=== PATIENT | male | born 1945 | race Caucasian/White ===

== ENCOUNTER 2017-04-22 16:29 | Inpatient (IN) | payer MEDICARE, OTHER, SELFPAY ==
[2017-04-22] VITALS (13 sets, daily range): BP systolic 86–130; BP diastolic 51–95; PULSE 79–168; RESP 14–30; TEMP 36.6–37.8; O2SAT 87–100; BMI 29.0; BMI 26.2
--- NOTE | 2017-04-22 17:01 | RAD_ITS ---
STUDY: X-RAY CHEST REASON FOR EXAM: Male, 71 years old. Cough, illness. TECHNIQUE: AP and lateral views of the chest. COMPARISON: Portable AP erect chest x-ray December 12, 2012. FINDINGS: The lungs are incompletely expanded. Patchy densities consistent with inflammation/infection noted in the left perihilar region and left base on the frontal view, likely in the left upper lobe and lingula. There is no demonstrated pleural abnormality. Normal size heart. Normal mediastinum and karthik. Normal visualized pulmonary arteries. There is stable mild atherosclerotic calcification of the aortic arch. There are stable mild degenerative changes of the visualized thoracic spine. There is a stable 10 degree dextroscoliosis centered at T7. Normal visualized ribs, clavicles, and shoulders. There is no demonstrated abnormality of the visualized soft tissue structures of the upper abdomen. RAD/Chest PA and Lateral IMPRESSION: Patchy left perihilar and left base infiltrates. Electronically Signed: Ezio Vinson MD at 18:36 EST , Service support ,
[2017-04-22] MEDS: Ipratropium/Albuterol Sulfate 3 ML AMPUL.NEB INHALATION ×2 (17:28→23:35)
[2017-04-22 17:47] LABS: Absolute Lymphocyte Count 0.38 X10^3/ul (0.83-4.51); Absolute Neutrophil Count 4.5 X10^3/uL (2.0-7.7); Basophil# 0.02 X10^3/uL; Basophil% 0.3 % (0-1); Hematocrit 39.7 % (40-54); Hemoglobin 13.5 g/dl (13.0-16.5); Lymphocyte # 0.38 X10^3/ul (4.0); Lymphocyte % 6.3 % (19-41); Mean Corpuscular Hgb 27.4 pg (27.0-32.0); Mean Corpuscular Volume 80.7 fL (80-94); Mean Platelet Vol. 11.1 fl (6.2-12.0); Monocyte# 1.09 X10^3/uL; Neutrophil % 74.6 % (47-70); Platelet Count 88 K/mm3 (150-450); RBC Distribution Width CV 14.9 % (11.6-14.6); Red Blood Count 4.92 M/mm3 (4.6-6.2)
[2017-04-22 17:48] LABS: Anion Gap 8 (5-15); BUN 46 mg/dL (7-18); BUN/Creat Ratio 26.4 RATIO (10-20); Calcium,Total 8.1 mg/dL (8.5-10.1); Chloride 99 mmol/L (98-107); Creatinine, Serum 1.74 mg/dL (0.70-1.30); EST Glomerular Filtration Rate 41 mL/min (>60); Est Glom Filt Rate - Afr Amer 50 mL/min (>60); Glucose 112 mg/dL (70-110); Potassium 3.5 mmol/L (3.5-5.1); Sodium Level 135 mmol/L (136-145)
[2017-04-22 17:51] LABS: POSITIVE COUNT NO; POSITIVE DIFFERENTIAL YES; POSITIVE MORPHOLOGY YES
[2017-04-22 17:52] LABS: Differential Indicated SCAN CRITERIA MET
[2017-04-22 17:53] LABS: Lactic Acid 1.7 mmol/L (0.4-2.0)
[2017-04-22 18:11] LABS: Differential Comment SCANNED
[2017-04-22] MEDS: Acetaminophen 500 MG Tablet 1000 MG PO (18:12)
[2017-04-22] MEDS: 0.9% Normal Saline 1,000 ML 999 ML IV ×2 (18:13→18:29)
--- NOTE | 2017-04-22 18:15 | ED.RN ---
HR UP TO 170-200. DR. TANG AWARE. CALLED FOR EKG. PT DENIES CHEST PAIN BUT FEELS LIGHTHEADED.
--- NOTE | 2017-04-22 18:18 | EKG12_ITS ---
Test Reason : CP Blood Pressure : / mmHG Vent. Rate : 173 BPM Atrial Rate : 197 BPM P-R Int : 000 ms QRS Dur : 088 ms QT Int : 250 ms P-R-T Axes : 000 022 046 degrees QTc Int : 424 ms Atrial fibrillation Nonspecific ST abnormality Abnormal ECG Confirmed by EDMUNDO BLAKE, FREDDIE ([id number]), photo editor SREE FLEMING ([id number] on 04/26/2017 3:13:51 PM Referred By: TONIA Confirmed By:FREDDIE WYATT MD
[2017-04-22] MEDS: dilTIAZem 25 MG/5 ML Vial 20 MG IV BOLUS (18:22)
--- NOTE | 2017-04-22 18:45 | ED.RN ---
CALLED [facility], THEY SAID THEY WILL CALL BACK.
[2017-04-22] MEDS: Ceftriaxone 1 GM/50 ML BAG IV (18:50)
[2017-04-22] MEDS: Oseltamivir Phosphate 75 MG Capsule PO (18:51)
--- NOTE | 2017-04-22 19:10 | ED.RN ---
[facility] CALLED BACK TO STAY PT IS OKAY TO STAY HERE UNDER HIS MEDICARE.
[2017-04-22] MEDS: APIXABAN 5 MG TABLET PO (19:15)
[2017-04-22] MEDS: Metoprolol Tartrate 50 MG Tablet PO (19:16)
[2017-04-22] MEDS: MethylPREDNISolone 125 MG/2 ML Vial IV (19:36)
[2017-04-22] MEDS: Albuterol 2.5 MG/3 ML VIAL.NEB. INHALATION (19:36)
--- NOTE | 2017-04-22 20:49 | ED.VISSUMM ---
- ER Visit Summary Date of Service: 04/22/17 Chief Complaint: Cough History of Present Illness: The patient is a 71 M who goes to the [facility]. He reports he has a cough that began 5 days ago. He has had a fever to 103?. He is also complaining of chills and cold sweats. States his cough is productive of cream-colored sputum without blood. He has moderate shortness of breath at rest and severe when he is walking around or coughing. He has been wheezing. States that he has not needed an inhaler for approximately 3 years. He does not smoke. Patient points of diffuse myalgias and generalized weakness. He has a headache that is bothersome. He did not get a flu shot this year. Physical Examination: Vitals: Stable. Afebrile. General: Well-nourished and well-developed. Head: Normocephalic atraumatic. Neck: Supple, no lymphadenopathy. No JVD. Nontender. Cardiovascular: Tachycardic regular rhythm. No murmurs. Respiratory: No respiratory distress. Mild wheezing bilaterally with good air movement. Abdominal: Soft, nontender, nondistended, normal bowel sounds. No guarding, rebound, or peritoneal signs. Back: Nontender. Extremities: Nontender, no edema. Skin: Normal color, no rash. Neurologic: Alert and oriented ?3. Cranial nerves II through XII are intact. Normal strength and sensation. Psych: Normal affect. Test Results: EKG is A. fib at 173. No ischemic changes. Chest x-ray shows patchy left perihilar and left basilar infiltrates. CBC is marked for hematocrit of 39.7, platelets of 88, segment neutrophils 75, lymphocytes of 6, monocytes of 18. Chem-7 is marked for sodium 135, calcium 8.1, glucose 112, BUN of 46, creatinine 1.74. Lactic acid is 1.7. He is positive for influenza B. Emergency Department Course and Treatment: Patient was in sinus rhythm in a rate in the 1 teens upon arrival. He went into atrial fibrillation with RVR here. His rate was between 170 and 200. He had not taken his evening dose of Lopressor and he was given 50 mg p.o. He was given 10 mg of Cardizem IV. He received 2 L of normal saline. He was also given his evening dose of Eliquis p.o. His shortness of breath became much more severe during this and I discussed him the possibility of cardioversion. He refused this. The patient was placed on BiPAP and given another albuterol aerosol. He was given a dose of amiodarone IV. Is given Rocephin and Zithromax IV. He was given Tamiflu p.o. His heart rate gradually decreased down into the 1 teens and he has now converted back to sinus rhythm. His breathing is much improved and he is resting comfortably. Treatment Plan: The patient was discussed with the [facility] and they do not have beds. He was then discussed with Dr. Hill and will be admitted to the hospital for further evaluation and treatment. Disposition: Admitted in serious condition. Impression: 1. Pneumonia, community-acquired. 2. Influenza B. 3. Immunosuppression from Enbrel. 4. Atrial fibrillation with RVR. 5. Coagulopathy due to Eliquis. 6. Acute kidney injury. 7. Respiratory failure on BiPAP. 8. Critical care time 45 minutes. This note was generated with [employer] dictation software. It may contain incorrect words, spelling, and punctuation that were not noted in review of the chart prior to signing ED Disposition - Plan for ED Patient: Chief Complaint: General Illness Referrals: [facility] [Primary Care Provider] -
--- NOTE | 2017-04-22 21:57 | PCM.HP.STD ---
Problem List (1) Rheumatoid arthritis Status: Chronic Qualifiers: Rheumatoid arthritis location: unspecified site Rheumatoid factor presence: unspecified presence Qualified Code(s): M06.9 - Rheumatoid arthritis, unspecified (2) GERD (gastroesophageal reflux disease) Status: Chronic Qualifiers: Esophagitis presence: esophagitis presence not specified Qualified Code(s): K21.9 - Gastro-esophageal reflux disease without esophagitis (3) PAF (paroxysmal atrial fibrillation) Status: Chronic (4) HTN (hypertension) Status: Chronic Qualifiers: Hypertension type: essential hypertension Qualified Code(s): I10 - Essential (primary) hypertension (5) Former tobacco use Status: Chronic (6) Suspected chronic obstructive pulmonary disease based on initial evaluation Status: Chronic (7) Influenza B Status: Acute (8) Pneumonia Status: Acute Qualifiers: Pneumonia type: due to unspecified organism Laterality: left Lung location: unspecified part of lung Qualified Code(s): J18.9 - Pneumonia, unspecified organism (9) COPD exacerbation Status: Acute (10) Acute respiratory failure with hypoxia Status: Acute (11) Atrial fibrillation with RVR Status: Acute (12) Acute kidney injury Status: Acute History of Present Illness Date of Admission: 04/22/17 Chief Complaint: Dyspnea, cough, congestion, rhinorrhea, diarrhea. The patient is a 71 y/o M w/ PMHx: PAF s/p cardiac ablation several years prior, HTN, Former Heavy Tobacco use, Suspected Chronic COPD, GERD, Rheumatoid Arthritis who presents to the [facility] ED on 04/22/17 w/ history of onset cough, congestion, rhinorrhea, dyspnea worsened w/ exertion, arthralgia, myalgia in addition to diarrhea and poor oral intake starting ~ 5 days prior, not improving with worsened dyspnea complaint and onset wheezing prompting ED presentation. He notes not having the influenza vaccination this year. In the ED work-up included, T 99, HR initially tachycardic 110-120s sinus rhythm; however, HR increased 170-200 with EKG repeat atrial fibrillation with RVR, following administration BB, Cardizem IV bolus and eventual Amiodarone bolus converted to SR with rate 80s, RR 30s initially-->20 with BIPAP, 87% on RA-->98% on BIPAP, CBC w/ WBC 6, Hgb 13.5, Plts 88 without marked L shift, BMP w/ Na 135, BUN/Cr 46/1.74, glucose 112, LA 1.7, CXR w/ patch L perihilar and left base infiltrates, influenza panel + B, pending Bld Cx x 2. In the ED patient administered NS 2L, Tamiflu 75 mg, lopressor 50 mg po x 1 (home dose), solumedrol 125 mg IV, cardizem 20 mg IV bolus, rocephin, azithromycin, amiodarone 150 mg bolus x 1, duoneb, albuterol, tylenol. Past Medical History Past Medical History (Chronic Problems): Chronic Problems History of atrial fibrillation (Chronic) History of gastroesophageal reflux (GERD) (Chronic) History of rheumatoid arthritis (Chronic) Rheumatoid arthritis (Chronic) GERD (gastroesophageal reflux disease) (Chronic) PAF (paroxysmal atrial fibrillation) (Chronic) HTN (hypertension) (Chronic) Former tobacco use (Chronic) Suspected chronic obstructive pulmonary disease based on initial evaluation (Chronic) Allergies methotrexate Allergy (Verified 04/22/17 16:33) Other doxycycline Adverse Reaction (Verified 04/22/17 16:33) Nausea/Vom/Diarrhea Home Medications: Ambulatory Orders Medication Instructions Recorded Ca/D3/Mag Ox/Zinc/Portfolio Manager/Vin/Bor 1 each PO DAILY 11/27/15 [Calcium +D & Minerals Chew Tab] Etanercept [Enbrel] 50 mg SQ Q7D 11/27/15 Leflunomide [Arava] 20 mg PO DAILY 11/27/15 Omeprazole [Prilosec] 20 mg PO DAILY 11/27/15 Apixaban [Eliquis] 5 mg PO BID 04/22/17 Hydrochlorothiazide [Hctz] 25 mg PO DAILY 04/22/17 Losartan Potassium [Cozaar] 50 mg PO DAILY 04/22/17 Metoprolol Tartrate [Lopressor 50 mg PO BID 04/22/17 (Beta Suzanne)] Ruxolitinib Phosphate [Jakafi] 20 mg PO BID 04/22/17 Surgical History: cholecystectomy, - - Back surgery, cardiac ablation. Psychiatric History: No pertinent psych hx Lives: Spouse/ Significant Other, With Family Smoking Status: Former smoker - Quit 2009, prior 1-2 ppd mcc. Tobacco Use: Non-smoker Alcohol: None Drugs: None - *Family History Paternal History Items: Heart Disease Maternal History Items: - - Mother young, unclear etiology. Review of Systems Constitutional: Reports: Anorexia, Chills, Fever, Malaise, Weakness, Fatigue. Denies: Weight Change HEENT: Denies: Head Aches, Sinus Congestion, Sinus Drainage Cardiovascular: Denies: Chest Pain, Palpitations Respiratory: Reports: Cough, Shortness of Breath, Shortness of breath at rest, Shortness of breath upon exertion, Sputum production, Wheezing Gastrointestinal: Reports: Diarrhea, Nausea. Denies: Abdominal Pain, Vomiting Genitourinary: Denies: Dysuria Musculoskeletal: Denies: Joint Pain, Joint Tenderness Skin: Denies: Rash, Wounds Neurological: Denies: Numbness, Tingling, Focal weakness Psychiatric: Denies: Anxiety, Depression, Homicidal Ideations, Suicidal Ideations Hematologic/ Lymphatic: Denies: Easy Bruising, Easy Bleeding VTE Information - Inpt Only VTE Present on Admission: No VTE Mechan Device Prophylaxis: SCD's VTE Pharm Prophylaxis ordered?: No Patient Problems: Active and Suspected Problems Influenza B (Acute) Pneumonia (Acute) COPD exacerbation (Acute) Acute respiratory failure with hypoxia (Acute) Atrial fibrillation with RVR (Acute) Acute kidney injury (Acute) Subjective: Seated upright in the ED bed, BIPAP in place, improved from initial presentation, still increased RR, some accessory muscle usage. Objective: Physical Examination: General: awake, alert, oriented x 3 and cooperative, seated upright in the ED bed, fatigued, ill appearing, BIPAP in place, still some accessory muscle usage, increased RR. Skin: Flushed color, turgor, no icterus, cyanosis. HEENT: AT/NC, EOMI, PERRLA, dry MM, no carotid bruits or JVD noted, BIPAP in place. Lungs: Severely diminished BL bases, coarse BS L mid to base, end expiratory wheezing, increased RR, accessory muscle usage, BIPAP in place. Heart: Currently improved, now converted, regular rate and rhythm; no gallop, rub audible. Abdomen: soft, overweight, NTTP, ND, normal BS, no HSM. Extremities: no cyanosis, clubbing, or edema. Neurological: patient awake, alert, oriented x 3; cognitive function intact; pupils equally reactive to light and accomodation; cranial nerves II-XII grossly normal, moving all 4 extremities, no focal deficits, strength severely globally decreased secondary to acute presentation. Psychiatric: affect appears flat, fatigued, no acute evidence of depressive or anxiety feelings. - Physical Exam Vital Signs Temp Pulse Resp BP Pulse Ox 99 F 86 23 H 102/66 97 04/22/17 21:29 04/22/17 21:35 04/22/17 21:35 04/22/17 21:35 04/22/17 21:35 Oxygen Flow Rate 2 Oxygen Delivery Method Bi-pap Weight: 197 lb Body Mass Index (BMI) 29.0 Microbiology Past 72 Hours 04/22/17 17:30 Influenza Types A,B Direct FA (SASCHA) - Final Mucosa - Nose Influenzae B Laboratory Tests Past 24 Hrs 04/22/17 04/22/17 04/22/17 17:15 17:17 17:17 WBC 6.0 RBC 4.92 Hgb 13.5 Hct 39.7 L MCV 80.7 MCH 27.4 MCHC 34.0 RDW 14.9 H RDW Differential 43.0 Plt Count 88 L MPV 11.1 Immature Gran % (Auto) 0.800 Neut % (Auto) 74.6 H Lymph % (Auto) 6.3 L Spencer % (Auto) 18.0 H Eos % (Auto) 0.0 Baso % (Auto) 0.3 Absolute Neuts (auto) 4.5 Absolute Lymphs (auto) 0.38 L Total Counted Not Reportable Differential Comment SCANNED Sodium 135 L Potassium 3.5 Chloride 99 Carbon Dioxide 28.0 Anion Gap 8 BUN 46 H Creatinine 1.74 H Estim Creat Clear Calc 39.50 Est GFR (MDRD) Af Amer 50 L Est GFR (MDRD) Non-Af 41 L BUN/Creatinine Ratio 26.4 H Glucose 112 H Lactic Acid 1.7 Calcium 8.1 L Assessment/Plan Active and Suspected Problems Influenza B (Acute) Pneumonia (Acute) COPD exacerbation (Acute) Acute respiratory failure with hypoxia (Acute) Atrial fibrillation with RVR (Acute) Acute kidney injury (Acute) The patient is a 71 y/o M w/ PMHx: PAF s/p cardiac ablation several years prior, HTN, Former Heavy Tobacco use, Suspected Chronic COPD, GERD, Rheumatoid Arthritis who presents to the [facility] ED on 04/22/17 w/ history of onset cough, congestion, rhinorrhea, dyspnea worsened w/ exertion, arthralgia, myalgia in addition to diarrhea and poor oral intake starting ~ 5 days prior, not improving with worsened dyspnea complaint and onset wheezing prompting ED presentation. (1) Acute Hypoxic Respiratory Failure secondary to Acute Influenza B Viral Syndrome and post-viral Syndrome CAP and Acute on Suspected Chronic COPD Exacerbation: Will admit to the ICU, maintain on BIPAP w/ transition to oxygen with wean as tolerated to room air, continue ATC duonebs, PRN albuterol, maintain on IV solumedrol, maintain on IV Zosyn and Vancomycin given severity of appearance w/ ICU admission and underlying history of RA on immunosuppressive therapy pending ICU physician evaluation and possible de-escalation at that time, obtain MRSA screen, HOB, IS parameters w/ pending sputum cultures and urine antigens. Bld cx x 2 obtained in the ED. Given severity of appearing, will maintain on tamiflu regimen. (2) Paroxsymal atrial fibrillation w/ RVR: Will maintain on telemetry, obtain cardiac enzyme serial set, obtain magnesium level, obtain ECHO, obtain TSH level, continue amiodarone given current presentation likelihood elevated for return to PAF w/ RVR, maintain on home oral anticoagulation, consultation with Cardiology. (3) Acute kidney injury: Secondary to #1, GI losses w/ influenza B. Admission BUN/Cr 46/1.74, prior baseline creatinine noted to be 1.2-1.3. Will hydrate, hold nephrotoxic medications and repeat chemistry in AM. If no improvement would plan FeNa and renal US assessment. (4) Former Heavy Tobacco Abuse: Encouraged continued cessation. (5) Hypertension: Hold regimen given presentation, PRN hydralazine. (6) Rheumatoid Arthritis: Will hold regimen given current presentation, restart once clinically improving. (7) GERD: Famotidine. (8) DVT Prophylaxis: SCDs, eliquis. (9) CODE status: Discussed CODE status at length including difference between FULL code, DNR-CCA and DNR-CC status given acute presentation and BIPAP needs currently. Patient did clinically improve, but was potential need for intubation initially. He and his spouse confirm FULL CODE status following these discussions. Advanced Care Planning Face to Face Time: 16 minutes. Code Visit Inpatient E&M: 31727 Init Hosp L3 Procedures: 77066 Advncd Care Plan 30 Min
--- NOTE | 2017-04-22 22:07 | HP.PCM_ITS ---
Problem List (1) Rheumatoid arthritis Status: Chronic Qualifiers: Rheumatoid arthritis location: unspecified site Rheumatoid factor presence : unspecified presence Qualified Code(s): M06.9 - Rheumatoid arthritis, unspecified (2) GERD (gastroesophageal reflux disease) Status: Chronic Qualifiers: Esophagitis presence: esophagitis presence not specified Qualified Code(s) : K21.9 - Gastro-esophageal reflux disease without esophagitis (3) PAF (paroxysmal atrial fibrillation) Status: Chronic (4) HTN (hypertension) Status: Chronic Qualifiers: Hypertension type: essential hypertension Qualified Code(s): I10 - Essential (primary) hypertension (5) Former tobacco use Status: Chronic (6) Suspected chronic obstructive pulmonary disease based on initial evaluation Status: Chronic (7) Influenza B Status: Acute (8) Pneumonia Status: Acute Qualifiers: Pneumonia type: due to unspecified organism Laterality: left Lung location: unspecified part of lung Qualified Code(s): J18.9 - Pneumonia, unspecified organism (9) COPD exacerbation Status: Acute (10) Acute respiratory failure with hypoxia Status: Acute (11) Atrial fibrillation with RVR Status: Acute (12) Acute kidney injury Status: Acute History of Present Illness Date of Admission: 04/22/17 Chief Complaint: Dyspnea, cough, congestion, rhinorrhea, diarrhea. The patient is a 71 y/o M w/ PMHx: PAF s/p cardiac ablation several years prior , HTN, Former Heavy Tobacco use, Suspected Chronic COPD, GERD, Rheumatoid Arthritis who presents to the [facility] ED on 04/22/17 w/ history of onset cough, congestion, rhinorrhea, dyspnea worsened w/ exertion, arthralgia, myalgia in addition to diarrhea and poor oral intake starting ~ 5 days prior, not improving with worsened dyspnea complaint and onset wheezing prompting ED presentation. He notes not having the influenza vaccination this year. In the ED work-up included, T 99, HR initially tachycardic 110-120s sinus rhythm; however, HR increased 170-200 with EKG repeat atrial fibrillation with RVR, following administration BB, Cardizem IV bolus and eventual Amiodarone bolus converted to SR with rate 80s, RR 30s initially-->20 with BIPAP, 87% on RA-->98 % on BIPAP, CBC w/ WBC 6, Hgb 13.5, Plts 88 without marked L shift, BMP w/ Na 135, BUN/Cr 46/1.74, glucose 112, LA 1.7, CXR w/ patch L perihilar and left base infiltrates, influenza panel + B, pending Bld Cx x 2. In the ED patient administered NS 2L, Tamiflu 75 mg, lopressor 50 mg po x 1 (home dose), solumedrol 125 mg IV, cardizem 20 mg IV bolus, rocephin, azithromycin, amiodarone 150 mg bolus x 1, duoneb, albuterol, tylenol. Past Medical History Past Medical History (Chronic Problems): Chronic Problems History of atrial fibrillation (Chronic) History of gastroesophageal reflux (GERD) (Chronic) History of rheumatoid arthritis (Chronic) Rheumatoid arthritis (Chronic) GERD (gastroesophageal reflux disease) (Chronic) PAF (paroxysmal atrial fibrillation) (Chronic) HTN (hypertension) (Chronic) Former tobacco use (Chronic) Suspected chronic obstructive pulmonary disease based on initial evaluation ( Chronic) Allergies methotrexate Allergy (Verified 04/22/17 16:33) Other doxycycline Adverse Reaction (Verified 04/22/17 16:33) Nausea/Vom/Diarrhea Home Medications: Ambulatory Orders Medication Instructions Recorded Ca/D3/Mag Ox/Zinc/Environmental Services Specialist/Vin/Bor 1 each PO DAILY 11/27/15 [Calcium +D & Minerals Chew Tab] Etanercept [Enbrel] 50 mg SQ Q7D 11/27/15 Leflunomide [Arava] 20 mg PO DAILY 11/27/15 Omeprazole [Prilosec] 20 mg PO DAILY 11/27/15 Apixaban [Eliquis] 5 mg PO BID 04/22/17 Hydrochlorothiazide [Hctz] 25 mg PO DAILY 04/22/17 Losartan Potassium [Cozaar] 50 mg PO DAILY 04/22/17 Metoprolol Tartrate [Lopressor 50 mg PO BID 04/22/17 (Beta Suzanne)] Ruxolitinib Phosphate [Jakafi] 20 mg PO BID 04/22/17 Surgical History: cholecystectomy, - - Back surgery, cardiac ablation. Psychiatric History: No pertinent psych hx Lives: Spouse/ Significant Other, With Family Smoking Status: Former smoker - Quit 2009, prior 1-2 ppd mcfp. Tobacco Use: Non-smoker Alcohol: None Drugs: None - *Family History Paternal History Items: Heart Disease Maternal History Items: - - Mother young, unclear etiology. Review of Systems Constitutional: Reports: Anorexia, Chills, Fever, Malaise, Weakness, Fatigue. Denies: Weight Change HEENT: Denies: Head Aches, Sinus Congestion, Sinus Drainage Cardiovascular: Denies: Chest Pain, Palpitations Respiratory: Reports: Cough, Shortness of Breath, Shortness of breath at rest, Shortness of breath upon exertion, Sputum production, Wheezing Gastrointestinal: Reports: Diarrhea, Nausea. Denies: Abdominal Pain, Vomiting Genitourinary: Denies: Dysuria Musculoskeletal: Denies: Joint Pain, Joint Tenderness Skin: Denies: Rash, Wounds Neurological: Denies: Numbness, Tingling, Focal weakness Psychiatric: Denies: Anxiety, Depression, Homicidal Ideations, Suicidal Ideations Hematologic/ Lymphatic: Denies: Easy Bruising, Easy Bleeding VTE Information - Inpt Only VTE Present on Admission: No VTE Mechan Device Prophylaxis: SCD's VTE Pharm Prophylaxis ordered?: No Patient Problems: Active and Suspected Problems Influenza B (Acute) Pneumonia (Acute) COPD exacerbation (Acute) Acute respiratory failure with hypoxia (Acute) Atrial fibrillation with RVR (Acute) Acute kidney injury (Acute) Subjective: Seated upright in the ED bed, BIPAP in place, improved from initial presentation , still increased RR, some accessory muscle usage. Objective: Physical Examination: General: awake, alert, oriented x 3 and cooperative, seated upright in the ED bed, fatigued, ill appearing, BIPAP in place, still some accessory muscle usage , increased RR. Skin: Flushed color, turgor, no icterus, cyanosis. HEENT: AT/NC, EOMI, PERRLA, dry MM, no carotid bruits or JVD noted, BIPAP in place. Lungs: Severely diminished BL bases, coarse BS L mid to base, end expiratory wheezing, increased RR, accessory muscle usage, BIPAP in place. Heart: Currently improved, now converted, regular rate and rhythm; no gallop, rub audible. Abdomen: soft, overweight, NTTP, ND, normal BS, no HSM. Extremities: no cyanosis, clubbing, or edema. Neurological: patient awake, alert, oriented x 3; cognitive function intact; pupils equally reactive to light and accomodation; cranial nerves II-XII grossly normal, moving all 4 extremities, no focal deficits, strength severely globally decreased secondary to acute presentation. Psychiatric: affect appears flat, fatigued, no acute evidence of depressive or anxiety feelings. - Physical Exam Vital Signs Temp Pulse Resp BP Pulse Ox 99 F 86 23 H 102/66 97 04/22/17 21:29 04/22/17 21:35 04/22/17 21:35 04/22/17 21:35 04/22/17 21:35 Oxygen Flow Rate 2 Oxygen Delivery Method Bi-pap Weight: 197 lb Body Mass Index (BMI) 29.0 Microbiology Past 72 Hours 04/22/17 17:30 Influenza Types A,B Direct FA (SASCHA) - Final Mucosa - Nose Influenzae B Laboratory Tests Past 24 Hrs 04/22/17 04/22/17 04/22/17 17:15 17:17 17:17 WBC 6.0 RBC 4.92 Hgb 13.5 Hct 39.7 L MCV 80.7 MCH 27.4 MCHC 34.0 RDW 14.9 H RDW Differential 43.0 Plt Count 88 L MPV 11.1 Immature Gran % (Auto) 0.800 Neut % (Auto) 74.6 H Lymph % (Auto) 6.3 L [place] % (Auto) 18.0 H Eos % (Auto) 0.0 Baso % (Auto) 0.3 Absolute Neuts (auto) 4.5 Absolute Lymphs (auto) 0.38 L Total Counted Not Reportable Differential Comment SCANNED Sodium 135 L Potassium 3.5 Chloride 99 Carbon Dioxide 28.0 Anion Gap 8 BUN 46 H Creatinine 1.74 H Estim Creat Clear Calc 39.50 Est GFR (MDRD) Af Amer 50 L Est GFR (MDRD) Non-Af 41 L BUN/Creatinine Ratio 26.4 H Glucose 112 H Lactic Acid 1.7 Calcium 8.1 L Assessment/Plan Active and Suspected Problems Influenza B (Acute) Pneumonia (Acute) COPD exacerbation (Acute) Acute respiratory failure with hypoxia (Acute) Atrial fibrillation with RVR (Acute) Acute kidney injury (Acute) The patient is a 71 y/o M w/ PMHx: PAF s/p cardiac ablation several years prior , HTN, Former Heavy Tobacco use, Suspected Chronic COPD, GERD, Rheumatoid Arthritis who presents to the [facility] ED on 04/22/17 w/ history of onset cough, congestion, rhinorrhea, dyspnea worsened w/ exertion, arthralgia, myalgia in addition to diarrhea and poor oral intake starting ~ 5 days prior, not improving with worsened dyspnea complaint and onset wheezing prompting ED presentation. (1) Acute Hypoxic Respiratory Failure secondary to Acute Influenza B Viral Syndrome and post-viral Syndrome CAP and Acute on Suspected Chronic COPD Exacerbation: Will admit to the ICU, maintain on BIPAP w/ transition to oxygen with wean as tolerated to room air, continue ATC duonebs, PRN albuterol, maintain on IV solumedrol, maintain on IV Zosyn and Vancomycin given severity of appearance w/ ICU admission and underlying history of RA on immunosuppressive therapy pending ICU physician evaluation and possible de- escalation at that time, obtain MRSA screen, HOB, IS parameters w/ pending sputum cultures and urine antigens. Bld cx x 2 obtained in the ED. Given severity of appearing, will maintain on tamiflu regimen. (2) Paroxsymal atrial fibrillation w/ RVR: Will maintain on telemetry, obtain cardiac enzyme serial set, obtain magnesium level, obtain ECHO, obtain TSH level , continue amiodarone given current presentation likelihood elevated for return to PAF w/ RVR, maintain on home oral anticoagulation, consultation with Cardiology. (3) Acute kidney injury: Secondary to #1, GI losses w/ influenza B. Admission BUN/Cr 46/1.74, prior baseline creatinine noted to be 1.2-1.3. Will hydrate, hold nephrotoxic medications and repeat chemistry in AM. If no improvement would plan FeNa and renal US assessment. (4) Former Heavy Tobacco Abuse: Encouraged continued cessation. (5) Hypertension: Hold regimen given presentation, PRN hydralazine. (6) Rheumatoid Arthritis: Will hold regimen given current presentation, restart once clinically improving. (7) GERD: Famotidine. (8) DVT Prophylaxis: SCDs, eliquis. (9) CODE status: Discussed CODE status at length including difference between FULL code, DNR-CCA and DNR-CC status given acute presentation and BIPAP needs currently. Patient did clinically improve, but was potential need for intubation initially. He and his spouse confirm FULL CODE status following these discussions. Advanced Care Planning Face to Face Time: 16 minutes. Code Visit Inpatient E&M: 79096 Init Hosp L3 Procedures: 33455 Advncd Care Plan 30 Min
--- NOTE | 2017-04-22 23:00 | ECHOD_ITS ---
Reason For Study: Afib, Aflutter Procedure This was a 2D Doppler, Color Flow transthoracic echocardiogram. The exam was of fair technical quality due to diminished acoustic windows. The study was technically difficult. Exam performed portable in ICU/CCU. Left Ventricle Normal LV size. Left ventricular systolic function is normal. The estimated ejection fraction is 60 %. No regional wall motion abnormalities noted. Right Ventricle Normal RV size. Normal systolic function. Atria The left atrium is mildly enlarged. Normal right atrium. No doppler evidence for ASD. Mitral Valve There is mild mitral annular calcification. Mild diffuse mitral valve thickening. Trivial mitral valve insufficiency. Tricuspid Valve Normal tricuspid valve. Trivial tricuspid valve insufficiency. Right ventricular systolic pressure estimated to be 16 mmHg. Aortic Valve Trisinus/trileaflet aortic valve. Mild diffuse aortic valve calcification. Mild aortic stenosis. Mild (1+) aortic valve insufficiency. Pulmonic Valve The pulmonic valve is not well visualized. Trivial pulmonic valve insufficiency. Great Vessels Normal sized aortic root. Pericardium/Pleural No pericardial effusion. MMode/2D Measurements & Calculations LVIDd: 4.5 cm IVSd: 1.2 cm LVOT diam: 2.1 cm LVIDs: 2.9 cm LVPWd: 1.1 cm LVOT area: 3.4 cm2 RVDd: 3.7 cm FS: 35.1 % Ao root diam: 3.0 cm LAV(MOD-bp): 39.1 ml LA A4 area: 15.6 cm2 LA dimension: 3.9 cm LAV(MOD-bp) Indexed: 19.4 ml/m2 LAV(MOD-sp2): 37.7 ml LAV(MOD-sp4): 38.1 ml RA A4 area: 10.4 cm2 Doppler Measurements & Calculations MV E max pedro: 115.9 cm/sec Lat Peak E' Pedro: 11.9 cm/sec Med Peak E' Pedro: 7.5 cm/sec MV A max pedro: 94.4 cm/sec E/E' lat: 9.7 E/E' med: 15.5 MV E/A: 1.2 Ao V2 max: 218.7 cm/sec LV V1 max: 115.5 cm/sec SV(LVOT): 79.3 ml Ao max P.1 mmHg LV V1 max P.3 mmHg Ao V2 mean: 150.6 cm/sec LV V1 mean P.0 mmHg Ao mean P.0 mmHg LV V1 mean: 82.2 cm/sec Ao V2 VTI: 44.0 cm LV V1 VTI: 23.1 cm JOHN(I,D): 1.8 cm2 JOHN(V,D): 1.8 cm2 PA V2 max: 103.0 cm/sec TR max pedro: 179.6 cm/sec TR max P.0 mmHg Interpretation Summary The study was technically difficult. Left ventricular systolic function is normal. The estimated ejection fraction is 60 %. The left atrium is mildly enlarged. There is mild mitral annular calcification. Mild diffuse mitral valve thickening. Trivial mitral valve insufficiency. Trivial tricuspid valve insufficiency. Mild diffuse aortic valve calcification. Mild (1+) aortic valve insufficiency. Trivial pulmonic valve insufficiency. Right ventricular systolic pressure estimated to be 16 mmHg. Transmitral diastolic flow velocities suggest diastolic dysfunction (pseudonormal pattern). Ordering Physician: Myra Hill Referring Physician: [facility] Performed By: Monique Mendoza, RON, RVT
[2017-04-22 23:35] LABS: Magnesium 2.1 mg/dL (1.6-2.6); Thyroid Stim Hormone (TSH) 0.31 uIU/mL (0.358-3.74)
--- NOTE | 2017-04-22 23:42 | CPS ---
decreased IPAP for pt comfort
[2017-04-22] MEDS: 0.9% Normal Saline 1,000 ML 125 ML IV (23:53)
[2017-04-23] VITALS (38 sets, daily range): BP systolic 100–163; BP diastolic 50–87; PULSE 67–95; RESP 14–32; TEMP 36.2–36.7; O2SAT 94–100
[2017-04-23 01:17] LABS: T4 Free Direct 1.18 ng/dL (0.76-1.46)
[2017-04-23 02:02] LABS: M R Staph aureus DNA By PCR Negative (Negative); Probe Check PASS; Specimen Processing Control PASS
[2017-04-23] MEDS: Ipratropium/Albuterol Sulfate 3 ML AMPUL.NEB INHALATION ×5 (03:45→23:10)
[2017-04-23] MEDS: 0.9% NaCl IVPB Med Flush (250 mL) 15 ML IV ×2 (04:50→04:52)
--- NOTE | 2017-04-23 04:57 | CON.PCM_ITS ---
Reason for Consult Date of Consultation: 04/23/17 Reason for Consultation: Respiratory failure History of Present Illness: The patient is a 71-year-old male, with a history as outlined below, who presented to the emergency department on April 22 with generalized malaise, fever, myalgias, productive cough and progressive dyspnea. The patient does have an extensive smoking history of upwards of 2 packs per day, having quit completely approximately 8 years ago. He has suspected COPD, although there are no PFTs to refute or confirm this assertion. Patient does report that he follows with [place] [facility] [place]. He does not reportedly utilize any inhalers in his home environment, nor is he oxygen dependent at his baseline. The patient does have a confirmed history of lower extremity DVT, noted on Doppler studies from November 2015. Surface echocardiogram last completed in December 2012 revealed evidence of moderate concentric LVH with an ejection fraction of 60%. Right ventricular systolic pressure was estimated to be 24 mmHg. The patient did report the presence of diarrhea prior to his presentation to the hospital. He is now been without diarrheal complaints ?2 days. On presentation to the emergency department, the patient was noted to be febrile with a temperature of 100.1 degrees Fahrenheit. He was tachycardic, but remained hemodynamically stable. The patient was documented to initially be saturating 87% on room air. Initial laboratory evaluation revealed a normal white blood cell count. Chemistry profile was notable for an elevated creatinine 1.74. TSH was low at 0.31 with a normal free T4 level noted. There was a mild troponin elevation which peaked at 0.11. MRSA screen was negative. Plain film chest x-ray revealed evidence of a left basilar infiltrate. While in the emergency department, the patient was noted to be in atrial fibrillation with a rapid ventricular rate. The patient was given IV Cardizem along with 2 L of normal saline. Although his rates climbed as high as the 170s/180s, and discussion was had regarding cardioversion, the patient refused to proceed. The patient was subsequently started on amiodarone and broad-spectrum antibiotics. Given the tenuous nature of his respiratory status, BiPAP was initiated. The patient was then transferred to the medical intensive care unit for ongoing management. Of note, the patient's respiratory viral panel was positive for influenza B. No significant overnight issues were identified by the nursing staff. The patient has been maintained on BiPAP 14/8 cm of water with an FiO2 of 35%. Strep and urine Legionella antigens were found to both be negative. Past Medical History Past Medical History (Chronic Problems): Chronic Problems History of atrial fibrillation (Chronic) History of gastroesophageal reflux (GERD) (Chronic) History of rheumatoid arthritis (Chronic) Rheumatoid arthritis (Chronic) GERD (gastroesophageal reflux disease) (Chronic) PAF (paroxysmal atrial fibrillation) (Chronic) HTN (hypertension) (Chronic) Former tobacco use (Chronic) Suspected chronic obstructive pulmonary disease based on initial evaluation ( Chronic) Allergies methotrexate Allergy (Verified 04/22/17 16:33) Other doxycycline Adverse Reaction (Verified 04/22/17 16:33) Nausea/Vom/Diarrhea Home Medications: Ambulatory Orders Medication Instructions Recorded Ca/D3/Mag Ox/Zinc/Retail Product Advisor/Vin/Bor 1 each PO DAILY 11/27/15 [Calcium +D & Minerals Chew Tab] Etanercept [Enbrel] 50 mg SQ Q7D 11/27/15 Leflunomide [Arava] 20 mg PO DAILY 11/27/15 Omeprazole [Prilosec] 20 mg PO DAILY 11/27/15 Apixaban [Eliquis] 5 mg PO BID 04/22/17 Hydrochlorothiazide [Hctz] 25 mg PO DAILY 04/22/17 Losartan Potassium [Cozaar] 50 mg PO DAILY 04/22/17 Metoprolol Tartrate [Lopressor 50 mg PO BID 04/22/17 (Beta Suzanne)] Ruxolitinib Phosphate [Jakafi] 20 mg PO BID 04/22/17 Surgical History: cholecystectomy, - - Back surgery, cardiac ablation. Psychiatric History: No pertinent psych hx Lives: Spouse/ Significant Other, With Family Smoking Status: Former smoker Tobacco Use: Non-smoker Alcohol: None Drugs: None - *Family History Paternal History Items: Heart Disease Maternal History Items: - - Mother young, unclear etiology. Review of Systems Constitutional: Reports: Malaise, Fatigue Eyes: Denies: Blurred vision, Double vision HEENT: Denies: Head Aches, Sinus Congestion, Sinus Drainage Cardiovascular: Reports: Chest Tightness Respiratory: Reports: Cough, Shortness of Breath, Sputum production, Wheezing Gastrointestinal: Reports: Diarrhea. Denies: Abdominal Pain, Vomiting Genitourinary: Denies: Dysuria Musculoskeletal: Denies: Joint Pain, Joint Tenderness Skin: Denies: Rash, Wounds Neurological: Denies: Numbness, Tingling, Focal weakness Psychiatric: Denies: Anxiety, Depression, Homicidal Ideations, Suicidal Ideations Hematologic/ Lymphatic: Reports: Hx of blood clot Patient Problems: Active and Suspected Problems Influenza B (Acute) Pneumonia (Acute) COPD exacerbation (Acute) Acute respiratory failure with hypoxia (Acute) Atrial fibrillation with RVR (Acute) Acute kidney injury (Acute) Objective: The patient's most recent lab work, culture data and imaging studies have all been personally reviewed. Strep and urine Legionella antigens were both negative. Rapid influenza screen was positive for influenza B. Blood and sputum cultures are pending. The patient does have a confirmed history of lower extremity DVT, noted on Doppler studies from November 2015. Surface echocardiogram last completed in December 2012 revealed evidence of moderate concentric LVH with an ejection fraction of 60%. Right ventricular systolic pressure was estimated to be 24 mmHg. Plain film chest x-ray on admission revealed evidence of a left basilar infiltrate. - Physical Exam General: Alert, Cooperative, No apparent distress, - - Currently tolerating BiPAP. No significant air leak noted. HEENT: Atraumatic, PERRLA, Normocephalic Oral: No Gingival or Mucosal Lesions/ Ulcerations, Dry Mucosa Neck: Supple, No Nodes, Trachea Midline Lungs: No rhonchi, No wheeze, No rales, Diminished, - - No conversational dyspnea or accessory muscle use. Cardiovascular: Regular rate, Regular Rhythm, Normal S1, Normal S2, No murmurs, - - The patient is currently in normal sinus rhythm on telemetry. Abdomen: Bowel Sounds Present, Soft, Non Tender Extremities: No clubbing, No cyanosis, No edema, Cool Skin: No rashes, No breakdown Musculoskeletal: No Tenderness to Palpation of Joints or Extremities, No Muscle Wasting Lymphatic: No Cervical, Supraclavicular, or Inguinal Adenopathy Neurological: Neuro grossly intact Psych/Mental Status: Normal Affect, Appropriate Vital Signs Temp Pulse Resp BP Pulse Ox 97.9 F 75 18 100/61 100 04/23/17 00:00 04/23/17 04:00 04/23/17 04:00 04/23/17 03:00 04/23/17 04:00 Oxygen Delivery Method Bi-pap Weight: 187 lb 13.341 oz Body Mass Index (BMI) 26.2 Intake and Output for Last 24 Hours 04/21/17 04/22/17 04/23/17 23:59 23:59 23:59 Intake Total 0 / 0 Balance 0 / 0 Laboratory Tests Past 24 Hrs 04/22/17 04/23/17 04/23/17 22:50 00:00 00:00 Troponin I 0.11 H Free T4 1.18 MRSA (PCR) Negative 04/23/17 04:15 Troponin I Pending Free T4 MRSA (PCR) Labs (Last 48 Hours) 04/22/17 04/22/17 04/22/17 17:15 17:17 17:17 WBC 6.0 RBC 4.92 Hgb 13.5 Hct 39.7 L MCV 80.7 MCH 27.4 MCHC 34.0 RDW 14.9 H RDW Differential 43.0 Plt Count 88 L MPV 11.1 Immature Gran % (Auto) 0.800 Neut % (Auto) 74.6 H Lymph % (Auto) 6.3 L [place] % (Auto) 18.0 H Eos % (Auto) 0.0 Baso % (Auto) 0.3 Absolute Neuts (auto) 4.5 Absolute Lymphs (auto) 0.38 L Total Counted Not Reportable Differential Comment SCANNED Sodium 135 L Potassium 3.5 Chloride 99 Carbon Dioxide 28.0 Anion Gap 8 BUN 46 H Creatinine 1.74 H Estim Creat Clear Calc 39.50 Est GFR (MDRD) Af Amer 50 L Est GFR (MDRD) Non-Af 41 L BUN/Creatinine Ratio 26.4 H Glucose 112 H Lactic Acid 1.7 Calcium 8.1 L Magnesium Troponin I TSH Free T4 MRSA (PCR) 04/22/17 04/22/17 04/23/17 17:17 22:50 00:00 WBC RBC Hgb Hct MCV MCH MCHC RDW RDW Differential Plt Count MPV Immature Gran % (Auto) Neut % (Auto) Lymph % (Auto) [place] % (Auto) Eos % (Auto) Baso % (Auto) Absolute Neuts (auto) Absolute Lymphs (auto) Total Counted Differential Comment Sodium Potassium Chloride Carbon Dioxide Anion Gap BUN Creatinine Estim Creat Clear Calc Est GFR (MDRD) Af Amer Est GFR (MDRD) Non-Af BUN/Creatinine Ratio Glucose Lactic Acid Calcium Magnesium 2.1 Troponin I 0.11 H TSH 0.31 L Free T4 MRSA (PCR) Negative 04/23/17 04/23/17 00:00 04:15 WBC RBC Hgb Hct MCV MCH MCHC RDW RDW Differential Plt Count MPV Immature Gran % (Auto) Neut % (Auto) Lymph % (Auto) [place] % (Auto) Eos % (Auto) Baso % (Auto) Absolute Neuts (auto) Absolute Lymphs (auto) Total Counted Differential Comment Sodium Potassium Chloride Carbon Dioxide Anion Gap BUN Creatinine Estim Creat Clear Calc Est GFR (MDRD) Af Amer Est GFR (MDRD) Non-Af BUN/Creatinine Ratio Glucose Lactic Acid Calcium Magnesium Troponin I 0.08 H TSH Free T4 1.18 MRSA (PCR) Microbiology 04/23/17 03:45 Urine, Clean Catch Streptococcus pneumoniae Antigen (M - Final 04/23/17 03:45 Urine, Clean Catch Legionella Antigen - Final 04/22/17 17:30 Mucosa - Nose Influenza Types A,B Direct FA (SASCHA) - Final Influenzae B Clinical Impression(s) from Imaging Studies Chest X-Ray 04/22/17 17:01 IMPRESSION: Patchy left perihilar and left base infiltrates. Electronically Signed: Ezio Vinson MD at 18:36 EST , Service support , Assessment/Plan Active and Suspected Problems Influenza B (Acute) Pneumonia (Acute) COPD exacerbation (Acute) Acute respiratory failure with hypoxia (Acute) Atrial fibrillation with RVR (Acute) Acute kidney injury (Acute) RECOMMENDATIONS: 1. Wean from BiPAP therapy as tolerated. Goal to maintain oxygen saturations at or above 90%. 2. Obtain and send sputum for culture. 3. Discontinue vancomycin and Zosyn. De-escalate to ceftriaxone. Continue Tamiflu as ordered. 4. Discontinue continuous supplemental IV fluids. 5. Discontinue morphine, given underlying renal function. 6. Echocardiogram is pending. Cardiology was consulted, given the patient's paroxysmal atrial fibrillation and prior ablation history. 7. Okay to discontinue C. difficile orders, as the patient is no longer having any diarrhea. 8. Repeat CBC and CMP. 9. Continue appropriate ICU prophylaxis: Pepcid and Eliquis IMPRESSIONS: 1. Acute hypoxemic respiratory failure secondary to influenza B Continue current supportive measures with the use of noninvasive positive pressure ventilation, Tamiflu and antimicrobials, pending infectious workup. Wean from BiPAP as tolerated. Goal to maintain oxygen saturations at or above 90%. Obtain and send sputum for culture. Continue scheduled aerosol regimen along with steroids for now. 2. Suspected COPD of unknown severity/history of tobacco abuse, in remission Patient is currently being treated presumptively for a COPD exacerbation. He will be continued on scheduled aerosol treatments and IV steroids. Once he has been weaned from continuous BiPAP therapy, he can be transitioned over to prednisone by mouth. He reportedly follows with a speed reading teacher through the [facility] system in [place]. However, he does not recall the provider's name. 3. History of lower extremity DVT Continue Eliquis per outpatient regimen. 4. Paroxysmal atrial fibrillation Continue amiodarone. Cardiology consultation is pending. Echocardiogram is pending. 5. Acute kidney injury Likely prerenal in etiology. Repeat comprehensive metabolic panel this morning. Monitor urine output. No indication for renal replacement therapy at this time. Hold outpatient losartan and hydrochlorothiazide. 6. Hypokalemia Electrolyte repletion as indicated. Recheck levels in the morning. 7. Personal history of rheumatoid arthritis/GERD/hypertension Complicates care, management, recovery and prognosis. Hold outpatient DMARD's for now. Holding ARB and diuretic, given renal insufficiency. Okay to continue beta-suzanne from my perspective. TIME: 45 minutes of critical care time, independent of procedures, was spent addressing the patient's acute hypoxic respiratory failure, influenza B infection, suspected COPD with exacerbation, history of DVT, paroxysmal atrial fibrillation, acute kidney injury, review of all data and collaboration with the care team. ([id number]) Code Visit 9xxxx: [id number] Critical care first hour
[2017-04-23 07:35] LABS: Absolute Lymphocyte Count 0.24 X10^3/ul (0.83-4.51); Basophil# 0.02 X10^3/uL; Basophil% 0.4 % (0-1); Differential Indicated SCAN CRITERIA MET; Hematocrit 32.3 % (40-54); Lymphocyte # 0.24 X10^3/ul (4.0); Lymphocyte % 5.2 % (19-41); Mean Corp Hgb Conc 34.1 g/gl (32-36); Mean Corpuscular Hgb 28.1 pg (27.0-32.0); Mean Corpuscular Volume 82.6 fL (80-94); Mean Platelet Vol. 11.7 fl (6.2-12.0); Monocyte# 0.32 X10^3/uL; Monocyte% 6.9 % (0-10); Neutrophil % 86.4 % (47-70); POSITIVE COUNT NO; POSITIVE DIFFERENTIAL YES; POSITIVE MORPHOLOGY YES; Platelet Count 73 K/mm3 (150-450); RBC Distribution Width CV 14.9 % (11.6-14.6); RBC Distribution Width SD 43.1 fl (35.1-43.9); Red Blood Count 3.91 M/mm3 (4.6-6.2); White Blood Count 4.6 K/mm3 (4.4-11.0)
[2017-04-23 07:52] LABS: ALB/GLOB Ratio 0.7 RATIO (0.9-2.4); AST(SGOT) 80 U/L (15-37); Alanine Aminotransfer ALT/SGPT 36 U/L (12-78); Albumin, Serum 2.5 g/dL (3.4-5.0); Alkaline Phosphatase 31 U/L (45-117); Anion Gap 10 (5-15); BUN 44 mg/dL (7-18); BUN/Creat Ratio 25.7 RATIO (10-20); Calcium,Total 7.1 mg/dL (8.5-10.1); Chloride 108 mmol/L (98-107); Creatinine, Serum 1.71 mg/dL (0.70-1.30); EST Glomerular Filtration Rate 42 mL/min (>60); Est Glom Filt Rate - Afr Amer 51 mL/min (>60); Estimated Creatinine Clearance 42.81 ml/min; Globulin 3.6 g/dL (2.2-4.2); Glucose 185 mg/dL (70-110); Potassium 3.1 mmol/L (3.5-5.1); Protein, Total 6.1 g/dL (6.4-8.2); Sodium Level 140 mmol/L (136-145)
[2017-04-23 08:06] LABS: Ovalocyte 1+
--- NOTE | 2017-04-23 08:13 | CPS ---
patient weaned to 3 lpm to allow patient to order food.
--- NOTE | 2017-04-23 08:34 | PCM.PN.HOSP ---
Patient Problems: Active and Suspected Problems Influenza B (Acute) Pneumonia (Acute) COPD exacerbation (Acute) Acute respiratory failure with hypoxia (Acute) Atrial fibrillation with RVR (Acute) Acute kidney injury (Acute) Subjective: Patient was admitted last night in ICU with progressive worsening dyspnea with acute hypoxic respiratory failure secondary to influenza B and COPD exacerbation for about 1 week. Patient was started on BiPAP. Patient is still short of breath. Patient has smoking history of 2 packs per day. He states his also has mild cough and getting sick. Temperature 100.1?F in the ER. Was on BiPAP 40% FiO2. Patient was tachypneic respiratory rate 30/min in ER. Currently 20-21/min. On 3 L of oxygen now. Vitals/I&O's: Vital Signs Temp Pulse Resp BP Pulse Ox 97.4 F L 76 21 H 111/69 97 04/23/17 04:00 04/23/17 06:57 04/23/17 06:57 04/23/17 06:00 04/23/17 08:32 Oxygen Flow Rate 3 Oxygen Delivery Method Nasal Cannula Weight: 188 lb 7.924 oz Body Mass Index (BMI) 26.2 Intake and Output for Last 24 Hours 04/21/17 04/22/17 04/23/17 23:59 23:59 23:59 Intake Total 978.2 / 978.2 Output Total 300 / 300 Balance 678.2 / 678.2 General: Alert, Oriented x3, Cooperative HEENT: Atraumatic, PERRLA, EOMI, Normocephalic Neck: Supple, No JVD, Negative Carotid Bruits Lungs: Diminished, Rhonchi, Short of Breath, Tachypneic Cardiovascular: Regular rate, Regular Rhythm, Normal S1, Normal S2, No murmurs, - - Paroxysmal A. fib on amiodarone Abdomen: Bowel Sounds Present, Soft, Non Tender, Non-Distended Extremities: No edema, Capillary Refill Less than 3 Seconds Skin: No rashes, No breakdown Musculoskeletal: No Tenderness to Palpation of Joints or Extremities, Muscle Wasting Neurological: Cranial nerves II-XII grossly intact Psych/Mental Status: Normal Affect, Appropriate Microbiology Past 72 Hours 04/23/17 03:45 Urine, Clean Catch Streptococcus pneumoniae Antigen (M - Final 04/23/17 03:45 Urine, Clean Catch Legionella Antigen - Final Laboratory Results 04/22/17 22:50: MRSA (PCR) Negative 04/23/17 00:00: Troponin I 0.11 H 04/23/17 00:00: Free T4 1.18 04/23/17 04:15: Troponin I 0.08 H 04/23/17 07:20: Troponin I 0.06 04/23/17 07:20: WBC 4.6, RBC 3.91 L, Hgb 11.0 L, Hct 32.3 L, MCV 82.6, MCH 28.1, MCHC 34.1, RDW 14.9 H, RDW Differential 43.1, Plt Count 73 L, MPV 11.7, Immature Gran % (Auto) 1.100 H, Neut % (Auto) 86.4 H, Lymph % (Auto) 5.2 L, [place] % (Auto) 6.9, Eos % (Auto) 0.0, Baso % (Auto) 0.4, Absolute Neuts (auto) 4.0, Absolute Lymphs (auto) 0.24 L, Total Counted Not Reportable, Ovalocytes 1+ 04/23/17 07:20: Sodium 140, Potassium 3.1 L, Chloride 108 H, Carbon Dioxide 22.0, Anion Gap 10, BUN 44 H, Creatinine 1.71 H, Estim Creat Clear Calc 42.81, Est GFR (MDRD) Af Amer 51 L, Est GFR (MDRD) Non-Af 42 L, BUN/Creatinine Ratio 25.7 H, Glucose 185 H, Calcium 7.1 L, Total Bilirubin 0.70, AST 80 H, ALT 36, Alkaline Phosphatase 31 L, Total Protein 6.1 L, Albumin 2.5 L, Globulin 3.6, Albumin/Globulin Ratio 0.7 L Current Medications Acetaminophen (Tylenol) 650 mg PO Q4H PRN PRN PRN Reason: FEVER Acetaminophen (Tylenol) 650 mg PO Q6H PRN PRN PRN Reason: Mild Pain (scale 0-3)/T>100.7 Albuterol Sulfate (Ventolin Aerosols) 2.5 mg INHALATION Q2H PRN PRN PRN Reason: SHORTNESS OF BREATH Albuterol/Ipratropium (Duoneb) 3 ml INHALATION Q4H.RT OG Last Admin: 04/23/17 06:54 Dose: 3 ml Apixaban (Eliquis) 5 mg PO BID [facility] Famotidine (Pepcid) 20 mg PO BID [facility] Guaifenesin (Mucinex) 1,200 mg PO BID [facility] Piperacillin Sod/Tazobactam (Sod 3.375 gm/ Sodium Chloride) 66.875 mls @ 12.5 mls/hr IV Q8 [facility] Last Admin: 04/23/17 04:53 Dose: 12.5 mls/hr Amiodarone HCl 360 mg/ (Dextrose) 200 mls @ 16.66 mls/hr CONT INF .Q12H1M OG PRN Reason: 0.5 MG/MIN Stop: 04/23/17 23:50 Last Admin: 04/23/17 05:17 Dose: 16.66 mls/hr Sodium Chloride () 250 mls @ 15 mls/hr IV .[id number] PRN PRN Reason: SALINE FLUSH Last Admin: 04/23/17 04:52 Dose: 15 mls/hr Magnesium Hydroxide (Milk Of Magnesia) 30 ml PO DAILY PRN PRN PRN Reason: Constipation Methylprednisolone (Solu-Medrol) 40 mg IV Q8 [facility] Last Admin: 04/23/17 04:54 Dose: 40 mg Ondansetron HCl (Zofran) 4 mg IV Q8H PRN PRN PRN Reason: NAUSEA Oseltamivir Phosphate (Tamiflu) 30 mg PO BID [facility] Stop: 04/27/17 22:01 Sodium Chloride () 5 - 30 ml IV UD PRN PRN Reason: SALINE FLUSH Assessment/Plan Active and Suspected Problems Influenza B (Acute) Pneumonia (Acute) COPD exacerbation (Acute) Acute respiratory failure with hypoxia (Acute) Atrial fibrillation with RVR (Acute) Acute kidney injury (Acute) Patient is 71-year-old male with history of Ex smoker with history of smoking 2 packs per day, suspected clinical COPD, hypertension, paroxysmal A. fib status post cardiac ablation several years ago, currently on amiodarone was admitted about a week history of progressive dyspnea, cough, congestion, myalgia and arthralgia, diarrhea and anorexia suggestive of influenza. In ER, patient was very short of breath and put on BiPAP with potential of possible intubation. (1) Acute Hypoxic Respiratory Failure secondary to Acute Influenza B Viral Syndrome and post-viral Syndrome CAP and Acute on Suspected Chronic COPD Exacerbation: A, admitted in ICU, on intermittent BiPAP and oxygen through nasal cannula Acute influenza B viral syndrome and suspected community-acquired pneumonia, possible complication of influenza and COPD exacerbation: . On IV Solu-Medrol, chest physiotherapy, incentive spirometry, Tamiflu, broad-spectrum antibiotic and bronchodilator. Sputum culture, MRSA nasal screen, blood cultures ?2 obtained in the ER. Currently patient is on IV Zosyn and vancomycin. Patient has also history of immunosuppressive therapy because of rheumatoid arthritis. (3) Paroxsymal atrial fibrillation w/ RVR: On intensive cardiopulmonary monitoring in ICU. Patient was started on amiodarone drip and is still on it. Assistant Spa Manager consulted. On oral anticoagulant Eliquis. TSH low but free T4 normal. MRSA negative. First troponin was mildly elevated but slowly decreased to normal. 2D echo is pending. (3) Acute kidney injury: Secondary to #1, GI losses w/ influenza B. Admission BUN/Cr 46/1.74, prior baseline creatinine noted to be 1.2-1.3. Will hydrate, hold nephrotoxic medications and monitor electrolytes and kidney function. If no improvement would plan FeNa and renal US assessment. Mild hypokalemia: (4) Former Heavy Tobacco Abuse: Encouraged continued cessation. (5) Hypertension: Hold regimen given presentation, PRN hydralazine. (6) Rheumatoid Arthritis: Will hold regimen given current presentation, restart once clinically improving. (7) GERD: Famotidine. (8) DVT Prophylaxis: SCDs, eliquis. (9) CODE status: The CODE STATUS was discussed at the time of admission including difference between FULL code, DNR-CCA and DNR-CC status given acute presentation and BIPAP needs currently. Patient did clinically improve, but was potential need for intubation initially. He and his spouse confirm FULL CODE status following these discussions. Code Visit Inpatient E&M: 80157 [facility] L[facility]
--- NOTE | 2017-04-23 08:49 | PN_ITS ---
Patient Problems: Active and Suspected Problems Influenza B (Acute) Pneumonia (Acute) COPD exacerbation (Acute) Acute respiratory failure with hypoxia (Acute) Atrial fibrillation with RVR (Acute) Acute kidney injury (Acute) Subjective: Patient was admitted last night in ICU with progressive worsening dyspnea with acute hypoxic respiratory failure secondary to influenza B and COPD exacerbation for about 1 week. Patient was started on BiPAP. Patient is still short of breath. Patient has smoking history of 2 packs per day. He states his also has mild cough and getting sick. Temperature 100.1?F in the ER. Was on BiPAP 40% FiO2. Patient was tachypneic respiratory rate 30/min in ER. Currently 20-21/min. On 3 L of oxygen now. Vitals/I&O's: Vital Signs Temp Pulse Resp BP Pulse Ox 97.4 F L 76 21 H 111/69 97 04/23/17 04:00 04/23/17 06:57 04/23/17 06:57 04/23/17 06:00 04/23/17 08:32 Oxygen Flow Rate 3 Oxygen Delivery Method Nasal Cannula Weight: 188 lb 7.924 oz Body Mass Index (BMI) 26.2 Intake and Output for Last 24 Hours 04/21/17 04/22/17 04/23/17 23:59 23:59 23:59 Intake Total 978.2 / 978.2 Output Total 300 / 300 Balance 678.2 / 678.2 General: Alert, Oriented x3, Cooperative HEENT: Atraumatic, PERRLA, EOMI, Normocephalic Neck: Supple, No JVD, Negative Carotid Bruits Lungs: Diminished, Rhonchi, Short of Breath, Tachypneic Cardiovascular: Regular rate, Regular Rhythm, Normal S1, Normal S2, No murmurs, - - Paroxysmal A. fib on amiodarone Abdomen: Bowel Sounds Present, Soft, Non Tender, Non-Distended Extremities: No edema, Capillary Refill Less than 3 Seconds Skin: No rashes, No breakdown Musculoskeletal: No Tenderness to Palpation of Joints or Extremities, Muscle Wasting Neurological: Cranial nerves II-XII grossly intact Psych/Mental Status: Normal Affect, Appropriate Microbiology Past 72 Hours 04/23/17 03:45 Urine, Clean Catch Streptococcus pneumoniae Antigen (M - Final 04/23/17 03:45 Urine, Clean Catch Legionella Antigen - Final Laboratory Results 04/22/17 22:50: MRSA (PCR) Negative 04/23/17 00:00: Troponin I 0.11 H 04/23/17 00:00: Free T4 1.18 04/23/17 04:15: Troponin I 0.08 H 04/23/17 07:20: Troponin I 0.06 04/23/17 07:20: WBC 4.6, RBC 3.91 L, Hgb 11.0 L, Hct 32.3 L, MCV 82.6, MCH 28.1 , MCHC 34.1, RDW 14.9 H, RDW Differential 43.1, Plt Count 73 L, MPV 11.7, Immature Gran % (Auto) 1.100 H, Neut % (Auto) 86.4 H, Lymph % (Auto) 5.2 L, [place] % (Auto) 6.9, Eos % (Auto) 0.0, Baso % (Auto) 0.4, Absolute Neuts (auto) 4.0, Absolute Lymphs (auto) 0.24 L, Total Counted Not Reportable, Ovalocytes 1+ 04/23/17 07:20: Sodium 140, Potassium 3.1 L, Chloride 108 H, Carbon Dioxide 22.0 , Anion Gap 10, BUN 44 H, Creatinine 1.71 H, Estim Creat Clear Calc 42.81, Est GFR (MDRD) Af Amer 51 L, Est GFR (MDRD) Non-Af 42 L, BUN/Creatinine Ratio 25.7 H , Glucose 185 H, Calcium 7.1 L, Total Bilirubin 0.70, AST 80 H, ALT 36, Alkaline Phosphatase 31 L, Total Protein 6.1 L, Albumin 2.5 L, Globulin 3.6, Albumin/Globulin Ratio 0.7 L Current Medications Acetaminophen (Tylenol) 650 mg PO Q4H PRN PRN PRN Reason: FEVER Acetaminophen (Tylenol) 650 mg PO Q6H PRN PRN PRN Reason: Mild Pain (scale 0-3)/T>100.7 Albuterol Sulfate (Ventolin Aerosols) 2.5 mg INHALATION Q2H PRN PRN PRN Reason: SHORTNESS OF BREATH Albuterol/Ipratropium (Duoneb) 3 ml INHALATION Q4H.RT OG Last Admin: 04/23/17 06:54 Dose: 3 ml Apixaban (Eliquis) 5 mg PO BID [facility] Famotidine (Pepcid) 20 mg PO BID [facility] Guaifenesin (Mucinex) 1,200 mg PO BID [facility] Piperacillin Sod/Tazobactam (Sod 3.375 gm/ Sodium Chloride) 66.875 mls @ 12.5 mls/hr IV Q8 [facility] Last Admin: 04/23/17 04:53 Dose: 12.5 mls/hr Amiodarone HCl 360 mg/ (Dextrose) 200 mls @ 16.66 mls/hr CONT INF .Q12H1M OG PRN Reason: 0.5 MG/MIN Stop: 04/23/17 23:50 Last Admin: 04/23/17 05:17 Dose: 16.66 mls/hr Sodium Chloride () 250 mls @ 15 mls/hr IV .[id number] PRN PRN Reason: SALINE FLUSH Last Admin: 04/23/17 04:52 Dose: 15 mls/hr Magnesium Hydroxide (Milk Of Magnesia) 30 ml PO DAILY PRN PRN PRN Reason: Constipation Methylprednisolone (Solu-Medrol) 40 mg IV Q8 [facility] Last Admin: 04/23/17 04:54 Dose: 40 mg Ondansetron HCl (Zofran) 4 mg IV Q8H PRN PRN PRN Reason: NAUSEA Oseltamivir Phosphate (Tamiflu) 30 mg PO BID [facility] Stop: 04/27/17 22:01 Sodium Chloride () 5 - 30 ml IV UD PRN PRN Reason: SALINE FLUSH Assessment/Plan Active and Suspected Problems Influenza B (Acute) Pneumonia (Acute) COPD exacerbation (Acute) Acute respiratory failure with hypoxia (Acute) Atrial fibrillation with RVR (Acute) Acute kidney injury (Acute) Patient is 71-year-old male with history of Ex smoker with history of smoking 2 packs per day, suspected clinical COPD, hypertension, paroxysmal A. fib status post cardiac ablation several years ago, currently on amiodarone was admitted about a week history of progressive dyspnea, cough, congestion, myalgia and arthralgia, diarrhea and anorexia suggestive of influenza. In ER, patient was very short of breath and put on BiPAP with potential of possible intubation. (1) Acute Hypoxic Respiratory Failure secondary to Acute Influenza B Viral Syndrome and post-viral Syndrome CAP and Acute on Suspected Chronic COPD Exacerbation: A, admitted in ICU, on intermittent BiPAP and oxygen through nasal cannula Acute influenza B viral syndrome and suspected community-acquired pneumonia, possible complication of influenza and COPD exacerbation: . On IV Solu-Medrol, chest physiotherapy, incentive spirometry, Tamiflu, broad-spectrum antibiotic and bronchodilator. Sputum culture, MRSA nasal screen, blood cultures ?2 obtained in the ER. Currently patient is on IV Zosyn and vancomycin. Patient has also history of immunosuppressive therapy because of rheumatoid arthritis. (3) Paroxsymal atrial fibrillation w/ RVR: On intensive cardiopulmonary monitoring in ICU. Patient was started on amiodarone drip and is still on it. Airplane Patroller consulted. On oral anticoagulant Eliquis. TSH low but free T4 normal. MRSA negative. First troponin was mildly elevated but slowly decreased to normal. 2D echo is pending. (3) Acute kidney injury: Secondary to #1, GI losses w/ influenza B. Admission BUN/Cr 46/1.74, prior baseline creatinine noted to be 1.2-1.3. Will hydrate, hold nephrotoxic medications and monitor electrolytes and kidney function. If no improvement would plan FeNa and renal US assessment. Mild hypokalemia: (4) Former Heavy Tobacco Abuse: Encouraged continued cessation. (5) Hypertension: Hold regimen given presentation, PRN hydralazine. (6) Rheumatoid Arthritis: Will hold regimen given current presentation, restart once clinically improving. (7) GERD: Famotidine. (8) DVT Prophylaxis: SCDs, eliquis. (9) CODE status: The CODE STATUS was discussed at the time of admission including difference between FULL code, DNR-CCA and DNR-CC status given acute presentation and BIPAP needs currently. Patient did clinically improve, but was potential need for intubation initially. He and his spouse confirm FULL CODE status following these discussions. Code Visit Inpatient E&M: [id number] [facility] Hosp L3
[2017-04-23] MEDS: Famotidine 20 MG Tablet PO ×2 (09:57→21:28)
[2017-04-23] MEDS: Oseltamivir Phosphate 30 MG Capsule PO ×2 (09:57→21:28)
[2017-04-23] MEDS: APIXABAN 5 MG TABLET PO ×2 (09:57→21:28)
[2017-04-23] MEDS: Albuterol 2.5 MG/3 ML VIAL.NEB. INHALATION (13:36)
--- NOTE | 2017-04-23 13:39 | CPS ---
patient called out requesting aerosol treatment due to sob. patient recieved prn albuterol
--- NOTE | 2017-04-23 13:59 | CASEMGMT ---
JOSE BATES met with patient. JOSE BATES assessment complete. See attached link for full assessment. Disposition Plan: Home Transition Planning and Care Coordination Needs: Patient follows at the OR for PCP and meds. [facility] patient is responsible for first 30 days of any new medication and patient would like any new scripts faxed to [facility] in [place]. JOSE BATES will need to provide [facility] with H/P and D/C Summary at discharge. Patient denies any other home-going needs. Patient may need to follow-up with pulmonary and cardiology. Patient is not on home oxygen, currently requiring supplemental O2 at 3 LPM. JOSE BATES will need to follow for post-acute oxygen needs. If patient requests to use [facility] for [facility] oxygen this will need to be completed on 04/26/17. JOSE BATES handoff provided to Car Whelan RN CM MS2. Watson Kamara RN-BC, [facility]
--- NOTE | 2017-04-23 18:58 | PCM.CONS.C ---
Problem List (1) PAF (paroxysmal atrial fibrillation) Status: Chronic (2) Atrial flutter Status: Chronic (3) S/P ablation of atrial flutter Status: Chronic (4) HTN (hypertension) Status: Chronic Qualifiers: Hypertension type: essential hypertension Qualified Code(s): I10 - Essential (primary) hypertension (5) Influenza B Status: Acute (6) Pneumonia Status: Acute Qualifiers: Pneumonia type: due to unspecified organism Laterality: left Lung location: unspecified part of lung Qualified Code(s): J18.9 - Pneumonia, unspecified organism (7) Acute kidney injury Status: Acute Reason for Consult Date of Consultation: 04/23/17 History of Present Illness: The patient is a 71 year old male with a past medical history which has included paroxysmal atrial fibrillation, atrial flutter, status post recent atrial flutter ablation at the [facility] in [place], [place], hypertension, superimposed upon acute influenza B and community-acquired pneumonia who is referred for evaluation of atrial fibrillation with rapid ventricular response. According to the patient and [facility] records available for review, it appears in March 2017, he underwent atrial flutter ablation. His medications were adjusted. He was released home for continued outpatient follow-up. He has had progressive fevers, cough, sputum production, diarrhea/loose bowel movements, which precipitated his presentation to the emergency department. He was diagnosed with influenza B and a community-acquired pneumonia. During his evaluation he was noted to have episode of paroxysmal atrial fibrillation with rapid ventricular response. He was treated medically with beta-suzanne therapy and IV amiodarone therapy. He had subsequent spontaneous conversion to sinus rhythm. Denied any chest discomfort. He has not had acute orthopnea or PND. He states that he has not had peripheral edema and was on a diuretic. His diuretic regimen is on hold at the moment secondary to concerns of acute renal insufficiency potentially related to decreased oral intake. He has not had any near-syncope or syncope. He has had cardiac enzymes performed with an indeterminate troponin I level which subsequently decreased. He had a transthoracic echocardiogram performed. His left ventricle was thought to be normal with an LVEF of 60%. He had mild left atrial enlargement with mild mitral annular calcification and mild diffuse mitral valve thickening with trivial MR and trivial TR and mild diffuse aortic valve calcification with mild aortic valve insufficiency and trivial AR. His estimated RV systolic pressure was 60 mmHg. He had decreased diastolic compliance. It appears he had a transthoracic echocardiogram at the [facility] in August 2016. At that time his left ventricle was normal with an LVEF of 55-60%. He states he has undergone evaluation for the possibility of CAD in the past through the [facility] system. He was told that this was not an issue for him. He did not require any revascularization therapy. He has been treated medically for his underlying atrial dysrhythmias. He had been on not only beta-suzanne therapy but antiarrhythmic therapy with flecainide/Tambocor and anticoagulant therapy. He states following his ablation his antiarrhythmic therapy was discontinued. He noted while on antiarrhythmic therapy he tolerated it however he stated that he did have breakthrough atrial dysrhythmias. [] Past Medical History Allergies/Adverse Reactions: Allergies methotrexate Allergy (Verified 04/22/17 16:33) Other doxycycline Adverse Reaction (Verified 04/22/17 16:33) Nausea/Vom/Diarrhea Home Medications: Ambulatory Orders Medication Instructions Recorded Ca/D3/Mag Ox/Zinc/Record Center Coordinator/Vin/Bor 1 each PO DAILY 11/27/15 [Calcium +D & Minerals Chew Tab] Etanercept [Enbrel] 50 mg SQ Q7D 11/27/15 Leflunomide [Arava] 20 mg PO DAILY 11/27/15 Omeprazole [Prilosec] 20 mg PO DAILY 11/27/15 Apixaban [Eliquis] 5 mg PO BID 04/22/17 Hydrochlorothiazide [Hctz] 25 mg PO DAILY 04/22/17 Losartan Potassium [Cozaar] 50 mg PO DAILY 04/22/17 Metoprolol Tartrate [Lopressor 50 mg PO BID 04/22/17 (Beta Suzanne)] Ruxolitinib Phosphate [Jakafi] 20 mg PO BID 04/22/17 Past Medical History (Chronic Problems): Chronic Problems History of atrial fibrillation (Chronic) History of gastroesophageal reflux (GERD) (Chronic) History of rheumatoid arthritis (Chronic) Rheumatoid arthritis (Chronic) GERD (gastroesophageal reflux disease) (Chronic) PAF (paroxysmal atrial fibrillation) (Chronic) HTN (hypertension) (Chronic) Former tobacco use (Chronic) Suspected chronic obstructive pulmonary disease based on initial evaluation (Chronic) Atrial flutter (Chronic) S/P ablation of atrial flutter (Chronic) Surgical History: cholecystectomy, - - Back surgery, cardiac ablation. Psychiatric History: No pertinent psych hx - *Family History Paternal History Items: Heart Disease Maternal History Items: - - Mother young, unclear etiology. Lives: Spouse/ Significant Other, With Family Smoking Status: Former smoker Tobacco Use: Non-smoker Alcohol: None Drugs: None Review of Systems - Review of Systems General: Reports: Fever, Decreased Appetite. Denies: Fatigue, Night Sweats Cardiovascular: Reports: Shortness of Breath. Denies: Chest Discomfort, Orthopnea, PND, Peripheral Edema, Palpitations, Lightheadedness, Dizziness, Near Syncope, Syncope Respiratory: Reports: Cough, Sputum Production, Shortness of Breath, Wheezing. Denies: Hemoptysis Gastrointestinal: Denies: Hematemesis, Hematochezia, Melena Genitourinary: Reports: Dysuria Skin: Denies: Rash Subjectve: This is a 71-year-old white male appears to be resting comfortably at the moment in no acute distress. Objective: Vital Signs Temp Pulse Resp BP Pulse Ox 97.5 F L 85 24 H 163/75 H 97 04/23/17 16:00 04/23/17 18:00 04/23/17 18:00 04/23/17 18:00 04/23/17 18:00 Oxygen Flow Rate 3 Oxygen Delivery Method Nasal Cannula Weight: 188 lb 7.924 oz Body Mass Index (BMI) 26.2 Intake and Output for Last 24 Hours 04/21/17 04/22/17 04/23/17 23:59 23:59 23:59 Intake Total 2373.2 / 2373.2 Output Total 850 / 850 Balance 1523.2 / 1523.2 General: Awake, Alert, Oriented x 3, Cooperative, No Acute Distress Neck: No JVD Lungs: Rhonchi, Expiratory Wheezes-Kiran Cardiovascular: Regular Rhythm, Normal S1, Normal S2 Vascular: No Carotid Bruits Abdomen: Bowel Sounds Present, Soft, Non Tender Extremities: No edema 04/23/17 00:00: Troponin I 0.11 H 04/23/17 04:15: Troponin I 0.08 H 04/23/17 07:20: Troponin I 0.06 04/23/17 07:20: WBC 4.6, RBC 3.91 L, Hgb 11.0 L, Hct 32.3 L, MCV 82.6, MCH 28.1, MCHC 34.1, RDW 14.9 H, RDW Differential 43.1, Plt Count 73 L, MPV 11.7, Immature Gran % (Auto) 1.100 H, Neut % (Auto) 86.4 H, Lymph % (Auto) 5.2 L, [place] % (Auto) 6.9, Eos % (Auto) 0.0, Baso % (Auto) 0.4, Absolute Neuts (auto) 4.0, Total Counted Not Reportable 04/23/17 07:20: Sodium 140, Potassium 3.1 L, Chloride 108 H, Carbon Dioxide 22.0, Anion Gap 10, BUN 44 H, Creatinine 1.71 H, Est GFR (MDRD) Af Amer 51 L, Est GFR (MDRD) Non-Af 42 L, BUN/Creatinine Ratio 25.7 H, Glucose 185 H, Calcium 7.1 L, Total Bilirubin 0.70 04/23/17 13:35: Troponin I 0.06 Rhythm: Sinus rhythm EKG: Atrial fibrillation: Nonspecific ST segment abnormality ECHO: As noted above CXR: Please see official report Assessment/Plan 1. Paroxysmal atrial fibrillation with rapid ventricular response The patient has a history of paroxysmal atrial fibrillation. He was noted to have a recurrent event. This may be secondary to his previous cardiovascular history. It may be exacerbated by his underlying acute respiratory history. At the present time he appears to be back in sinus rhythm. He will continue to be monitored. He will continue medical therapy. This will include rate control therapy as tolerated. He has been treated temporarily with IV amiodarone. This will be placed on hold and his rhythm will be monitored. He will continue his anticoagulant therapy. During this time he was noted to have an indeterminate troponin I level. It is unclear as to the etiology as to whether or not this represents a true type I acute coronary syndrome event versus a type II supply demand mismatch event secondary to his underlying combined atrial fibrillation with rapid ventricular response and acute respiratory related issues. The patient states that he has been evaluated by [facility] in the past for the possibility of CAD and was told that this was not an issue for him. He has not required medical therapy or revascularization therapy for CAD in the past. It may not be unreasonable, as the patient's clinical course progresses and hopefully improves, that at some point in time he will be reassessed, based upon his enzyme change, for the possibility of underlying CAD. This may come in the form of noninvasive studies and/or invasive studies as deemed appropriate at the time. 2. Atrial flutter status post flutter ablation She will underwent atrial flutter ablation per the [facility]. He was asked to continue his rate control therapy and his anticoagulant therapy. He will continue to be monitored and continue his beta-suzanne therapy unless otherwise contraindicated and his anticoagulant therapy. 3. Hypertension The patient has a history of underlying hypertension. He will continue medical management. His medications may need to be adjusted to avoid interaction with his renal insufficiency. 4. Influenza B/community-acquired pneumonia The patient has been diagnosed with influenza B and community-acquired pneumonia. He will continue evaluation care per internal medicine and pulmonology. 5. Renal insufficiency The patient does appear to have an elevation of his creatinine level compared to before. This may be secondary to a combination of his decreased oral intake and his medical therapy with his previous diuretics, afterload reducing agents, etc. At the present time he is being monitored. He has diuretics and afterload reducing agents are on hold. His renal function is being followed. Comment: The above was discussed with the patient and his family members present. This note was generated with [employer] software. It may contain incorrect words, spelling, and punctuation that were not noted in checking the note before signing.
--- NOTE | 2017-04-23 19:10 | CON.PCM_ITS ---
Problem List (1) PAF (paroxysmal atrial fibrillation) Status: Chronic (2) Atrial flutter Status: Chronic (3) S/P ablation of atrial flutter Status: Chronic (4) HTN (hypertension) Status: Chronic Qualifiers: Hypertension type: essential hypertension Qualified Code(s): I10 - Essential (primary) hypertension (5) Influenza B Status: Acute (6) Pneumonia Status: Acute Qualifiers: Pneumonia type: due to unspecified organism Laterality: left Lung location: unspecified part of lung Qualified Code(s): J18.9 - Pneumonia, unspecified organism (7) Acute kidney injury Status: Acute Reason for Consult Date of Consultation: 04/23/17 History of Present Illness: The patient is a 71 year old male with a past medical history which has included paroxysmal atrial fibrillation, atrial flutter, status post recent atrial flutter ablation at the [facility] in [place], [place], hypertension, superimposed upon acute influenza B and community-acquired pneumonia who is referred for evaluation of atrial fibrillation with rapid ventricular response. According to the patient and [facility] records available for review, it appears in March 2017, he underwent atrial flutter ablation. His medications were adjusted. He was released home for continued outpatient follow-up. He has had progressive fevers, cough, sputum production, diarrhea/loose bowel movements, which precipitated his presentation to the emergency department. He was diagnosed with influenza B and a community-acquired pneumonia. During his evaluation he was noted to have episode of paroxysmal atrial fibrillation with rapid ventricular response. He was treated medically with beta-suzanne therapy and IV amiodarone therapy. He had subsequent spontaneous conversion to sinus rhythm. Denied any chest discomfort. He has not had acute orthopnea or PND. He states that he has not had peripheral edema and was on a diuretic. His diuretic regimen is on hold at the moment secondary to concerns of acute renal insufficiency potentially related to decreased oral intake. He has not had any near-syncope or syncope. He has had cardiac enzymes performed with an indeterminate troponin I level which subsequently decreased. He had a transthoracic echocardiogram performed. His left ventricle was thought to be normal with an LVEF of 60%. He had mild left atrial enlargement with mild mitral annular calcification and mild diffuse mitral valve thickening with trivial MR and trivial TR and mild diffuse aortic valve calcification with mild aortic valve insufficiency and trivial DE. His estimated RV systolic pressure was 60 mmHg. He had decreased diastolic compliance. It appears he had a transthoracic echocardiogram at the [facility] in August 2016. At that time his left ventricle was normal with an LVEF of 55-60%. He states he has undergone evaluation for the possibility of CAD in the past through the [facility] system. He was told that this was not an issue for him. He did not require any revascularization therapy. He has been treated medically for his underlying atrial dysrhythmias. He had been on not only beta-suzanne therapy but antiarrhythmic therapy with flecainide /Tambocor and anticoagulant therapy. He states following his ablation his antiarrhythmic therapy was discontinued. He noted while on antiarrhythmic therapy he tolerated it however he stated that he did have breakthrough atrial dysrhythmias. [] Past Medical History Allergies/Adverse Reactions: Allergies methotrexate Allergy (Verified 04/22/17 16:33) Other doxycycline Adverse Reaction (Verified 04/22/17 16:33) Nausea/Vom/Diarrhea Home Medications: Ambulatory Orders Medication Instructions Recorded Ca/D3/Mag Ox/Zinc/Consulting Property Manager/Vin/Bor 1 each PO DAILY 11/27/15 [Calcium +D & Minerals Chew Tab] Etanercept [Enbrel] 50 mg SQ Q7D 11/27/15 Leflunomide [Arava] 20 mg PO DAILY 11/27/15 Omeprazole [Prilosec] 20 mg PO DAILY 11/27/15 Apixaban [Eliquis] 5 mg PO BID 04/22/17 Hydrochlorothiazide [Hctz] 25 mg PO DAILY 04/22/17 Losartan Potassium [Cozaar] 50 mg PO DAILY 04/22/17 Metoprolol Tartrate [Lopressor 50 mg PO BID 04/22/17 (Beta Suzanne)] Ruxolitinib Phosphate [Jakafi] 20 mg PO BID 04/22/17 Past Medical History (Chronic Problems): Chronic Problems History of atrial fibrillation (Chronic) History of gastroesophageal reflux (GERD) (Chronic) History of rheumatoid arthritis (Chronic) Rheumatoid arthritis (Chronic) GERD (gastroesophageal reflux disease) (Chronic) PAF (paroxysmal atrial fibrillation) (Chronic) HTN (hypertension) (Chronic) Former tobacco use (Chronic) Suspected chronic obstructive pulmonary disease based on initial evaluation ( Chronic) Atrial flutter (Chronic) S/P ablation of atrial flutter (Chronic) Surgical History: cholecystectomy, - - Back surgery, cardiac ablation. Psychiatric History: No pertinent psych hx - *Family History Paternal History Items: Heart Disease Maternal History Items: - - Mother young, unclear etiology. Lives: Spouse/ Significant Other, With Family Smoking Status: Former smoker Tobacco Use: Non-smoker Alcohol: None Drugs: None Review of Systems - Review of Systems General: Reports: Fever, Decreased Appetite. Denies: Fatigue, Night Sweats Cardiovascular: Reports: Shortness of Breath. Denies: Chest Discomfort, Orthopnea, PND, Peripheral Edema, Palpitations, Lightheadedness, Dizziness, Near Syncope, Syncope Respiratory: Reports: Cough, Sputum Production, Shortness of Breath, Wheezing. Denies: Hemoptysis Gastrointestinal: Denies: Hematemesis, Hematochezia, Melena Genitourinary: Reports: Dysuria Skin: Denies: Rash Subjectve: This is a 71-year-old white male appears to be resting comfortably at the moment in no acute distress. Objective: Vital Signs Temp Pulse Resp BP Pulse Ox 97.5 F L 85 24 H 163/75 H 97 04/23/17 16:00 04/23/17 18:00 04/23/17 18:00 04/23/17 18:00 04/23/17 18:00 Oxygen Flow Rate 3 Oxygen Delivery Method Nasal Cannula Weight: 188 lb 7.924 oz Body Mass Index (BMI) 26.2 Intake and Output for Last 24 Hours 04/21/17 04/22/17 04/23/17 23:59 23:59 23:59 Intake Total 2373.2 / 2373.2 Output Total 850 / 850 Balance 1523.2 / 1523.2 General: Awake, Alert, Oriented x 3, Cooperative, No Acute Distress Neck: No JVD Lungs: Rhonchi, Expiratory Wheezes-Kiran Cardiovascular: Regular Rhythm, Normal S1, Normal S2 Vascular: No Carotid Bruits Abdomen: Bowel Sounds Present, Soft, Non Tender Extremities: No edema 04/23/17 00:00: Troponin I 0.11 H 04/23/17 04:15: Troponin I 0.08 H 04/23/17 07:20: Troponin I 0.06 04/23/17 07:20: WBC 4.6, RBC 3.91 L, Hgb 11.0 L, Hct 32.3 L, MCV 82.6, MCH 28.1 , MCHC 34.1, RDW 14.9 H, RDW Differential 43.1, Plt Count 73 L, MPV 11.7, Immature Gran % (Auto) 1.100 H, Neut % (Auto) 86.4 H, Lymph % (Auto) 5.2 L, [place] % (Auto) 6.9, Eos % (Auto) 0.0, Baso % (Auto) 0.4, Absolute Neuts (auto) 4.0, Total Counted Not Reportable 04/23/17 07:20: Sodium 140, Potassium 3.1 L, Chloride 108 H, Carbon Dioxide 22.0 , Anion Gap 10, BUN 44 H, Creatinine 1.71 H, Est GFR (MDRD) Af Amer 51 L, Est GFR (MDRD) Non-Af 42 L, BUN/Creatinine Ratio 25.7 H, Glucose 185 H, Calcium 7.1 L, Total Bilirubin 0.70 04/23/17 13:35: Troponin I 0.06 Rhythm: Sinus rhythm EKG: Atrial fibrillation: Nonspecific ST segment abnormality ECHO: As noted above CXR: Please see official report Assessment/Plan 1. Paroxysmal atrial fibrillation with rapid ventricular response The patient has a history of paroxysmal atrial fibrillation. He was noted to have a recurrent event. This may be secondary to his previous cardiovascular history. It may be exacerbated by his underlying acute respiratory history. At the present time he appears to be back in sinus rhythm. He will continue to be monitored. He will continue medical therapy. This will include rate control therapy as tolerated. He has been treated temporarily with IV amiodarone. This will be placed on hold and his rhythm will be monitored. He will continue his anticoagulant therapy. During this time he was noted to have an indeterminate troponin I level. It is unclear as to the etiology as to whether or not this represents a true type I acute coronary syndrome event versus a type II supply demand mismatch event secondary to his underlying combined atrial fibrillation with rapid ventricular response and acute respiratory related issues. The patient states that he has been evaluated by [facility] in the past for the possibility of CAD and was told that this was not an issue for him. He has not required medical therapy or revascularization therapy for CAD in the past. It may not be unreasonable, as the patient's clinical course progresses and hopefully improves, that at some point in time he will be reassessed, based upon his enzyme change, for the possibility of underlying CAD. This may come in the form of noninvasive studies and/or invasive studies as deemed appropriate at the time. 2. Atrial flutter status post flutter ablation She will underwent atrial flutter ablation per the [facility]. He was asked to continue his rate control therapy and his anticoagulant therapy. He will continue to be monitored and continue his beta-suzanne therapy unless otherwise contraindicated and his anticoagulant therapy. 3. Hypertension The patient has a history of underlying hypertension. He will continue medical management. His medications may need to be adjusted to avoid interaction with his renal insufficiency. 4. Influenza B/community-acquired pneumonia The patient has been diagnosed with influenza B and community-acquired pneumonia. He will continue evaluation care per internal medicine and pulmonology. 5. Renal insufficiency The patient does appear to have an elevation of his creatinine level compared to before. This may be secondary to a combination of his decreased oral intake and his medical therapy with his previous diuretics, afterload reducing agents, etc. At the present time he is being monitored. He has diuretics and afterload reducing agents are on hold. His renal function is being followed. Comment: The above was discussed with the patient and his family members present. This note was generated with Experentiation software. It may contain incorrect words, spelling, and punctuation that were not noted in checking the note before signing.
[2017-04-23] MEDS: amLODIPine 5 MG Tablet PO (21:28)
[2017-04-23] MEDS: Metoprolol Tartrate 50 MG Tablet PO (21:28)
[2017-04-24] VITALS (40 sets, daily range): BP systolic 113–164; BP diastolic 60–98; PULSE 77–172; RESP 18–44; TEMP 36.1–36.8; O2SAT 88–98
[2017-04-24] MEDS: Albuterol 2.5 MG/3 ML VIAL.NEB. INHALATION (00:49)
[2017-04-24] MEDS: Ipratropium/Albuterol Sulfate 3 ML AMPUL.NEB INHALATION ×5 (03:14→19:15)
--- NOTE | 2017-04-24 03:33 | EKG12_ITS ---
Test Reason : AM EKG Blood Pressure : / mmHG Vent. Rate : 157 BPM Atrial Rate : 150 BPM P-R Int : 000 ms QRS Dur : 096 ms QT Int : 284 ms P-R-T Axes : 000 012 019 degrees QTc Int : 459 ms Atrial fibrillation Nonspecific ST abnormality Abnormal ECG When compared with ECG of 24-APR-2017 03:27, MANUAL COMPARISON REQUIRED, DATA IS UNCONFIRMED Confirmed by BRANDON KARIMI ([id number]), film editor supervisor SREE FLEMING ([id number] on 04/29/2017 2:07:38 PM Referred By: RAFAEL Confirmed By:BRANDON KARIMI
[2017-04-24] MEDS: Digoxin 250 MCG/ML Ampul 500 MCG IV (03:56)
[2017-04-24] MEDS: 0.9% NaCl Peripheral Flush Adult/Peds IV ×4 (03:58→21:49)
--- NOTE | 2017-04-24 05:04 | PCM.PN.INT ---
Subjective: The patient was seen and examined at the bedside this morning. Events from the last 24 hours have been reviewed. The patient is currently afebrile, hemodynamically stable and maintaining appropriate oxygen saturations on 2 L/min via nasal cannula. Overnight, the patient went back into atrial fibrillation with a rapid ventricular rate. The patient's heart rates were significantly elevated, reaching the 170s. Cardiology was contacted and digoxin administered. The patient's heart rates remain elevated but improved. The patient continues to refuse consideration for cardioversion. Creatinine has improved. The patient's potassium level was noted to be low this morning at 2.8. Magnesium is within normal limits. Although the patient continues to endorse the presence of a cough, he has been unable to expectorate a sample to be sent for culture. Objective: The patient's most recent lab work, culture data and imaging studies have all been personally reviewed. Strep and urine Legionella antigens were both negative. Rapid influenza screen was positive for influenza B. Blood and sputum cultures are pending. The patient does have a confirmed history of lower extremity DVT, noted on Doppler studies from November 2015. Surface echocardiogram last completed in December 2012 revealed evidence of moderate concentric LVH with an ejection fraction of 60%. Right ventricular systolic pressure was estimated to be 24 mmHg. Plain film chest x-ray on admission revealed evidence of a left basilar infiltrate. Surface echocardiogram completed April 23 revealed normal LV size and function with an ejection fraction of 60%. General: Alert, Oriented x3, Cooperative HEENT: Atraumatic, PERRLA, Normocephalic Oral: Moist Mucosa, No Gingival or Mucosal Lesions/ Ulcerations Neck: Supple, No Nodes, Trachea Midline Lungs: Diminished, - - There are faint end expiratory wheezes bilaterally. No accessory muscle use. No conversational dyspnea. Cardiovascular: Normal S1, Normal S2, No murmurs, Irregular Rate, Tachycardic, - - Telemetry shows atrial fibrillation with rapid ventricular rate. Abdomen: Bowel Sounds Present, Soft, Non Tender, Non-Distended Extremities: No clubbing, No cyanosis, No edema Skin: No rashes, No breakdown Musculoskeletal: No Tenderness to Palpation of Joints or Extremities Lymphatic: No Cervical, Supraclavicular, or Inguinal Adenopathy Neurological: Neuro grossly intact Psych/Mental Status: Normal Affect, Appropriate Vital Signs Temp Pulse Resp BP Pulse Ox 97.9 F 133 H 31 H 132/61 H 96 04/24/17 04:00 04/24/17 04:15 04/24/17 04:15 04/24/17 04:15 04/24/17 04:15 Oxygen Flow Rate 2 Oxygen Delivery Method Nasal Cannula Weight: 188 lb 7.924 oz Body Mass Index (BMI) 26.2 Intake and Output for Last 24 Hours 04/22/17 04/23/17 04/24/17 23:59 23:59 23:59 Intake Total 2373.2 / 2373.2 362.4 / 362.4 Output Total 850 / 850 175 / 175 Balance 1523.2 / 1523.2 187.4 / 187.4 Labs (Last 48 Hours) 04/22/17 04/23/17 04/23/17 22:50 00:00 00:00 WBC RBC Hgb Hct MCV MCH MCHC RDW RDW Differential Plt Count MPV Immature Gran % (Auto) Neut % (Auto) Lymph % (Auto) [place] % (Auto) Eos % (Auto) Baso % (Auto) Absolute Neuts (auto) Absolute Lymphs (auto) Total Counted Ovalocytes Sodium Potassium Chloride Carbon Dioxide Anion Gap BUN Creatinine Estim Creat Clear Calc Est GFR (MDRD) Af Amer Est GFR (MDRD) Non-Af BUN/Creatinine Ratio Glucose Calcium Total Bilirubin AST ALT Alkaline Phosphatase Troponin I 0.11 H Total Protein Albumin Globulin Albumin/Globulin Ratio Free T4 1.18 MRSA (PCR) Negative 04/23/17 04/23/17 04/23/17 04:15 07:20 07:20 WBC 4.6 RBC 3.91 L Hgb 11.0 L Hct 32.3 L MCV 82.6 MCH 28.1 MCHC 34.1 RDW 14.9 H RDW Differential 43.1 Plt Count 73 L MPV 11.7 Immature Gran % (Auto) 1.100 H Neut % (Auto) 86.4 H Lymph % (Auto) 5.2 L [place] % (Auto) 6.9 Eos % (Auto) 0.0 Baso % (Auto) 0.4 Absolute Neuts (auto) 4.0 Absolute Lymphs (auto) 0.24 L Total Counted Not Reportable Ovalocytes 1+ Sodium Potassium Chloride Carbon Dioxide Anion Gap BUN Creatinine Estim Creat Clear Calc Est GFR (MDRD) Af Amer Est GFR (MDRD) Non-Af BUN/Creatinine Ratio Glucose Calcium Total Bilirubin AST ALT Alkaline Phosphatase Troponin I 0.08 H 0.06 Total Protein Albumin Globulin Albumin/Globulin Ratio Free T4 MRSA (PCR) 04/23/17 04/23/17 07:20 13:35 WBC RBC Hgb Hct MCV MCH MCHC RDW RDW Differential Plt Count MPV Immature Gran % (Auto) Neut % (Auto) Lymph % (Auto) [place] % (Auto) Eos % (Auto) Baso % (Auto) Absolute Neuts (auto) Absolute Lymphs (auto) Total Counted Ovalocytes Sodium 140 Potassium 3.1 L Chloride 108 H Carbon Dioxide 22.0 Anion Gap 10 BUN 44 H Creatinine 1.71 H Estim Creat Clear Calc 42.81 Est GFR (MDRD) Af Amer 51 L Est GFR (MDRD) Non-Af 42 L BUN/Creatinine Ratio 25.7 H Glucose 185 H Calcium 7.1 L Total Bilirubin 0.70 AST 80 H ALT 36 Alkaline Phosphatase 31 L Troponin I 0.06 Total Protein 6.1 L Albumin 2.5 L Globulin 3.6 Albumin/Globulin Ratio 0.7 L Free T4 MRSA (PCR) Microbiology 04/23/17 03:45 Urine, Clean Catch Streptococcus pneumoniae Antigen (M - Final 04/23/17 03:45 Urine, Clean Catch Legionella Antigen - Final Clinical Impression(s) from Imaging Studies Chest X-Ray 04/22/17 17:01 IMPRESSION: Patchy left perihilar and left base infiltrates. Electronically Signed: Ezio Vinson MD at 18:36 EST , Service support , Assessment/Plan Active and Suspected Problems Influenza B (Acute) Pneumonia (Acute) COPD exacerbation (Acute) Acute respiratory failure with hypoxia (Acute) Atrial fibrillation with RVR (Acute) Acute kidney injury (Acute) RECOMMENDATIONS: 1. Wean supplemental oxygen to maintain saturations at or above 90%. 2. Obtain and send sputum for culture. 3. Continue Tamiflu and antibiotics, as ordered. 4. Continue medical management of atrial fibrillation per cardiology recommendations. 5. Aggressive electrolyte repletion. Maintain potassium level greater than 4 and magnesium level greater than 2. 6. Continue scheduled aerosol treatments and steroids. 7. Continue Eliquis 8. Continue appropriate ICU prophylaxis: Pepcid and Eliquis 9. Restart vancomycin, given staph isolated from blood culture. We will also send repeat blood cultures today. IMPRESSIONS: 1. Acute hypoxemic respiratory failure secondary to influenza B/CAP Continue current supportive measures with the use of noninvasive positive pressure ventilation as needed, Tamiflu and antimicrobials, pending infectious workup. The patient will be maintained on a scheduled aerosol regimen and IV steroids will be continued for now. Wean supplemental oxygen to maintain saturations at or above 90%. Obtain and send sputum for culture. Encourage incentive spirometer use and mobilize patient as tolerated. Blood cultures ?1 obtained on April 22 were also noted to be positive for staph aureus. Sensitivities are pending. The patient will be restarted on vancomycin and repeat blood cultures sent. 2. Suspected COPD of unknown severity/history of tobacco abuse, in remission Patient is currently being treated presumptively for a COPD exacerbation. He will be continued on scheduled aerosol treatments and IV steroids. He reportedly follows with a building materials sales attendant through the [facility] system in [place]. However, he does not recall the provider's name. It is unclear whether or not the patient has had PFTs in the past. He will require a walking oximetry study prior to consideration for discharge from the hospital. 3. History of lower extremity DVT Continue Eliquis per outpatient regimen. 4. Paroxysmal atrial fibrillation with RVR Echocardiogram revealed normal LV size and function with an ejection fraction of 60%. Continue current medical management per cardiology recommendations. The patient has been refusing to consider cardioversion. 5. Acute kidney injury Likely prerenal in etiology. Improving at this time. Urine output is appropriate. No indication for renal replacement therapy at this time. 6. Hypokalemia Electrolyte repletion as indicated. Given the patient's atrial fibrillation, recommend maintaining potassium levels greater than 4 and magnesium levels greater than 2. 7. Personal history of rheumatoid arthritis/GERD/hypertension Complicates care, management, recovery and prognosis. Hold outpatient DMARD's for now. Holding ARB and diuretic, given renal insufficiency. Okay to continue beta-heaven from my perspective. This note was generated with Promuc dictation software. It may contain incorrect words, spelling, and punctuation that were not noted in checking the note before signing. Code Visit Inpatient E&M: 40922 Subs Hosp L3
[2017-04-24 05:46] LABS: Absolute Lymphocyte Count 0.53 X10^3/ul (0.83-4.51); Absolute Neutrophil Count 9.3 X10^3/uL (2.0-7.7); Basophil# 0.01 X10^3/uL; Basophil% 0.1 % (0-1); Hematocrit 33.6 % (40-54); Hemoglobin 11.4 g/dl (13.0-16.5); Lymphocyte # 0.53 X10^3/ul (4.0); Mean Corp Hgb Conc 33.9 g/gl (32-36); Mean Corpuscular Hgb 27.7 pg (27.0-32.0); Mean Corpuscular Volume 81.6 fL (80-94); Mean Platelet Vol. 11.1 fl (6.2-12.0); Monocyte# 0.65 X10^3/uL; Monocyte% 6.1 % (0-10); Neutrophil # 9.29 X10^3/uL (2.7-7.7); Neutrophil % 87.7 % (47-70); Platelet Count 90 K/mm3 (150-450); RBC Distribution Width CV 15.1 % (11.6-14.6); RBC Distribution Width SD 44.4 fl (35.1-43.9); Red Blood Count 4.12 M/mm3 (4.6-6.2); White Blood Count 10.6 K/mm3 (4.4-11.0)
[2017-04-24 05:51] LABS: Differential Indicated SCAN CRITERIA MET; POSITIVE COUNT NO; POSITIVE DIFFERENTIAL YES; POSITIVE MORPHOLOGY NO
--- NOTE | 2017-04-24 05:55 | EKG12_ITS ---
Test Reason : AM EKG Blood Pressure : / mmHG Vent. Rate : 127 BPM Atrial Rate : 182 BPM P-R Int : 000 ms QRS Dur : 100 ms QT Int : 304 ms P-R-T Axes : 000 022 019 degrees QTc Int : 441 ms Atrial fibrillation Nonspecific ST and T wave abnormality Abnormal ECG When compared with ECG of 22-APR-2017 18:19, MANUAL COMPARISON REQUIRED, DATA IS UNCONFIRMED Confirmed by BRANDON KARIMI ([id number]), newspaper or periodical editor SREE FLEMING ([id number] on 04/29/2017 1:42:14 PM Referred By: RAFAEL Confirmed By:BRANDON KARIMI
[2017-04-24 05:59] LABS: Anion Gap 12 (5-15); BUN 41 mg/dL (7-18); BUN/Creat Ratio 26.8 RATIO (10-20); Calcium,Total 7.7 mg/dL (8.5-10.1); Chloride 109 mmol/L (98-107); Creatinine, Serum 1.53 mg/dL (0.70-1.30); EST Glomerular Filtration Rate 48 mL/min (>60); Est Glom Filt Rate - Afr Amer 58 mL/min (>60); Estimated Creatinine Clearance 47.85 ml/min; Glucose 197 mg/dL (70-110); Magnesium 2.3 mg/dL (1.6-2.6); Potassium 2.8 mmol/L (3.5-5.1); Sodium Level 143 mmol/L (136-145)
[2017-04-24 06:10] LABS: Differential Comment SCANNED
[2017-04-24] MEDS: Digoxin 250 MCG/ML Ampul IV (08:16)
[2017-04-24] MEDS: APIXABAN 5 MG TABLET PO ×2 (09:42→21:48)
[2017-04-24] MEDS: amLODIPine 5 MG Tablet PO (09:43)
[2017-04-24] MEDS: Metoprolol Tartrate 50 MG Tablet PO (09:44)
[2017-04-24] MEDS: Famotidine 20 MG Tablet PO ×2 (09:46→21:49)
[2017-04-24] MEDS: Oseltamivir Phosphate 30 MG Capsule PO ×2 (09:46→21:49)
[2017-04-24] MEDS: 0.9% NaCl IVPB Med Flush (250 mL) 15 ML IV (10:03)
--- NOTE | 2017-04-24 12:00 | PCM.PN.CARD ---
Subjectve: The patient continues with his cough, wheezing, and shortness of breath. He has noted palpitations and increased heart rate on and off. He has denied other forms of chest discomfort. Objective: Vital Signs Temp Pulse Resp BP Pulse Ox 97.5 F L 91 18 152/98 H 98 04/24/17 07:00 04/24/17 11:17 04/24/17 11:17 04/24/17 11:00 04/24/17 11:17 Oxygen Flow Rate 2 Oxygen Delivery Method Room Air Weight: 189 lb 13.088 oz Body Mass Index (BMI) 26.2 Intake and Output for Last 24 Hours 04/22/17 04/23/17 04/24/17 23:59 23:59 23:59 Intake Total 2373.2 / 2373.2 407.4 / 407.4 Output Total 850 / 850 425 / 425 Balance 1523.2 / 1523.2 -17.6 / -17.6 General: Awake, Alert, Oriented x 3, Cooperative, No Acute Distress Neck: No JVD Lungs: Rhonchi, Expiratory Wheezes-Kiran Cardiovascular: Regular Rhythm, Normal S1, Normal S2 Vascular: No Carotid Bruits Abdomen: Bowel Sounds Present, Soft, Non Tender Extremities: No edema 04/23/17 13:35: Troponin I 0.06 04/24/17 05:35: WBC 10.6, RBC 4.12 L, Hgb 11.4 L, Hct 33.6 L, MCV 81.6, MCH 27.7, MCHC 33.9, RDW 15.1 H, RDW Differential 44.4 H, Plt Count 90 L, MPV 11.1, Immature Gran % (Auto) 1.100 H, Neut % (Auto) 87.7 H, Lymph % (Auto) 5.0 L, [place] % (Auto) 6.1, Eos % (Auto) 0.0, Baso % (Auto) 0.1, Absolute Neuts (auto) 9.3 H, Total Counted Not Reportable 04/24/17 05:35: Sodium 143, Potassium 2.8 L, Chloride 109 H, Carbon Dioxide 22.0, Anion Gap 12, BUN 41 H, Creatinine 1.53 H, Est GFR (MDRD) Af Amer 58 L, Est GFR (MDRD) Non-Af 48 L, BUN/Creatinine Ratio 26.8 H, Glucose 197 H, Calcium 7.7 L, Magnesium 2.3 Rhythm: Paroxysmal atrial fibrillation; PVCs EKG: Atrial fibrillation; nonspecific ST segment abnormality Assessment/Plan 1. Paroxysmal atrial fibrillation with rapid ventricular response The patient has a history of paroxysmal atrial fibrillation. He was noted to have a recurrent event. This may be secondary to his previous cardiovascular history. It may be exacerbated by his underlying acute respiratory history. He will continue to be monitored. He will continue medical therapy. This will include rate control therapy as tolerated. He will continue antiarrhythmic therapy as deemed appropriate. He will continue his anticoagulant therapy. Also, he has been noted to be hypokalemic. Thus, supplementing his potassium level will also be beneficial with respect to his cardiac dysrhythmia. During this time he was noted to have an indeterminate troponin I level. It is unclear as to the etiology as to whether or not this represents a true type I acute coronary syndrome event versus a type II supply demand mismatch event secondary to his underlying combined atrial fibrillation with rapid ventricular response and acute respiratory related issues. The patient states that he has been evaluated by [facility] in the past for the possibility of CAD and was told that this was not an issue for him. He has not required medical therapy or revascularization therapy for CAD in the past. It may not be unreasonable, as the patient's clinical course progresses and hopefully improves, that at some point in time he will be reassessed, based upon his enzyme change, for the possibility of underlying CAD. This may come in the form of noninvasive studies and/or invasive studies as deemed appropriate at the time. 2. Atrial flutter status post flutter ablation She will underwent atrial flutter ablation per the [facility]. He was asked to continue his rate control therapy and his anticoagulant therapy. He will continue to be monitored and continue his beta-heaven therapy unless otherwise contraindicated and his anticoagulant therapy. 3. Hypertension The patient has a history of underlying hypertension. He will continue medical management. His medications may need to be adjusted to avoid interaction with his renal insufficiency. 4. Influenza B/community-acquired pneumonia The patient has been diagnosed with influenza B and community-acquired pneumonia. He will continue evaluation care per internal medicine and pulmonology. 5. Renal insufficiency The patient does appear to have an elevation of his creatinine level compared to before. This may be secondary to a combination of his decreased oral intake and his medical therapy with his previous diuretics, afterload reducing agents, etc. At the present time he is being monitored. He has diuretics and afterload reducing agents are on hold. His renal function is being followed. Comment: The above was discussed with the patient. This note was generated with [employer]ation software. It may contain incorrect words, spelling, and punctuation that were not noted in checking the note before signing.
--- NOTE | 2017-04-24 12:04 | PN.CARD_ITS ---
Subjectve: The patient continues with his cough, wheezing, and shortness of breath. He has noted palpitations and increased heart rate on and off. He has denied other forms of chest discomfort. Objective: Vital Signs Temp Pulse Resp BP Pulse Ox 97.5 F L 91 18 152/98 H 98 04/24/17 07:00 04/24/17 11:17 04/24/17 11:17 04/24/17 11:00 04/24/17 11:17 Oxygen Flow Rate 2 Oxygen Delivery Method Room Air Weight: 189 lb 13.088 oz Body Mass Index (BMI) 26.2 Intake and Output for Last 24 Hours 04/22/17 04/23/17 04/24/17 23:59 23:59 23:59 Intake Total 2373.2 / 2373.2 407.4 / 407.4 Output Total 850 / 850 425 / 425 Balance 1523.2 / 1523.2 -17.6 / -17.6 General: Awake, Alert, Oriented x 3, Cooperative, No Acute Distress Neck: No JVD Lungs: Rhonchi, Expiratory Wheezes-Kiran Cardiovascular: Regular Rhythm, Normal S1, Normal S2 Vascular: No Carotid Bruits Abdomen: Bowel Sounds Present, Soft, Non Tender Extremities: No edema 04/23/17 13:35: Troponin I 0.06 04/24/17 05:35: WBC 10.6, RBC 4.12 L, Hgb 11.4 L, Hct 33.6 L, MCV 81.6, MCH 27.7 , MCHC 33.9, RDW 15.1 H, RDW Differential 44.4 H, Plt Count 90 L, MPV 11.1, Immature Gran % (Auto) 1.100 H, Neut % (Auto) 87.7 H, Lymph % (Auto) 5.0 L, [place] % (Auto) 6.1, Eos % (Auto) 0.0, Baso % (Auto) 0.1, Absolute Neuts (auto) 9.3 H, Total Counted Not Reportable 04/24/17 05:35: Sodium 143, Potassium 2.8 L, Chloride 109 H, Carbon Dioxide 22.0 , Anion Gap 12, BUN 41 H, Creatinine 1.53 H, Est GFR (MDRD) Af Amer 58 L, Est GFR (MDRD) Non-Af 48 L, BUN/Creatinine Ratio 26.8 H, Glucose 197 H, Calcium 7.7 L, Magnesium 2.3 Rhythm: Paroxysmal atrial fibrillation; PVCs EKG: Atrial fibrillation; nonspecific ST segment abnormality Assessment/Plan 1. Paroxysmal atrial fibrillation with rapid ventricular response The patient has a history of paroxysmal atrial fibrillation. He was noted to have a recurrent event. This may be secondary to his previous cardiovascular history. It may be exacerbated by his underlying acute respiratory history. He will continue to be monitored. He will continue medical therapy. This will include rate control therapy as tolerated. He will continue antiarrhythmic therapy as deemed appropriate. He will continue his anticoagulant therapy. Also, he has been noted to be hypokalemic. Thus, supplementing his potassium level will also be beneficial with respect to his cardiac dysrhythmia. During this time he was noted to have an indeterminate troponin I level. It is unclear as to the etiology as to whether or not this represents a true type I acute coronary syndrome event versus a type II supply demand mismatch event secondary to his underlying combined atrial fibrillation with rapid ventricular response and acute respiratory related issues. The patient states that he has been evaluated by [facility] in the past for the possibility of CAD and was told that this was not an issue for him. He has not required medical therapy or revascularization therapy for CAD in the past. It may not be unreasonable, as the patient's clinical course progresses and hopefully improves, that at some point in time he will be reassessed, based upon his enzyme change, for the possibility of underlying CAD. This may come in the form of noninvasive studies and/or invasive studies as deemed appropriate at the time. 2. Atrial flutter status post flutter ablation She will underwent atrial flutter ablation per the [facility]. He was asked to continue his rate control therapy and his anticoagulant therapy. He will continue to be monitored and continue his beta-heaven therapy unless otherwise contraindicated and his anticoagulant therapy. 3. Hypertension The patient has a history of underlying hypertension. He will continue medical management. His medications may need to be adjusted to avoid interaction with his renal insufficiency. 4. Influenza B/community-acquired pneumonia The patient has been diagnosed with influenza B and community-acquired pneumonia. He will continue evaluation care per internal medicine and pulmonology. 5. Renal insufficiency The patient does appear to have an elevation of his creatinine level compared to before. This may be secondary to a combination of his decreased oral intake and his medical therapy with his previous diuretics, afterload reducing agents, etc. At the present time he is being monitored. He has diuretics and afterload reducing agents are on hold. His renal function is being followed. Comment: The above was discussed with the patient. This note was generated with [employer] software. It may contain incorrect words, spelling, and punctuation that were not noted in checking the note before signing.
--- NOTE | 2017-04-24 12:43 | PCM.PN.HOSP ---
Patient Problems: Active and Suspected Problems Influenza B (Acute) Pneumonia (Acute) COPD exacerbation (Acute) Acute respiratory failure with hypoxia (Acute) Atrial fibrillation with RVR (Acute) Acute kidney injury (Acute) Subjective: Overnight events were noticed. Patient went into A. fib with RVR, heart rate ranged once 53-1 72/min. Patient was tachypneic at that time with pulse ox 96% on on 2 L. Patient received digoxin as per the parks worker recommendation. K level was 2.8 which is being replaced. Vitals/I&O's: Vital Signs Temp Pulse Resp BP Pulse Ox 97.5 F L 91 18 152/98 H 98 04/24/17 07:00 04/24/17 11:17 04/24/17 11:17 04/24/17 11:00 04/24/17 11:17 Oxygen Flow Rate 2 Oxygen Delivery Method Room Air Weight: 189 lb 13.088 oz Body Mass Index (BMI) 26.2 Intake and Output for Last 24 Hours 04/22/17 04/23/17 04/24/17 23:59 23:59 23:59 Intake Total 2373.2 / 2373.2 407.4 / 407.4 Output Total 850 / 850 425 / 425 Balance 1523.2 / 1523.2 -17.6 / -17.6 General: Alert, Oriented x3, Cooperative HEENT: Atraumatic, PERRLA, EOMI, Normocephalic Neck: Supple, No JVD, Negative Carotid Bruits Lungs: Diminished, Rhonchi, Wheezes Cardiovascular: Normal S1, Normal S2, No murmurs, Irregular Rate, Tachycardic - Heart rate in [id number] Abdomen: Bowel Sounds Present, Soft, Non Tender, Non-Distended Extremities: No edema, Capillary Refill Less than 3 Seconds Skin: No rashes, No breakdown Musculoskeletal: No Tenderness to Palpation of Joints or Extremities, Muscle Wasting Neurological: Cranial nerves II-XII grossly intact Psych/Mental Status: Normal Affect, Appropriate Microbiology Past 72 Hours 04/23/17 03:45 Urine, Clean Catch Streptococcus pneumoniae Antigen (M - Final 04/23/17 03:45 Urine, Clean Catch Legionella Antigen - Final Laboratory Results 04/23/17 13:35: Troponin I 0.06 04/24/17 05:35: WBC 10.6, RBC 4.12 L, Hgb 11.4 L, Hct 33.6 L, MCV 81.6, MCH 27.7, MCHC 33.9, RDW 15.1 H, RDW Differential 44.4 H, Plt Count 90 L, MPV 11.1, Immature Gran % (Auto) 1.100 H, Neut % (Auto) 87.7 H, Lymph % (Auto) 5.0 L, [place] % (Auto) 6.1, Eos % (Auto) 0.0, Baso % (Auto) 0.1, Absolute Neuts (auto) 9.3 H, Absolute Lymphs (auto) 0.53 L, Total Counted Not Reportable, Differential Comment SCANNED 04/24/17 05:35: Sodium 143, Potassium 2.8 L, Chloride 109 H, Carbon Dioxide 22.0, Anion Gap 12, BUN 41 H, Creatinine 1.53 H, Estim Creat Clear Calc 47.85, Est GFR (MDRD) Af Amer 58 L, Est GFR (MDRD) Non-Af 48 L, BUN/Creatinine Ratio 26.8 H, Glucose 197 H, Calcium 7.7 L, Magnesium 2.3 Current Medications Acetaminophen (Tylenol) 650 mg PO Q4H PRN PRN PRN Reason: FEVER Acetaminophen (Tylenol) 650 mg PO Q6H PRN PRN PRN Reason: Mild Pain (scale 0-3)/T>100.7 Albuterol Sulfate (Ventolin Aerosols) 2.5 mg INHALATION Q2H PRN PRN PRN Reason: SHORTNESS OF BREATH Last Admin: 04/24/17 00:49 Dose: 2.5 mg Albuterol/Ipratropium (Duoneb) 3 ml INHALATION Q4HWA.RT [facility] Last Admin: 04/24/17 11:17 Dose: 3 ml Amlodipine Besylate (Norvasc) 5 mg PO DAILY [facility] Last Admin: 04/24/17 09:43 Dose: 5 mg Apixaban (Eliquis) 5 mg PO BID [facility] Last Admin: 04/24/17 09:42 Dose: 5 mg Famotidine (Pepcid) 20 mg PO BID [facility] Last Admin: 04/24/17 09:46 Dose: 20 mg Sodium Chloride () 250 mls @ 15 mls/hr IV .[id number] PRN PRN Reason: SALINE FLUSH Last Admin: 04/24/17 10:03 Dose: 15 mls/hr Ceftriaxone Sodium 2 gm/ N/A 20 mls @ 240 mls/hr IV Q24 [facility] Last Admin: 04/24/17 09:52 Dose: 240 mls/hr Vancomycin HCl 1,250 mg/ (Dextrose) 275 mls @ 250 mls/hr IV Q36H ONE Stop: 04/24/17 18:05 Magnesium Hydroxide (Milk Of Magnesia) 30 ml PO DAILY PRN PRN PRN Reason: Constipation Methylprednisolone (Solu-Medrol) 40 mg IV Q8 [facility] Last Admin: 04/24/17 06:54 Dose: 40 mg Metoprolol Tartrate (Lopressor (Beta Suzanne)) 75 mg PO BID [facility] Ondansetron HCl (Zofran) 4 mg IV Q8H PRN PRN PRN Reason: NAUSEA Oseltamivir Phosphate (Tamiflu) 30 mg PO BID [facility] Stop: 04/27/17 22:01 Last Admin: 04/24/17 09:46 Dose: 30 mg Sodium Chloride () 5 - 30 ml IV UD PRN PRN Reason: SALINE FLUSH Last Admin: 04/24/17 10:07 Dose: 20 ml Assessment/Plan Active and Suspected Problems Influenza B (Acute) Pneumonia (Acute) COPD exacerbation (Acute) Acute respiratory failure with hypoxia (Acute) Atrial fibrillation with RVR (Acute) Acute kidney injury (Acute) Patient is 71-year-old male with history of Ex smoker with history of smoking 2 packs per day, suspected clinical COPD, hypertension, paroxysmal A. fib status post cardiac ablation several years ago, currently on amiodarone was admitted about a week history of progressive dyspnea, cough, congestion, myalgia and arthralgia, diarrhea and anorexia suggestive of influenza. In ER, patient was very short of breath and put on BiPAP with potential of possible intubation. (1) Acute Hypoxic Respiratory Failure secondary to Acute Influenza B Viral Syndrome and post-viral Syndrome CAP and Acute on Suspected Chronic COPD Exacerbation: A, admitted in ICU, on intermittent BiPAP and oxygen through nasal cannula Acute influenza B viral syndrome and suspected community-acquired pneumonia, possible complication of influenza and COPD exacerbation: . On IV Solu-Medrol, chest physiotherapy, incentive spirometry, Tamiflu, broad-spectrum antibiotic and bronchodilator. Sputum culture, MRSA nasal screen, blood cultures ?2 obtained in the ER. Currently patient is on IV Zosyn and vancomycin. Patient has also history of immunosuppressive therapy because of rheumatoid arthritis. Staphylococcus aureus bacteremia: Preliminary blood culture is positive of staph aureus. Will follow the detail and final report. Continue IV vancomycin. MRSA nasal screen is negative. (3) Paroxsymal atrial fibrillation w/ RVR: On intensive cardiopulmonary monitoring in ICU. Patient was started on amiodarone drip and is still on it. Supervisor [employer] consulted. On oral anticoagulant Eliquis. TSH low but free T4 normal. MRSA negative. First troponin was mildly elevated but slowly decreased to normal. 2D echo was done and reported as EF 60% with no regional wall motion abnormalities. LV systolic function and size normal. Normal RV size and systolic function. LA mildly enlarged but RA normal. Tricuspid valve shows trivial TR. Mild diffuse mitral valve thickening with trivial MR. (3) Acute kidney injury: Secondary to #1, GI losses w/ influenza B. Admission BUN/Cr 46/1.74, prior baseline creatinine noted to be 1.2-1.3. Will hydrate, hold nephrotoxic medications and monitor electrolytes and kidney function. If no improvement would plan FeNa and renal US assessment. Moderate hypokalemia: K2.8 on replacement (4) Former Heavy Tobacco Abuse: Encouraged continued cessation. (5) Hypertension: Hold regimen given presentation, PRN hydralazine. (6) Rheumatoid Arthritis: Will hold regimen given current presentation, restart once clinically improving. (7) GERD: Famotidine. (8) DVT Prophylaxis: SCDs, eliquis. (9) CODE status: The CODE STATUS was discussed at the time of admission including difference between FULL code, DNR-CCA and DNR-CC status given acute presentation and BIPAP needs currently. Patient did clinically improve, but was potential need for intubation initially. He and his spouse confirm FULL CODE status following these discussions. This note was generated with [employer] dictation software. Every effort was made to ensure accuracy, however computerized mail sorter mistakes may persist. Code Visit Inpatient E&M: 47771 Init Hosp L3
--- NOTE | 2017-04-24 12:53 | PN_ITS ---
Patient Problems: Active and Suspected Problems Influenza B (Acute) Pneumonia (Acute) COPD exacerbation (Acute) Acute respiratory failure with hypoxia (Acute) Atrial fibrillation with RVR (Acute) Acute kidney injury (Acute) Subjective: Overnight events were noticed. Patient went into A. fib with RVR, heart rate ranged once 53-1 72/min. Patient was tachypneic at that time with pulse ox 96% on on 2 L. Patient received digoxin as per the vendor relationship manager recommendation. K level was 2.8 which is being replaced. Vitals/I&O's: Vital Signs Temp Pulse Resp BP Pulse Ox 97.5 F L 91 18 152/98 H 98 04/24/17 07:00 04/24/17 11:17 04/24/17 11:17 04/24/17 11:00 04/24/17 11:17 Oxygen Flow Rate 2 Oxygen Delivery Method Room Air Weight: 189 lb 13.088 oz Body Mass Index (BMI) 26.2 Intake and Output for Last 24 Hours 04/22/17 04/23/17 04/24/17 23:59 23:59 23:59 Intake Total 2373.2 / 2373.2 407.4 / 407.4 Output Total 850 / 850 425 / 425 Balance 1523.2 / 1523.2 -17.6 / -17.6 General: Alert, Oriented x3, Cooperative HEENT: Atraumatic, PERRLA, EOMI, Normocephalic Neck: Supple, No JVD, Negative Carotid Bruits Lungs: Diminished, Rhonchi, Wheezes Cardiovascular: Normal S1, Normal S2, No murmurs, Irregular Rate, Tachycardic - Heart rate in 100?110s Abdomen: Bowel Sounds Present, Soft, Non Tender, Non-Distended Extremities: No edema, Capillary Refill Less than 3 Seconds Skin: No rashes, No breakdown Musculoskeletal: No Tenderness to Palpation of Joints or Extremities, Muscle Wasting Neurological: Cranial nerves II-XII grossly intact Psych/Mental Status: Normal Affect, Appropriate Microbiology Past 72 Hours 04/23/17 03:45 Urine, Clean Catch Streptococcus pneumoniae Antigen (M - Final 04/23/17 03:45 Urine, Clean Catch Legionella Antigen - Final Laboratory Results 04/23/17 13:35: Troponin I 0.06 04/24/17 05:35: WBC 10.6, RBC 4.12 L, Hgb 11.4 L, Hct 33.6 L, MCV 81.6, MCH 27.7 , MCHC 33.9, RDW 15.1 H, RDW Differential 44.4 H, Plt Count 90 L, MPV 11.1, Immature Gran % (Auto) 1.100 H, Neut % (Auto) 87.7 H, Lymph % (Auto) 5.0 L, [place] % (Auto) 6.1, Eos % (Auto) 0.0, Baso % (Auto) 0.1, Absolute Neuts (auto) 9.3 H, Absolute Lymphs (auto) 0.53 L, Total Counted Not Reportable, Differential Comment SCANNED 04/24/17 05:35: Sodium 143, Potassium 2.8 L, Chloride 109 H, Carbon Dioxide 22.0 , Anion Gap 12, BUN 41 H, Creatinine 1.53 H, Estim Creat Clear Calc 47.85, Est GFR (MDRD) Af Amer 58 L, Est GFR (MDRD) Non-Af 48 L, BUN/Creatinine Ratio 26.8 H , Glucose 197 H, Calcium 7.7 L, Magnesium 2.3 Current Medications Acetaminophen (Tylenol) 650 mg PO Q4H PRN PRN PRN Reason: FEVER Acetaminophen (Tylenol) 650 mg PO Q6H PRN PRN PRN Reason: Mild Pain (scale 0-3)/T>100.7 Albuterol Sulfate (Ventolin Aerosols) 2.5 mg INHALATION Q2H PRN PRN PRN Reason: SHORTNESS OF BREATH Last Admin: 04/24/17 00:49 Dose: 2.5 mg Albuterol/Ipratropium (Duoneb) 3 ml INHALATION Q4HWA.RT [facility] Last Admin: 04/24/17 11:17 Dose: 3 ml Amlodipine Besylate (Norvasc) 5 mg PO DAILY [facility] Last Admin: 04/24/17 09:43 Dose: 5 mg Apixaban (Eliquis) 5 mg PO BID [facility] Last Admin: 04/24/17 09:42 Dose: 5 mg Famotidine (Pepcid) 20 mg PO BID [facility] Last Admin: 04/24/17 09:46 Dose: 20 mg Sodium Chloride () 250 mls @ 15 mls/hr IV .[id number] PRN PRN Reason: SALINE FLUSH Last Admin: 04/24/17 10:03 Dose: 15 mls/hr Ceftriaxone Sodium 2 gm/ N/A 20 mls @ 240 mls/hr IV Q24 [facility] Last Admin: 04/24/17 09:52 Dose: 240 mls/hr Vancomycin HCl 1,250 mg/ (Dextrose) 275 mls @ 250 mls/hr IV Q36H ONE Stop: 04/24/17 18:05 Magnesium Hydroxide (Milk Of Magnesia) 30 ml PO DAILY PRN PRN PRN Reason: Constipation Methylprednisolone (Solu-Medrol) 40 mg IV Q8 [facility] Last Admin: 04/24/17 06:54 Dose: 40 mg Metoprolol Tartrate (Lopressor (Beta Suzanne)) 75 mg PO BID [facility] Ondansetron HCl (Zofran) 4 mg IV Q8H PRN PRN PRN Reason: NAUSEA Oseltamivir Phosphate (Tamiflu) 30 mg PO BID [facility] Stop: 04/27/17 22:01 Last Admin: 04/24/17 09:46 Dose: 30 mg Sodium Chloride () 5 - 30 ml IV UD PRN PRN Reason: SALINE FLUSH Last Admin: 04/24/17 10:07 Dose: 20 ml Assessment/Plan Active and Suspected Problems Influenza B (Acute) Pneumonia (Acute) COPD exacerbation (Acute) Acute respiratory failure with hypoxia (Acute) Atrial fibrillation with RVR (Acute) Acute kidney injury (Acute) Patient is 71-year-old male with history of Ex smoker with history of smoking 2 packs per day, suspected clinical COPD, hypertension, paroxysmal A. fib status post cardiac ablation several years ago, currently on amiodarone was admitted about a week history of progressive dyspnea, cough, congestion, myalgia and arthralgia, diarrhea and anorexia suggestive of influenza. In ER, patient was very short of breath and put on BiPAP with potential of possible intubation. (1) Acute Hypoxic Respiratory Failure secondary to Acute Influenza B Viral Syndrome and post-viral Syndrome CAP and Acute on Suspected Chronic COPD Exacerbation: A, admitted in ICU, on intermittent BiPAP and oxygen through nasal cannula Acute influenza B viral syndrome and suspected community-acquired pneumonia, possible complication of influenza and COPD exacerbation: . On IV Solu-Medrol, chest physiotherapy, incentive spirometry, Tamiflu, broad-spectrum antibiotic and bronchodilator. Sputum culture, MRSA nasal screen, blood cultures ?2 obtained in the ER. Currently patient is on IV Zosyn and vancomycin. Patient has also history of immunosuppressive therapy because of rheumatoid arthritis. Staphylococcus aureus bacteremia: Preliminary blood culture is positive of staph aureus. Will follow the detail and final report. Continue IV vancomycin. MRSA nasal screen is negative. (3) Paroxsymal atrial fibrillation w/ RVR: On intensive cardiopulmonary monitoring in ICU. Patient was started on amiodarone drip and is still on it. Power Press Operator consulted. On oral anticoagulant Eliquis. TSH low but free T4 normal. MRSA negative. First troponin was mildly elevated but slowly decreased to normal. 2D echo was done and reported as EF 60% with no regional wall motion abnormalities. LV systolic function and size normal. Normal RV size and systolic function. LA mildly enlarged but RA normal. Tricuspid valve shows trivial TR. Mild diffuse mitral valve thickening with trivial MR. (3) Acute kidney injury: Secondary to #1, GI losses w/ influenza B. Admission BUN/Cr 46/1.74, prior baseline creatinine noted to be 1.2-1.3. Will hydrate, hold nephrotoxic medications and monitor electrolytes and kidney function. If no improvement would plan FeNa and renal US assessment. Moderate hypokalemia: K2.8 on replacement (4) Former Heavy Tobacco Abuse: Encouraged continued cessation. (5) Hypertension: Hold regimen given presentation, PRN hydralazine. (6) Rheumatoid Arthritis: Will hold regimen given current presentation, restart once clinically improving. (7) GERD: Famotidine. (8) DVT Prophylaxis: SCDs, eliquis. (9) CODE status: The CODE STATUS was discussed at the time of admission including difference between FULL code, DNR-CCA and DNR-CC status given acute presentation and BIPAP needs currently. Patient did clinically improve, but was potential need for intubation initially. He and his spouse confirm FULL CODE status following these discussions. This note was generated with [employer] dictation software. Every effort was made to ensure accuracy, however computerized belly dump driver mistakes may persist. Code Visit Inpatient E&M: 76673 Init Hosp L3
[2017-04-24] MEDS: Metoprolol Tartrate 25 MG Tablet PO (12:59)
[2017-04-24] MEDS: Metoprolol Tartrate 25 MG Tablet 75 MG PO (21:53)
[2017-04-25] VITALS (24 sets, daily range): BP systolic 123–159; BP diastolic 72–96; PULSE 84–111; RESP 15–30; TEMP 36.3–36.9; O2SAT 86–95
--- NOTE | 2017-04-25 05:02 | PCM.PN.INT ---
Subjective: The patient was seen and examined at the bedside this morning. Events from the last 24 hours have been reviewed. The patient is currently afebrile, hemodynamically stable and maintaining appropriate oxygen saturations on room air. He does endorse interval improvement in his breathing quality. He continues to cough, although it has improved. The patient converted from atrial fibrillation back into normal sinus rhythm. He currently has a heart rate in the 90s. He is currently without complaints of chest pain. White blood cell count is elevated this morning 17,000. Phosphorus is low at 1.8. Objective: The patient's most recent lab work, culture data and imaging studies have all been personally reviewed. Strep and urine Legionella antigens were both negative. Rapid influenza screen was positive for influenza B. Blood and sputum cultures are pending. The patient does have a confirmed history of lower extremity DVT, noted on Doppler studies from November 2015. Surface echocardiogram last completed in December 2012 revealed evidence of moderate concentric LVH with an ejection fraction of 60%. Right ventricular systolic pressure was estimated to be 24 mmHg. Plain film chest x-ray on admission revealed evidence of a left basilar infiltrate. Surface echocardiogram completed April 23 revealed normal LV size and function with an ejection fraction of 60%. General: Alert, Oriented x3, Cooperative, No apparent distress, - - Seated in bedside recliner. HEENT: Atraumatic, PERRLA, Normocephalic Oral: Moist Mucosa, No Gingival or Mucosal Lesions/ Ulcerations Neck: Supple, No Nodes, Trachea Midline Lungs: Diminished, - - Bilateral end expiratory wheezes. No accessory muscle use. Speaking in full sentences. Cardiovascular: Regular rate, Regular Rhythm, Normal S1, Normal S2, No murmurs, - - Telemetry reveals normal sinus rhythm. Abdomen: Bowel Sounds Present, Soft, Non Tender, Non-Distended Extremities: No clubbing, No cyanosis, No edema, Cool Skin: No rashes, No breakdown Musculoskeletal: No Tenderness to Palpation of Joints or Extremities Lymphatic: No Cervical, Supraclavicular, or Inguinal Adenopathy Neurological: Neuro grossly intact Psych/Mental Status: Alert and oriented to time, place, person, mood and affect Vital Signs Temp Pulse Resp BP Pulse Ox 97.6 F L 97 23 H 133/80 H 90 04/25/17 04:00 04/25/17 04:00 04/25/17 04:00 04/25/17 04:00 04/25/17 04:00 Oxygen Flow Rate 2 Oxygen Delivery Method Room Air Weight: 189 lb 13.088 oz Body Mass Index (BMI) 26.2 Intake and Output for Last 24 Hours 04/23/17 04/24/17 04/25/17 23:59 23:59 23:59 Intake Total 2373.2 / 2373.2 1919.4 / 1919.4 480 / 480 Output Total 850 / 850 1075 / 1075 150 / 150 Balance 1523.2 / 1523.2 844.4 / 844.4 330 / 330 Labs (Last 48 Hours) 04/23/17 04/23/17 04/23/17 07:20 07:20 07:20 WBC 4.6 RBC 3.91 L Hgb 11.0 L Hct 32.3 L MCV 82.6 MCH 28.1 MCHC 34.1 RDW 14.9 H RDW Differential 43.1 Plt Count 73 L MPV 11.7 Immature Gran % (Auto) 1.100 H Neut % (Auto) 86.4 H Lymph % (Auto) 5.2 L [place] % (Auto) 6.9 Eos % (Auto) 0.0 Baso % (Auto) 0.4 Absolute Neuts (auto) 4.0 Absolute Lymphs (auto) 0.24 L Total Counted Not Reportable Differential Comment Ovalocytes 1+ Sodium 140 Potassium 3.1 L Chloride 108 H Carbon Dioxide 22.0 Anion Gap 10 BUN 44 H Creatinine 1.71 H Estim Creat Clear Calc 42.81 Est GFR (MDRD) Af Amer 51 L Est GFR (MDRD) Non-Af 42 L BUN/Creatinine Ratio 25.7 H Glucose 185 H Calcium 7.1 L Phosphorus Magnesium Total Bilirubin 0.70 AST 80 H ALT 36 Alkaline Phosphatase 31 L Troponin I 0.06 Total Protein 6.1 L Albumin 2.5 L Globulin 3.6 Albumin/Globulin Ratio 0.7 L 04/23/17 04/24/17 04/24/17 13:35 05:35 05:35 WBC 10.6 RBC 4.12 L Hgb 11.4 L Hct 33.6 L MCV 81.6 MCH 27.7 MCHC 33.9 RDW 15.1 H RDW Differential 44.4 H Plt Count 90 L MPV 11.1 Immature Gran % (Auto) 1.100 H Neut % (Auto) 87.7 H Lymph % (Auto) 5.0 L [place] % (Auto) 6.1 Eos % (Auto) 0.0 Baso % (Auto) 0.1 Absolute Neuts (auto) 9.3 H Absolute Lymphs (auto) 0.53 L Total Counted Not Reportable Differential Comment SCANNED Ovalocytes Sodium 143 Potassium 2.8 L Chloride 109 H Carbon Dioxide 22.0 Anion Gap 12 BUN 41 H Creatinine 1.53 H Estim Creat Clear Calc 47.85 Est GFR (MDRD) Af Amer 58 L Est GFR (MDRD) Non-Af 48 L BUN/Creatinine Ratio 26.8 H Glucose 197 H Calcium 7.7 L Phosphorus Magnesium 2.3 Total Bilirubin AST ALT Alkaline Phosphatase Troponin I 0.06 Total Protein Albumin Globulin Albumin/Globulin Ratio 04/25/17 04/25/17 04/25/17 04:45 04:45 04:45 WBC Pending RBC Pending Hgb Pending Hct Pending MCV Pending MCH Pending MCHC Pending RDW Pending RDW Differential Pending Plt Count Pending MPV Immature Gran % (Auto) Neut % (Auto) Pending Lymph % (Auto) [place] % (Auto) Eos % (Auto) Baso % (Auto) Absolute Neuts (auto) Pending Absolute Lymphs (auto) Total Counted Pending Differential Comment Ovalocytes Sodium Pending Potassium Pending Chloride Pending Carbon Dioxide Pending Anion Gap Pending BUN Pending Creatinine Pending Estim Creat Clear Calc Est GFR (MDRD) Af Amer Pending Est GFR (MDRD) Non-Af Pending BUN/Creatinine Ratio Pending Glucose Pending Calcium Pending Phosphorus Pending Magnesium Total Bilirubin AST ALT Alkaline Phosphatase Troponin I Total Protein Albumin Globulin Albumin/Globulin Ratio Microbiology 04/23/17 03:45 Urine, Clean Catch Streptococcus pneumoniae Antigen (M - Final 04/23/17 03:45 Urine, Clean Catch Legionella Antigen - Final Clinical Impression(s) from Imaging Studies Chest X-Ray 04/22/17 17:01 IMPRESSION: Patchy left perihilar and left base infiltrates. Electronically Signed: Ezio Vinson MD at 18:36 EST , Service support , Assessment/Plan Active and Suspected Problems Influenza B (Acute) Pneumonia (Acute) COPD exacerbation (Acute) Acute respiratory failure with hypoxia (Acute) Atrial fibrillation with RVR (Acute) Acute kidney injury (Acute) RECOMMENDATIONS: 1. Wean supplemental oxygen to maintain saturations at or above 90%. 2. Continue Tamiflu x 5 days and antibiotics, as ordered. 3. Continue medical management of atrial fibrillation per cardiology recommendations. 4. Aggressive electrolyte repletion. Maintain potassium level greater than 4 and magnesium level greater than 2. Phosphorus repletion ordered. 5. Continue scheduled aerosol treatments and steroids. Okay to transition to prednisone 40 mg daily. 6. Continue Eliquis 7. Continue appropriate ICU prophylaxis: Pepcid and Eliquis 8. Continue vancomycin, given staph isolated from blood culture. This may be a contaminant. Repeat blood cultures are pending. Awaiting sensitivities IMPRESSIONS: 1. Acute hypoxemic respiratory failure secondary to influenza B/CAP Continue current supportive measures with the use of noninvasive positive pressure ventilation as needed, Tamiflu and antimicrobials, pending finalized infectious workup. The patient will be maintained on a scheduled aerosol regimen and steroids. IV Solu-Medrol can be transitioned to prednisone 40 mg beginning today. Wean supplemental oxygen to maintain saturations at or above 90%. Encourage incentive spirometer use and mobilize patient as tolerated. Blood cultures ?1 obtained on April 22 were also noted to be positive for staph aureus. Sensitivities are pending. The patient will be continued on vancomycin in the interim, pending results of repeat cultures. 2. Suspected COPD of unknown severity/history of tobacco abuse, in remission Patient is currently being treated presumptively for a COPD exacerbation. He will be continued on scheduled aerosol treatments and steroids. He reportedly follows with a final dressing cutter through the [facility] system in [place]. However, he does not recall the provider's name. It is unclear whether or not the patient has had PFTs in the past. He will require a walking oximetry study prior to consideration for discharge from the hospital, along with close interval follow-up with his primary final dressing cutter. 3. History of lower extremity DVT Continue Eliquis per outpatient regimen. 4. Paroxysmal atrial fibrillation with RVR Echocardiogram revealed normal LV size and function with an ejection fraction of 60%. Continue current medical management per cardiology recommendations. The patient has converted to normal sinus rhythm. 5. Acute kidney injury Improved at this time. Likely prerenal in etiology. Urine output is appropriate. No indication for renal replacement therapy at this time. 6. Hypophosphatemia Electrolyte repletion as indicated. Given the patient's atrial fibrillation, recommend maintaining potassium levels greater than 4 and magnesium levels greater than 2. 7. Personal history of rheumatoid arthritis/GERD/hypertension Complicates care, management, recovery and prognosis. Hold outpatient DMARD's for now. Mobilize patient as tolerated. This note was generated with [employer] dictation software. It may contain incorrect words, spelling, and punctuation that were not noted in checking the note before signing. The patient is medically stable for transfer out of the intensive care unit. Code Visit Inpatient E&M: 10920 Subs Hosp L3
[2017-04-25 05:04] LABS: Hematocrit 34.1 % (40-54); Hemoglobin 11.4 g/dl (13.0-16.5); Mean Corp Hgb Conc 33.4 g/gl (32-36); Mean Corpuscular Hgb 27.3 pg (27.0-32.0); Mean Corpuscular Volume 81.6 fL (80-94); Mean Platelet Vol. 10.8 fl (6.2-12.0); Platelet Count 123 K/mm3 (150-450); RBC Distribution Width CV 15.4 % (11.6-14.6); Red Blood Count 4.18 M/mm3 (4.6-6.2); White Blood Count 17.2 K/mm3 (4.4-11.0)
[2017-04-25 05:21] LABS: Phosphorus 1.8 mg/dL (2.5-4.9)
[2017-04-25 05:22] LABS: Anion Gap 8 (5-15); BUN 35 mg/dL (7-18); BUN/Creat Ratio 28.5 RATIO (10-20); Calcium,Total 7.5 mg/dL (8.5-10.1); Chloride 113 mmol/L (98-107); Creatinine, Serum 1.23 mg/dL (0.70-1.30); EST Glomerular Filtration Rate 62 mL/min (>60); Est Glom Filt Rate - Afr Amer 75 mL/min (>60); Estimated Creatinine Clearance 59.52 ml/min; Glucose 140 mg/dL (70-110); Potassium 4.1 mmol/L (3.5-5.1); Sodium Level 145 mmol/L (136-145)
[2017-04-25 05:33] LABS: Lymphocyte 5 % (19-41); Metamyelocyte 1 % (0-1); Monocyte 3 % (0-10); Myelocyte 2 (0-0); Neutrophil-Band 6 % (0-5); Neutrophil-Segmented 83 % (47-70); Total Cells Counted 100 (MANUAL DIFF)
[2017-04-25 05:35] LABS: Differential Indicated MANUAL DIFF; POSITIVE COUNT NO; POSITIVE DIFFERENTIAL NO; POSITIVE MORPHOLOGY YES
[2017-04-25] MEDS: 0.9% NaCl Peripheral Flush Adult/Peds IV ×3 (05:35→21:30)
[2017-04-25 05:37] LABS: Absolute Lymphocyte Count 0.86 X10^3/ul (0.83-4.51); Absolute Neutrophil Count 15.3 X10^3/uL (2.0-7.7)
[2017-04-25 05:38] LABS: Crenated RBC 2+; Platelet Morphology LARGE
[2017-04-25] MEDS: Ipratropium/Albuterol Sulfate 3 ML AMPUL.NEB INHALATION ×2 (07:11→19:52)
--- NOTE | 2017-04-25 07:47 | PCM.PN.HOSP ---
Patient Problems: Active and Suspected Problems Influenza B (Acute) Pneumonia (Acute) COPD exacerbation (Acute) Acute respiratory failure with hypoxia (Acute) Atrial fibrillation with RVR (Acute) Acute kidney injury (Acute) Subjective: Patient is still wheezing, sitting upright in the chair. No fever. The patient is converted from A. fib to normal sinus rhythm. Heart rate in 90s. Mild tachypnea respiratory rate 22-26/min. Blood culture is positive of staph aureus, preliminary. Objective: General: Alert, Oriented x3, Cooperative HEENT: Atraumatic, PERRLA, EOMI, Normocephalic Neck: Supple, No JVD, Negative Carotid Bruits Lungs: Diminished, Rhonchi, Wheezes Cardiovascular: Normal S1, Normal S2, No murmurs, Irregular Rate, heart rate control between 80-90/min Abdomen: Bowel Sounds Present, Soft, Non Tender, Non-Distended Extremities: No edema, Capillary Refill Less than 3 Seconds Skin: No rashes, No breakdown Musculoskeletal: No Tenderness to Palpation of Joints or Extremities, Muscle Wasting Neurological: Cranial nerves II-XII grossly intact Psych/Mental Status: Normal Affect, Appropriate Vitals/I&O's: Vital Signs Temp Pulse Resp BP Pulse Ox 97.4 F L 91 22 H 124/96 H 91 04/25/17 06:00 04/25/17 07:00 04/25/17 07:00 04/25/17 07:00 04/25/17 07:00 Oxygen Flow Rate 2 Oxygen Delivery Method Room Air Weight: 191 lb 2.252 oz Body Mass Index (BMI) 26.2 Intake and Output for Last 24 Hours 04/23/17 04/24/17 04/25/17 23:59 23:59 23:59 Intake Total 2373.2 / 2373.2 1919.4 / 1919.4 600 / 600 Output Total 850 / 850 1075 / 1075 350 / 350 Balance 1523.2 / 1523.2 844.4 / 844.4 250 / 250 Microbiology Past 72 Hours 04/23/17 03:45 Urine, Clean Catch Streptococcus pneumoniae Antigen (M - Final 04/23/17 03:45 Urine, Clean Catch Legionella Antigen - Final Laboratory Results 04/25/17 04:45: WBC 17.2 H, RBC 4.18 L, Hgb 11.4 L, Hct 34.1 L, MCV 81.6, MCH 27.3, MCHC 33.4, RDW 15.4 H, RDW Differential 45.0 H, Plt Count 123 L, MPV 10.8, Neut % (Auto) Not Reportable, Absolute Neuts (auto) 15.3 H, Absolute Lymphs (auto) 0.86, Total Counted 100, Neutrophils % (Manual) 83 H, Band Neutrophils % 6 H, Lymphocytes % (Manual) 5 L, Monocytes % (Manual) 3, Metamyelocytes % 1, Myelocytes % 2 H, Diff Path Review May foll, Plt Morphology Comment LARGE, RBC Morphology 2+ 04/25/17 04:45: Sodium 145, Potassium 4.1, Chloride 113 H, Carbon Dioxide 24.0, Anion Gap 8, BUN 35 H, Creatinine 1.23, Estim Creat Clear Calc 59.52, Est GFR (MDRD) Af Amer 75, Est GFR (MDRD) Non-Af 62, BUN/Creatinine Ratio 28.5 H, Glucose 140 H, Calcium 7.5 L 04/25/17 04:45: Phosphorus 1.8 L Current Medications Acetaminophen (Tylenol) 650 mg PO Q4H PRN PRN PRN Reason: FEVER Acetaminophen (Tylenol) 650 mg PO Q6H PRN PRN PRN Reason: Mild Pain (scale 0-3)/T>100.7 Albuterol Sulfate (Ventolin Aerosols) 2.5 mg INHALATION Q2H PRN PRN PRN Reason: SHORTNESS OF BREATH Last Admin: 04/24/17 00:49 Dose: 2.5 mg Albuterol/Ipratropium (Duoneb) 3 ml INHALATION Q4HWA.RT [facility] Last Admin: 04/25/17 07:11 Dose: 3 ml Amlodipine Besylate (Norvasc) 5 mg PO DAILY [facility] Last Admin: 04/24/17 09:43 Dose: 5 mg Apixaban (Eliquis) 5 mg PO BID [facility] Last Admin: 04/24/17 21:48 Dose: 5 mg Dextrose (D50w Syringe) 0 gm IV X1 PRN; Protocol PRN Reason: Hypoglycemia Famotidine (Pepcid) 20 mg PO BID [facility] Last Admin: 04/24/17 21:49 Dose: 20 mg Glucagon () 1 mg IM .X1 PRN PRN Reason: Hypoglycemia Sodium Chloride () 250 mls @ 15 mls/hr IV .[id number] PRN PRN Reason: SALINE FLUSH Last Admin: 04/24/17 10:03 Dose: 15 mls/hr Ceftriaxone Sodium 2 gm/ N/A 20 mls @ 240 mls/hr IV Q24 [facility] Last Admin: 04/24/17 09:52 Dose: 240 mls/hr Vancomycin HCl 1,250 mg/ (Sodium Chloride) 275 mls @ 183.3 mls/hr IV Q36H [facility] Potassium Phosphate 21 mm/ (Sodium Chloride) 257 mls @ 84 mls/hr IV X1 ONE Stop: 04/25/17 09:42 Insulin Aspart (Novolog Flexpen (Bkc)) 0 units SC ACHS [facility] PRN Reason: Protocol Magnesium Hydroxide (Milk Of Magnesia) 30 ml PO DAILY PRN PRN PRN Reason: Constipation Methylprednisolone (Solu-Medrol) 40 mg IV Q8 [facility] Last Admin: 04/25/17 05:34 Dose: 40 mg Metoprolol Tartrate (Lopressor (Beta Suzanne)) 75 mg PO BID [facility] Last Admin: 04/24/17 21:53 Dose: 75 mg Ondansetron HCl (Zofran) 4 mg IV Q8H PRN PRN PRN Reason: NAUSEA Oseltamivir Phosphate (Tamiflu) 30 mg PO BID [facility] Stop: 04/27/17 22:01 Last Admin: 04/24/17 21:49 Dose: 30 mg Sodium Chloride () 5 - 30 ml IV UD PRN PRN Reason: SALINE FLUSH Last Admin: 04/25/17 05:35 Dose: 10 ml Assessment/Plan Active and Suspected Problems Influenza B (Acute) Pneumonia (Acute) COPD exacerbation (Acute) Acute respiratory failure with hypoxia (Acute) Atrial fibrillation with RVR (Acute) Acute kidney injury (Acute) Patient is 71-year-old male with history of Ex smoker with history of smoking 2 packs per day, suspected clinical COPD, hypertension, paroxysmal A. fib status post cardiac ablation several years ago, currently on amiodarone was admitted about a week history of progressive dyspnea, cough, congestion, myalgia and arthralgia, diarrhea and anorexia suggestive of influenza. In ER, patient was very short of breath and put on BiPAP with potential of possible intubation. (1) Acute Hypoxic Respiratory Failure secondary to Acute Influenza B Viral Syndrome and post-viral Syndrome CAP and Acute on Suspected Chronic COPD Exacerbation: The patient is being admitted in ICU, on intermittent BiPAP and oxygen through nasal cannula. Currently patient pulse ox is 91% on room air. Acute influenza B viral syndrome and suspected community-acquired pneumonia, possible complication of influenza and COPD exacerbation: . On IV Solu-Medrol, chest physiotherapy, incentive spirometry, Tamiflu, broad-spectrum antibiotic and bronchodilator. Sputum culture, MRSA nasal screen, blood cultures ?2 obtained in the ER. Currently patient is on IV Zosyn and vancomycin. Patient has also history of immunosuppressive therapy because of rheumatoid arthritis. Staphylococcus aureus bacteremia: Preliminary blood culture of 04/22 is positive of staph aureus. Will follow the detail and final report. Continue IV vancomycin. MRSA nasal screen is negative. (3) Paroxsymal atrial fibrillation w/ RVR: On intensive cardiopulmonary monitoring in ICU. Patient was started on amiodarone drip and is still on it. [employer] consulted. On oral anticoagulant Eliquis. TSH low but free T4 normal. MRSA negative. First troponin was mildly elevated but slowly decreased to normal. 2D echo was done and reported as EF 60% with no regional wall motion abnormalities. LV systolic function and size normal. Normal RV size and systolic function. LA mildly enlarged but RA normal. Tricuspid valve shows trivial TR. Mild diffuse mitral valve thickening with trivial MR. (3) Acute kidney injury: Secondary to #1, GI losses w/ influenza B. Admission BUN/Cr 46/1.74, prior baseline creatinine noted to be 1.2-1.3. Will hydrate, hold nephrotoxic medications and monitor electrolytes and kidney function. Creatinine improved to the baseline 1.2. Moderate hypokalemia: K2.8. Hypokalemia corrected (4) Former Heavy Tobacco Abuse: Encouraged continued cessation. (5) Hypertension: Hold regimen given presentation, PRN hydralazine. (6) Rheumatoid Arthritis: Will hold regimen given current presentation, restart once clinically improving. (7) GERD: Famotidine. (8) DVT Prophylaxis: SCDs, eliquis. (9) CODE status: The CODE STATUS was discussed at the time of admission including difference between FULL code, DNR-CCA and DNR-CC status given acute presentation and BIPAP needs currently. Patient did clinically improve, but was potential need for intubation initially. He and his spouse confirm FULL CODE status following these discussions. Microbiology Past 72 Hours 04/22/17 17:17 Blood Culture (Wb) - Anticubital Left Bacteria Detection (PCR) - Preliminary Staphylococcus aureus 04/22/17 17:17 Blood Culture (Wb) - Anticubital Left Blood Culture - Preliminary Staphylococcus aureus 04/23/17 03:45 Urine, Clean Catch Streptococcus pneumoniae Antigen (M - Final 04/23/17 03:45 Urine, Clean Catch Legionella Antigen - Final 04/22/17 17:30 Mucosa - Nose Influenza Types A,B Direct FA (SASCHA) - Final Influenzae B Laboratory Results 04/25/17 04:45: WBC 17.2 H, RBC 4.18 L, Hgb 11.4 L, Hct 34.1 L, MCV 81.6, MCH 27.3, MCHC 33.4, RDW 15.4 H, RDW Differential 45.0 H, Plt Count 123 L, MPV 10.8, Neut % (Auto) Not Reportable, Absolute Neuts (auto) 15.3 H, Absolute Lymphs (auto) 0.86, Total Counted 100, Neutrophils % (Manual) 83 H, Band Neutrophils % 6 H, Lymphocytes % (Manual) 5 L, Monocytes % (Manual) 3, Metamyelocytes % 1, Myelocytes % 2 H, Diff Path Review May foll, Plt Morphology Comment LARGE, RBC Morphology 2+ 04/25/17 04:45: Sodium 145, Potassium 4.1, Chloride 113 H, Carbon Dioxide 24.0, Anion Gap 8, BUN 35 H, Creatinine 1.23, Estim Creat Clear Calc 59.52, Est GFR (MDRD) Af Amer 75, Est GFR (MDRD) Non-Af 62, BUN/Creatinine Ratio 28.5 H, Glucose 140 H, Calcium 7.5 L 04/25/17 04:45: Phosphorus 1.8 L Clinical Impression(s) from Imaging Studies Chest X-Ray 04/22/17 17:01 IMPRESSION: Patchy left perihilar and left base infiltrates. Electronically Signed: Ezio Vinson MD at 18:36 EST , Service support , This note was generated with [employer] dictation software. Every effort was made to ensure accuracy, however computerized maintenance associate mistakes may persist. Code Visit Inpatient E&M: 41842 Subs Hosp L3
[2017-04-25 08:46] LABS: Bedside Glucose 169 mg/dL (70-110)
[2017-04-25] MEDS: amLODIPine 5 MG Tablet PO (11:23)
[2017-04-25] MEDS: APIXABAN 5 MG TABLET PO ×2 (11:23→21:30)
[2017-04-25] MEDS: Famotidine 20 MG Tablet PO ×2 (11:24→21:30)
[2017-04-25] MEDS: Metoprolol Tartrate 25 MG Tablet 75 MG PO ×2 (11:24→21:30)
[2017-04-25] MEDS: Oseltamivir Phosphate 30 MG Capsule PO ×2 (11:24→21:30)
--- NOTE | 2017-04-25 11:30 | PCM.PN.CARD ---
Subjectve: At the present time the patient appears to be remaining in sinus rhythm. He has not noted any symptomatic changes with his underlying rate or rhythm. He has noted no new chest discomfort. He continues with an element of coughing and wheezing. Objective: Vital Signs Temp Pulse Resp BP Pulse Ox 97.4 F L 104 H 22 H 124/96 H 91 04/25/17 06:00 04/25/17 11:24 04/25/17 07:00 04/25/17 07:00 04/25/17 07:00 Oxygen Flow Rate 2 Oxygen Delivery Method Room Air Weight: 191 lb 2.252 oz Body Mass Index (BMI) 26.2 Intake and Output for Last 24 Hours 04/23/17 04/24/17 04/25/17 23:59 23:59 23:59 Intake Total 2373.2 / 2373.2 1919.4 / 1919.4 600 / 600 Output Total 850 / 850 1075 / 1075 350 / 350 Balance 1523.2 / 1523.2 844.4 / 844.4 250 / 250 General: Awake, Alert, Oriented x 3, Cooperative, No Acute Distress Neck: No JVD Lungs: Rhonchi, Expiratory Wheezes-Kiran Cardiovascular: Regular Rhythm, Normal S1, Normal S2 Abdomen: Bowel Sounds Present, Soft, Non Tender Extremities: No edema 04/25/17 04:45: WBC 17.2 H, RBC 4.18 L, Hgb 11.4 L, Hct 34.1 L, MCV 81.6, MCH 27.3, MCHC 33.4, RDW 15.4 H, RDW Differential 45.0 H, Plt Count 123 L, MPV 10.8, Neut % (Auto) Not Reportable, Absolute Neuts (auto) 15.3 H, Total Counted 100, Neutrophils % (Manual) 83 H, Band Neutrophils % 6 H, Lymphocytes % (Manual) 5 L, Monocytes % (Manual) 3, Metamyelocytes % 1, Myelocytes % 2 H 04/25/17 04:45: Sodium 145, Potassium 4.1, Chloride 113 H, Carbon Dioxide 24.0, Anion Gap 8, BUN 35 H, Creatinine 1.23, Est GFR (MDRD) Af Amer 75, Est GFR (MDRD) Non-Af 62, BUN/Creatinine Ratio 28.5 H, Glucose 140 H, Calcium 7.5 L 04/25/17 04:45: Phosphorus 1.8 L Rhythm: Sinus rhythm/sinus tachycardia Assessment/Plan 1. Paroxysmal atrial fibrillation with rapid ventricular response The patient has a history of paroxysmal atrial fibrillation. He was noted to have a recurrent event. This may be secondary to his previous cardiovascular history. It may be exacerbated by his underlying acute respiratory history. He will continue to be monitored. He will continue medical therapy. This will include rate control therapy as tolerated. His beta-heaven dose has been increased. He will continue antiarrhythmic therapy as deemed appropriate. He will continue his anticoagulant therapy. During this time he was noted to have an indeterminate troponin I level. It is unclear as to the etiology as to whether or not this represents a true type I acute coronary syndrome event versus a type II supply demand mismatch event secondary to his underlying combined atrial fibrillation with rapid ventricular response and acute respiratory related issues. The patient states that he has been evaluated by [facility] in the past for the possibility of CAD and was told that this was not an issue for him. He has not required medical therapy or revascularization therapy for CAD in the past. It may not be unreasonable, as the patient's clinical course progresses and hopefully improves, that at some point in time he will be reassessed, based upon his enzyme change, for the possibility of underlying CAD. This may come in the form of noninvasive studies and/or invasive studies as deemed appropriate at the time. 2. Atrial flutter status post flutter ablation She will underwent atrial flutter ablation per the [facility]. He was asked to continue his rate control therapy and his anticoagulant therapy. He will continue to be monitored and continue his beta-heaven therapy unless otherwise contraindicated and his anticoagulant therapy. 3. Hypertension The patient has a history of underlying hypertension. He will continue medical management. His medications may need to be adjusted to avoid interaction with his renal insufficiency. 4. Influenza B/community-acquired pneumonia The patient has been diagnosed with influenza B and community-acquired pneumonia. He will continue evaluation care per internal medicine and pulmonology. 5. Renal insufficiency The patient does appear to have an elevation of his creatinine level compared to before. This may be secondary to a combination of his decreased oral intake and his medical therapy with his previous diuretics, afterload reducing agents, etc. At the present time he is being monitored. He has diuretics and afterload reducing agents are on hold. His renal function is being followed. His creatinine level has improved. Comment: The above was discussed with the patient. This note was generated with [employer] dictation software. It may contain incorrect words, spelling, and punctuation that were not noted in checking the note before signing.
[2017-04-25 12:41] LABS: Bedside Glucose 140 mg/dL (70-110)
[2017-04-25 17:26] LABS: Bedside Glucose 130 mg/dL (70-110)
[2017-04-25] MEDS: Acetaminophen 325 MG Tablet 650 MG PO (20:17)
[2017-04-25 21:41] LABS: Bedside Glucose 159 mg/dL (70-110)
[2017-04-26] VITALS (17 sets, daily range): BP systolic 145–154; BP diastolic 71–83; PULSE 79–104; RESP 16–18; TEMP 36.4–36.9; O2SAT 91–94
[2017-04-26] MEDS: 0.9% NaCl Peripheral Flush Adult/Peds IV (05:06)
[2017-04-26 06:26] LABS: Hematocrit 33.7 % (40-54); Hemoglobin 11.2 g/dl (13.0-16.5); Mean Corp Hgb Conc 33.2 g/gl (32-36); Mean Corpuscular Hgb 27.3 pg (27.0-32.0); Mean Corpuscular Volume 82.2 fL (80-94); Mean Platelet Vol. 10.4 fl (6.2-12.0); Platelet Count 142 K/mm3 (150-450); RBC Distribution Width CV 15.4 % (11.6-14.6); RBC Distribution Width SD 46.2 fl (35.1-43.9); White Blood Count 16.4 K/mm3 (4.4-11.0)
[2017-04-26 06:29] LABS: Differential Indicated MANUAL DIFF; POSITIVE COUNT YES; POSITIVE DIFFERENTIAL NO; POSITIVE MORPHOLOGY YES
[2017-04-26 06:33] LABS: BUN 38 mg/dL (7-18); Creatinine, Serum 1.15 mg/dL (0.70-1.30); Estimated Creatinine Clearance 63.66 ml/min; Glucose 133 mg/dL (70-110)
[2017-04-26 06:34] LABS: Anion Gap 6 (5-15); Calcium,Total 7.6 mg/dL (8.5-10.1); Chloride 112 mmol/L (98-107); EST Glomerular Filtration Rate 67 mL/min (>60); Est Glom Filt Rate - Afr Amer 81 mL/min (>60); Potassium 4.5 mmol/L (3.5-5.1); Sodium Level 143 mmol/L (136-145)
[2017-04-26 06:51] LABS: Bedside Glucose 146 mg/dL (70-110)
[2017-04-26 06:58] LABS: Lymphocyte 3 % (19-41); Metamyelocyte 2 % (0-1); Monocyte 5 % (0-10); Neutrophil-Band 5 % (0-5); Neutrophil-Segmented 85 % (47-70); Total Cells Counted 100 (MANUAL DIFF)
[2017-04-26 06:59] LABS: Absolute Neutrophil Count 14.8 X10^3/uL (2.0-7.7); Ovalocyte 1+
[2017-04-26] MEDS: Ipratropium/Albuterol Sulfate 3 ML AMPUL.NEB INHALATION ×5 (06:59→22:36)
[2017-04-26 07:00] LABS: Absolute Lymphocyte Count 0.49 X10^3/ul (0.83-4.51); Lymphocyte # 0.49 X10^3/ul (4.0); Neutrophil # 14.76 X10^3/uL (2.7-7.7)
--- NOTE | 2017-04-26 08:17 | PCM.PROGNOTE ---
Patient Problems: Active and Suspected Problems Influenza B (Acute) Pneumonia (Acute) COPD exacerbation (Acute) Acute respiratory failure with hypoxia (Acute) Atrial fibrillation with RVR (Acute) Acute kidney injury (Acute) Subjective: The patient was seen and examined. He is lying in bed watching TV, appears to be in no acute distress. He remains afebrile and hemodynamically stable. He is currently maintaining saturations at 94% on 3 L of oxygen supplementation. Patient denies any shortness of breath at rest, however he does have significant dyspnea on exertion. He has had persistent wheezing as well. Subjective improvement in his cough, remains nonproductive. Denies any chest tightness or palpitations. Complaining of diarrhea for the past couple of days. Reports he typically does not have any cough or wheezing at home and does not require any home inhaler use. He has never required any home oxygen in the past. Objective: Clinical Impression(s) from Imaging Studies Chest X-Ray 04/22/17 17:01 IMPRESSION: Patchy left perihilar and left base infiltrates. Electronically Signed: Ezio Vinson MD at 18:36 EST , Service support , - Physical Exam General: Alert, Oriented x3, Cooperative, No apparent distress, Well developed, Well nourished, - - No conversational dyspnea HEENT: Atraumatic, Normocephalic Oral: Moist Mucosa, No Gingival or Mucosal Lesions/ Ulcerations Neck: Supple, No Nodes, Trachea Midline Lungs: - - Diminished, global expiratory wheezing with mild rhonchi, no rales. No tachypnea Cardiovascular: Regular rate, Regular Rhythm, Normal S1, Normal S2, No murmurs, No rub noted, No Gallop Abdomen: Soft, Non Tender, Non-Distended, Hyperactive Bowel Sounds Extremities: No clubbing, No cyanosis, No edema, - - pale Skin: No rashes, No breakdown Musculoskeletal: No Tenderness to Palpation of Joints or Extremities Lymphatic: No Cervical, Supraclavicular, or Inguinal Adenopathy Neurological: Cranial nerves II-XII grossly intact, Neuro grossly intact, Motor Exam 5/5 strength throughout Psych/Mental Status: Alert and oriented to time, place, person, mood and affect Vital Signs Temp Pulse Resp BP Pulse Ox 97.6 F L 86 18 145/77 H 94 04/26/17 03:23 04/26/17 03:23 04/26/17 03:23 04/26/17 03:23 04/26/17 03:23 Oxygen Flow Rate 3 Oxygen Delivery Method Nasal Cannula Weight: 188 lb 11.451 oz Body Mass Index (BMI) 26.2 Intake and Output for Last 24 Hours 04/24/17 04/25/17 04/26/17 23:59 23:59 23:59 Intake Total 1919.4 / 1919.4 1440 / 1440 511 / 511 Output Total 1075 / 1075 650 / 650 Balance 844.4 / 844.4 790 / 790 511 / 511 Microbiology Past 72 Hours 04/24/17 08:10 Blood Culture - Preliminary Blood Culture (Wb) - Anticubital Left No growth in 48 hours. 04/24/17 08:25 Bacteria Detection (PCR) - Final Blood Culture (Wb) - Left Hand Staphylococcus aureus Blood Culture - Final Staphylococcus aureus 04/23/17 03:45 Streptococcus pneumoniae Antigen (M - Final Urine, Clean Catch 04/23/17 03:45 Legionella Antigen - Final Urine, Clean Catch Laboratory Tests Past 24 Hrs 04/26/17 04/26/17 05:45 05:45 WBC 16.4 H RBC 4.10 L Hgb 11.2 L Hct 33.7 L MCV 82.2 MCH 27.3 MCHC 33.2 RDW 15.4 H RDW Differential 46.2 H Plt Count 142 L MPV 10.4 Neut % (Auto) Not Reportable Absolute Neuts (auto) 14.8 H Absolute Lymphs (auto) 0.49 L Total Counted 100 Neutrophils % (Manual) 85 H Band Neutrophils % 5 Lymphocytes % (Manual) 3 L Monocytes % (Manual) 5 Metamyelocytes % 2 H Diff Path Review May foll Ovalocytes 1+ Sodium 143 Potassium 4.5 Chloride 112 H Carbon Dioxide 25.0 Anion Gap 6 BUN 38 H Creatinine 1.15 Estim Creat Clear Calc 63.66 Est GFR (MDRD) Af Amer 81 Est GFR (MDRD) Non-Af 67 BUN/Creatinine Ratio 33.0 H Glucose 133 H Calcium 7.6 L POC Glucose 04/26/17 04/25/17 04/25/17 06:44 21:28 17:18 POC Glucose 146 H 159 H 130 H 04/25/17 04/25/17 12:19 08:41 POC Glucose 140 H 169 H Assessment/Plan Active and Suspected Problems Influenza B (Acute) Pneumonia (Acute) COPD exacerbation (Acute) Acute respiratory failure with hypoxia (Acute) Atrial fibrillation with RVR (Acute) Acute kidney injury (Acute) RECOMMENDATIONS: 1. Wean supplemental oxygen to maintain saturations at or above 90%. 2. Continue Tamiflu x 5 days and antibiotics, as ordered. 3. Continue medical management of atrial fibrillation per cardiology recommendations. 4. Aggressive electrolyte repletion. 5. Continue scheduled aerosol treatments, transition to oral steroids today. 6. Continue Eliquis. 7. Increase activity as tolerated. 8. Continue vancomycin, given staph isolated from blood culture. Repeat blood cultures are pending. Awaiting sensitivities, d/c atb if negative. 9. Close follow-up with primary irrigation equipment remover at the CT within 2 weeks of discharge. IMPRESSIONS: 1. Acute hypoxemic respiratory failure secondary to influenza B/CAP Continue current supportive measures with the use of noninvasive positive pressure ventilation as needed, Tamiflu and antimicrobials, pending finalized infectious workup. The patient will be maintained on a scheduled aerosol regimen and steroids, which can be transitioned to oral today. Wean supplemental oxygen to maintain saturations at or above 90%. Encourage incentive spirometer use and mobilize patient as tolerated. Blood cultures ?1 obtained on April 22 were also noted to be positive for staph aureus. Sensitivities are pending for repeat cultures on 04/25. The patient will be continued on vancomycin and ceftriaxone in the interim, pending results of repeat cultures. 2. Suspected COPD of unknown severity/history of tobacco abuse, in remission Patient is currently being treated presumptively for a COPD exacerbation. He will be continued on scheduled aerosol treatments and steroids. He reportedly follows with a irrigation equipment remover through the CT system in [place]. However, he does not recall the provider's name. He reports his last pulmonary function tests were in February 2017. He will require a walking oximetry study prior to consideration for discharge from the hospital, along with close interval follow-up with his primary irrigation equipment remover. 3. History of lower extremity DVT Continue Eliquis per outpatient regimen. 4. Paroxysmal atrial fibrillation with RVR Echocardiogram revealed normal LV size and function with an ejection fraction of 60%. Continue current medical management per cardiology recommendations. The patient has converted to normal sinus rhythm. He remains on Eliquis. 5. Acute kidney injury Continues to improve. Likely prerenal in etiology. Urine output is appropriate. No indication for renal replacement therapy at this time. 6. Hypophosphatemia/hypokalemia/hypomagnesemia Electrolyte repletion as indicated. Given the patient's atrial fibrillation, recommend maintaining potassium levels greater than 4 and magnesium levels greater than 2. 7. History of rheumatoid arthritis/GERD/hypertension Complicates care, management, recovery and prognosis. Hold outpatient DMARD's for now. Mobilize patient as tolerated. This note was generated with [employer] dictation software. It may contain incorrect words, spelling, and punctuation that were not noted in checking the note before signing.
--- NOTE | 2017-04-26 08:28 | PN_ITS ---
Patient Problems: Active and Suspected Problems Influenza B (Acute) Pneumonia (Acute) COPD exacerbation (Acute) Acute respiratory failure with hypoxia (Acute) Atrial fibrillation with RVR (Acute) Acute kidney injury (Acute) Subjective: The patient was seen and examined. He is lying in bed watching TV, appears to be in no acute distress. He remains afebrile and hemodynamically stable. He is currently maintaining saturations at 94% on 3 L of oxygen supplementation. Patient denies any shortness of breath at rest, however he does have significant dyspnea on exertion. He has had persistent wheezing as well. Subjective improvement in his cough, remains nonproductive. Denies any chest tightness or palpitations. Complaining of diarrhea for the past couple of days. Reports he typically does not have any cough or wheezing at home and does not require any home inhaler use. He has never required any home oxygen in the past. Objective: Clinical Impression(s) from Imaging Studies Chest X-Ray 04/22/17 17:01 IMPRESSION: Patchy left perihilar and left base infiltrates. Electronically Signed: Ezio Vinson MD at 18:36 EST , Service support , - Physical Exam General: Alert, Oriented x3, Cooperative, No apparent distress, Well developed, Well nourished, - - No conversational dyspnea HEENT: Atraumatic, Normocephalic Oral: Moist Mucosa, No Gingival or Mucosal Lesions/ Ulcerations Neck: Supple, No Nodes, Trachea Midline Lungs: - - Diminished, global expiratory wheezing with mild rhonchi, no rales. No tachypnea Cardiovascular: Regular rate, Regular Rhythm, Normal S1, Normal S2, No murmurs, No rub noted, No Gallop Abdomen: Soft, Non Tender, Non-Distended, Hyperactive Bowel Sounds Extremities: No clubbing, No cyanosis, No edema, - - pale Skin: No rashes, No breakdown Musculoskeletal: No Tenderness to Palpation of Joints or Extremities Lymphatic: No Cervical, Supraclavicular, or Inguinal Adenopathy Neurological: Cranial nerves II-XII grossly intact, Neuro grossly intact, Motor Exam 5/5 strength throughout Psych/Mental Status: Alert and oriented to time, place, person, mood and affect Vital Signs Temp Pulse Resp BP Pulse Ox 97.6 F L 86 18 145/77 H 94 04/26/17 03:23 04/26/17 03:23 04/26/17 03:23 04/26/17 03:23 04/26/17 03:23 Oxygen Flow Rate 3 Oxygen Delivery Method Nasal Cannula Weight: 188 lb 11.451 oz Body Mass Index (BMI) 26.2 Intake and Output for Last 24 Hours 04/24/17 04/25/17 04/26/17 23:59 23:59 23:59 Intake Total 1919.4 / 1919.4 1440 / 1440 511 / 511 Output Total 1075 / 1075 650 / 650 Balance 844.4 / 844.4 790 / 790 511 / 511 Microbiology Past 72 Hours 04/24/17 08:10 Blood Culture - Preliminary Blood Culture (Wb) - Anticubital Left No growth in 48 hours. 04/24/17 08:25 Bacteria Detection (PCR) - Final Blood Culture (Wb) - Left Hand Staphylococcus aureus Blood Culture - Final Staphylococcus aureus 04/23/17 03:45 Streptococcus pneumoniae Antigen (M - Final Urine, Clean Catch 04/23/17 03:45 Legionella Antigen - Final Urine, Clean Catch Laboratory Tests Past 24 Hrs 04/26/17 04/26/17 05:45 05:45 WBC 16.4 H RBC 4.10 L Hgb 11.2 L Hct 33.7 L MCV 82.2 MCH 27.3 MCHC 33.2 RDW 15.4 H RDW Differential 46.2 H Plt Count 142 L MPV 10.4 Neut % (Auto) Not Reportable Absolute Neuts (auto) 14.8 H Absolute Lymphs (auto) 0.49 L Total Counted 100 Neutrophils % (Manual) 85 H Band Neutrophils % 5 Lymphocytes % (Manual) 3 L Monocytes % (Manual) 5 Metamyelocytes % 2 H Diff Path Review May foll Ovalocytes 1+ Sodium 143 Potassium 4.5 Chloride 112 H Carbon Dioxide 25.0 Anion Gap 6 BUN 38 H Creatinine 1.15 Estim Creat Clear Calc 63.66 Est GFR (MDRD) Af Amer 81 Est GFR (MDRD) Non-Af 67 BUN/Creatinine Ratio 33.0 H Glucose 133 H Calcium 7.6 L POC Glucose 04/26/17 04/25/17 04/25/17 06:44 21:28 17:18 POC Glucose 146 H 159 H 130 H 04/25/17 04/25/17 12:19 08:41 POC Glucose 140 H 169 H Assessment/Plan Active and Suspected Problems Influenza B (Acute) Pneumonia (Acute) COPD exacerbation (Acute) Acute respiratory failure with hypoxia (Acute) Atrial fibrillation with RVR (Acute) Acute kidney injury (Acute) RECOMMENDATIONS: 1. Wean supplemental oxygen to maintain saturations at or above 90%. 2. Continue Tamiflu x 5 days and antibiotics, as ordered. 3. Continue medical management of atrial fibrillation per cardiology recommendations. 4. Aggressive electrolyte repletion. 5. Continue scheduled aerosol treatments, transition to oral steroids today. 6. Continue Eliquis. 7. Increase activity as tolerated. 8. Continue vancomycin, given staph isolated from blood culture. Repeat blood cultures are pending. Awaiting sensitivities, d/c atb if negative. 9. Close follow-up with primary grinder set up operator at the [facility] within 2 weeks of discharge. IMPRESSIONS: 1. Acute hypoxemic respiratory failure secondary to influenza B/CAP Continue current supportive measures with the use of noninvasive positive pressure ventilation as needed, Tamiflu and antimicrobials, pending finalized infectious workup. The patient will be maintained on a scheduled aerosol regimen and steroids, which can be transitioned to oral today. Wean supplemental oxygen to maintain saturations at or above 90%. Encourage incentive spirometer use and mobilize patient as tolerated. Blood cultures ?1 obtained on April 22 were also noted to be positive for staph aureus. Sensitivities are pending for repeat cultures on 04/25. The patient will be continued on vancomycin and ceftriaxone in the interim, pending results of repeat cultures. 2. Suspected COPD of unknown severity/history of tobacco abuse, in remission Patient is currently being treated presumptively for a COPD exacerbation. He will be continued on scheduled aerosol treatments and steroids. He reportedly follows with a grinder set up operator through the [facility] system in [place]. However, he does not recall the provider's name. He reports his last pulmonary function tests were in February 2017. He will require a walking oximetry study prior to consideration for discharge from the hospital, along with close interval follow- up with his primary grinder set up operator. 3. History of lower extremity DVT Continue Eliquis per outpatient regimen. 4. Paroxysmal atrial fibrillation with RVR Echocardiogram revealed normal LV size and function with an ejection fraction of 60%. Continue current medical management per cardiology recommendations. The patient has converted to normal sinus rhythm. He remains on Eliquis. 5. Acute kidney injury Continues to improve. Likely prerenal in etiology. Urine output is appropriate. No indication for renal replacement therapy at this time. 6. Hypophosphatemia/hypokalemia/hypomagnesemia Electrolyte repletion as indicated. Given the patient's atrial fibrillation, recommend maintaining potassium levels greater than 4 and magnesium levels greater than 2. 7. History of rheumatoid arthritis/GERD/hypertension Complicates care, management, recovery and prognosis. Hold outpatient DMARD's for now. Mobilize patient as tolerated. This note was generated with [employer] dictation software. It may contain incorrect words, spelling, and punctuation that were not noted in checking the note before signing.
[2017-04-26] MEDS: Famotidine 20 MG Tablet PO ×2 (10:21→21:47)
[2017-04-26] MEDS: Oseltamivir Phosphate 30 MG Capsule PO ×2 (10:21→21:47)
[2017-04-26] MEDS: Metoprolol Tartrate 25 MG Tablet 75 MG PO ×2 (10:21→21:48)
[2017-04-26] MEDS: APIXABAN 5 MG TABLET PO ×2 (10:21→21:47)
[2017-04-26] MEDS: amLODIPine 5 MG Tablet PO (10:21)
[2017-04-26 10:53] LABS: Pathologist Review Reviewed
[2017-04-26 11:46] LABS: Bedside Glucose 152 mg/dL (70-110)
[2017-04-26] MEDS: Cefazolin 2 GM in 0.9% Normal Saline 100 ML IV ×2 (13:14→21:52)
--- NOTE | 2017-04-26 15:48 | PCM.PN.HOSP ---
Patient Problems: Active and Suspected Problems Influenza B (Acute) Pneumonia (Acute) COPD exacerbation (Acute) Acute respiratory failure with hypoxia (Acute) Atrial fibrillation with RVR (Acute) Acute kidney injury (Acute) Subjective: Patient was seen and examined. Lying flat in bed. On 2 L of oxygen. Denies any chest discomfort, palpitations, fever or chills. No acute events overnight Vitals/I&O's: Vital Signs Temp Pulse Resp BP Pulse Ox 98.2 F 84 16 152/71 H 94 04/26/17 09:23 04/26/17 15:11 04/26/17 15:11 04/26/17 10:21 04/26/17 09:23 Oxygen Flow Rate 2 Oxygen Delivery Method Nasal Cannula Weight: 85.6 kg Body Mass Index (BMI) 26.2 Intake and Output for Last 24 Hours 04/24/17 04/25/17 04/26/17 23:59 23:59 23:59 Intake Total 1919.4 / 1919.4 1440 / 1440 751 / 751 Output Total 1075 / 1075 650 / 650 Balance 844.4 / 844.4 790 / 790 751 / 751 General: Alert, Oriented x3, Cooperative, No apparent distress, - HEENT: Atraumatic, PERRLA, EOMI, Normocephalic Oral: Moist Mucosa Neck: Supple Lungs: Normal air movement, Diminished, - Cardiovascular: Regular rate, Regular Rhythm, Normal S1 - Wheezes head, Normal S2, No murmurs Abdomen: Bowel Sounds Present, Soft, Non Tender, Non-Distended, No Hepato-splenomegaly Extremities: No edema Skin: No rashes Musculoskeletal: No Tenderness to Palpation of Joints or Extremities Lymphatic: No Cervical, Supraclavicular, or Inguinal Adenopathy Neurological: Cranial nerves II-XII grossly intact, Neuro grossly intact Psych/Mental Status: Normal Affect, Appropriate Microbiology Past 72 Hours 04/24/17 08:10 Blood Culture (Wb) - Anticubital Left Blood Culture - Preliminary No growth in 48 hours. 04/24/17 08:25 Blood Culture (Wb) - Left Hand Bacteria Detection (PCR) - Final Staphylococcus aureus 04/24/17 08:25 Blood Culture (Wb) - Left Hand Blood Culture - Final Staphylococcus aureus Laboratory Results 04/25/17 04:45: Diff Path Review Reviewed 04/25/17 17:18: POC Glucose 130 H 04/25/17 21:28: POC Glucose 159 H 04/26/17 05:45: WBC 16.4 H, RBC 4.10 L, Hgb 11.2 L, Hct 33.7 L, MCV 82.2, MCH 27.3, MCHC 33.2, RDW 15.4 H, RDW Differential 46.2 H, Plt Count 142 L, MPV 10.4, Neut % (Auto) Not Reportable, Absolute Neuts (auto) 14.8 H, Absolute Lymphs (auto) 0.49 L, Total Counted 100, Neutrophils % (Manual) 85 H, Band Neutrophils % 5, Lymphocytes % (Manual) 3 L, Monocytes % (Manual) 5, Metamyelocytes % 2 H, Diff Path Review May foll, Ovalocytes 1+ 04/26/17 05:45: Sodium 143, Potassium 4.5, Chloride 112 H, Carbon Dioxide 25.0, Anion Gap 6, BUN 38 H, Creatinine 1.15, Estim Creat Clear Calc 63.66, Est GFR (MDRD) Af Amer 81, Est GFR (MDRD) Non-Af 67, BUN/Creatinine Ratio 33.0 H, Glucose 133 H, Calcium 7.6 L 04/26/17 06:44: POC Glucose 146 H 04/26/17 11:31: POC Glucose 152 H Current Medications Acetaminophen (Tylenol) 650 mg PO Q4H PRN PRN PRN Reason: FEVER Acetaminophen (Tylenol) 650 mg PO Q6H PRN PRN PRN Reason: Mild Pain (scale 0-3)/T>100.7 Last Admin: 04/25/17 20:17 Dose: 650 mg Albuterol Sulfate (Ventolin Aerosols) 2.5 mg INHALATION Q2H PRN PRN PRN Reason: SHORTNESS OF BREATH Last Admin: 04/24/17 00:49 Dose: 2.5 mg Albuterol/Ipratropium (Duoneb) 3 ml INHALATION Q4H.RT OG Last Admin: 04/26/17 15:11 Dose: 3 ml Amlodipine Besylate (Norvasc) 5 mg PO DAILY OG Last Admin: 04/26/17 10:21 Dose: 5 mg Apixaban (Eliquis) 5 mg PO BID OG Last Admin: 04/26/17 10:21 Dose: 5 mg Dextrose (D50w Syringe) 0 gm IV X1 PRN; Protocol PRN Reason: Hypoglycemia Famotidine (Pepcid) 20 mg PO BID [facility] Last Admin: 04/26/17 10:21 Dose: 20 mg Glucagon () 1 mg IM .X1 PRN PRN Reason: Hypoglycemia Sodium Chloride () 250 mls @ 15 mls/hr IV .[id number] PRN PRN Reason: SALINE FLUSH Last Admin: 04/24/17 10:03 Dose: 15 mls/hr Cefazolin Sodium 2 gm/ Sodium (Chloride) 120 mls @ 240 mls/hr IV Q8 OG Last Admin: 04/26/17 13:14 Dose: 240 mls/hr Insulin Aspart (Novolog Flexpen (Bkc)) 0 units SC ACHS OG PRN Reason: Protocol Last Admin: 04/26/17 11:33 Dose: 1 u Magnesium Hydroxide (Milk Of Magnesia) 30 ml PO DAILY PRN PRN PRN Reason: Constipation Metoprolol Tartrate (Lopressor (Beta Suzanne)) 75 mg PO BID [facility] Last Admin: 04/26/17 10:21 Dose: 75 mg Ondansetron HCl (Zofran) 4 mg IV Q8H PRN PRN PRN Reason: NAUSEA Oseltamivir Phosphate (Tamiflu) 30 mg PO BID [facility] Stop: 04/27/17 22:01 Last Admin: 04/26/17 10:21 Dose: 30 mg Prednisone (Prednisone) 40 mg PO DAILY@0800 [facility] Sodium Chloride () 5 - 30 ml IV UD PRN PRN Reason: SALINE FLUSH Last Admin: 04/26/17 05:06 Dose: 10 ml Assessment/Plan Active and Suspected Problems Influenza B (Acute) Pneumonia (Acute) COPD exacerbation (Acute) Acute respiratory failure with hypoxia (Acute) Atrial fibrillation with RVR (Acute) Acute kidney injury (Acute) 71-year-old male with COPD, hypertension, paroxysmal A. fib status post cardiac ablation several years ago, currently on amiodarone was admitted about a week history of progressive dyspnea, cough, congestion, myalgia and arthralgia, diarrhea and anorexia suggestive of influenza. In ER, patient was very short of breath and put on BiPAP with potential of possible intubation. 1. Acute Hypoxic Respiratory Failure secondary to Acute Influenza B/left CAP and Acute on Suspected Chronic COPD Exacerbation, improved, on 2 L of oxygen, will continue to wean off for spo2>94% 2. Acute influenza B viral syndrome, improved on Tamiflu(day4) 3. Acute Community-acquired pneumonia, possible complication of influenza and COPD exacerbation, history of immunosuppression patient was on vancomycin and ceftriaxone, being transitioned off to cefazolin, no fevers seen, will continue to monitor, will await recommendations from infectious disease on treatment recommendations to cover atypical organisms. 4. Staph aureus bacteremia, seen on cultures from 04/22/2017 and 04/24/2017, repeat blood cultures in 04/24/2017 was negative and 04/25/2017 is pending, remains on IV cefazolin, infectious disease consulted, previous 2D echo on the was negative 5. Acute COPD exacerbation due to acute influenza B, improved, continue on p.o. prednisone, breathing treatments, and wean off oxygen 6. Paroxsymal atrial fibrillation with RVR, normal sinus rhythm, on metoprolol and Eliquis 7. Acute kidney injury secondary to #1, GI losses with influenza B, resolved 8. Hypokalemia, repleted 9. Former Heavy Tobacco Abuse 10. Hypertension, controlled, continue on metoprolol 11. Rheumatoid Arthritis 12. DVT Prophylaxis: SCDs, eliquis. 13. CODE status: Full code 14. Disposition: Possible dc in 1-2 days, pending ID recommendations and assessment for oxygen requirements Code Visit Inpatient E&M: 08241 Subs Hosp L3
--- NOTE | 2017-04-26 16:11 | PN_ITS ---
Patient Problems: Active and Suspected Problems Influenza B (Acute) Pneumonia (Acute) COPD exacerbation (Acute) Acute respiratory failure with hypoxia (Acute) Atrial fibrillation with RVR (Acute) Acute kidney injury (Acute) Subjective: Patient was seen and examined. Lying flat in bed. On 2 L of oxygen. Denies any chest discomfort, palpitations, fever or chills. No acute events overnight Vitals/I&O's: Vital Signs Temp Pulse Resp BP Pulse Ox 98.2 F 84 16 152/71 H 94 04/26/17 09:23 04/26/17 15:11 04/26/17 15:11 04/26/17 10:21 04/26/17 09:23 Oxygen Flow Rate 2 Oxygen Delivery Method Nasal Cannula Weight: 85.6 kg Body Mass Index (BMI) 26.2 Intake and Output for Last 24 Hours 04/24/17 04/25/17 04/26/17 23:59 23:59 23:59 Intake Total 1919.4 / 1919.4 1440 / 1440 751 / 751 Output Total 1075 / 1075 650 / 650 Balance 844.4 / 844.4 790 / 790 751 / 751 General: Alert, Oriented x3, Cooperative, No apparent distress, - HEENT: Atraumatic, PERRLA, EOMI, Normocephalic Oral: Moist Mucosa Neck: Supple Lungs: Normal air movement, Diminished, - Cardiovascular: Regular rate, Regular Rhythm, Normal S1 - Wheezes head, Normal S2, No murmurs Abdomen: Bowel Sounds Present, Soft, Non Tender, Non-Distended, No Hepato- splenomegaly Extremities: No edema Skin: No rashes Musculoskeletal: No Tenderness to Palpation of Joints or Extremities Lymphatic: No Cervical, Supraclavicular, or Inguinal Adenopathy Neurological: Cranial nerves II-XII grossly intact, Neuro grossly intact Psych/Mental Status: Normal Affect, Appropriate Microbiology Past 72 Hours 04/24/17 08:10 Blood Culture (Wb) - Anticubital Left Blood Culture - Preliminary No growth in 48 hours. 04/24/17 08:25 Blood Culture (Wb) - Left Hand Bacteria Detection (PCR) - Final Staphylococcus aureus 04/24/17 08:25 Blood Culture (Wb) - Left Hand Blood Culture - Final Staphylococcus aureus Laboratory Results 04/25/17 04:45: Diff Path Review Reviewed 04/25/17 17:18: POC Glucose 130 H 04/25/17 21:28: POC Glucose 159 H 04/26/17 05:45: WBC 16.4 H, RBC 4.10 L, Hgb 11.2 L, Hct 33.7 L, MCV 82.2, MCH 27.3, MCHC 33.2, RDW 15.4 H, RDW Differential 46.2 H, Plt Count 142 L, MPV 10.4 , Neut % (Auto) Not Reportable, Absolute Neuts (auto) 14.8 H, Absolute Lymphs ( auto) 0.49 L, Total Counted 100, Neutrophils % (Manual) 85 H, Band Neutrophils % 5, Lymphocytes % (Manual) 3 L, Monocytes % (Manual) 5, Metamyelocytes % 2 H, Diff Path Review May foll, Ovalocytes 1+ 04/26/17 05:45: Sodium 143, Potassium 4.5, Chloride 112 H, Carbon Dioxide 25.0, Anion Gap 6, BUN 38 H, Creatinine 1.15, Estim Creat Clear Calc 63.66, Est GFR ( MDRD) Af Amer 81, Est GFR (MDRD) Non-Af 67, BUN/Creatinine Ratio 33.0 H, Glucose 133 H, Calcium 7.6 L 04/26/17 06:44: POC Glucose 146 H 04/26/17 11:31: POC Glucose 152 H Current Medications Acetaminophen (Tylenol) 650 mg PO Q4H PRN PRN PRN Reason: FEVER Acetaminophen (Tylenol) 650 mg PO Q6H PRN PRN PRN Reason: Mild Pain (scale 0-3)/T>100.7 Last Admin: 04/25/17 20:17 Dose: 650 mg Albuterol Sulfate (Ventolin Aerosols) 2.5 mg INHALATION Q2H PRN PRN PRN Reason: SHORTNESS OF BREATH Last Admin: 04/24/17 00:49 Dose: 2.5 mg Albuterol/Ipratropium (Duoneb) 3 ml INHALATION Q4H.RT OG Last Admin: 04/26/17 15:11 Dose: 3 ml Amlodipine Besylate (Norvasc) 5 mg PO DAILY OG Last Admin: 04/26/17 10:21 Dose: 5 mg Apixaban (Eliquis) 5 mg PO BID OG Last Admin: 04/26/17 10:21 Dose: 5 mg Dextrose (D50w Syringe) 0 gm IV X1 PRN; Protocol PRN Reason: Hypoglycemia Famotidine (Pepcid) 20 mg PO BID [facility] Last Admin: 04/26/17 10:21 Dose: 20 mg Glucagon () 1 mg IM .X1 PRN PRN Reason: Hypoglycemia Sodium Chloride () 250 mls @ 15 mls/hr IV .[id number] PRN PRN Reason: SALINE FLUSH Last Admin: 04/24/17 10:03 Dose: 15 mls/hr Cefazolin Sodium 2 gm/ Sodium (Chloride) 120 mls @ 240 mls/hr IV Q8 OG Last Admin: 04/26/17 13:14 Dose: 240 mls/hr Insulin Aspart (Novolog Flexpen (Bkc)) 0 units SC ACHS OG PRN Reason: Protocol Last Admin: 04/26/17 11:33 Dose: 1 u Magnesium Hydroxide (Milk Of Magnesia) 30 ml PO DAILY PRN PRN PRN Reason: Constipation Metoprolol Tartrate (Lopressor (Beta Suzanne)) 75 mg PO BID [facility] Last Admin: 04/26/17 10:21 Dose: 75 mg Ondansetron HCl (Zofran) 4 mg IV Q8H PRN PRN PRN Reason: NAUSEA Oseltamivir Phosphate (Tamiflu) 30 mg PO BID [facility] Stop: 04/27/17 22:01 Last Admin: 04/26/17 10:21 Dose: 30 mg Prednisone (Prednisone) 40 mg PO DAILY@0800 [facility] Sodium Chloride () 5 - 30 ml IV UD PRN PRN Reason: SALINE FLUSH Last Admin: 04/26/17 05:06 Dose: 10 ml Assessment/Plan Active and Suspected Problems Influenza B (Acute) Pneumonia (Acute) COPD exacerbation (Acute) Acute respiratory failure with hypoxia (Acute) Atrial fibrillation with RVR (Acute) Acute kidney injury (Acute) 71-year-old male with COPD, hypertension, paroxysmal A. fib status post cardiac ablation several years ago, currently on amiodarone was admitted about a week history of progressive dyspnea, cough, congestion, myalgia and arthralgia, diarrhea and anorexia suggestive of influenza. In ER, patient was very short of breath and put on BiPAP with potential of possible intubation. 1. Acute Hypoxic Respiratory Failure secondary to Acute Influenza B/left CAP and Acute on Suspected Chronic COPD Exacerbation, improved, on 2 L of oxygen, will continue to wean off for spo2>94% 2. Acute influenza B viral syndrome, improved on Tamiflu(day4) 3. Acute Community-acquired pneumonia, possible complication of influenza and COPD exacerbation, history of immunosuppression patient was on vancomycin and ceftriaxone, being transitioned off to cefazolin, no fevers seen, will continue to monitor, will await recommendations from infectious disease on treatment recommendations to cover atypical organisms. 4. Staph aureus bacteremia, seen on cultures from 04/22/2017 and 04/24/2017, repeat blood cultures in 04/24/2017 was negative and 04/25/2017 is pending, remains on IV cefazolin, infectious disease consulted, previous 2D echo on the was negative 5. Acute COPD exacerbation due to acute influenza B, improved, continue on p.o. prednisone, breathing treatments, and wean off oxygen 6. Paroxsymal atrial fibrillation with RVR, normal sinus rhythm, on metoprolol and Eliquis 7. Acute kidney injury secondary to #1, GI losses with influenza B, resolved 8. Hypokalemia, repleted 9. Former Heavy Tobacco Abuse 10. Hypertension, controlled, continue on metoprolol 11. Rheumatoid Arthritis 12. DVT Prophylaxis: SCDs, eliquis. 13. CODE status: Full code 14. Disposition: Possible dc in 1-2 days, pending ID recommendations and assessment for oxygen requirements Code Visit Inpatient E&M: 34273 Subs Hosp L3
[2017-04-26 17:06] LABS: Bedside Glucose 172 mg/dL (70-110)
--- NOTE | 2017-04-26 17:13 | PN.CARD_ITS ---
Subjectve: The patient states he is more tired today than yesterday. He attributes this to being up and ambulating more yesterday than today. Objective: Vital Signs Temp Pulse Resp BP Pulse Ox 98.4 F 104 H 18 146/83 H 94 04/26/17 15:23 04/26/17 15:55 04/26/17 15:23 04/26/17 15:23 04/26/17 15:23 Oxygen Flow Rate 2 Oxygen Delivery Method Nasal Cannula Weight: 188 lb 11.451 oz Body Mass Index (BMI) 26.2 Intake and Output for Last 24 Hours 04/24/17 04/25/17 04/26/17 23:59 23:59 23:59 Intake Total 1919.4 / 1919.4 1440 / 1440 751 / 751 Output Total 1075 / 1075 650 / 650 Balance 844.4 / 844.4 790 / 790 751 / 751 General: Awake, Alert, Oriented x 3, Cooperative, No Acute Distress Neck: No JVD Lungs: Rhonchi, Expiratory Wheezes-Kiran Cardiovascular: Regular Rhythm, Normal S1, Normal S2 Abdomen: Bowel Sounds Present, Soft, Non Tender Extremities: Trace RLE Edema, Trace LLE Edema 04/26/17 05:45: WBC 16.4 H, RBC 4.10 L, Hgb 11.2 L, Hct 33.7 L, MCV 82.2, MCH 27.3, MCHC 33.2, RDW 15.4 H, RDW Differential 46.2 H, Plt Count 142 L, MPV 10.4 , Neut % (Auto) Not Reportable, Absolute Neuts (auto) 14.8 H, Total Counted 100 , Neutrophils % (Manual) 85 H, Band Neutrophils % 5, Lymphocytes % (Manual) 3 L , Monocytes % (Manual) 5, Metamyelocytes % 2 H 04/26/17 05:45: Sodium 143, Potassium 4.5, Chloride 112 H, Carbon Dioxide 25.0, Anion Gap 6, BUN 38 H, Creatinine 1.15, Est GFR (MDRD) Af Amer 81, Est GFR (MDRD ) Non-Af 67, BUN/Creatinine Ratio 33.0 H, Glucose 133 H, Calcium 7.6 L Rhythm: Sinus rhythm Assessment/Plan 1. Paroxysmal atrial fibrillation with rapid ventricular response The patient has a history of paroxysmal atrial fibrillation. He was noted to have a recurrent event. This may be secondary to his previous cardiovascular history. It may be exacerbated by his underlying acute respiratory history. He will continue to be monitored. He will continue medical therapy. This will include rate control therapy as tolerated. His beta-heaven dose has been increased. He will continue his anticoagulant therapy. During this time he was noted to have an indeterminate troponin I level. It is unclear as to the etiology as to whether or not this represents a true type I acute coronary syndrome event versus a type II supply demand mismatch event secondary to his underlying combined atrial fibrillation with rapid ventricular response and acute respiratory related issues. The patient states that he has been evaluated by [facility] in the past for the possibility of CAD and was told that this was not an issue for him. He has not required medical therapy or revascularization therapy for CAD in the past. It may not be unreasonable, as the patient's clinical course progresses and hopefully improves, that at some point in time he will be reassessed, based upon his enzyme change, for the possibility of underlying CAD. This may come in the form of noninvasive studies and/or invasive studies as deemed appropriate at the time. 2. Atrial flutter status post flutter ablation She will underwent atrial flutter ablation per the [facility]. He was asked to continue his rate control therapy and his anticoagulant therapy. He will continue to be monitored and continue his beta-heaven therapy unless otherwise contraindicated and his anticoagulant therapy. 3. Hypertension The patient has a history of underlying hypertension. He will continue medical management. His medications may need to be adjusted to avoid interaction with his renal insufficiency. 4. Influenza B/community-acquired pneumonia The patient has been diagnosed with influenza B and community-acquired pneumonia. He will continue evaluation care per internal medicine and pulmonology. 5. Renal insufficiency The patient does appear to have an elevation of his creatinine level compared to before. This may be secondary to a combination of his decreased oral intake and his medical therapy with his previous diuretics, afterload reducing agents, etc. Comment: The above was discussed with the patient. This note was generated with [employer]ation software. It may contain incorrect words, spelling, and punctuation that were not noted in checking the note before signing.
[2017-04-26 21:56] LABS: Bedside Glucose 204 mg/dL (70-110)
[2017-04-27] VITALS (15 sets, daily range): BP systolic 132–169; BP diastolic 64–102; PULSE 81–104; RESP 18; TEMP 36.4–37.1; O2SAT 90–94
[2017-04-27] MEDS: Ipratropium/Albuterol Sulfate 3 ML AMPUL.NEB INHALATION ×4 (03:25→15:26)
[2017-04-27] MEDS: Cefazolin 2 GM in 0.9% Normal Saline 100 ML IV ×2 (06:01→13:15)
[2017-04-27] MEDS: 0.9% NaCl Peripheral Flush Adult/Peds IV ×2 (06:04→14:00)
[2017-04-27 06:35] LABS: Magnesium 2.4 mg/dL (1.6-2.6); Phosphorus 2.7 mg/dL (2.5-4.9)
[2017-04-27 06:39] LABS: Anion Gap 9 (5-15); BUN 34 mg/dL (7-18); BUN/Creat Ratio 24.6 RATIO (10-20); Calcium,Total 7.6 mg/dL (8.5-10.1); Chloride 111 mmol/L (98-107); Creatinine, Serum 1.38 mg/dL (0.70-1.30); EST Glomerular Filtration Rate 54 mL/min (>60); Est Glom Filt Rate - Afr Amer 65 mL/min (>60); Estimated Creatinine Clearance 53.05 ml/min; Glucose 100 mg/dL (70-110); Sodium Level 147 mmol/L (136-145)
[2017-04-27] MEDS: Metoprolol Tartrate 25 MG Tablet 75 MG PO (08:12)
[2017-04-27] MEDS: amLODIPine 5 MG Tablet PO (08:13)
[2017-04-27] MEDS: APIXABAN 5 MG TABLET PO (08:13)
[2017-04-27] MEDS: Famotidine 20 MG Tablet PO (08:13)
[2017-04-27] MEDS: Oseltamivir Phosphate 30 MG Capsule PO (08:14)
--- NOTE | 2017-04-27 08:30 | PCM.PROGNOTE ---
Patient Problems: Active and Suspected Problems Influenza B (Acute) Pneumonia (Acute) COPD exacerbation (Acute) Acute respiratory failure with hypoxia (Acute) Atrial fibrillation with RVR (Acute) Acute kidney injury (Acute) MSSA (methicillin susceptible Staphylococcus aureus) septicemia (Acute) Subjective: Patient was seen and examined, no acute events overnight per nursing staff. Patient complains of fatigue and intermittent shortness of breath, he has been weaned to 1 L. He does report significant subjective improvement in his breathing and thought he was fine earlier today, however was found to be 90% on room air so oxygen was reapplied by nursing staff. Reports he has not been out of bed much. Denies any fever or chills, sputum production, or N/V/D. Minimal cough. Objective: He remains afebrile and hemodynamically stable. Blood pressure is elevated this morning. He is maintaining appropriate saturations at 94% on 2 L of oxygen. Renal function slightly worse today. Phosphorus has returned to normal, potassium is 4.0, sodium 147. Blood cultures ?1 on 04/24 showed Stap aureus. Repeat blood cultures from 04/25 are pending. Additional blood culture obtained today, 04/27. Strep and Legionella urine antigens negative. Patient is influenza B positive. - Physical Exam General: Alert, Oriented x3, Cooperative, No apparent distress, Well developed, Well nourished, - - no conversational dyspnea HEENT: Atraumatic, Normocephalic Oral: No Gingival or Mucosal Lesions/ Ulcerations, Dry Mucosa Neck: Supple, No Nodes, Trachea Midline Lungs: No rhonchi, No rales, Diminished, Wheezes Cardiovascular: Regular rate, Regular Rhythm, Normal S1, Normal S2, Murmur Abdomen: Bowel Sounds Present, Soft, Non Tender, Non-Distended Extremities: No clubbing, No cyanosis Skin: No rashes, No breakdown, - - pale Musculoskeletal: No Tenderness to Palpation of Joints or Extremities Neurological: Neuro grossly intact Psych/Mental Status: Depressed, - - cooperative, voicing frustration and concerns over finances Vital Signs Temp Pulse Resp BP Pulse Ox 97.6 F L 93 18 169/102 H 94 04/27/17 08:10 04/27/17 08:12 04/27/17 08:10 04/27/17 08:12 04/27/17 08:10 Oxygen Flow Rate 2 Oxygen Delivery Method Nasal Cannula Weight: 189 lb 13.088 oz Body Mass Index (BMI) 26.2 Intake and Output for Last 24 Hours 04/25/17 04/26/17 04/27/17 23:59 23:59 23:59 Intake Total 1440 / 1440 1207 / 1207 4 / 4 Output Total 650 / 650 Balance 790 / 790 1207 / 1207 4 / 4 Microbiology Past 72 Hours 04/24/17 08:10 Blood Culture - Preliminary Blood Culture (Wb) - Anticubital Left No growth in 48 hours. 04/24/17 08:25 Bacteria Detection (PCR) - Final Blood Culture (Wb) - Left Hand Staphylococcus aureus Blood Culture - Final Staphylococcus aureus Laboratory Tests Past 24 Hrs 04/25/17 04/27/17 04/27/17 04:45 05:45 05:45 Diff Path Review Reviewed Sodium 147 H Potassium 4.0 Chloride 111 H Carbon Dioxide 27.0 Anion Gap 9 BUN 34 H Creatinine 1.38 H Estim Creat Clear Calc 53.05 Est GFR (MDRD) Af Amer 65 Est GFR (MDRD) Non-Af 54 L BUN/Creatinine Ratio 24.6 H Glucose 100 Calcium 7.6 L Phosphorus 2.7 Magnesium 2.4 POC Glucose 04/26/17 04/26/17 04/26/17 21:41 16:58 11:31 POC Glucose 204 H 172 H 152 H Assessment/Plan Active and Suspected Problems Influenza B (Acute) Pneumonia (Acute) COPD exacerbation (Acute) Acute respiratory failure with hypoxia (Acute) Atrial fibrillation with RVR (Acute) Acute kidney injury (Acute) MSSA (methicillin susceptible Staphylococcus aureus) septicemia (Acute) RECOMMENDATIONS: 1. Wean supplemental oxygen to maintain saturations at or above 90%. 2. Continue Tamiflu x 5 days. 3. Continue medical management of atrial fibrillation per cardiology recommendations. 4. Aggressive electrolyte repletion. 5. Continue scheduled aerosols and oral steroids. 6. Increase activity as tolerated. 7. Continue antibiotics per ID recommendations 8. Close follow-up with primary cell operation supervisor at the [facility] within 2 weeks of discharge. 9. Patient will also require outpatient antibiotics, case management following. Plan for PICC line after blood cultures neg x72 hours. IMPRESSIONS: 1. Acute hypoxemic respiratory failure secondary to influenza B/CAP Continue current supportive measures with the use of noninvasive positive pressure ventilation as needed, Tamiflu and antimicrobials, pending finalized infectious workup. No sputum collected as cough is nonproductive. Patient has remained afebrile, he now has a leukocytosis of 16,000, however likely secondary to steroids. Continue schedule aerosols and oral steroids. Wean supplemental oxygen to maintain saturations at or above 90%. Encourage incentive spirometer use and mobilize patient as tolerated. Blood cultures ?1 obtained on 04/22 and 04/24 were also noted to be positive for staph aureus. Sensitivities are pending for repeat cultures on 04/25. ID was consulted and ordered additional blood cultures. The patient's antibiotics were de-escalated to Cefazolin on 04/26. Per ID, patient will require several weeks of IV antibiotics. PICC line after 72 hours of negative blood cultures. ID recommending JESUSITA to rule out endocarditis. 2. Suspected COPD of unknown severity/history of tobacco abuse, in remission Patient is currently being treated presumptively for a COPD exacerbation. He will be continued on scheduled aerosol treatments and steroids. He reportedly follows with a cell operation supervisor through the [facility] system in [place]. However, he does not recall the provider's name. He reports his last pulmonary function tests were in February 2017. He will require a walking oximetry study prior to consideration for discharge from the hospital, along with close interval follow-up with his primary cell operation supervisor. 3. History of lower extremity DVT Continue Eliquis per outpatient regimen. 4. Paroxysmal atrial fibrillation with RVR Echocardiogram revealed normal LV size and function with an ejection fraction of 60%. No indication of vegetation. Continue current medical management per cardiology recommendations. The patient has converted to normal sinus rhythm. He remains on Eliquis. 5. Acute kidney injury Likely prerenal in etiology. Urine output is appropriate. No indication for renal replacement therapy at this time. Monitor BMP. 6. Hypophosphatemia/hypokalemia/hypomagnesemia Electrolyte repletion as indicated. Given the patient's atrial fibrillation, recommend maintaining potassium levels greater than 4 and magnesium levels greater than 2. 7. History of rheumatoid arthritis/GERD/hypertension Complicates care, management, recovery and prognosis. Hold outpatient DMARD's for now. Mobilize patient as tolerated. This note was generated with [employer] software. It may contain incorrect words, spelling, and punctuation that were not noted in checking the note before signing.
--- NOTE | 2017-04-27 08:33 | PN_ITS ---
Patient Problems: Active and Suspected Problems Influenza B (Acute) Pneumonia (Acute) COPD exacerbation (Acute) Acute respiratory failure with hypoxia (Acute) Atrial fibrillation with RVR (Acute) Acute kidney injury (Acute) MSSA (methicillin susceptible Staphylococcus aureus) septicemia (Acute) Subjective: Patient was seen and examined, no acute events overnight per nursing staff. Patient complains of fatigue and intermittent shortness of breath, he has been weaned to 1 L. He does report significant subjective improvement in his breathing and thought he was fine earlier today, however was found to be 90% on room air so oxygen was reapplied by nursing staff. Reports he has not been out of bed much. Denies any fever or chills, sputum production, or N/V/D. Minimal cough. Objective: He remains afebrile and hemodynamically stable. Blood pressure is elevated this morning. He is maintaining appropriate saturations at 94% on 2 L of oxygen. Renal function slightly worse today. Phosphorus has returned to normal , potassium is 4.0, sodium 147. Blood cultures ?1 on 04/24 showed Stap aureus. Repeat blood cultures from 04/25 are pending. Additional blood culture obtained today, 04/27. Strep and Legionella urine antigens negative. Patient is influenza B positive. - Physical Exam General: Alert, Oriented x3, Cooperative, No apparent distress, Well developed, Well nourished, - - no conversational dyspnea HEENT: Atraumatic, Normocephalic Oral: No Gingival or Mucosal Lesions/ Ulcerations, Dry Mucosa Neck: Supple, No Nodes, Trachea Midline Lungs: No rhonchi, No rales, Diminished, Wheezes Cardiovascular: Regular rate, Regular Rhythm, Normal S1, Normal S2, Murmur Abdomen: Bowel Sounds Present, Soft, Non Tender, Non-Distended Extremities: No clubbing, No cyanosis Skin: No rashes, No breakdown, - - pale Musculoskeletal: No Tenderness to Palpation of Joints or Extremities Neurological: Neuro grossly intact Psych/Mental Status: Depressed, - - cooperative, voicing frustration and concerns over finances Vital Signs Temp Pulse Resp BP Pulse Ox 97.6 F L 93 18 169/102 H 94 04/27/17 08:10 04/27/17 08:12 04/27/17 08:10 04/27/17 08:12 04/27/17 08:10 Oxygen Flow Rate 2 Oxygen Delivery Method Nasal Cannula Weight: 189 lb 13.088 oz Body Mass Index (BMI) 26.2 Intake and Output for Last 24 Hours 04/25/17 04/26/17 04/27/17 23:59 23:59 23:59 Intake Total 1440 / 1440 1207 / 1207 4 / 4 Output Total 650 / 650 Balance 790 / 790 1207 / 1207 4 / 4 Microbiology Past 72 Hours 04/24/17 08:10 Blood Culture - Preliminary Blood Culture (Wb) - Anticubital Left No growth in 48 hours. 04/24/17 08:25 Bacteria Detection (PCR) - Final Blood Culture (Wb) - Left Hand Staphylococcus aureus Blood Culture - Final Staphylococcus aureus Laboratory Tests Past 24 Hrs 04/25/17 04/27/17 04/27/17 04:45 05:45 05:45 Diff Path Review Reviewed Sodium 147 H Potassium 4.0 Chloride 111 H Carbon Dioxide 27.0 Anion Gap 9 BUN 34 H Creatinine 1.38 H Estim Creat Clear Calc 53.05 Est GFR (MDRD) Af Amer 65 Est GFR (MDRD) Non-Af 54 L BUN/Creatinine Ratio 24.6 H Glucose 100 Calcium 7.6 L Phosphorus 2.7 Magnesium 2.4 POC Glucose 04/26/17 04/26/17 04/26/17 21:41 16:58 11:31 POC Glucose 204 H 172 H 152 H Assessment/Plan Active and Suspected Problems Influenza B (Acute) Pneumonia (Acute) COPD exacerbation (Acute) Acute respiratory failure with hypoxia (Acute) Atrial fibrillation with RVR (Acute) Acute kidney injury (Acute) MSSA (methicillin susceptible Staphylococcus aureus) septicemia (Acute) RECOMMENDATIONS: 1. Wean supplemental oxygen to maintain saturations at or above 90%. 2. Continue Tamiflu x 5 days. 3. Continue medical management of atrial fibrillation per cardiology recommendations. 4. Aggressive electrolyte repletion. 5. Continue scheduled aerosols and oral steroids. 6. Increase activity as tolerated. 7. Continue antibiotics per ID recommendations 8. Close follow-up with primary propulsion generator repairer at the [facility] within 2 weeks of discharge. 9. Patient will also require outpatient antibiotics, case management following. Plan for PICC line after blood cultures neg x72 hours. IMPRESSIONS: 1. Acute hypoxemic respiratory failure secondary to influenza B/CAP Continue current supportive measures with the use of noninvasive positive pressure ventilation as needed, Tamiflu and antimicrobials, pending finalized infectious workup. No sputum collected as cough is nonproductive. Patient has remained afebrile, he now has a leukocytosis of 16,000, however likely secondary to steroids. Continue schedule aerosols and oral steroids. Wean supplemental oxygen to maintain saturations at or above 90%. Encourage incentive spirometer use and mobilize patient as tolerated. Blood cultures ?1 obtained on 04/22 and 04/24 were also noted to be positive for staph aureus. Sensitivities are pending for repeat cultures on 04/25. ID was consulted and ordered additional blood cultures. The patient's antibiotics were de-escalated to Cefazolin on 04/26. Per ID, patient will require several weeks of IV antibiotics. PICC line after 72 hours of negative blood cultures. ID recommending JESUSITA to rule out endocarditis. 2. Suspected COPD of unknown severity/history of tobacco abuse, in remission Patient is currently being treated presumptively for a COPD exacerbation. He will be continued on scheduled aerosol treatments and steroids. He reportedly follows with a propulsion generator repairer through the [facility] in [place]. However, he does not recall the provider's name. He reports his last pulmonary function tests were in February 2017. He will require a walking oximetry study prior to consideration for discharge from the hospital, along with close interval follow- up with his primary propulsion generator repairer. 3. History of lower extremity DVT Continue Eliquis per outpatient regimen. 4. Paroxysmal atrial fibrillation with RVR Echocardiogram revealed normal LV size and function with an ejection fraction of 60%. No indication of vegetation. Continue current medical management per cardiology recommendations. The patient has converted to normal sinus rhythm. He remains on Eliquis. 5. Acute kidney injury Likely prerenal in etiology. Urine output is appropriate. No indication for renal replacement therapy at this time. Monitor BMP. 6. Hypophosphatemia/hypokalemia/hypomagnesemia Electrolyte repletion as indicated. Given the patient's atrial fibrillation, recommend maintaining potassium levels greater than 4 and magnesium levels greater than 2. 7. History of rheumatoid arthritis/GERD/hypertension Complicates care, management, recovery and prognosis. Hold outpatient DMARD's for now. Mobilize patient as tolerated. This note was generated with [employer] software. It may contain incorrect words, spelling, and punctuation that were not noted in checking the note before signing.
--- NOTE | 2017-04-27 10:13 | PCM.HP.ID ---
Problem List (1) MSSA (methicillin susceptible Staphylococcus aureus) septicemia Status: Acute Reason for Consult: mssa bcx Consulted by: Dr. Gaona History of Present Illness: The patient is a 71 year old M with h/o COPD who presented with about a week of cough, SOB, weakness/fatigue. Was not producing any sputum. No fever or chills. No n/v/d. No rash or recent cuts/cellulitis. No h/o MRSA. Came to ED, flu (+), cxr showed possible pneumonia. Admitted on ceftriaxone and tamiflu, vanc added with (+) bcx. Feeling a little better now. No new joint/back pain. Abx narrowed to cefazolin. Full ROS performed and neg except as noted above. - Medical History Past Medical History (Chronic Problems): Chronic Problems History of atrial fibrillation (Chronic) History of gastroesophageal reflux (GERD) (Chronic) History of rheumatoid arthritis (Chronic) Rheumatoid arthritis (Chronic) GERD (gastroesophageal reflux disease) (Chronic) PAF (paroxysmal atrial fibrillation) (Chronic) HTN (hypertension) (Chronic) Former tobacco use (Chronic) Suspected chronic obstructive pulmonary disease based on initial evaluation (Chronic) Atrial flutter (Chronic) S/P ablation of atrial flutter (Chronic) Allergies/Adverse Reactions: Allergies methotrexate Allergy (Verified 04/22/17 16:33) Other doxycycline Adverse Reaction (Verified 04/22/17 16:33) Nausea/Vom/Diarrhea Home Medications: Ambulatory Orders Medication Instructions Recorded Ca/D3/Mag Ox/Zinc/Culinary Arts Teacher/Vin/Bor 1 each PO DAILY 11/27/15 [Calcium +D & Minerals Chew Tab] Etanercept [Enbrel] 50 mg SQ Q7D 11/27/15 Leflunomide [Arava] 20 mg PO DAILY 11/27/15 Omeprazole [Prilosec] 20 mg PO DAILY 11/27/15 Apixaban [Eliquis] 5 mg PO BID 04/22/17 Hydrochlorothiazide [Hctz] 25 mg PO DAILY 04/22/17 Losartan Potassium [Cozaar] 50 mg PO DAILY 04/22/17 Metoprolol Tartrate [Lopressor 50 mg PO BID 04/22/17 (Beta Suzanne)] Ruxolitinib Phosphate [Jakafi] 20 mg PO BID 04/22/17 - Social History Tobacco Use: cigarettes Vital Signs Temp Pulse Resp BP Pulse Ox 97.6 F L 93 18 169/102 H 90 04/27/17 08:10 04/27/17 08:12 04/27/17 08:10 04/27/17 08:12 04/27/17 10:09 Oxygen Flow Rate 2 Oxygen Delivery Method Room Air Weight: 86.1 kg Body Mass Index (BMI) 26.2 Microbiology Past 72 Hours 04/24/17 08:10 Blood Culture - Preliminary Blood Culture (Wb) - Anticubital Left No growth in 48 hours. 04/24/17 08:25 Bacteria Detection (PCR) - Final Blood Culture (Wb) - Left Hand Staphylococcus aureus Blood Culture - Final Staphylococcus aureus Laboratory Tests Past 24 Hrs 04/25/17 04/27/17 04/27/17 04:45 05:45 05:45 Diff Path Review Reviewed Sodium 147 H Potassium 4.0 Chloride 111 H Carbon Dioxide 27.0 Anion Gap 9 BUN 34 H Creatinine 1.38 H Estim Creat Clear Calc 53.05 Est GFR (MDRD) Af Amer 65 Est GFR (MDRD) Non-Af 54 L BUN/Creatinine Ratio 24.6 H Glucose 100 Calcium 7.6 L Phosphorus 2.7 Magnesium 2.4 - Other Studies Radiology: [] reviewed Other Studies: [] Route of nutrition/ use of supplements: [] Nutritional Intake: [] IV Site: [] Gifford Catheter: [] - Physical Exam General: Alert, Oriented x3, Cooperative, No apparent distress HEENT: Atraumatic, PERRLA, EOMI Neck: Supple, No Nodes Lungs: Normal air movement, Wheezes Cardiovascular: Regular rate, Regular Rhythm, Murmur Abdomen: Bowel Sounds Present, Soft, Non Tender, Non-Distended Extremities: No clubbing, No edema Skin: No rashes, - - no janeway/osler/splinter hemorrhages on hands or feet IV Site: Peripheral, without redness Musculoskeletal: No Tenderness to Palpation of Joints or Extremities Neurological: Cranial nerves II-XII grossly intact - Assessment/Plan Antibiotics: [] Assessment/Plan: [] Active and Suspected Problems Influenza B (Acute) Pneumonia (Acute) COPD exacerbation (Acute) Acute respiratory failure with hypoxia (Acute) Atrial fibrillation with RVR (Acute) Acute kidney injury (Acute) MSSA bacteremia - repeat bcx today. Bcx neg since 04/25. TTE showed no veg, but some valve thickening seen. Recommend JESUSITA. Murmur on exam, but no other signs of endocarditis. Cont cefazolin. Unclear source of this infection, potential explanation is flu led to mssa pneumonia which led to blood stream infection. No picc line until bcx neg at 72 hours. Influenza - day 4 of tamiflu. Thank you, will follow, d/w Dr. Gaona and gearcase assembler.
--- NOTE | 2017-04-27 10:21 | CON.PCM_ITS ---
Problem List (1) MSSA (methicillin susceptible Staphylococcus aureus) septicemia Status: Acute Reason for Consult: mssa bcx Consulted by: Dr. Gaona History of Present Illness: The patient is a 71 year old M with h/o COPD who presented with about a week of cough, SOB, weakness/fatigue. Was not producing any sputum. No fever or chills. No n/v/d. No rash or recent cuts/cellulitis. No h/o MRSA. Came to ED , flu (+), cxr showed possible pneumonia. Admitted on ceftriaxone and tamiflu, vanc added with (+) bcx. Feeling a little better now. No new joint/back pain. Abx narrowed to cefazolin. Full ROS performed and neg except as noted above. - Medical History Past Medical History (Chronic Problems): Chronic Problems History of atrial fibrillation (Chronic) History of gastroesophageal reflux (GERD) (Chronic) History of rheumatoid arthritis (Chronic) Rheumatoid arthritis (Chronic) GERD (gastroesophageal reflux disease) (Chronic) PAF (paroxysmal atrial fibrillation) (Chronic) HTN (hypertension) (Chronic) Former tobacco use (Chronic) Suspected chronic obstructive pulmonary disease based on initial evaluation ( Chronic) Atrial flutter (Chronic) S/P ablation of atrial flutter (Chronic) Allergies/Adverse Reactions: Allergies methotrexate Allergy (Verified 04/22/17 16:33) Other doxycycline Adverse Reaction (Verified 04/22/17 16:33) Nausea/Vom/Diarrhea Home Medications: Ambulatory Orders Medication Instructions Recorded Ca/D3/Mag Ox/Zinc/Software Development Test Engineer/Vin/Bor 1 each PO DAILY 11/27/15 [Calcium +D & Minerals Chew Tab] Etanercept [Enbrel] 50 mg SQ Q7D 11/27/15 Leflunomide [Arava] 20 mg PO DAILY 11/27/15 Omeprazole [Prilosec] 20 mg PO DAILY 11/27/15 Apixaban [Eliquis] 5 mg PO BID 04/22/17 Hydrochlorothiazide [Hctz] 25 mg PO DAILY 04/22/17 Losartan Potassium [Cozaar] 50 mg PO DAILY 04/22/17 Metoprolol Tartrate [Lopressor 50 mg PO BID 04/22/17 (Beta Suzanne)] Ruxolitinib Phosphate [Jakafi] 20 mg PO BID 04/22/17 - Social History Tobacco Use: cigarettes Vital Signs Temp Pulse Resp BP Pulse Ox 97.6 F L 93 18 169/102 H 90 04/27/17 08:10 04/27/17 08:12 04/27/17 08:10 04/27/17 08:12 04/27/17 10:09 Oxygen Flow Rate 2 Oxygen Delivery Method Room Air Weight: 86.1 kg Body Mass Index (BMI) 26.2 Microbiology Past 72 Hours 04/24/17 08:10 Blood Culture - Preliminary Blood Culture (Wb) - Anticubital Left No growth in 48 hours. 04/24/17 08:25 Bacteria Detection (PCR) - Final Blood Culture (Wb) - Left Hand Staphylococcus aureus Blood Culture - Final Staphylococcus aureus Laboratory Tests Past 24 Hrs 04/25/17 04/27/17 04/27/17 04:45 05:45 05:45 Diff Path Review Reviewed Sodium 147 H Potassium 4.0 Chloride 111 H Carbon Dioxide 27.0 Anion Gap 9 BUN 34 H Creatinine 1.38 H Estim Creat Clear Calc 53.05 Est GFR (MDRD) Af Amer 65 Est GFR (MDRD) Non-Af 54 L BUN/Creatinine Ratio 24.6 H Glucose 100 Calcium 7.6 L Phosphorus 2.7 Magnesium 2.4 - Other Studies Radiology: [] reviewed Other Studies: [] Route of nutrition/ use of supplements: [] Nutritional Intake: [] IV Site: [] Gifford Catheter: [] - Physical Exam General: Alert, Oriented x3, Cooperative, No apparent distress HEENT: Atraumatic, PERRLA, EOMI Neck: Supple, No Nodes Lungs: Normal air movement, Wheezes Cardiovascular: Regular rate, Regular Rhythm, Murmur Abdomen: Bowel Sounds Present, Soft, Non Tender, Non-Distended Extremities: No clubbing, No edema Skin: No rashes, - - no janeway/osler/splinter hemorrhages on hands or feet IV Site: Peripheral, without redness Musculoskeletal: No Tenderness to Palpation of Joints or Extremities Neurological: Cranial nerves II-XII grossly intact - Assessment/Plan Antibiotics: [] Assessment/Plan: [] Active and Suspected Problems Influenza B (Acute) Pneumonia (Acute) COPD exacerbation (Acute) Acute respiratory failure with hypoxia (Acute) Atrial fibrillation with RVR (Acute) Acute kidney injury (Acute) MSSA bacteremia - repeat bcx today. Bcx neg since 04/25. TTE showed no veg, but some valve thickening seen. Recommend JESUSITA. Murmur on exam, but no other signs of endocarditis. Cont cefazolin. Unclear source of this infection, potential explanation is flu led to mssa pneumonia which led to blood stream infection. No picc line until bcx neg at 72 hours. Influenza - day 4 of tamiflu. Thank you, will follow, d/w Dr. Gaona and case packer and sealer.
--- NOTE | 2017-04-27 10:59 | CASEMGMT ---
Received call back from Cristiane at [facility] and she is requesting clinicals be faxed to Todd, manager pet, at [phone] at this time. Pt and Dr. Gaona updated on all at this time. Pt states willing to be transferred to [facility] at this time. Kelle GARCIA CM
--- NOTE | 2017-04-27 11:35 | DCINST_ITS ---
- Discharge Diagnoses Current Active Problems: Current Active and Chronic Problems Rheumatoid arthritis (Chronic) GERD (gastroesophageal reflux disease) (Chronic) PAF (paroxysmal atrial fibrillation) (Chronic) HTN (hypertension) (Chronic) Former tobacco use (Chronic) Suspected chronic obstructive pulmonary disease based on initial evaluation ( Chronic) Influenza B (Acute) Pneumonia (Acute) COPD exacerbation (Acute) Acute respiratory failure with hypoxia (Acute) Atrial fibrillation with RVR (Acute) Acute kidney injury (Acute) Atrial flutter (Chronic) S/P ablation of atrial flutter (Chronic) MSSA (methicillin susceptible Staphylococcus aureus) septicemia (Acute) Reason(s) for Visit for Discharge Instructions: Dyspnea, cough, congestion, rhinorrhea, diarrhea. You will use the following diet at home:: Cardiac Your food should be the consistency of: Regular Your liquids should be the consistency of: Regular/Thin Discharge Activity: Return to Normal Activity Allergies/Adverse Reactions: Allergies methotrexate Allergy (Verified 04/22/17 16:33) Other doxycycline Adverse Reaction (Verified 04/22/17 16:33) Nausea/Vom/Diarrhea Medications to take at Discharge Ca/D3/Mag Ox/Zinc/Veterans Rehabilitation Counselor/Vin/Bor [Calcium +D & Minerals Chew Tab] 1 each PO DAILY 11/27/15 Etanercept [Enbrel] 50 mg SQ Q7D 11/27/15 Leflunomide [Arava] 20 mg PO DAILY 11/27/15 Omeprazole [Prilosec] 20 mg PO DAILY 11/27/15 Apixaban [Eliquis] 5 mg PO BID 04/22/17 Hydrochlorothiazide [Hctz] 25 mg PO DAILY 04/22/17 Losartan Potassium [Cozaar] 50 mg PO DAILY 04/22/17 Metoprolol Tartrate [Lopressor (Beta Suzanne)] 50 mg PO BID 04/22/17 Ruxolitinib Phosphate [Jakafi] 20 mg PO BID 04/22/17 Primary Care Physician: [facility] [Primary Care Provider] - Proposed Discharge Date: 04/27/17
--- NOTE | 2017-04-27 11:35 | PCM.DC.SUM ---
Discharge Date and Diagnosis Date of Admission: 04/22/17 Date of Discharge: 04/27/17 - Primary Discharge Diagnosis Active and Suspected Problems Influenza B (Acute) Pneumonia (Acute) COPD exacerbation (Acute) Acute respiratory failure with hypoxia (Acute) Atrial fibrillation with RVR (Acute) Acute kidney injury (Acute) MSSA (methicillin susceptible Staphylococcus aureus) septicemia (Acute) - Secondary Discharge Diagnosis Chronic Problems History of atrial fibrillation (Chronic) History of gastroesophageal reflux (GERD) (Chronic) History of rheumatoid arthritis (Chronic) Rheumatoid arthritis (Chronic) GERD (gastroesophageal reflux disease) (Chronic) PAF (paroxysmal atrial fibrillation) (Chronic) HTN (hypertension) (Chronic) Former tobacco use (Chronic) Suspected chronic obstructive pulmonary disease based on initial evaluation (Chronic) Atrial flutter (Chronic) S/P ablation of atrial flutter (Chronic) Hospital Course and Treatment Imaging Results: 04/27/17 10:59 Echo Transesophageal (JESUSITA) [ECHO] Routine ID Pulmonology Operations: None Procedures: 2-D Echocardiogram Summary of Care Provided: 71-year-old male with COPD, hypertension, paroxysmal A. fib status post cardiac ablation several years ago, currently on amiodarone was admitted about a week history of progressive dyspnea, cough, congestion, myalgia and arthralgia, diarrhea and anorexia suggestive of influenza. In ER, patient was very short of breath and put on BiPAP with potential of possible intubation. Active management was as follows: 1. Acute Hypoxic Respiratory Failure secondary to Acute Influenza B/left CAP and Acute on Suspected Chronic COPD Exacerbation, remains on 2 L of oxygen, will Patient was discharged to [facility] with portable oxygen. 2. Acute influenza B viral syndrome, completed 5 days of Tamiflu 3. Acute Community-acquired pneumonia, possible complication of influenza and COPD exacerbation, history of immunosuppression, initially on vancomycin and ceftriaxone, discharged on cefazolin 4. MSSA bacteremia, seen on cultures from 04/22/2017 and 04/24/2017, repeat blood cultures in 04/24/2017 was negative and 04/25/2017 is pending, on IV cefazolin, infectious disease consulted, JESUSITA pending, transferred to [facility]. 5. Acute COPD exacerbation due to acute influenza B, improved, improved on p.o. prednisone, breathing treatments and oxygen. 6. Paroxsymal atrial fibrillation with RVR, normal sinus rhythm, on metoprolol and Eliquis 7. Acute kidney injury secondary to #1, GI losses with influenza B, resolved 8. Hypokalemia, repleted 9. Former Heavy Tobacco Abuse 10. Hypertension, controlled, continue on metoprolol 11. Rheumatoid Arthritis Patient was concerned about the cost of being transferred to [place] and preferred to go with his in his car. He was assessed and found to be saturating in the low 90s. Discussed extensively with the patient, he insisted on going by himself on account of cutting down on costs, he knows liability of doing this and signed on paper to bear all responsibilty. Discussed extensively with care management, we will arrange for portable oxygen on loan from [facility] for patient to travel to [facility] with it, his will return the oxygen back to [facility] tomorrow. Discharge Diet: Low fat/ Low Cholesterol, 2000 mg Sodium Diet Discharge Activity: Return to Normal Activity Home Medications: Medications to take at Discharge Ca/D3/Mag Ox/Zinc/Cylinder Block Hole Reliner/Vin/Bor [Calcium +D & Minerals Chew Tab] 1 each PO DAILY 11/27/15 Etanercept [Enbrel] 50 mg SQ Q7D 11/27/15 Leflunomide [Arava] 20 mg PO DAILY 11/27/15 Omeprazole [Prilosec] 20 mg PO DAILY 11/27/15 Apixaban [Eliquis] 5 mg PO BID 04/22/17 Hydrochlorothiazide [Hctz] 25 mg PO DAILY 04/22/17 Losartan Potassium [Cozaar] 50 mg PO DAILY 04/22/17 Metoprolol Tartrate [Lopressor (Beta Suzanne)] 50 mg PO BID 04/22/17 Ruxolitinib Phosphate [Jakafi] 20 mg PO BID 04/22/17 Primary Care Physician: [facility] [Primary Care Provider] - Disposition: [place] [facility] Minutes spent on discharge:: 30 - Spent time co-ordinating transfer and oxygen Patient Condition:: Stable Meaningful Use Info Meaningful Use Diagnoses (Choose all that apply): None applicable Code Visit Inpatient E&M: 69035 Disch Hosp
[2017-04-27 11:36] LABS: Bedside Glucose 149 mg/dL (70-110)
[2017-04-27 13:09] LABS: Pathologist Review Reviewed
--- NOTE | 2017-04-27 13:10 | CASEMGMT ---
Addendum entered by Valerie Parra 04/27/17 15:18: Call placed to Todd at [facility] and he states ok with however pt arrives. He states that even if pt signed out AMA, they would have a bed for him. Dr. Gaona aware of all and states that she does not feel comfortable with pt going via private vehicle d/t oxygen level at this time, 90% RA. Call placed to Andressa at [facility] and she states that pt can rent a tank for $50 and then just have his return it. Pt agrees to this at this time. Dr. Gaona aware at this time and script signed for oxygen and faxed to [facility] at this time. Per Dr. Gaona, pt is aware of the risk of going by private vehicle. Pt aware to go to the business office at the [facility] and that he will have a bed on 4B, voices understanding. Pt states aware of location of business office. Awaiting dispo. Kelle GARCIA CM Original Note: Received call from Todd at the [facility] and he states that pt has been accepted but he is not eligible for transportation. Call to [facility] and they state they can transport pt but it will be $804 if he pre-pays and $1851 if he post pays. This RN CM to room to speak with pt and he immediately tells this RN CM that he would like his to transport him to the [facility] around 1630. Page sent to Dr. Gaona at this time to update her on pt request. Tia GARCIA aware of all at this time, voices understanding. Kelle GARCIA CM
--- NOTE | 2017-04-27 15:22 | NURSING ---
Patient is being transferred to [facility] for JESUSITA and further medical care. Patient is refusing transport via ambulance due to cost. (approximately 1800. Case management validated [facility] will not draft roller picker the cost of transport) He is agreeable to use a portable O2 tank for $50 from [employer] per case management and return tank after use. His will transport via own car. Case management validated that he has a bed at [facility] and they will accept him per car transport. Patient signed AMA papers for refusal of medical transport only.
[2017-04-28 03:35] LABS: Bedside Glucose 110 mg/dL (70-110)
== END 2017-04-27 16:39 | DRG 193 ==
LOC: ED 22:09 → ICU 22:17 → PCU 04-25 12:08
PROVIDERS: Internal Medicine; Internal Medicine Critical Care Medicine; Admitting Provider Family Medicine; Emergency Provider Emergency Medicine; Visit Provider Internal Medicine
DX: J10.00 Influenza due to other identified influenza virus with unspecified type of pneumonia (principal); J96.01 Acute respiratory failure with hypoxia; N17.9 Acute kidney failure, unspecified; R78.81 Bacteremia; E87.0 Hyperosmolality and hypernatremia; B95.61 Methicillin susceptible Staphylococcus aureus infection as the cause of diseases classified elsewhere; J44.0 Chronic obstructive pulmonary disease with (acute) lower respiratory infection; J44.1 Chronic obstructive pulmonary disease with (acute) exacerbation; I48.0 Paroxysmal atrial fibrillation; E87.8 Other disorders of electrolyte and fluid balance, not elsewhere classified; M06.9 Rheumatoid arthritis, unspecified; E87.6 Hypokalemia; E83.42 Hypomagnesemia; E83.39 Other disorders of phosphorus metabolism; R79.1 Abnormal coagulation profile; I10 Essential (primary) hypertension; K21.9 Gastro-esophageal reflux disease without esophagitis; Z79.01 Long term (current) use of anticoagulants; Z79.899 Other long term (current) drug therapy; Z87.891 Personal history of nicotine dependence; Z86.718 Personal history of other venous thrombosis and embolism
CPT/HCPCS: 36415; 71046; 80048; 80053; 82962; 83605; 83735; 84100; 84439; 84443; 84484; 85025; 87040; 87149; 87186; 87449; 87641; 87804; 93005; 93306; 94002; 94003; 94640; 94762; 97110; 97116; 97165; 97530; 97535; 99284; J7030; J7040; J7050; A4216; J0696

== ENCOUNTER → 2017-05-11 18:21 | Outpatient (CLI) | payer OTHER, SELFPAY ==
[2017-04-22 23:04] VITALS: BMI 26.2
[2017-04-25 10:00] VITALS: BP 139/76
[2017-04-27 16:27] VITALS: BP 162/70
[2017-05-11 18:35] LABS: Hematocrit 32.8 % (40-54); Hemoglobin 10.2 g/dl (13.0-16.5); Mean Corp Hgb Conc 31.1 g/gl (32-36); Mean Corpuscular Hgb 27.4 pg (27.0-32.0); Mean Corpuscular Volume 88.2 fL (80-94); Mean Platelet Vol. 9.6 fl (6.2-12.0); Platelet Count 391 K/mm3 (150-450); RBC Distribution Width CV 17.7 % (11.6-14.6); RBC Distribution Width SD 52.4 fl (35.1-43.9); Red Blood Count 3.72 M/mm3 (4.6-6.2); White Blood Count 11.1 K/mm3 (4.4-11.0)
[2017-05-11 18:45] LABS: Scan Indicated on CBC? Y/N NO
[2017-05-11 18:49] LABS: Anion Gap 6 (5-15); BUN 13 mg/dL (7-18); BUN/Creat Ratio 11.7 RATIO (10-20); Calcium,Total 7.8 mg/dL (8.5-10.1); Chloride 111 mmol/L (98-107); Creatinine, Serum 1.11 mg/dL (0.70-1.30); EST Glomerular Filtration Rate 69 mL/min (>60); Est Glom Filt Rate - Afr Amer 84 mL/min (>60); Glucose 75 mg/dL (74-106); Potassium 4.1 mmol/L (3.5-5.1); Sodium Level 144 mmol/L (136-145)
== END ==
DX: R78.81 Bacteremia (principal); B95.61 Methicillin susceptible Staphylococcus aureus infection as the cause of diseases classified elsewhere
CPT/HCPCS: 80048; 85027

== ENCOUNTER 2017-09-27 15:30 | Outpatient (RCR) | payer OTHER, SELFPAY ==
--- NOTE | 2017-09-01 09:33 | HP.PTEVAL ---
Patient's Visit Information RAFAEL KAYE is a 72 year old M referred to Physical Therapy by [facility] with a diagnosis of LBP. Date of Evaluation: 09/01/17 Physical Therapist: Dexter Dooley PT, - Visit Plan Frequency: 2x /Week Duration: 4 Weeks Plan: Aquatic therapy. Include hamstring stretching, sciatic nerve glides, hip flexor stretching. Gradual strengthening progression for LEs and core. S/p L3-4 laminectomy 8 years ago. - Subjective Subjective: This 72 y/o male presents to physical therapy with low back pain bilateral radiculopathy.Pt has s/p L3 and L4 laminectomy 8 years ago. Doing well up until about 6 months ago. Insidious onset and gradually worsening since that time. He is reporting LBP in the belt line and describes this as a dull ache. He has L LE radicular symptoms in the lateral thigh and R LE symptoms in the lateral hip. He also notes that he has had several medical events since that time including a R LE wound, PNA, and cardiac ablation. Wound is healed. He was hospitalized for 12 days with PNA early this year. Generally, with the decreased activiity he feels he has gotten worse with his back pain. Aggrevating factors: Walking, standing. Easing factors: Sitting, medication. Occupation: Retired - Pain Back pain Pain Intensity (Out of 10): 7 Pain Intensity Range: 10 B Radicular symptoms Pain Intensity (Out of 10): 6 Pain Intensity Range: 10 Comment: L>R LE. - Objective OBSERVATION: standing with forward flexed posture at the hips. Shifted to the R side when sitting and standing. NEURO: Sensation intact Bilaterally to light touch. Achilles and patellar DTRs absent bilaterally. Myotomes symmetrical. GAIT: Forward flexed at hips, decreased step length, narrow ROSELYN, increased pain walking from lobby to exam room. ROM: Lumbar: flexion 25% limited (abberent motion), extension 75% limited, L lateral flexion 50% limited, R lateral flexion 25% limited. Pain with all motions. - Special Tests L/S Slump test left side: Positive L/S Slump test right side: Positive L/S Left Straight Leg Raise: Positive L/S Right Straight Leg Raise: Positive - Goals Goal 1:: Pt will demonstrate gross lumbar ROM with only 25% limited in all planes to improve functional ability. Goal Time Frame: 4-6 Weeks Goal 2:: Pt will report at least 50% improvement with barnworker groom to improve his independence with ADLs. Goal Time Frame: 4-6 Weeks Goal 3:: Pt will report ability to ambulate for 10 minutes without break and minimal LBP to improve community ambulation tolerance. Goal Time Frame: 4-6 Weeks Goal 4:: Pt will be independent with HEP to sustain gains made in therapy. Goal Time Frame: 4-6 Weeks - Rehabilitation Potential Physical Therapy Diagnosis: Pt is a 72 y/o male with referral of LBP and aquatic therapy. He had L3-4 laminectomy 8 years prior and has been doing well up until 6 months ago. He has been experiencing worsening LBP and B radicular symptoms since this time. He is experiencing symptom exacerbation with extension and loaded positions which may indicate stenosis like symptoms. He is having activity limitations that include ambulating longer distances and standing for longer periods of time. This affects his participation with barnworker groom and community ambulation. Pt will benefit from skilled PT to address the above mentioned impairments and improve his functional ability. Rehabilitation Potential: Good - Anticipated Interventions Patient/Client Instruction: Educate patient on: Condition, Plan of Care For the Purpose of:: To decrease pain, To increase ROM, To improve muscle performance and motor function, To improve ability to perform ADL's, To increase tolerance to activity/condition/position, To improve gait and locomotor functions, To increase flexibility/ROM, To improve endurance Therapeutic Exercise to Include: Strength training, Endurance training, Balance training, Postural training, Flexibilty training, Gait and locomotor training, In an aquatic setting, Active ROM For the Purpose of:: To decrease pain, To increase ROM, To improve muscle performance and motor function, To improve ability to perform ADL's, To increase tolerance to activity/condition/position, To improve gait and locomotor functions, To increase flexibility/ROM, To improve endurance, To assume or resume ADL's Thank you for the opportunity to evaluate your patient. For Medicare and Medicare HMO plans, please review the plan of care and approve it. It will need to be FAXED BACK to us at [phone] for Medicare purposes. Please let me know if there are questions or concerns regarding this plan of care. Physician Signature: Date:
--- NOTE | 2017-09-27 16:18 | HP.PTDCSUM_ITS ---
HP - PT D/C Summary It has been my pleasure to treat RAFAEL KAYE under orders from MILDRED SEWELL , for the diagnosis of LBP for a total of 9 visit(s). Discharge Date: 09/27/17 Please see the following information for a summary of their discharge status. - Subjective Subjective: Pt reports having improved symptoms since starting aquatic therapy. He does not experience radicular symptoms since starting therapy. He does not use lidocaine to manage symptoms, still on gabapentin. He would like to contiune exercises on his own and will utilize the clinical wellness membership. His chief c/o now is that he is still ambulating with a flexed posture. - Pain Back pain Pain Intensity (Out of 10): 4 B Radicular symptoms Pain Intensity (Out of 10): 0 - Overall Improvement % Improvement: 75 - Objective Objective/Function: Pt has made improvement since starting PT. He reports a 50- 75% improvement since starting PT. He has met 3/4 STGs. His ambulation distance and ability to keep an upright posture are still his main limiting factors. His lumbar AROM is much better since evaluation, especially extension which only has a moderate deficit now. He is planning on participating in a wellness program on his own to continue strengthening. - Goals Goal 1:: Pt will demonstrate gross lumbar ROM with only 25% limited in all planes to improve functional ability. Goal Progress: Goal Met Goal 2:: Pt will report at least 50% improvement with patient intake coordinator to improve his independence with ADLs. Goal Progress: Goal Met Goal 3:: Pt will report ability to ambulate for 10 minutes without break and minimal LBP to improve community ambulation tolerance. Goal Progress: Progressing Goal 4:: Pt will be independent with HEP to sustain gains made in therapy. Goal Progress: Goal Met - Plan Plan: Discharge to wellness program. - D/C Information Discharge Comments: RTD in November . Plan to continue Health/wellness If there are questions or concerns regarding this patient's physical therapy, please feel free to call me at [phone]. Thank you for the referral of this patient. Sincerely, Dexter Dooley, PT,
== END 2017-09-27 19:00 | disposition home or self-care (01) ==
LOC: PT 15:30
DX: M51.36 Other intervertebral disc degeneration, lumbar region (principal)
CPT/HCPCS: 97110; 97113; 97162; 97530; G8978; G8979

== ENCOUNTER 2017-11-16 15:28 | Inpatient (IN) | payer MEDICARE, OTHER, SELFPAY ==
[2017-11-16] VITALS (13 sets, daily range): BP systolic 109–146; BP diastolic 50–82; PULSE 61–118; RESP 17–30; TEMP 37.2–37.4; O2SAT 80–98; BMI 29.5; BMI 26.9
--- NOTE | 2017-11-16 15:55 | ED.VISSUMM ---
- ER Visit Summary Date of Service: 11/16/17 Chief Complaint: Shortness of breath and weakness History of Present Illness: The patient is a 72 M who presents with shortness of breath and weakness that has been getting worse over the past 2 weeks. Patient states that his breathing is worse with any exertion. Patient describes his breathing is labored. Patient states he was admitted for pneumonia and influenza in April but has not been admitted to a hospital in the last 3 months. Patient states he has been having a cough but denies any sputum production. Patient denies any fevers or chills. Patient does admit to some urinary frequency but denies any dysuria. Patient denies any chest pain or abdominal pain. Patient denies any nausea or vomiting. Physical Examination: Vital signs are stable except for hypoxia on room air at 80% and a mild tachypnea of 24. Patient is in no acute distress. Patient is afebrile. Oral mucosa is pink and moist. Neck is supple. There is no JVD noted. Heart was regular rate and rhythm. Lungs showed expiratory wheezes on the left. There is good respiratory effort noted. There are no retractions noted. Abdomen is soft. Bowel sounds are normal. There is no tenderness. There is no rebound or guarding. Extremities are intact. There is no edema noted. Cranial nerves II through XII are intact. There are no focal motor or sensory deficits noted. The remaining physical exam is within normal limits. Test Results: EKG showed sinus tachycardia with a rate of 106. There are occasional PACs noted. There are no acute ST or T-wave changes. PA and lateral chest x-ray shows a left lower lobe pneumonia. CBC shows a leukocytosis of 15.9. Hemoglobin is 9.4 and hematocrit 28.3. Creatinine was slightly elevated 2.1 which is increased from May. Troponin was normal at 0.028. BNP was normal at 85.5. Emergency Department Course and Treatment: Blood cultures were obtained and are pending. Patient was started on Rocephin and Zithromax here. Case was discussed with Dr. Branch. He will admit the patient to his service. Disposition: Admit to hospital Impression: Community-acquired pneumonia, hypoxia This note was generated with [employer] dictation software. It may contain incorrect words, spelling, and punctuation that were not noted in review of the chart prior to signing ED Disposition - Plan for ED Patient: Disposition: Acute Care Hospital [facility] Chief Complaint: Weakness Diagnosis: Community acquired pneumonia, Hypoxia [facility] [Primary Care Provider] -
[2017-11-16] MEDS: Ipratropium/Albuterol Sulfate 3 ML AMPUL.NEB INHALATION ×2 (16:05→23:55)
[2017-11-16 16:26] LABS: Differential Indicated MANUAL DIFF; Hematocrit 28.3 % (40-54); Hemoglobin 9.4 g/dl (13.0-16.5); Mean Corp Hgb Conc 33.2 g/gl (32-36); Mean Corpuscular Hgb 31.2 pg (27.0-32.0); Mean Platelet Vol. 10.4 fl (6.2-12.0); POSITIVE COUNT YES; POSITIVE DIFFERENTIAL NO; POSITIVE MORPHOLOGY YES; Platelet Count 377 K/mm3 (150-450); RBC Distribution Width CV 17.3 % (11.6-14.6); RBC Distribution Width SD 58.4 fl (35.1-43.9); Red Blood Count 3.01 M/mm3 (4.6-6.2); White Blood Count 15.9 K/mm3 (4.4-11.0)
[2017-11-16 16:30] LABS: Anion Gap 11 (5-15); BUN 46 mg/dL (7-18); BUN/Creat Ratio 21.9 RATIO (10-20); Calcium,Total 8.7 mg/dL (8.5-10.1); Chloride 100 mmol/L (98-107); EST Glomerular Filtration Rate 33 mL/min (>60); Est Glom Filt Rate - Afr Amer 40 mL/min (>60); Estimated Creatinine Clearance 32.26 ml/min; Glucose 124 mg/dL (74-106); Potassium 3.4 mmol/L (3.5-5.1); Sodium Level 138 mmol/L (136-145)
[2017-11-16 17:10] LABS: BNP,B-Type NATRIURETIC PEPTIDE 85.5 pg/mL (0-100)
[2017-11-16 17:22] LABS: Lymphocyte 9 % (19-41); Monocyte 6 % (0-10); Neutrophil-Band 5 % (0-5); Neutrophil-Segmented 80 % (47-70); Total Cells Counted 100 (MANUAL DIFF)
[2017-11-16 17:25] LABS: Platelet Estimate ADEQUATE (ADEQ); Red Cell Morphology NORM C+C NORMAL (NORM C&C)
--- NOTE | 2017-11-16 17:25 | CM.ED ---
Social Work Note Into complete initial assessment as pt was targeted for admission. Introduced self and role to pt and his that was present. Pt reports to live with his in a one-story home with 2 [address]. Denies access issues. DME consists of a walker and cane, but pt does not use at baseline. He has been using the walker for the past weak due to increased weakness. He does not have oxygen at home and states that the weakness is d/t shortness of breath. Pt sees a PCP at the [facility] outpatient clinic and all of his specialists are at [facility]. Preferred pharmacy is also through the [place]. Placed a call to Gustavo España, Machine Fur Cleaner, at the [facility] to inquire about service connection as pt did not know. No hx of SNF, but pt does have a hx of HHC through the [place]. Denies having advanced directives. Packet and education provided at this time. Pt and opt to review documents. Pt expresses concern with being hospitalized. States that his cousin is in from out of state and he has a family reunion on Wednesday that he would like to not miss. Support provided and inform that the medical team is still awaiting pending results. Understanding expressed and no additional needs identified at this time. Pt made aware that an RN CM will be available on the unit if he gets hospitalized and can assist with any discharge needs. Ivy Ojeda, WAREHOUSE PICKER, BAGGER AND STOCK HANDLER HELPER
[2017-11-16] MEDS: Ceftriaxone 1 GM/50 ML BAG IV (18:34)
[2017-11-16 18:35] LABS: Lactic Acid 1.1 mmol/L (0.4-2.0)
--- NOTE | 2017-11-16 19:08 | PCM.HP.STD ---
Problem List (1) Community acquired pneumonia Status: Acute Qualifiers: Laterality: left Lung location: lower lobe of lung Qualified Code(s): J18.1 - Lobar pneumonia, unspecified organism (2) Hypoxia Status: Acute (3) Suspected chronic obstructive pulmonary disease based on initial evaluation Status: Chronic (4) Former tobacco use Status: Chronic (5) HTN (hypertension) Status: Chronic Qualifiers: (6) PAF (paroxysmal atrial fibrillation) Status: Chronic (7) GERD (gastroesophageal reflux disease) Status: Chronic Qualifiers: (8) Rheumatoid arthritis Status: Chronic Qualifiers: (9) History of rheumatoid arthritis Status: Chronic (10) History of gastroesophageal reflux (GERD) Status: Chronic (11) MSSA (methicillin susceptible Staphylococcus aureus) septicemia Status: Acute (12) S/P ablation of atrial flutter Status: Chronic (13) Atrial flutter Status: Chronic (14) Acute kidney injury Status: Acute (15) Atrial fibrillation with RVR Status: Acute (16) Acute respiratory failure with hypoxia Status: Acute (17) COPD exacerbation Status: Acute (18) Pneumonia Status: Acute Qualifiers: (19) History of atrial fibrillation Status: Chronic History of Present Illness Date of Admission: 11/16/17 Chief Complaint: Pneumonialike symptoms The patient is a 72 year old M with history of rheumatoid arthritis on Etarnacept and leflunomide, chronic A. fib on Eliquis with history of recent staph pneumonia left lower lobe for which she was admitted in April 2017 came to ER came to ER with generalized weakness, shortness of breath on exertion not feeling good for about 1 week which got worse with cough for 3 days. Patient denies any acute sick contact but he is on biological/myelosuppressive drugs for rheumatoid arthritis. In ED, status criteria is positive (tachycardia, tachypnea and hypoxia pulse ox 97% on 4 L of oxygen, leukocytosis with left shift, 15.9 thousand. Patient also has elevated BUN 46 and creatinine 2.1. Lactic acid normal. His baseline creatinine is 1.1-1.2 in May 2017. Chest x-ray shows left lower lobe infiltrate [] Past Medical History Past Medical History (Chronic Problems): Chronic Problems Suspected chronic obstructive pulmonary disease based on initial evaluation (Chronic) Former tobacco use (Chronic) HTN (hypertension) (Chronic) PAF (paroxysmal atrial fibrillation) (Chronic) GERD (gastroesophageal reflux disease) (Chronic) Rheumatoid arthritis (Chronic) History of rheumatoid arthritis (Chronic) History of gastroesophageal reflux (GERD) (Chronic) S/P ablation of atrial flutter (Chronic) Atrial flutter (Chronic) History of atrial fibrillation (Chronic) Allergies doxycycline Adverse Reaction (Verified 11/16/17 15:34) Nausea/Vom/Diarrhea methotrexate Adverse Reaction (Verified 11/16/17 19:01) fills my lungs and sinuses with fluid Home Medications: Ambulatory Orders Medication Instructions Recorded Etanercept [Enbrel] 50 mg SQ Q7D 11/27/15 Leflunomide [Arava] 20 mg PO DAILY 11/27/15 Omeprazole [Prilosec] 20 mg PO DAILY 11/27/15 Apixaban [Eliquis] 5 mg PO BID 04/22/17 Hydrochlorothiazide [Hctz] 25 mg PO DAILY 04/22/17 Losartan Potassium [Cozaar] 50 mg PO DAILY 04/22/17 Metoprolol Tartrate [Lopressor 50 mg PO BID 04/22/17 (Beta Suzanne)] Ruxolitinib Phosphate [Jakafi] 15 mg PO BID 04/22/17 Calcium Carbonate/Vitamin D3 1 tab PO DAILY 11/16/17 [Calcium 500-Vit D3 200 Tablet] Gabapentin [Neurontin] 400 mg PO BID 11/16/17 Tamsulosin HCl [Flomax] 0.4 mg PO DAILY 11/16/17 Surgical History: cholecystectomy, - - Back surgery, cardiac ablation. Psychiatric History: No pertinent psych hx Smoking Status: Never smoker - *Family History Paternal History Items: Heart Disease Maternal History Items: - - Mother young, unclear etiology. Review of Systems Constitutional: Reports: Malaise, Weakness, Fatigue. Denies: Chills, Fever HEENT: Denies: Head Aches, Sinus Congestion, Sinus Drainage Cardiovascular: Denies: Chest Pain, Palpitations Respiratory: Reports: Cough, Shortness of Breath, Shortness of breath upon exertion. Denies: Hemoptysis, Pleuritic Pain, Shortness of breath at rest, Sputum production, Wheezing Gastrointestinal: Denies: Abdominal Pain, Nausea, Vomiting Genitourinary: Denies: Dysuria Musculoskeletal: Denies: Joint Pain, Joint Tenderness Skin: Denies: Rash, Wounds Neurological: Denies: Numbness, Tingling, Focal weakness Psychiatric: Denies: Anxiety, Depression, Homicidal Ideations, Suicidal Ideations Hematologic/ Lymphatic: Denies: Easy Bruising, Easy Bleeding VTE Information - Inpt Only VTE Present on Admission: No VTE Mechan Device Prophylaxis: SCD's, None Reason prophylaxis not ordered:: Procedure Not Indicated - On Eliquis Patient Problems: Active and Suspected Problems Community acquired pneumonia (Acute) Hypoxia (Acute) - Physical Exam General: Alert, Oriented x3, Cooperative HEENT: Atraumatic, PERRLA, EOMI, Normocephalic Oral: Dry Mucosa Neck: Supple, No JVD, Negative Carotid Bruits Lungs: Diminished - Diminished on the left lung base, Rales - Coarse rales present on both lower lobes, predominantly on the left lower lobe, Tachypneic Cardiovascular: Regular Rhythm, Normal S1, Normal S2, No murmurs, Tachycardic Abdomen: Bowel Sounds Present, Soft, Non Tender, Non-Distended Extremities: No edema, Capillary Refill Less than 3 Seconds Skin: No rashes, No breakdown Musculoskeletal: No Tenderness to Palpation of Joints or Extremities Neurological: Cranial nerves II-XII grossly intact Psych/Mental Status: Normal Affect, Appropriate Vital Signs Temp Pulse Resp BP Pulse Ox 98.9 F 61 18 115/61 93 11/16/17 18:56 11/16/17 18:56 11/16/17 18:56 11/16/17 18:56 11/16/17 18:56 Oxygen Flow Rate (L/min) 4 Oxygen Delivery Method Nasal Cannula Weight: 182 lb 5.156 oz Body Mass Index (BMI) 26.9 Assessment/Plan All Active Problems Community acquired pneumonia (Acute) Hypoxia (Acute) MSSA (methicillin susceptible Staphylococcus aureus) septicemia (Acute) Acute kidney injury (Acute) Atrial fibrillation with RVR (Acute) Acute respiratory failure with hypoxia (Acute) COPD exacerbation (Acute) Pneumonia (Acute) Influenza B (Resolved) The patient is a 72 year old M with history of rheumatoid arthritis on Etarnacept and leflunomide, chronic A. fib on Eliquis with history of recent staph (MSSA) pneumonia left lower lobe and influenza B for which she was admitted in April 2017 came to ER came to ER with generalized weakness, shortness of breath on exertion not feeling good for about 1 week which got worse with cough for 3 days. Patient denies any acute sick contact but he is on biological/myelosuppressive drugs for rheumatoid arthritis. In ED, status criteria is positive (tachycardia, tachypnea and hypoxia pulse ox 97% on 4 L of oxygen, leukocytosis with left shift, 15.9 thousand). Patient also has elevated BUN 46 and creatinine 2.1. Lactic acid normal. His baseline creatinine is 1.1-1.2 in May 2017. Chest x-ray shows left lower lobe infiltrate 1. SIRS (tachycardia, tachypnea and hypoxia pulse ox 97% on 4 L of oxygen, leukocytosis with left shift, 15.9 thousand) secondary to left lower lobe community-acquired pneumonia: Patient is being admitted on regular [facility] floor. Patient received 1 dose of Rocephin and Zithromax. In review of myelosuppressive biological medications, antibiotic changed to Zosyn and Zithromax. MRSA nasal screen and influenza test ordered. Blood cultures ?2, urinary antigen and a sputum culture ordered. As mentioned above patient has recent diagnosis of pneumonia in left lower lobe in April 2017. 2. Paroxysmal A. fib on Eliquis: EKG shows sinus tachycardia with PACs. Continue Eliquis. 3. Acute kidney injury probably from prerenal or ATN from infection: IV fluid normal saline at 125-mL per hour. Monitor intake and output. Monitor kidney function and electrolytes. Mild hypokalemia. Potassium being replaced. 4. Chronic conditions including rheumatoid arthritis on etanercept and leflunomide. Hold Biologics in view of active infection. 5. Abnormal hematopoietic disorder/bone marrow disorder: Patient is on Jakafi which is usually given for myelofibrosis or polycythemia vera. Patient is not aware of these diagnoses but said his doctor said he has abnormal gene detected in the blood test in [facility] for which the WBC count is high and is given to bring down the WBC count. He also stated that he had a bone marrow Apsey test but it was missed in that test. Follow CBC daily. Hold Jakafi. If WBC count still abnormal, can consult Hem-onc service Other chronic comorbidities include hypertension, GERD, history of cardiac ablation for A. fib: Multiple comorbidities complicates the present care and expect difficult and delayed recovery. DVT prophylaxis: Already on Eliquis. Clinical Impression(s) from Imaging Studies Chest X-Ray 11/16/17 16:15 IMPRESSION: Left lower lobe pneumonia. Hazy retrocardiac infiltrate without dense focal consolidation. Laboratory Results 11/16/17 15:40: WBC 15.9 H, RBC 3.01 L, Hgb 9.4 L, Hct 28.3 L, MCV 94.0, MCH 31.2, MCHC 33.2, RDW 17.3 H, RDW Differential 58.4 H, Plt Count 377, MPV 10.4, Neut % (Auto) Not Reportable, Absolute Neuts (auto) Not Reportable, Total Counted 100, Neutrophils % (Manual) 80 H, Band Neutrophils % 5, Lymphocytes % (Manual) 9 L, Monocytes % (Manual) 6, Diff Path Review August, Platelet Estimate ADEQUATE, RBC Morphology NORM C+C 11/16/17 15:40: Sodium 138, Potassium 3.4 L, Chloride 100, Carbon Dioxide 27.0, Anion Gap 11, BUN 46 H, Creatinine 2.10 H, Estim Creat Clear Calc 32.26, Est GFR (MDRD) Af Amer 40 L, Est GFR (MDRD) Non-Af 33 L, BUN/Creatinine Ratio 21.9 H, Glucose 124 H, Calcium 8.7, Troponin I 0.028 11/16/17 15:40: B-Natriuretic Peptide 85.5 11/16/17 18:00: Lactic Acid 1.1 Code Visit Inpatient E&M: 02983 Init Hosp L3
[2017-11-16 20:25] LABS: Color, Urine Yellow (Yellow); Glucose, Dipstick Normal (Normal); Ketone-Dipstick 5 mg/dl (Negative); Leukocyte Esterase-Dipstick 25 /ul (Negative); Nitrite-Dipstick Negative (Negative); Occult Blood-Urine 50 /ul (Negative); Protein-Dipstick 100 mg/dl (Negative); Specific Gravity, Urine 1.015 (1.002-1.030); Urine Clarity Cloudy (Clear); Urine Urobilinogen 4 mg/dl (Normal)
[2017-11-16 20:26] LABS: Urine Bilirubin Dipstick 1 mg/dL (Negative)
[2017-11-16] MEDS: guaiFENesin 1,200 MG Tablet 1200 MG PO (20:52)
[2017-11-16] MEDS: Tamsulosin HCl 0.4 MG Capsule PO (20:53)
[2017-11-16] MEDS: Metoprolol Tartrate 50 MG Tablet PO (20:53)
[2017-11-16] MEDS: APIXABAN 5 MG TABLET PO (20:54)
[2017-11-16 21:49] LABS: M R Staph aureus DNA By PCR Negative (Negative); Probe Check PASS; Specimen Processing Control PASS
[2017-11-16] MEDS: 0.9% Normal Saline 1,000 ML 150 ML IV (22:03)
[2017-11-16] MEDS: Piperacil/Tazobactam 3.375 GM/50 ML ML IV (22:03)
[2017-11-17] VITALS (12 sets, daily range): BP systolic 104–136; BP diastolic 49–106; PULSE 73–99; RESP 16–20; TEMP 37–37.4; O2SAT 93–100
[2017-11-17] MEDS: 0.9% Normal Saline 1,000 ML 150 ML IV (04:09)
[2017-11-17] MEDS: Piperacil/Tazobactam 3.375 GM/50 ML ML IV ×3 (05:43→21:15)
[2017-11-17 06:13] LABS: Anion Gap 9 (5-15); BUN 45 mg/dL (7-18); Calcium,Total 7.7 mg/dL (8.5-10.1); Chloride 106 mmol/L (98-107); Creatinine, Serum 1.96 mg/dL (0.70-1.30); EST Glomerular Filtration Rate 36 mL/min (>60); Est Glom Filt Rate - Afr Amer 44 mL/min (>60); Estimated Creatinine Clearance 34.57 ml/min; Glucose 114 mg/dL (74-106); Potassium 3.3 mmol/L (3.5-5.1); Sodium Level 140 mmol/L (136-145)
[2017-11-17 06:22] LABS: Hematocrit 23.6 % (40-54); Hemoglobin 7.9 g/dl (13.0-16.5); Mean Corp Hgb Conc 33.5 g/gl (32-36); Mean Corpuscular Hgb 31.5 pg (27.0-32.0); Mean Platelet Vol. 9.7 fl (6.2-12.0); Platelet Count 295 K/mm3 (150-450); RBC Distribution Width CV 17.2 % (11.6-14.6); RBC Distribution Width SD 59.2 fl (35.1-43.9); Red Blood Count 2.51 M/mm3 (4.6-6.2); White Blood Count 13.5 K/mm3 (4.4-11.0)
[2017-11-17 06:23] LABS: Differential Indicated MANUAL DIFF; POSITIVE COUNT YES; POSITIVE DIFFERENTIAL NO; POSITIVE MORPHOLOGY YES
[2017-11-17 07:02] LABS: Eosinophil 1 % (0-5); Metamyelocyte 1 % (0-1); Monocyte 5 % (0-10); Myelocyte 2 (0-0); Neutrophil-Band 11 % (0-5); Neutrophil-Segmented 80 % (47-70); Total Cells Counted 100 (MANUAL DIFF)
[2017-11-17 07:03] LABS: Anisocytosis 1+; Hypochromasia 1+; Microcytosis 1+; Platelet Estimate ADEQUATE (ADEQ)
[2017-11-17 07:05] LABS: Absolute Neutrophil Count 12.3 X10^3/uL (2.0-7.7)
--- NOTE | 2017-11-17 07:17 | PCM.PN.HOSP ---
Patient Problems: Active and Suspected Problems Community acquired pneumonia (Acute) Hypoxia (Acute) Subjective: Patient with no acute events overnight per self or per nursing report. Patient states he feels improved since initial presentation with less dyspnea although does have some mild increased coughing but less weakness as well. Patient denies fevers, chills, nausea, emesis, abdominal pain, chest pain or worsened dyspnea. Objective: Physical Examination: General: awake, alert, oriented x 3 and cooperative, seated upright in bed in no apparent distress. Skin: normal color, turgor, no icterus, cyanosis. HEENT: AT/NC, EOMI, PERRLA, mildly dry MM. Lungs: Diminished BS BL, > L bases, moderate effort, mildly coarse BL bases, no wheezing. Heart: Regular rate and rhythm; no gallop, rub audible. Abdomen: soft, NTTP, ND, normal BS, no HSM. Extremities: no cyanosis, clubbing, or edema. Neurological: patient awake, alert, oriented x 3; cognitive function intact; pupils equally reactive to light and accomodation; cranial nerves II-XII grossly normal, moving all 4 extremities, no focal deficits, strength moderately to severely globally decreased secondary to acute presentation. Psychiatric: affect appears fatigued, no acute evidence of depressive or anxiety feelings. Vitals/I&O's: Vital Signs Temp Pulse Resp BP Pulse Ox 98.6 F 84 20 H 121/106 H 94 11/17/17 02:48 11/17/17 02:50 11/17/17 02:50 11/17/17 02:48 11/17/17 02:50 Oxygen Flow Rate (L/min) 4 Oxygen Delivery Method Nasal Cannula Weight: 182 lb 5.156 oz Body Mass Index (BMI) 26.9 Intake and Output for Last 24 Hours 11/15/17 11/16/17 11/17/17 23:59 23:59 23:59 Intake Total 1812 / 1812 Output Total 400 / 400 Balance 1412 / 1412 Microbiology Past 72 Hours 11/16/17 19:55 Mucosa - Nasopharyngeal Influenza Types A,B Direct FA (SASCHA) - Final 11/16/17 19:55 Urine, Clean Catch Streptococcus pneumoniae Antigen (M - Final 11/16/17 19:55 Urine, Clean Catch Legionella Antigen - Final Laboratory Results 11/16/17 19:55: Urine Color Yellow, Urine Clarity Cloudy, Urine pH 5.0, Ur Specific [place] 1.015, Urine Protein 100 H, Urine Glucose (UA) Normal, Urine Ketones 5 H, Urine Occult Blood 50 H, Urine Nitrite Negative, Urine Bilirubin 1 H, Urine Urobilinogen 4 H, Ur Leukocyte Esterase 25 H 11/16/17 20:02: MRSA (PCR) Negative 11/17/17 05:20: WBC 13.5 H, RBC 2.51 L, Hgb 7.9 L, Hct 23.6 L, MCV 94.0, MCH 31.5, MCHC 33.5, RDW 17.2 H, RDW Differential 59.2 H, Plt Count 295, MPV 9.7, Neut % (Auto) Not Reportable, Absolute Neuts (auto) 12.3 H, Absolute Lymphs (auto) 0.00 L, Total Counted 100, Neutrophils % (Manual) 80 H, Band Neutrophils % 11 H, Monocytes % (Manual) 5, Eosinophils % (Manual) 1, Metamyelocytes % 1, Myelocytes % 2 H, Diff Path Review May foll, Platelet Estimate ADEQUATE, Hypochromasia 1+, Anisocytosis 1+, Microcytosis 1+ 11/17/17 05:20: Sodium 140, Potassium 3.3 L, Chloride 106, Carbon Dioxide 25.0, Anion Gap 9, BUN 45 H, Creatinine 1.96 H, Estim Creat Clear Calc 34.57, Est GFR (MDRD) Af Amer 44 L, Est GFR (MDRD) Non-Af 36 L, BUN/Creatinine Ratio 23.0 H, Glucose 114 H, Calcium 7.7 L Current Medications Acetaminophen (Tylenol) 650 mg PO Q4H PRN PRN PRN Reason: Mild-Moderate Pain/MCINTYRE/fever Al Hydroxide/Mg Hydroxide (Mylanta Ii) 30 ml PO Q6H PRN PRN PRN Reason: Gastric Burning Albuterol Sulfate (Ventolin Aerosols) 2.5 mg INHALATION Q2H PRN PRN PRN Reason: SHORTNESS OF BREATH Albuterol/Ipratropium (Duoneb) 3 ml INHALATION Q6HWA.RT OG Last Admin: 11/16/17 23:55 Dose: 3 ml Apixaban (Eliquis) 5 mg PO BID OG Last Admin: 11/16/17 20:54 Dose: 5 mg Calcium/Vitamin D (Os-Ino 500mg + D) [facility] Docusate Sodium (Colace) 200 mg PO BID PRN PRN PRN Reason: Constipation Guaifenesin (Mucinex) 1,200 mg PO BID [facility] Last Admin: 11/16/17 20:52 Dose: 1,200 mg Sodium Chloride () 1,000 mls @ 150 mls/hr IV .[id number] [facility] Stop: 11/17/17 10:39 Last Admin: 11/17/17 04:09 Dose: 150 mls/hr Piperacillin Sod/Tazobactam Sod (Zosyn) 3.375 gm in 50 mls @ 12.5 mls/hr IV Q8 [facility] Last Admin: 11/17/17 05:43 Dose: 12.5 mls/hr Azithromycin 500 mg/ Dextrose 255 mls @ 250 mls/hr IV Q24 [facility] Stop: 11/19/17 11:02 Sodium Chloride () 250 mls @ 15 mls/hr IV .[id number] PRN PRN Reason: SALINE FLUSH Losartan Potassium (Cozaar) 50 mg PO DAILY [facility] Metoprolol Tartrate (Lopressor (Beta Suzanne)) 50 mg PO BID [facility] Last Admin: 11/16/17 20:53 Dose: 50 mg Morphine Sulfate () 1 - 2 mg IV Q4H PRN PRN PRN Reason: SEVERE PAIN (6-10/10) Nutritional Formula (Lactose Free) (Ensure Enlive) 120 ml PO 4X/DAY [facility] Last Admin: 11/16/17 21:00 Dose: 120 ml Ondansetron HCl (Zofran) 4 mg IV Q8H PRN PRN PRN Reason: NAUSEA Oxycodone HCl (Oxyir) 5 mg PO Q4H PRN PRN PRN Reason: Moderate Pain (pain scale 4-5) Pantoprazole Sodium (Protonix) 20 mg PO DAILY [facility] Sodium Chloride () 5 - 30 ml IV UD PRN PRN Reason: SALINE FLUSH Tamsulosin HCl (Flomax) 0.4 mg PO DAILY@0830 [facility] Last Admin: 11/16/17 20:53 Dose: 0.4 mg Zolpidem Tartrate (Ambien (Generic)) 5 mg PO QHS PRN PRN PRN Reason: SLEEP Medical Necessity - Tobacco Use Smoking Status: Never smoker Tobacco Use: Cigarettes, Pipe Assessment/Plan All Active Problems Community acquired pneumonia (Acute) Hypoxia (Acute) MSSA (methicillin susceptible Staphylococcus aureus) septicemia (Acute) Acute kidney injury (Acute) Atrial fibrillation with RVR (Acute) Acute respiratory failure with hypoxia (Acute) COPD exacerbation (Acute) Pneumonia (Acute) Influenza B (Resolved) The patient is a 72 M w/ PMHx: Suspected Chronic COPD, Tobacco, HTN, Chronic AF/Flutter, Abnormal hematopoietic disorder/bone marrow disorder, GERD, Rheumatoid arthritis, Hx Staph MSSA pneumonia LLL who presents [facility] ED on 11/16/17 with malaise, fatigue, dyspnea worse with exertion, cough x ~ 1 week. (1) Acute Sepsis secondary to Acute Pneumonia: CXR in the ED w/ LLL PNA, is a retrocardiac infiltrate without dense focal consolidation. Admission CBC w/ WBC 15.9 with L shift. Admitted to ID, maintain on oxygen with wean as tolerated to room air, continue ATC duonebs, PRN albuterol, maintained on IV Zosyn given biologic usage and Azithromycin, HOB, IS parameters w/ pending sputum cultures, negative urine antigens, negative influenza, negative MRSA. Bld cx x 2 obtained in the ED. (2) Hypokalemia: Admission K+ 3.4, repeat 3.3, supplementation given, repeat level in AM. (3) Acute kidney injury: Secondary to acute presentation #1, dehydration. Admission BUN/Cr 46/2.10, prior baseline creatinine noted to be 1.11. Will hydrate, hold nephrotoxic medications and repeat chemistry in AM. Will obtain FeNa assessment. (4) Chronic AF, Flutter: EKG w/ sinus tachycardia, maintain on metoprolol and Eliquis, history of cardiac ablation. (5) Abnormal hematopoietic disorder/bone marrow disorder: Unclear diagnosis, maintained on Jakafi usually given for myelofibrosis or polycythemia vera w/ noted abnormal gene detected at [facility] w/ chronic leukocytosis. Holding Jakafi given acute presentation. If continued elevated WBC will consult Hem/Onc. (6) Rheumatoid Arthritis: Holding etanercept and elfunomide. (7) Normocytic Anemia, Chronic: Admission Hgb 9.4, repeat Hgb 7.9, unclear baseline, Iron panel, ferritin, folic acid, vitamin B12. (8) Suspected Chronic COPD: Will maintain on oxygen with wean as tolerated to room air, continue ATC duonebs, PRN albuterol, HOB, IS parameters. (9) Hypertension: Continue home regimen including metoprolol, holding arm given MEGAN, restart once appropriate, PRN hydralazine. (10) GERD: Continue home PPI. (11) BPH: Continue home flomax regimen. (12) DVT Prophylaxis: SCDschandu. Code Visit Inpatient E&M: 25255 Subs Hosp L2
[2017-11-17] MEDS: Pantoprazole Sodium 20 MG Tablet PO (08:13)
[2017-11-17] MEDS: guaiFENesin 1,200 MG Tablet 1200 MG PO ×2 (08:13→21:15)
[2017-11-17] MEDS: Calcium Carb/Vitamin D 1 TABLET Tablet PO (08:14)
[2017-11-17] MEDS: Metoprolol Tartrate 50 MG Tablet PO (08:14)
[2017-11-17] MEDS: APIXABAN 5 MG TABLET PO ×2 (08:15→21:15)
[2017-11-17 08:36] LABS: Ferritin 1348 ng/mL (26-388); Iron 28 ug/dL (65-175); Iron Binding Capacity,Total 181 ug/dL (250-450); Magnesium 2.2 mg/dL (1.6-2.6); PERCENT IRON SATURATION 15.5 % (15.0-55.0); Phosphorus 2.6 mg/dL (2.5-4.9)
[2017-11-17 08:38] LABS: Vitamin B12 605 pg/mL (211-911)
--- NOTE | 2017-11-17 09:45 | CM.ED ---
Social Work Note Call back from Gustavo España at the [facility] stating that the pt receives care through them and is assigned to Daniel Rizo. Reports that he is not service connected indicating that he would not have coverage for SNF through the [facility]. Would need a 3 midnight stay through Medicare A or privately pay if this is needed at discharge. SW on assigned unit notified. Ivy Ojeda, CONTROL SYSTEMS SPECIALIST, STOREROOM CLERK
[2017-11-17] MEDS: Ferrous Gluconate 325 MG Tablet PO ×2 (10:07→16:35)
[2017-11-17] MEDS: Tamsulosin HCl 0.4 MG Capsule PO (11:09)
[2017-11-17] MEDS: 0.9% Normal Saline 1,000 ML 125 ML IV ×2 (12:31→19:25)
[2017-11-17 15:08] LABS: Pathologist Review Reviewed
[2017-11-17 15:09] LABS: Pathologist Review Reviewed
[2017-11-17 16:59] LABS: Urine Sodium 37 mmol/L (Not Establ.)
[2017-11-17] MEDS: Ipratropium/Albuterol Sulfate 3 ML AMPUL.NEB INHALATION (19:14)
[2017-11-17] MEDS: Acetaminophen 325 MG Tablet 650 MG PO (19:24)
[2017-11-18] VITALS (23 sets, daily range): BP systolic 94–158; BP diastolic 51–77; PULSE 82–147; RESP 16–19; TEMP 36.1–37.6; O2SAT 88–99
[2017-11-18] MEDS: Albuterol 2.5 MG/3 ML VIAL.NEB. INHALATION (02:34)
[2017-11-18] MEDS: 0.9% Normal Saline 1,000 ML 125 ML IV ×2 (02:40→10:29)
[2017-11-18] MEDS: Piperacil/Tazobactam 3.375 GM/50 ML ML IV (05:26)
--- NOTE | 2017-11-18 07:09 | PN_ITS ---
Patient Problems: Active and Suspected Problems Community acquired pneumonia (Acute) Hypoxia (Acute) Subjective: Patient notes feeling improved since initial presentation. He notes being able to move with less dyspnea. He notes still coughing, more and loose but not bringing anything up. Repeat Hgb this AM decreased, < 7, pending stool guiac request, pending Surgery evaluation for possible endoscopy which was discussed with patient. Patient denies fevers, chills, nausea, emesis, abdominal pain, chest pain or worsened or recurrent dyspnea. Objective: Physical Examination: General: awake, alert, oriented x 3 and cooperative, seated upright in the bedside chair, in no apparent distress. Skin: normal color, turgor, no icterus, cyanosis. HEENT: AT/NC, EOMI, PERRLA, improved MMM. Lungs: Diminished BS BL, > L bases, improved moderate effort, no wheezing. Heart: Regular rate and rhythm; no gallop, rub audible. Abdomen: soft, NTTP, ND, normal BS, no HSM. Extremities: no cyanosis, clubbing, or edema. Neurological: patient awake, alert, oriented x 3; cognitive function intact; pupils equally reactive to light and accomodation; cranial nerves II-XII grossly normal, moving all 4 extremities, no focal deficits, strength improved, moderately globally decreased secondary to acute presentation. Psychiatric: affect appears fatigued, no acute evidence of depressive or anxiety feelings. Vitals/I&O's: Vital Signs Temp Pulse Resp BP Pulse Ox 99.6 F H 89 16 112/55 L 96 11/18/17 02:28 11/18/17 02:35 11/18/17 02:35 11/18/17 02:28 11/18/17 02:28 Oxygen Flow Rate (L/min) 3 Oxygen Delivery Method Nasal Cannula Weight: 182 lb 5.156 oz Body Mass Index (BMI) 26.9 Intake and Output for Last 24 Hours 11/16/17 11/17/17 11/18/17 23:59 23:59 23:59 Intake Total 4213 / 4213 790 / 790 Output Total 775 / 775 350 / 350 Balance 3438 / 3438 440 / 440 Microbiology Past 72 Hours 11/16/17 19:55 Mucosa - Nasopharyngeal Influenza Types A,B Direct FA (SASCHA) - Final 11/16/17 19:55 Urine, Clean Catch Streptococcus pneumoniae Antigen (M - Final 11/16/17 19:55 Urine, Clean Catch Legionella Antigen - Final Laboratory Results 11/17/17 05:20: Diff Path Review Reviewed 11/17/17 05:20: Phosphorus 2.6, Magnesium 2.2, Iron 28 L, TIBC 181 L, Iron Saturation 15.5, Ferritin 1348 H, Folate 14.10 11/17/17 05:20: Vitamin B12 605 11/17/17 08:30: Urine Creatinine 173.00 11/17/17 08:30: Ur Random Sodium 37 Current Medications Acetaminophen (Tylenol) 650 mg PO Q4H PRN PRN PRN Reason: Mild-Moderate Pain/MCINTYRE/fever Last Admin: 11/17/17 19:24 Dose: 650 mg Al Hydroxide/Mg Hydroxide (Mylanta Ii) 30 ml PO Q6H PRN PRN PRN Reason: Gastric Burning Albuterol Sulfate (Ventolin Aerosols) 2.5 mg INHALATION Q2H PRN PRN PRN Reason: SHORTNESS OF BREATH Last Admin: 11/18/17 02:34 Dose: 2.5 mg Albuterol/Ipratropium (Duoneb) 3 ml INHALATION Q4HWA.RT [facility] Last Admin: 11/17/17 19:14 Dose: 3 ml Apixaban (Eliquis) 5 mg PO BID [facility] Last Admin: 11/17/17 21:15 Dose: 5 mg Calcium/Vitamin D (Os-Ino 500mg + D) [facility] Last Admin: 11/17/17 08:14 Dose: 1 tablet Docusate Sodium (Colace) 200 mg PO BID PRN PRN PRN Reason: Constipation Ferrous Gluconate (Ferrous Gluconate) [facility] Last Admin: 11/17/17 16:35 Dose: 325 mg Guaifenesin (Mucinex) 1,200 mg PO BID [facility] Last Admin: 11/17/17 21:15 Dose: 1,200 mg Piperacillin Sod/Tazobactam Sod (Zosyn) 3.375 gm in 50 mls @ 12.5 mls/hr IV Q8 [facility] Last Admin: 11/18/17 05:26 Dose: 12.5 mls/hr Azithromycin 500 mg/ Dextrose 255 mls @ 250 mls/hr IV Q24 [facility] Stop: 11/19/17 11:02 Last Admin: 11/17/17 10:05 Dose: 250 mls/hr Sodium Chloride () 250 mls @ 15 mls/hr IV .[id number] PRN PRN Reason: SALINE FLUSH Sodium Chloride () 1,000 mls @ 125 mls/hr IV .Q8H [facility] Last Admin: 11/18/17 02:40 Dose: 125 mls/hr Metoprolol Tartrate (Lopressor (Beta Suzanne)) 50 mg PO BID [facility] Last Admin: 11/17/17 21:15 Dose: Not Given Morphine Sulfate () 1 - 2 mg IV Q4H PRN PRN PRN Reason: SEVERE PAIN (6-10/10) Nutritional Formula (Lactose Free) (Ensure Enlive) 120 ml PO 4X/DAY [facility] Last Admin: 11/17/17 21:15 Dose: Not Given Ondansetron HCl (Zofran) 4 mg IV Q8H PRN PRN PRN Reason: NAUSEA Oxycodone HCl (Oxyir) 5 mg PO Q4H PRN PRN PRN Reason: Moderate Pain (pain scale 4-5) Pantoprazole Sodium (Protonix) 20 mg PO DAILY [facility] Last Admin: 11/17/17 08:13 Dose: 20 mg Sodium Chloride () 5 - 30 ml IV UD PRN PRN Reason: SALINE FLUSH Tamsulosin HCl (Flomax) 0.4 mg PO DAILY@0830 [facility] Last Admin: 11/17/17 11:09 Dose: 0.4 mg Zolpidem Tartrate (Ambien (Generic)) 5 mg PO QHS PRN PRN PRN Reason: SLEEP Medical Necessity - Tobacco Use Smoking Status: Never smoker Tobacco Use: Cigarettes, Pipe Assessment/Plan All Active Problems Community acquired pneumonia (Acute) Hypoxia (Acute) MSSA (methicillin susceptible Staphylococcus aureus) septicemia (Acute) Acute kidney injury (Acute) Atrial fibrillation with RVR (Acute) Acute respiratory failure with hypoxia (Acute) COPD exacerbation (Acute) Pneumonia (Acute) Influenza B (Resolved) The patient is a 72 M w/ PMHx: Suspected Chronic COPD, Tobacco, HTN, Chronic AF/ Flutter, Abnormal hematopoietic disorder/bone marrow disorder, GERD, Rheumatoid arthritis, Hx Staph MSSA pneumonia LLL who presents to the [facility] ED on 11/16/17 with malaise, fatigue, dyspnea worse with exertion, cough x ~ 1 week. (1) Acute Sepsis secondary to Acute Pneumonia: CXR in the ED w/ LLL PNA, is a retrocardiac infiltrate without dense focal consolidation. Admission CBC w/ WBC 15.9 with L shift. Admitted to [place], maintain on oxygen with wean as tolerated to room air, continue ATC duonebs, PRN albuterol, maintained on IV Zosyn given biologic usage initially-->11/18/17 transition to Rocephin and will complete Azithromycin 3 day regimen, HOB, IS parameters w/ pending sputum cultures, negative urine antigens, negative influenza, negative MRSA. Bld cx x 2 obtained in the ED. (2) Acute kidney injury: Secondary to acute presentation #1, dehydration. Admission BUN/Cr 46/2.10, prior baseline creatinine noted to be 1.11. Will hydrate, hold nephrotoxic medications and repeat chemistry in AM. Will obtain FeNa assessment. 11/18/17 BUN/Cr 32.1.50. (3) Acute on Chronic Normocytic Anemia: Admission Hgb 9.4, repeat Hgb 7.9, prior baseline levels starting 04/2017 11-->decreasing trend, prior to this Hgb 15-13 range noted, iron panel, ferritin consistent with Fe deficiency, normal folic acid and vitamin B12 ordered. Stool occult obtained and pending. 11/18/17 Hgb 6.8, T+C 2 u ordered, will repeat HH following and continue q 6 to assess trend, place on IV protonix and transition to clears until Surgery evaluation performed. (4) Abnormal hematopoietic disorder/bone marrow disorder: Unclear diagnosis, maintained on Jakafi usually given for myelofibrosis or polycythemia vera w/ noted abnormal gene detected at [facility] w/ chronic leukocytosis. Holding Jakafi given acute presentation. Possible associated with his acute anemia given unclear history. Pending surgery evaluation for consideration for endoscopy. May consider Hem/Onc consult also. (5) Hypokalemia: Admission K+ 3.4, repeat 3.3, supplementation given, 11/18/17 K 3.5. (6) Rheumatoid Arthritis: Holding etanercept and elfunomide. (7) Chronic AF, Flutter: EKG w/ sinus tachycardia, maintain on metoprolol, holding Eliquis, history of cardiac ablation. (8) Suspected Chronic COPD: Will maintain on oxygen with wean as tolerated to room air, continue ATC duonebs, PRN albuterol, HOB, IS parameters. (9) Hypertension: Continue home regimen including metoprolol,held ARB given MEGAN , restart once appropriate, PRN hydralazine. (10) GERD: Transition to IV PPI. (11) BPH: Continue home flomax regimen. (12) DVT Prophylaxis: SCDs, holding eliquis. Code Visit Inpatient E&M: 11080 Subs Hosp L3
[2017-11-18] MEDS: Ipratropium/Albuterol Sulfate 3 ML AMPUL.NEB INHALATION ×3 (07:15→19:03)
[2017-11-18 07:52] LABS: Differential Indicated MANUAL DIFF; Hematocrit 20.9 % (40-54); Hemoglobin 6.8 g/dl (13.0-16.5); Mean Corp Hgb Conc 32.5 g/gl (32-36); Mean Corpuscular Hgb 31.2 pg (27.0-32.0); Mean Corpuscular Volume 95.9 fL (80-94); POSITIVE COUNT YES; POSITIVE DIFFERENTIAL NO; POSITIVE MORPHOLOGY YES; Platelet Count 304 K/mm3 (150-450); RBC Distribution Width SD 63.1 fl (35.1-43.9); Red Blood Count 2.18 M/mm3 (4.6-6.2); White Blood Count 14.5 K/mm3 (4.4-11.0)
[2017-11-18 07:53] LABS: Anion Gap 10 (5-15); BUN 32 mg/dL (7-18); BUN/Creat Ratio 21.3 RATIO (10-20); Calcium,Total 7.4 mg/dL (8.5-10.1); Chloride 112 mmol/L (98-107); EST Glomerular Filtration Rate 49 mL/min (>60); Est Glom Filt Rate - Afr Amer 59 mL/min (>60); Estimated Creatinine Clearance 45.17 ml/min; Glucose 112 mg/dL (74-106); Potassium 3.5 mmol/L (3.5-5.1); Sodium Level 144 mmol/L (136-145)
[2017-11-18 08:21] LABS: Eosinophil 2 % (0-5); Lymphocyte 5 % (19-41); Monocyte 9 % (0-10); Neutrophil-Band 3 % (0-5); Neutrophil-Segmented 81 % (47-70); Total Cells Counted 100 (MANUAL DIFF)
[2017-11-18 08:23] LABS: Hypochromasia 2+; Platelet Estimate ADEQUATE (ADEQ); Polychromasia RARE
[2017-11-18 08:24] LABS: Absolute Lymphocyte Count 0.73 X10^3/ul (0.83-4.51); Absolute Neutrophil Count 12.2 X10^3/uL (2.0-7.7)
[2017-11-18] MEDS: Calcium Carb/Vitamin D 1 TABLET Tablet PO (08:40)
[2017-11-18] MEDS: Tamsulosin HCl 0.4 MG Capsule PO (08:40)
[2017-11-18] MEDS: Ferrous Gluconate 325 MG Tablet PO ×2 (08:41→17:21)
[2017-11-18] MEDS: Metoprolol Tartrate 50 MG Tablet PO ×2 (10:11→21:11)
[2017-11-18] MEDS: guaiFENesin 1,200 MG Tablet 1200 MG PO ×2 (10:11→21:11)
[2017-11-18] MEDS: Ceftriaxone 1 GM/50 ML BAG IV (11:40)
--- NOTE | 2017-11-18 11:46 | CASEMGMT ---
JOSE BATES NOTE: Informed that pt told Dr Hill that he wishes to be transferred to [facility]. RN JANA spoke with pt and he confirmed that he would like to be transferred to the [facility]. Call placed to [facility] @ and was informed pt's SW is Crista, extension [phone]. No answer @ Crista's extension. Message left for her to call back to this JOSE BATES and phone number left on the msg as well. Hina CASTRO RN CM
--- NOTE | 2017-11-18 11:59 | PCM.DC.SUM ---
Discharge Date and Diagnosis - Problem List Patient Problems: Active and Suspected Problems Community acquired pneumonia (Acute) Hypoxia (Acute) Date of Admission: 11/16/17 Date of Discharge: 11/18/17 - Primary Discharge Diagnosis Active and Suspected Problems (1) Acute Sepsis secondary to Acute Pneumonia w/ associated Hypoxia (2) Acute kidney injury, Secondary to acute presentation #1, dehydration (3) Acute on Chronic Normocytic Anemia, Suspected GI bleed on anticoagulation (4) Abnormal hematopoietic disorder/bone marrow disorder, Unclear diagnosis, maintained on Jakafi prior, held during admission (5) Hypokalemia (6) Rheumatoid Arthritis, held upon admission etanercept and elfunomide. (7) Chronic AF, Flutter (recent EKG w/ sinus tachycardia) (8) Suspected Chronic COPD (9) Hypertension (10) GERD (11) BPH - Secondary Discharge Diagnosis Chronic Problems Suspected chronic obstructive pulmonary disease based on initial evaluation (Chronic) Former tobacco use (Chronic) HTN (hypertension) (Chronic) PAF (paroxysmal atrial fibrillation) (Chronic) GERD (gastroesophageal reflux disease) (Chronic) Rheumatoid arthritis (Chronic) History of rheumatoid arthritis (Chronic) History of gastroesophageal reflux (GERD) (Chronic) S/P ablation of atrial flutter (Chronic) Atrial flutter (Chronic) History of atrial fibrillation (Chronic) Hospital Course and Treatment The patient is a 72 M w/ PMHx: Suspected Chronic COPD, Tobacco, HTN, Chronic AF/Flutter, Abnormal hematopoietic disorder/bone marrow disorder, GERD, Rheumatoid arthritis, Hx Staph MSSA pneumonia LLL who presented to the [facility] ED on 11/16/17 with malaise, fatigue, dyspnea worse with exertion, cough x ~ 1 week. CXR in the ED w/ LLL PNA, is a retrocardiac infiltrate without dense focal consolidation. Admission CBC w/ WBC 15.9 with L shift. Admitted to [place], maintain on oxygen with wean as tolerated to room air, continued ATC duonebs, PRN albuterol, maintained on IV Zosyn (3 day usage) given biologic usage initially-->11/18/17 transition to Rocephin w/ plan to complete Azithromycin 3 day regimen (11/19/17 last dose), HOB, IS parameters w/ pending sputum cultures, negative urine antigens, negative influenza, negative MRSA. Bld cx x 2 obtained in the ED w/ NGTD. Acute kidney injury noted upon admission, secondary to acute presentation #1, dehydration w/ admission BUN/Cr 46/2.10, prior baseline creatinine noted to be 1.11, hydrated, held nephrotoxic medications and trended renal function w/ improvement, 11/18/17 BUN/Cr 32.1.50. During admission noted Hgb decrease and ongoing fatigue, weakness, also had decreased BP and mild tachycardia with onset black stools. He had he noted taken himself off eliquis but this was restarted upon admission given his underlying history. Admission Hgb 9.4, repeat Hgb 7.9, prior baseline levels starting 04/2017 11-->decreasing trend, prior to this Hgb 15-13 range noted, iron panel, ferritin consistent with Fe deficiency, normal folic acid and vitamin B12 ordered. Stool occult obtained and pending at transfer request. 11/18/17 Hgb 6.8, T+C 2 u ordered w/ ongoing serial repeat HH, transition to IV protonix and Surgery evaluation. Surgery noted intention to await to perform endoscopies secondary to recent anticoagulation; however, patient requested given further intervention needs transfer to the [place]. Operations: None Procedures: EKG Summary of Care Provided: The patient is a 72 year old M [] Home Medications: Medications to take at Discharge Etanercept [Enbrel] 50 mg SQ Q7D 11/27/15 Leflunomide [Arava] 20 mg PO DAILY 11/27/15 Omeprazole [Prilosec] 20 mg PO DAILY 11/27/15 Apixaban [Eliquis] 5 mg PO BID 04/22/17 Hydrochlorothiazide [Hctz] 25 mg PO DAILY 04/22/17 Losartan Potassium [Cozaar] 50 mg PO DAILY 04/22/17 Metoprolol Tartrate [Lopressor (Beta Suzanne)] 50 mg PO BID 04/22/17 Ruxolitinib Phosphate [Jakafi] 15 mg PO BID 04/22/17 Calcium Carbonate/Vitamin D3 [Calcium 500-Vit D3 200 Tablet] 1 tab PO DAILY 11/16/17 Gabapentin [Neurontin] 400 mg PO BID 11/16/17 Tamsulosin HCl [Flomax] 0.4 mg PO DAILY 11/16/17 [facility] - Disposition: Acute care Hospital Minutes spent on discharge:: 35 Patient Condition:: Fair Medical Necessity - Tobacco Use Smoking Status: Never smoker Tobacco Use: Cigarettes, Pipe Meaningful Use Info Meaningful Use Diagnoses (Choose all that apply): None applicable Code Visit Inpatient E&M: 76988 Disch Hosp
--- NOTE | 2017-11-18 12:08 | PCM.CONS.GEN ---
Reason for Consult Date of Consultation: 11/18/17 Reason for Consultation: Anemia History of Present Illness: The patient is a 72 year old M admitted for pneumonia and shortness of breath.Patient states that over the last 4-5 months he is felt more fatigued and looking back at his labs hemoglobin is also been dropping gradually. Patient states that about a week ago he started having diarrhea but states it was more normal in color however he states in the hospital it has been black. Otherwise denies previous blood per rectum. Patient's last colonoscopy was about 2 years ago at the [facility] in [place] states he had one polyp that was benign. Patient denies any abdominal pain, nausea, vomiting, fevers or chills. Patient also states he had an EGD at the [facility] also about 3-4 years ago. Patient's hemoglobin on admit was 9.4 to 7.9 yesterday after hydration; however currently it is 6.8. Patient is also scheduled to get packed red blood cells. And was placed on a PPI drip. Past Medical History Past Medical History (Chronic Problems): Chronic Problems Suspected chronic obstructive pulmonary disease based on initial evaluation (Chronic) Former tobacco use (Chronic) HTN (hypertension) (Chronic) PAF (paroxysmal atrial fibrillation) (Chronic) GERD (gastroesophageal reflux disease) (Chronic) Rheumatoid arthritis (Chronic) History of rheumatoid arthritis (Chronic) History of gastroesophageal reflux (GERD) (Chronic) S/P ablation of atrial flutter (Chronic) Atrial flutter (Chronic) History of atrial fibrillation (Chronic) Allergies doxycycline Adverse Reaction (Verified 11/16/17 15:34) Nausea/Vom/Diarrhea methotrexate Adverse Reaction (Verified 11/16/17 19:01) fills my lungs and sinuses with fluid Home Medications: Ambulatory Orders Medication Instructions Recorded Etanercept [Enbrel] 50 mg SQ Q7D 11/27/15 Leflunomide [Arava] 20 mg PO DAILY 11/27/15 Omeprazole [Prilosec] 20 mg PO DAILY 11/27/15 Apixaban [Eliquis] 5 mg PO BID 04/22/17 Hydrochlorothiazide [Hctz] 25 mg PO DAILY 04/22/17 Losartan Potassium [Cozaar] 50 mg PO DAILY 04/22/17 Metoprolol Tartrate [Lopressor 50 mg PO BID 04/22/17 (Beta Suzanne)] Ruxolitinib Phosphate [Jakafi] 15 mg PO BID 04/22/17 Calcium Carbonate/Vitamin D3 1 tab PO DAILY 11/16/17 [Calcium 500-Vit D3 200 Tablet] Gabapentin [Neurontin] 400 mg PO BID 11/16/17 Tamsulosin HCl [Flomax] 0.4 mg PO DAILY 11/16/17 Surgical History: cholecystectomy, - - Back surgery, cardiac ablation. Psychiatric History: No pertinent psych hx Smoking Status: Never smoker Tobacco Use: Cigarettes, Pipe - *Family History Paternal History Items: Heart Disease Maternal History Items: - - Mother young, unclear etiology. Review of Systems Constitutional: Denies: Chills, Fever Eyes: Denies: Blurred vision HEENT: Denies: Difficulty Swallowing Cardiovascular: Denies: Chest Pain Respiratory: Denies: Shortness of breath at rest - Patient currently does have nasal cannula Gastrointestinal: Reports: Diarrhea. Denies: Abdominal Pain, Nausea, Vomiting Genitourinary: Denies: Dysuria Musculoskeletal: Denies: Joint Pain Skin: Denies: Rash Psychiatric: Reports: Anxiety. Denies: Depression Hematologic/ Lymphatic: Reports: Easy Bruising, Easy Bleeding Patient Problems: Active and Suspected Problems Community acquired pneumonia (Acute) Hypoxia (Acute) - Physical Exam General: Alert, Oriented x3, Cooperative, No apparent distress HEENT: Atraumatic, Normocephalic Lungs: Clear to auscultation - Anteriorly Cardiovascular: Tachycardic Abdomen: Soft, Non Tender - No guarding or rebound, Non-Distended Extremities: No clubbing, No cyanosis, No edema Musculoskeletal: No Tenderness to Palpation of Joints or Extremities Neurological: Cranial nerves II-XII grossly intact Psych/Mental Status: Normal Affect Vital Signs Temp Pulse Resp BP Pulse Ox 97.8 F 84 19 H 111/54 L 99 11/18/17 10:49 11/18/17 11:46 11/18/17 11:46 11/18/17 10:49 11/18/17 11:46 Oxygen Flow Rate (L/min) 2 Oxygen Delivery Method Nasal Cannula Weight: 182 lb 5.156 oz Body Mass Index (BMI) 26.9 Intake and Output for Last 24 Hours 11/16/17 11/17/17 11/18/17 23:59 23:59 23:59 Intake Total 4213 / 4213 790 / 790 Output Total 775 / 775 350 / 350 Balance 3438 / 3438 440 / 440 Microbiology Past 72 Hours 11/16/17 19:55 Influenza Types A,B Direct FA (SASCHA) - Final Mucosa - Nasopharyngeal 11/16/17 19:55 Streptococcus pneumoniae Antigen (M - Final Urine, Clean Catch 11/16/17 19:55 Legionella Antigen - Final Urine, Clean Catch Laboratory Tests Past 24 Hrs 11/17/17 11/17/17 11/17/17 05:20 08:30 08:30 WBC RBC Hgb Hct MCV MCH MCHC RDW RDW Differential Plt Count MPV Neut % (Auto) Absolute Neuts (auto) Absolute Lymphs (auto) Total Counted Neutrophils % (Manual) Band Neutrophils % Lymphocytes % (Manual) Monocytes % (Manual) Eosinophils % (Manual) Diff Path Review Reviewed Platelet Estimate Polychromasia Hypochromasia Sodium Potassium Chloride Carbon Dioxide Anion Gap BUN Creatinine Estim Creat Clear Calc Est GFR (MDRD) Af Amer Est GFR (MDRD) Non-Af BUN/Creatinine Ratio Glucose Calcium Ur Random Sodium 37 Urine Creatinine 173.00 Blood Type Antibody Screen Crossmatch 11/18/17 11/18/17 11/18/17 05:55 05:55 09:05 WBC 14.5 H RBC 2.18 L Hgb 6.8 L Hct 20.9 L MCV 95.9 H MCH 31.2 MCHC 32.5 RDW 18.0 H RDW Differential 63.1 H Plt Count 304 MPV 10.0 Neut % (Auto) Not Reportable Absolute Neuts (auto) 12.2 H Absolute Lymphs (auto) 0.73 L Total Counted 100 Neutrophils % (Manual) 81 H Band Neutrophils % 3 Lymphocytes % (Manual) 5 L Monocytes % (Manual) 9 Eosinophils % (Manual) 2 Diff Path Review May foll Platelet Estimate ADEQUATE Polychromasia RARE Hypochromasia 2+ Sodium 144 Potassium 3.5 Chloride 112 H Carbon Dioxide 22.0 Anion Gap 10 BUN 32 H Creatinine 1.50 H Estim Creat Clear Calc 45.17 Est GFR (MDRD) Af Amer 59 L Est GFR (MDRD) Non-Af 49 L BUN/Creatinine Ratio 21.3 H Glucose 112 H Calcium 7.4 L Ur Random Sodium Urine Creatinine Blood Type A POSITIVE Antibody Screen NEGATIVE Crossmatch See Detail Assessment/Plan All Active Problems Community acquired pneumonia (Acute) Hypoxia (Acute) MSSA (methicillin susceptible Staphylococcus aureus) septicemia (Acute) Acute kidney injury (Acute) Atrial fibrillation with RVR (Acute) Acute respiratory failure with hypoxia (Acute) COPD exacerbation (Acute) Pneumonia (Acute) Influenza B (Resolved) 71-year-old male admitted for pneumonia and shortness of breath, anemia, tarry stools 1. Discussed with patient I would recommend an EGD due to his tarry stools as well as his anemia. His Eliquis is already been held starting today. Discussing the procedure would likely not occur until after he has been off of the Eliquis for 3 days. Patient was placed on PPI drip by Dr. Hill. Patient was quite nervous about finances offered him to talk to social work however [facility] if he was given need additional procedures. Discussed with Dr. Hill. Elizabeth Glaser M.D. Pager: [phone] [facility] [address] [place] [address], [facility], [address] [place] [id number] Office: [phone] Code Visit Inpatient E&M: 07339 Init Hosp L1
--- NOTE | 2017-11-18 12:13 | CON.PCM_ITS ---
Reason for Consult Date of Consultation: 11/18/17 Reason for Consultation: Anemia History of Present Illness: The patient is a 72 year old M admitted for pneumonia and shortness of breath. Patient states that over the last 4-5 months he is felt more fatigued and looking back at his labs hemoglobin is also been dropping gradually. Patient states that about a week ago he started having diarrhea but states it was more normal in color however he states in the hospital it has been black. Otherwise denies previous blood per rectum. Patient's last colonoscopy was about 2 years ago at the [place] states he had one polyp that was benign. Patient denies any abdominal pain, nausea, vomiting, fevers or chills. Patient also states he had an EGD at the [place] also about 3-4 years ago. Patient's hemoglobin on admit was 9.4 to 7.9 yesterday after hydration; however currently it is 6.8. Patient is also scheduled to get packed red blood cells. And was placed on a PPI drip. Past Medical History Past Medical History (Chronic Problems): Chronic Problems Suspected chronic obstructive pulmonary disease based on initial evaluation ( Chronic) Former tobacco use (Chronic) HTN (hypertension) (Chronic) PAF (paroxysmal atrial fibrillation) (Chronic) GERD (gastroesophageal reflux disease) (Chronic) Rheumatoid arthritis (Chronic) History of rheumatoid arthritis (Chronic) History of gastroesophageal reflux (GERD) (Chronic) S/P ablation of atrial flutter (Chronic) Atrial flutter (Chronic) History of atrial fibrillation (Chronic) Allergies doxycycline Adverse Reaction (Verified 11/16/17 15:34) Nausea/Vom/Diarrhea methotrexate Adverse Reaction (Verified 11/16/17 19:01) fills my lungs and sinuses with fluid Home Medications: Ambulatory Orders Medication Instructions Recorded Etanercept [Enbrel] 50 mg SQ Q7D 11/27/15 Leflunomide [Arava] 20 mg PO DAILY 11/27/15 Omeprazole [Prilosec] 20 mg PO DAILY 11/27/15 Apixaban [Eliquis] 5 mg PO BID 04/22/17 Hydrochlorothiazide [Hctz] 25 mg PO DAILY 04/22/17 Losartan Potassium [Cozaar] 50 mg PO DAILY 04/22/17 Metoprolol Tartrate [Lopressor 50 mg PO BID 04/22/17 (Beta Suzanne)] Ruxolitinib Phosphate [Jakafi] 15 mg PO BID 04/22/17 Calcium Carbonate/Vitamin D3 1 tab PO DAILY 11/16/17 [Calcium 500-Vit D3 200 Tablet] Gabapentin [Neurontin] 400 mg PO BID 11/16/17 Tamsulosin HCl [Flomax] 0.4 mg PO DAILY 11/16/17 Surgical History: cholecystectomy, - - Back surgery, cardiac ablation. Psychiatric History: No pertinent psych hx Smoking Status: Never smoker Tobacco Use: Cigarettes, Pipe - *Family History Paternal History Items: Heart Disease Maternal History Items: - - Mother young, unclear etiology. Review of Systems Constitutional: Denies: Chills, Fever Eyes: Denies: Blurred vision HEENT: Denies: Difficulty Swallowing Cardiovascular: Denies: Chest Pain Respiratory: Denies: Shortness of breath at rest - Patient currently does have nasal cannula Gastrointestinal: Reports: Diarrhea. Denies: Abdominal Pain, Nausea, Vomiting Genitourinary: Denies: Dysuria Musculoskeletal: Denies: Joint Pain Skin: Denies: Rash Psychiatric: Reports: Anxiety. Denies: Depression Hematologic/ Lymphatic: Reports: Easy Bruising, Easy Bleeding Patient Problems: Active and Suspected Problems Community acquired pneumonia (Acute) Hypoxia (Acute) - Physical Exam General: Alert, Oriented x3, Cooperative, No apparent distress HEENT: Atraumatic, Normocephalic Lungs: Clear to auscultation - Anteriorly Cardiovascular: Tachycardic Abdomen: Soft, Non Tender - No guarding or rebound, Non-Distended Extremities: No clubbing, No cyanosis, No edema Musculoskeletal: No Tenderness to Palpation of Joints or Extremities Neurological: Cranial nerves II-XII grossly intact Psych/Mental Status: Normal Affect Vital Signs Temp Pulse Resp BP Pulse Ox 97.8 F 84 19 H 111/54 L 99 11/18/17 10:49 11/18/17 11:46 11/18/17 11:46 11/18/17 10:49 11/18/17 11:46 Oxygen Flow Rate (L/min) 2 Oxygen Delivery Method Nasal Cannula Weight: 182 lb 5.156 oz Body Mass Index (BMI) 26.9 Intake and Output for Last 24 Hours 11/16/17 11/17/17 11/18/17 23:59 23:59 23:59 Intake Total 4213 / 4213 790 / 790 Output Total 775 / 775 350 / 350 Balance 3438 / 3438 440 / 440 Microbiology Past 72 Hours 11/16/17 19:55 Influenza Types A,B Direct FA (SASCHA) - Final Mucosa - Nasopharyngeal 11/16/17 19:55 Streptococcus pneumoniae Antigen (M - Final Urine, Clean Catch 11/16/17 19:55 Legionella Antigen - Final Urine, Clean Catch Laboratory Tests Past 24 Hrs 11/17/17 11/17/17 11/17/17 05:20 08:30 08:30 WBC RBC Hgb Hct MCV MCH MCHC RDW RDW Differential Plt Count MPV Neut % (Auto) Absolute Neuts (auto) Absolute Lymphs (auto) Total Counted Neutrophils % (Manual) Band Neutrophils % Lymphocytes % (Manual) Monocytes % (Manual) Eosinophils % (Manual) Diff Path Review Reviewed Platelet Estimate Polychromasia Hypochromasia Sodium Potassium Chloride Carbon Dioxide Anion Gap BUN Creatinine Estim Creat Clear Calc Est GFR (MDRD) Af Amer Est GFR (MDRD) Non-Af BUN/Creatinine Ratio Glucose Calcium Ur Random Sodium 37 Urine Creatinine 173.00 Blood Type Antibody Screen Crossmatch 11/18/17 11/18/17 11/18/17 05:55 05:55 09:05 WBC 14.5 H RBC 2.18 L Hgb 6.8 L Hct 20.9 L MCV 95.9 H MCH 31.2 MCHC 32.5 RDW 18.0 H RDW Differential 63.1 H Plt Count 304 MPV 10.0 Neut % (Auto) Not Reportable Absolute Neuts (auto) 12.2 H Absolute Lymphs (auto) 0.73 L Total Counted 100 Neutrophils % (Manual) 81 H Band Neutrophils % 3 Lymphocytes % (Manual) 5 L Monocytes % (Manual) 9 Eosinophils % (Manual) 2 Diff Path Review May foll Platelet Estimate ADEQUATE Polychromasia RARE Hypochromasia 2+ Sodium 144 Potassium 3.5 Chloride 112 H Carbon Dioxide 22.0 Anion Gap 10 BUN 32 H Creatinine 1.50 H Estim Creat Clear Calc 45.17 Est GFR (MDRD) Af Amer 59 L Est GFR (MDRD) Non-Af 49 L BUN/Creatinine Ratio 21.3 H Glucose 112 H Calcium 7.4 L Ur Random Sodium Urine Creatinine Blood Type A POSITIVE Antibody Screen NEGATIVE Crossmatch See Detail Assessment/Plan All Active Problems Community acquired pneumonia (Acute) Hypoxia (Acute) MSSA (methicillin susceptible Staphylococcus aureus) septicemia (Acute) Acute kidney injury (Acute) Atrial fibrillation with RVR (Acute) Acute respiratory failure with hypoxia (Acute) COPD exacerbation (Acute) Pneumonia (Acute) Influenza B (Resolved) 71-year-old male admitted for pneumonia and shortness of breath, anemia, tarry stools 1. Discussed with patient I would recommend an EGD due to his tarry stools as well as his anemia. His Eliquis is already been held starting today. Discussing the procedure would likely not occur until after he has been off of the Eliquis for 3 days. Patient was placed on PPI drip by Dr. Hill. Patient was quite nervous about finances offered him to talk to social work however [facility] if he was given need additional procedures. Discussed with Dr. Hill. Elizabeth Glaser M.D. Pager: [phone] [facility] [address] [place] [address], [facility], [address] [place] [id number] Office: [phone] Code Visit Inpatient E&M: [id number] Init Hosp L1
--- NOTE | 2017-11-18 13:15 | CASEMGMT ---
JOSE BATES NOTE: Contacted Crista, Nurse Coordinator @ [facility]. Crista states pt is not service connected and does not have travel benefits. She stated pt may have a co-pay there and that he would also be responsible for travel cost to their facility. Pt has MCR A only which does not cover Ambulance cost, so pt would need to pay [id number]. JOSE BATES called [facility] for estimate of travel expenses to go to [facility] and it is approx $1,100 which already includes 15% discount for someone paying [id number]. Pt made aware he does not have travel benefits through [place] and that the estimated cost of Ambulance Services via [facility] from [facility] to [facility] would be approx $1,100. Pt stated he does not wish to pay that cost but that he still wants to go to [facility] and stated, I'll just have my drive me up there. Dr Hill informed of pt stating that he wishes for his to transport him to [facility] d/t the cost of ambulance services being approx $1,100. Dr Hill states pt is not safe to discharge and be transported by his and that if he wishes to go to [facility] he needs to be transferred via Ambulance services. Pt was made aware of this. CM to follow for discharge planning needs as they arise. Hina CASTRO RN, CM
--- NOTE | 2017-11-18 15:25 | CASEMGMT ---
RN JANA NOTE: Reviewed [facility] Home O2 packet/program with pt and forms/questionnaire signed by pt. Faxed signed papers, home O2 Program Data, and Demographics sheet to [facility] @ [phone]. Pt given originals of signed papers and copy placed on chart. Call placed to [facility] and they confirmed they received the documents. Hina CASTRO RN CM
[2017-11-18 15:46] LABS: Hematocrit 25.1 % (40-54); Hemoglobin 8.4 g/dl (13.0-16.5)
--- NOTE | 2017-11-18 16:20 | NURSING ---
authorization for release of medical records sent to [facility] , fax number [phone]
[2017-11-18] MEDS: 0.9% Normal Saline 1,000 ML 100 ML IV (18:16)
[2017-11-19] VITALS (11 sets, daily range): BP systolic 133–146; BP diastolic 65–80; PULSE 86–116; RESP 18–24; TEMP 36.4–37.6; O2SAT 92–98
[2017-11-19] MEDS: 0.9% Normal Saline 1,000 ML 100 ML IV (03:36)
[2017-11-19 06:37] LABS: Anion Gap 7 (5-15); BUN 18 mg/dL (7-18); BUN/Creat Ratio 14.5 RATIO (10-20); Calcium,Total 7.9 mg/dL (8.5-10.1); Chloride 113 mmol/L (98-107); Creatinine, Serum 1.24 mg/dL (0.70-1.30); EST Glomerular Filtration Rate 61 mL/min (>60); Est Glom Filt Rate - Afr Amer 74 mL/min (>60); Estimated Creatinine Clearance 54.64 ml/min; Glucose 105 mg/dL (74-106); Potassium 3.6 mmol/L (3.5-5.1); Sodium Level 145 mmol/L (136-145)
[2017-11-19 06:39] LABS: Hematocrit 27.1 % (40-54); Mean Corp Hgb Conc 33.2 g/gl (32-36); Mean Corpuscular Hgb 30.9 pg (27.0-32.0); Mean Corpuscular Volume 93.1 fL (80-94); Mean Platelet Vol. 9.7 fl (6.2-12.0); Platelet Count 309 K/mm3 (150-450); RBC Distribution Width CV 18.1 % (11.6-14.6); RBC Distribution Width SD 61.2 fl (35.1-43.9); Red Blood Count 2.91 M/mm3 (4.6-6.2); White Blood Count 15.7 K/mm3 (4.4-11.0)
[2017-11-19 06:42] LABS: Differential Indicated MANUAL DIFF; POSITIVE COUNT NO; POSITIVE DIFFERENTIAL NO; POSITIVE MORPHOLOGY YES
[2017-11-19 07:25] LABS: Anisocytosis 1+; Hypochromasia 1+; Lymphocyte 1 % (19-41); Metamyelocyte 2 % (0-1); Monocyte 2 % (0-10); Myelocyte 2 (0-0); Neutrophil-Band 5 % (0-5); Neutrophil-Segmented 88 % (47-70); Total Cells Counted 100 (MANUAL DIFF)
[2017-11-19 07:26] LABS: Microcytosis 1+; Platelet Estimate ADEQUATE (ADEQ); Polychromasia 1+
[2017-11-19] MEDS: Ipratropium/Albuterol Sulfate 3 ML AMPUL.NEB INHALATION ×4 (07:26→19:00)
[2017-11-19 07:31] LABS: Absolute Lymphocyte Count 0.16 X10^3/ul (0.83-4.51); Absolute Neutrophil Count 14.1 X10^3/uL (2.0-7.7)
--- NOTE | 2017-11-19 08:05 | PCM.PN.SRG ---
Patient Problems: Active and Suspected Problems Community acquired pneumonia (Acute) Hypoxia (Acute) Subjective: Patient did decide to stay due to transfer fees to the [place]. He did get 2 units of packed red blood cells and his hemoglobin have been stable however he still states he is having black stools. Mostly diarrhea - Physical Exam General: Alert, Oriented x3, Cooperative, No apparent distress HEENT: Atraumatic Lungs: Normal air movement Abdomen: Soft, Non Tender - No guarding or rebound, Non-Distended Extremities: No clubbing, No cyanosis, No edema Vital Signs Temp Pulse Resp BP Pulse Ox 98.1 F 96 22 H 138/79 H 94 11/19/17 02:00 11/19/17 07:25 11/19/17 07:25 11/19/17 02:00 11/19/17 07:25 Oxygen Flow Rate (L/min) [ 2 AMBULATION with Oxygen] Oxygen Flow Rate (L/min) 2 Oxygen Delivery Method Nasal Cannula Weight: 182 lb 5.156 oz Body Mass Index (BMI) 26.9 Intake and Output for Last 24 Hours 11/17/17 11/18/17 11/19/17 23:59 23:59 23:59 Intake Total 4213 / 4213 5790 / 5790 1281 / 1281 Output Total 775 / 775 350 / 350 300 / 300 Balance 3438 / 3438 5440 / 5440 981 / 981 Microbiology Past 72 Hours 11/16/17 19:55 Influenza Types A,B Direct FA (SASCHA) - Final Mucosa - Nasopharyngeal 11/16/17 19:55 Streptococcus pneumoniae Antigen (M - Final Urine, Clean Catch 11/16/17 19:55 Legionella Antigen - Final Urine, Clean Catch Laboratory Tests Past 24 Hrs 11/18/17 11/18/17 11/18/17 05:55 09:05 15:04 WBC RBC Hgb 8.4 L Hct 25.1 L MCV MCH MCHC RDW RDW Differential Plt Count MPV Neut % (Auto) Absolute Neuts (auto) 12.2 H Absolute Lymphs (auto) 0.73 L Total Counted 100 Neutrophils % (Manual) 81 H Band Neutrophils % 3 Lymphocytes % (Manual) 5 L Monocytes % (Manual) 9 Eosinophils % (Manual) 2 Metamyelocytes % Myelocytes % Diff Path Review May foll Platelet Estimate ADEQUATE Polychromasia RARE Hypochromasia 2+ Anisocytosis Microcytosis Sodium Potassium Chloride Carbon Dioxide Anion Gap BUN Creatinine Estim Creat Clear Calc Est GFR (MDRD) Af Amer Est GFR (MDRD) Non-Af BUN/Creatinine Ratio Glucose Calcium Blood Type A POSITIVE Antibody Screen NEGATIVE Crossmatch See Detail 11/19/17 11/19/17 05:43 05:43 WBC 15.7 H RBC 2.91 L Hgb 9.0 L Hct 27.1 L MCV 93.1 MCH 30.9 MCHC 33.2 RDW 18.1 H RDW Differential 61.2 H Plt Count 309 MPV 9.7 Neut % (Auto) Not Reportable Absolute Neuts (auto) 14.1 H Absolute Lymphs (auto) 0.16 L Total Counted 100 Neutrophils % (Manual) 88 H Band Neutrophils % 5 Lymphocytes % (Manual) 1 L Monocytes % (Manual) 2 Eosinophils % (Manual) Metamyelocytes % 2 H Myelocytes % 2 H Diff Path Review May foll Platelet Estimate ADEQUATE Polychromasia 1+ Hypochromasia 1+ Anisocytosis 1+ Microcytosis 1+ Sodium 145 Potassium 3.6 Chloride 113 H Carbon Dioxide 25.0 Anion Gap 7 BUN 18 Creatinine 1.24 Estim Creat Clear Calc 54.64 Est GFR (MDRD) Af Amer 74 Est GFR (MDRD) Non-Af 61 BUN/Creatinine Ratio 14.5 Glucose 105 Calcium 7.9 L Blood Type Antibody Screen Crossmatch Medical Necessity - Tobacco Use Smoking Status: Never smoker Tobacco Use: Cigarettes, Pipe Assessment/Plan All Active Problems Community acquired pneumonia (Acute) Hypoxia (Acute) MSSA (methicillin susceptible Staphylococcus aureus) septicemia (Acute) Acute kidney injury (Acute) Atrial fibrillation with RVR (Acute) Acute respiratory failure with hypoxia (Acute) COPD exacerbation (Acute) Pneumonia (Acute) Influenza B (Resolved) 71-year-old male admitted for pneumonia and shortness of breath, anemia, tarry stools 1. I again discussed the patient that he would need an EGD and likely a colonoscopy due to a drop in hemoglobin and requiring packed red blood cells however due to his Eliquis this will not be able to be done till Wednesday about 11 AM is when he is on the schedule tentatively. While talking about procedures patient again discuss finances and states that he could not afford this and again [facility] even though [facility] he canceled that transferred to to transport fees. Discussed with Dr. Hill. If patient does decide to stay will plan for an EGD and colonoscopy about 11 AM on Wednesday will do GoLYTELY prep on Wednesday starting about 11 AM and only clears on Wednesday and then n.p.o. after midnight. Did previously discussed with the patient the risks benefits of the procedure including but not limited to bleeding, perforation requiring emergency surgery, possible need for future endoscopy, incomplete colonoscopy require a barium enema, and poor prep. Elizabeth Glaser M.D. Pager: [phone] [facility] [address] [place] [address], [facility], [address] [place] [address] Office: [phone] Code Visit Inpatient E&M: [id number] [facility] Hosp L1
--- NOTE | 2017-11-19 08:08 | PN.SURG_ITS ---
Patient Problems: Active and Suspected Problems Community acquired pneumonia (Acute) Hypoxia (Acute) Subjective: Patient did decide to stay due to transfer fees to the [place]. He did get 2 units of packed red blood cells and his hemoglobin have been stable however he still states he is having black stools. Mostly diarrhea - Physical Exam General: Alert, Oriented x3, Cooperative, No apparent distress HEENT: Atraumatic Lungs: Normal air movement Abdomen: Soft, Non Tender - No guarding or rebound, Non-Distended Extremities: No clubbing, No cyanosis, No edema Vital Signs Temp Pulse Resp BP Pulse Ox 98.1 F 96 22 H 138/79 H 94 11/19/17 02:00 11/19/17 07:25 11/19/17 07:25 11/19/17 02:00 11/19/17 07:25 Oxygen Flow Rate (L/min) [ 2 AMBULATION with Oxygen] Oxygen Flow Rate (L/min) 2 Oxygen Delivery Method Nasal Cannula Weight: 182 lb 5.156 oz Body Mass Index (BMI) 26.9 Intake and Output for Last 24 Hours 11/17/17 11/18/17 11/19/17 23:59 23:59 23:59 Intake Total 4213 / 4213 5790 / 5790 1281 / 1281 Output Total 775 / 775 350 / 350 300 / 300 Balance 3438 / 3438 5440 / 5440 981 / 981 Microbiology Past 72 Hours 11/16/17 19:55 Influenza Types A,B Direct FA (SASCHA) - Final Mucosa - Nasopharyngeal 11/16/17 19:55 Streptococcus pneumoniae Antigen (M - Final Urine, Clean Catch 11/16/17 19:55 Legionella Antigen - Final Urine, Clean Catch Laboratory Tests Past 24 Hrs 11/18/17 11/18/17 11/18/17 05:55 09:05 15:04 WBC RBC Hgb 8.4 L Hct 25.1 L MCV MCH MCHC RDW RDW Differential Plt Count MPV Neut % (Auto) Absolute Neuts (auto) 12.2 H Absolute Lymphs (auto) 0.73 L Total Counted 100 Neutrophils % (Manual) 81 H Band Neutrophils % 3 Lymphocytes % (Manual) 5 L Monocytes % (Manual) 9 Eosinophils % (Manual) 2 Metamyelocytes % Myelocytes % Diff Path Review May foll Platelet Estimate ADEQUATE Polychromasia RARE Hypochromasia 2+ Anisocytosis Microcytosis Sodium Potassium Chloride Carbon Dioxide Anion Gap BUN Creatinine Estim Creat Clear Calc Est GFR (MDRD) Af Amer Est GFR (MDRD) Non-Af BUN/Creatinine Ratio Glucose Calcium Blood Type A POSITIVE Antibody Screen NEGATIVE Crossmatch See Detail 11/19/17 11/19/17 05:43 05:43 WBC 15.7 H RBC 2.91 L Hgb 9.0 L Hct 27.1 L MCV 93.1 MCH 30.9 MCHC 33.2 RDW 18.1 H RDW Differential 61.2 H Plt Count 309 MPV 9.7 Neut % (Auto) Not Reportable Absolute Neuts (auto) 14.1 H Absolute Lymphs (auto) 0.16 L Total Counted 100 Neutrophils % (Manual) 88 H Band Neutrophils % 5 Lymphocytes % (Manual) 1 L Monocytes % (Manual) 2 Eosinophils % (Manual) Metamyelocytes % 2 H Myelocytes % 2 H Diff Path Review May foll Platelet Estimate ADEQUATE Polychromasia 1+ Hypochromasia 1+ Anisocytosis 1+ Microcytosis 1+ Sodium 145 Potassium 3.6 Chloride 113 H Carbon Dioxide 25.0 Anion Gap 7 BUN 18 Creatinine 1.24 Estim Creat Clear Calc 54.64 Est GFR (MDRD) Af Amer 74 Est GFR (MDRD) Non-Af 61 BUN/Creatinine Ratio 14.5 Glucose 105 Calcium 7.9 L Blood Type Antibody Screen Crossmatch Medical Necessity - Tobacco Use Smoking Status: Never smoker Tobacco Use: Cigarettes, Pipe Assessment/Plan All Active Problems Community acquired pneumonia (Acute) Hypoxia (Acute) MSSA (methicillin susceptible Staphylococcus aureus) septicemia (Acute) Acute kidney injury (Acute) Atrial fibrillation with RVR (Acute) Acute respiratory failure with hypoxia (Acute) COPD exacerbation (Acute) Pneumonia (Acute) Influenza B (Resolved) 71-year-old male admitted for pneumonia and shortness of breath, anemia, tarry stools 1. I again discussed the patient that he would need an EGD and likely a colonoscopy due to a drop in hemoglobin and requiring packed red blood cells however due to his Eliquis this will not be able to be done till Wednesday about 11 AM is when he is on the schedule tentatively. While talking about procedures patient again discuss finances and states that he could not afford this and again [facility] he canceled that transferred to to transport fees. Discussed with Dr. Hill. If patient does decide to stay will plan for an EGD and colonoscopy about 11 AM on Wednesday will do GoLYTELY prep on Wednesday starting about 11 AM and only clears on Wednesday and then n.p.o. after midnight. Did previously discussed with the patient the risks benefits of the procedure including but not limited to bleeding, perforation requiring emergency surgery, possible need for future endoscopy, incomplete colonoscopy require a barium enema, and poor prep. Elizabeth Glaser M.D. Pager: [phone] [facility] [address] [place] [address], [facility], [address] [place] [address] Office: [phone] Code Visit Inpatient E&M: [id number] [facility] Hosp L1
[2017-11-19] MEDS: Ferrous Gluconate 325 MG Tablet PO ×2 (08:12→17:33)
[2017-11-19] MEDS: Calcium Carb/Vitamin D 1 TABLET Tablet PO (08:12)
[2017-11-19] MEDS: Tamsulosin HCl 0.4 MG Capsule PO (08:12)
--- NOTE | 2017-11-19 09:25 | PCM.PN.HOSP ---
Patient Problems: Active and Suspected Problems Community acquired pneumonia (Acute) Hypoxia (Acute) Subjective: Patient states still having dark black softer stools but has lessened and denies any abdominal cramping, nausea or emesis associated. He does feel improved following PRBC administration ?2 units a day prior with additionally improvement of his vital signs including heart rate and blood pressure. Discussed again remaining for planned scope on Wednesday versus [facility] and he is requesting financial patient assistance information as well as case management/social work input to cost for both facilities. Currently his preference is to remain as he understands that [facility] he may not have endoscopies until later in the week. He states that breathing has improved, oxygenation testing performed in order to be able to set up oxygen given [facility] takes 24-48 hours with noted 88% oxygenation on room air, 90% on room air at rest, improvement to 97% on 2 L nasal cannula. Patient denies fevers, chills, nausea, emesis, abdominal pain, chest pain or dyspnea. Objective: Physical Examination: General: awake, alert, oriented x 3 and cooperative, seated upright in the bedside chair, in no apparent distress. Skin: normal color, turgor, no icterus, cyanosis. HEENT: AT/NC, EOMI, PERRLA, improved MMM. Lungs: Diminished BS BL, > L bases, improved moderate effort, no wheezing. Heart: Regular rate and rhythm; no gallop, rub audible. Abdomen: soft, NTTP, ND, normal BS, no HSM. Extremities: no cyanosis, clubbing, or edema. Neurological: patient awake, alert, oriented x 3; cognitive function intact; pupils equally reactive to light and accomodation; cranial nerves II-XII grossly normal, moving all 4 extremities, no focal deficits, strength improved, moderately globally decreased secondary to acute presentation. Psychiatric: affect appears fatigued, no acute evidence of depressive or anxiety feelings. Vitals/I&O's: Vital Signs Temp Pulse Resp BP Pulse Ox 97.5 F L 108 H 20 H 140/65 H 94 11/19/17 08:00 11/19/17 08:00 11/19/17 08:00 11/19/17 08:00 11/19/17 08:00 Oxygen Flow Rate (L/min) [ 2 AMBULATION with Oxygen] Oxygen Flow Rate (L/min) 2 Oxygen Delivery Method Nasal Cannula Weight: 182 lb 5.156 oz Body Mass Index (BMI) 26.9 Intake and Output for Last 24 Hours 11/17/17 11/18/17 11/19/17 23:59 23:59 23:59 Intake Total 4213 / 4213 5790 / 5790 1281 / 1281 Output Total 775 / 775 350 / 350 300 / 300 Balance 3438 / 3438 5440 / 5440 981 / 981 Microbiology Past 72 Hours 11/16/17 19:55 Urine, Clean Catch Urine Culture - Final Coag Negative Staph 11/16/17 19:55 Mucosa - Nasopharyngeal Influenza Types A,B Direct FA (SASCHA) - Final 11/16/17 19:55 Urine, Clean Catch Streptococcus pneumoniae Antigen (M - Final 11/16/17 19:55 Urine, Clean Catch Legionella Antigen - Final Laboratory Results 11/18/17 09:05: Blood Type A POSITIVE, Antibody Screen NEGATIVE, Crossmatch See Detail 11/18/17 15:04: Hgb 8.4 L, Hct 25.1 L 11/19/17 05:43: WBC 15.7 H, RBC 2.91 L, Hgb 9.0 L, Hct 27.1 L, MCV 93.1, MCH 30.9, MCHC 33.2, RDW 18.1 H, RDW Differential 61.2 H, Plt Count 309, MPV 9.7, Neut % (Auto) Not Reportable, Absolute Neuts (auto) 14.1 H, Absolute Lymphs (auto) 0.16 L, Total Counted 100, Neutrophils % (Manual) 88 H, Band Neutrophils % 5, Lymphocytes % (Manual) 1 L, Monocytes % (Manual) 2, Metamyelocytes % 2 H, Myelocytes % 2 H, Diff Path Review May , Platelet Estimate ADEQUATE, Polychromasia 1+, Hypochromasia 1+, Anisocytosis 1+, Microcytosis 1+ 11/19/17 05:43: Sodium 145, Potassium 3.6, Chloride 113 H, Carbon Dioxide 25.0, Anion Gap 7, BUN 18, Creatinine 1.24, Estim Creat Clear Calc 54.64, Est GFR (MDRD) Af Amer 74, Est GFR (MDRD) Non-Af 61, BUN/Creatinine Ratio 14.5, Glucose 105, Calcium 7.9 L Current Medications Acetaminophen (Tylenol) 650 mg PO Q4H PRN PRN PRN Reason: Mild-Moderate Pain/MCINTYRE/fever Last Admin: 11/17/17 19:24 Dose: 650 mg Al Hydroxide/Mg Hydroxide (Mylanta Ii) 30 ml PO Q6H PRN PRN PRN Reason: Gastric Burning Albuterol Sulfate (Ventolin Aerosols) 2.5 mg INHALATION Q2H PRN PRN PRN Reason: SHORTNESS OF BREATH Last Admin: 11/18/17 02:34 Dose: 2.5 mg Albuterol/Ipratropium (Duoneb) 3 ml INHALATION Q4HWA.RT [facility] Last Admin: 11/19/17 07:26 Dose: 3 ml Calcium/Vitamin D (Os-Ino 500mg + D) [facility] Last Admin: 11/19/17 08:12 Dose: 1 tablet Docusate Sodium (Colace) 200 mg PO BID PRN PRN PRN Reason: Constipation Ferrous Gluconate (Ferrous Gluconate) [facility] Last Admin: 11/19/17 08:12 Dose: 325 mg Guaifenesin (Mucinex) 1,200 mg PO BID [facility] Last Admin: 11/18/17 21:11 Dose: 1,200 mg Azithromycin 500 mg/ Dextrose 255 mls @ 250 mls/hr IV Q24 [facility] Stop: 11/19/17 11:02 Last Admin: 11/18/17 10:04 Dose: 250 mls/hr Sodium Chloride () 250 mls @ 15 mls/hr IV .[id number] PRN PRN Reason: SALINE FLUSH Ceftriaxone Sodium (Rocephin) 1 gm in 50 mls @ 100 mls/hr IV Q24 [facility] Last Admin: 11/18/17 11:40 Dose: 100 mls/hr Pantoprazole Sodium 40 mg/ (Sodium Chloride) 110 mls @ 330 mls/hr IV Q12 [facility] Last Admin: 11/18/17 21:11 Dose: 330 mls/hr Sodium Chloride () 1,000 mls @ 100 mls/hr IV .Q10H [facility] Last Admin: 11/19/17 03:36 Dose: 100 mls/hr Metoprolol Tartrate (Lopressor (Beta Suzanne)) 50 mg PO BID [facility] Last Admin: 11/18/17 21:11 Dose: 50 mg Morphine Sulfate () 1 - 2 mg IV Q4H PRN PRN PRN Reason: SEVERE PAIN (6-10/10) Nutritional Formula (Lactose Free) (Ensure Enlive) 120 ml PO 4X/DAY [facility] Last Admin: 11/18/17 21:11 Dose: Not Given Ondansetron HCl (Zofran) 4 mg IV Q8H PRN PRN PRN Reason: NAUSEA Oxycodone HCl (Oxyir) 5 mg PO Q4H PRN PRN PRN Reason: Moderate Pain (pain scale 4-5) Sodium Chloride () 5 - 30 ml IV UD PRN PRN Reason: SALINE FLUSH Tamsulosin HCl (Flomax) 0.4 mg PO DAILY@0830 [facility] Last Admin: 11/19/17 08:12 Dose: 0.4 mg Trazodone HCl (Desyrel) 50 mg PO QHS [facility] Medical Necessity - Tobacco Use Smoking Status: Never smoker Tobacco Use: Cigarettes, Pipe Assessment/Plan All Active Problems Community acquired pneumonia (Acute) Hypoxia (Acute) MSSA (methicillin susceptible Staphylococcus aureus) septicemia (Acute) Acute kidney injury (Acute) Atrial fibrillation with RVR (Acute) Acute respiratory failure with hypoxia (Acute) COPD exacerbation (Acute) Pneumonia (Acute) Influenza B (Resolved) The patient is a 72 M w/ PMHx: Suspected Chronic COPD, Tobacco, HTN, Chronic AF/Flutter, Abnormal hematopoietic disorder/bone marrow disorder, GERD, Rheumatoid arthritis, Hx Staph MSSA pneumonia LLL who presents to the [facility] ED on 11/16/17 with malaise, fatigue, dyspnea worse with exertion, cough x ~ 1 week. (1) Acute Sepsis secondary to Acute Community Acquired Pneumonia: CXR in the ED w/ LLL PNA w/ retrocardiac infiltrate without dense focal consolidation. Admission CBC w/ WBC 15.9 with L shift. Admitted to [place], maintained on oxygen with wean as tolerated to room air, continued ATC duonebs, PRN albuterol, maintained on initially IV Zosyn given biologic usage-->11/18/17 transition to Rocephin and will complete Azithromycin 3 day regimen, HOB, IS parameters w/ pending sputum cultures, negative urine antigens, negative influenza, negative MRSA. Bld cx x 2 obtained in the ED. Will have completed abx therapy by the time of discharge. (2) Acute on Chronic Normocytic Anemia secondary to suspected GI Bleed, Unclear if upper or lower GI bleed: Admission Hgb 9.4, repeat Hgb 7.9, prior baseline levels starting 04/2017 11-->decreasing trend, prior to this Hgb 15-13 range noted, iron panel, ferritin consistent with Fe deficiency, normal folic acid and vitamin B12 ordered. Stool occult obtained and pending but was having loose black appearing stools since restart on eliquis upon presentation. 11/18/17 Hgb 6.8, T+C 2 u ordered,Hgb following 8.4-->11/19/17 Hgb 9, continue to trend, maintain on IV PPI, Surgery consulted and planned 11/23/17 endoscopies. (3) Acute kidney injury: Secondary to acute presentation #1, dehydration. Admission BUN/Cr 46/2.10, prior baseline creatinine noted to be 1.11. Hydrated, held nephrotoxic medications w/ continued BMP trending. Will obtain FeNa assessment. 11/18/17 BUN/Cr 32.1.50-->11/19/17 BUN/Cr 18/1.24, improved. (4) Abnormal hematopoietic disorder/bone marrow disorder: Unclear diagnosis, maintained on Jakafi usually given for myelofibrosis or polycythemia vera w/ noted abnormal gene detected at [facility] w/ chronic leukocytosis. Holding Jakafi given acute presentation. Possible associated with his acute anemia given unclear history. Pending surgery evaluation for consideration for endoscopy. (5) Hypokalemia: Admission K+ 3.4, repeat 3.3, supplementation given, 11/19/17 K 3.6. (6) Rheumatoid Arthritis: Holding etanercept and elfunomide. (7) Chronic AF, Flutter: EKG w/ sinus tachycardia, maintain on metoprolol, holding Eliquis, history of cardiac ablation. (8) Suspected Chronic COPD: Will maintain on oxygen w/ [facility] for [facility] already when appropriate for discharge, continue ATC duonebs, PRN albuterol, HOB, IS parameters. (9) Hypertension: Continue home regimen including metoprolol,held ARB given MEGAN, restart once appropriate, PRN hydralazine. (10) GERD: IV PPI. (11) BPH: Continue home flomax regimen. (12) DVT Prophylaxis: SCDs, holding eliquis. Code Visit Inpatient E&M: 26377 Subs Hosp L2
[2017-11-19] MEDS: Metoprolol Tartrate 50 MG Tablet PO ×2 (09:38→22:10)
[2017-11-19] MEDS: guaiFENesin 1,200 MG Tablet 1200 MG PO ×2 (09:39→22:10)
--- NOTE | 2017-11-19 09:54 | CASEMGMT ---
JOSE [facility] NOTE: Spoke with patient re: transfer to [place] and cost. Offered for pt to speak with [place] Service Counselor to discuss financial information. Pt states he has discussed the transfer with his and has decided to not be transferred at this time and declines talking with from [place] for further financial information. Pt also declines talking with financial services @ [facility]. Dr Hill notified pt does not wish to transfer to [place] and is declining further financial assistance. [place] O2 services called [facility] re: O2. Notified pt will not be discharging today. They asked to be notified on Wednesday of discharge plan. CM to follow for discharge planning needs that may arise. Hina CASTRO RN, CM
[2017-11-19] MEDS: Ceftriaxone 1 GM/50 ML BAG IV (09:59)
[2017-11-19 12:34] LABS: Hemoglobin 9.3 g/dl (13.0-16.5)
[2017-11-19 20:42] LABS: Hematocrit 28.2 % (40-54); Hemoglobin 9.3 g/dl (13.0-16.5)
[2017-11-19] MEDS: 0.9% NaCl Peripheral Flush Adult/Peds IV (22:10)
[2017-11-19] MEDS: Acetaminophen 325 MG Tablet 650 MG PO (22:10)
[2017-11-19] MEDS: traZODone 50 MG Tablet PO (22:10)
[2017-11-20] VITALS (10 sets, daily range): BP systolic 115–150; BP diastolic 62–93; PULSE 66–111; RESP 18–22; TEMP 36.6–37.8; O2SAT 93–96
[2017-11-20] MEDS: Ipratropium/Albuterol Sulfate 3 ML AMPUL.NEB INHALATION ×4 (06:53→19:07)
--- NOTE | 2017-11-20 06:53 | PCM.PN.HOSP ---
Patient Problems: Active and Suspected Problems Community acquired pneumonia (Acute) Hypoxia (Acute) Subjective: Patient states feeling less weak and less dyspneic than day prior and hemoglobin has remained stable. He agrees to continue his care at [facility] as initially several debates for transfer to [place] system. He understands planned endoscopy on 11/23/17. Discussed that his [facility] has already [facility] for discharge. He notes that his stools continue to be dark in color but are starting to be more well formed. Reviewed antibiotic timeline with completion of antibiotic therapy Wednesday. Patient denies fevers, chills, nausea, emesis, abdominal pain, chest pain or worsened or recurrent dyspnea. Objective: Physical Examination: General: awake, alert, oriented x 3 and cooperative, seated upright in the bedside chair, in no apparent distress. Skin: normal color, turgor, no icterus, cyanosis. HEENT: AT/NC, EOMI, PERRLA, MMM. Lungs: Improved, mildly diminished BS BL, > L bases, no wheezing. Heart: Regular rate and rhythm; no gallop, rub audible. Abdomen: soft, NTTP, ND, normal BS. Extremities: no cyanosis, clubbing, or edema. Neurological: patient awake, alert, oriented x 3; cognitive function intact; pupils equally reactive to light and accomodation; cranial nerves II-XII grossly normal, moving all 4 extremities, no focal deficits, strength improved, moderately globally decreased. Psychiatric: affect appears normal, no acute evidence of depressive or anxiety feelings. Vitals/I&O's: Vital Signs Temp Pulse Resp BP Pulse Ox 98.6 F 93 19 H 115/76 96 11/20/17 06:00 11/20/17 06:00 11/20/17 06:00 11/20/17 06:00 11/20/17 06:00 Oxygen Flow Rate (L/min) [ 2 AMBULATION with Oxygen] Oxygen Flow Rate (L/min) 2 Oxygen Delivery Method Nasal Cannula Weight: 182 lb 5.156 oz Body Mass Index (BMI) 26.9 Intake and Output for Last 24 Hours 11/18/17 11/19/17 11/20/17 23:59 23:59 23:59 Intake Total 5790 / 5790 3298 / 3298 200 / 200 Output Total 350 / 350 675 / 675 250 / 250 Balance 5440 / 5440 2623 / 2623 -50 / -50 Microbiology Past 72 Hours 11/17/17 10:55 Stool Stool Occult Blood (SASCHA) - Final 11/16/17 19:55 Urine, Clean Catch Urine Culture - Final Coag Negative Staph Laboratory Results 11/19/17 05:43: Absolute Neuts (auto) 14.1 H, Absolute Lymphs (auto) 0.16 L, Total Counted 100, Neutrophils % (Manual) 88 H, Band Neutrophils % 5, Lymphocytes % (Manual) 1 L, Monocytes % (Manual) 2, Metamyelocytes % 2 H, Myelocytes % 2 H, Diff Path Review August, Platelet Estimate ADEQUATE, Polychromasia 1+, Hypochromasia 1+, Anisocytosis 1+, Microcytosis 1+ 11/19/17 12:20: Hgb 9.3 L, Hct 28.0 L 11/19/17 20:21: Hgb 9.3 L, Hct 28.2 L Current Medications Acetaminophen (Tylenol) 650 mg PO Q4H PRN PRN PRN Reason: Mild-Moderate Pain/MCINTYRE/fever Last Admin: 11/19/17 22:10 Dose: 650 mg Al Hydroxide/Mg Hydroxide (Mylanta Ii) 30 ml PO Q6H PRN PRN PRN Reason: Gastric Burning Albuterol Sulfate (Ventolin Aerosols) 2.5 mg INHALATION Q2H PRN PRN PRN Reason: SHORTNESS OF BREATH Last Admin: 11/18/17 02:34 Dose: 2.5 mg Albuterol/Ipratropium (Duoneb) 3 ml INHALATION Q4HWA.RT [facility] Last Admin: 11/19/17 19:00 Dose: 3 ml Calcium/Vitamin D (Os-Ino 500mg + D) [facility] Last Admin: 11/19/17 08:12 Dose: 1 tablet Docusate Sodium (Colace) 200 mg PO BID PRN PRN PRN Reason: Constipation Ferrous Gluconate (Ferrous Gluconate) [facility] Last Admin: 11/19/17 17:33 Dose: 325 mg Guaifenesin (Mucinex) 1,200 mg PO BID [facility] Last Admin: 11/19/17 22:10 Dose: 1,200 mg Sodium Chloride () 250 mls @ 15 mls/hr IV .[id number] PRN PRN Reason: SALINE FLUSH Ceftriaxone Sodium (Rocephin) 1 gm in 50 mls @ 100 mls/hr IV Q24 [facility] Last Admin: 11/19/17 09:59 Dose: 100 mls/hr Pantoprazole Sodium 40 mg/ (Sodium Chloride) 110 mls @ 330 mls/hr IV Q12 [facility] Last Admin: 11/19/17 22:06 Dose: 330 mls/hr Metoprolol Tartrate (Lopressor (Beta Suzanne)) 50 mg PO BID [facility] Last Admin: 11/19/17 22:10 Dose: 50 mg Morphine Sulfate () 1 - 2 mg IV Q4H PRN PRN PRN Reason: SEVERE PAIN (6-10/10) Nutritional Formula (Lactose Free) (Ensure Enlive) 120 ml PO 4X/DAY [facility] Last Admin: 11/19/17 22:11 Dose: Not Given Ondansetron HCl (Zofran) 4 mg IV Q8H PRN PRN PRN Reason: NAUSEA Oxycodone HCl (Oxyir) 5 mg PO Q4H PRN PRN PRN Reason: Moderate Pain (pain scale 4-5) Sodium Chloride () 5 - 30 ml IV UD PRN PRN Reason: SALINE FLUSH Last Admin: 11/19/17 22:10 Dose: 10 ml Sodium Chloride/Electrolytes (Nulytely) 4,000 ml PO X1 ONE Stop: 11/21/17 11:01 Tamsulosin HCl (Flomax) 0.4 mg PO DAILY@0830 [facility] Last Admin: 11/19/17 08:12 Dose: 0.4 mg Trazodone HCl (Desyrel) 50 mg PO QHS [facility] Last Admin: 11/19/17 22:10 Dose: 50 mg Medical Necessity - Tobacco Use Smoking Status: Never smoker Tobacco Use: Cigarettes, Pipe Assessment/Plan All Active Problems Community acquired pneumonia (Acute) Hypoxia (Acute) MSSA (methicillin susceptible Staphylococcus aureus) septicemia (Acute) Acute kidney injury (Acute) Atrial fibrillation with RVR (Acute) Acute respiratory failure with hypoxia (Acute) COPD exacerbation (Acute) Pneumonia (Acute) Influenza B (Resolved) The patient is a 72 M w/ PMHx: Suspected Chronic COPD, Tobacco, HTN, Chronic AF/Flutter, Abnormal hematopoietic disorder/bone marrow disorder, GERD, Rheumatoid arthritis, Hx Staph MSSA pneumonia LLL who presents to the [facility] ED on 11/16/17 with malaise, fatigue, dyspnea worse with exertion, cough x ~ 1 week. (1) Acute Sepsis secondary to Acute Community Acquired Pneumonia: CXR in the ED w/ LLL PNA w/ retrocardiac infiltrate without dense focal consolidation. Admission CBC w/ WBC 15.9 with L shift. Admitted to [place], maintained on oxygen with wean as tolerated to room air, continued ATC duonebs, PRN albuterol, maintained on initially IV Zosyn given biologic usage-->11/18/17 transitioned to Rocephin (completion date 11/23/17) and completed Azithromycin 3 day regimen, HOB, IS parameters w/ pending sputum cultures, negative urine antigens, negative influenza, negative MRSA. Bld cx x 2 obtained in the ED. [facility] for discharge following endoscopies 11/22/17 if not marked appearing and Hgb stable. (2) Acute on Chronic Normocytic Anemia secondary to suspected GI Bleed, Unclear if upper or lower GI bleed: Admission Hgb 9.4, repeat Hgb 7.9, prior baseline levels starting 04/2017 11-->decreasing trend, prior to this Hgb 15-13 range noted, iron panel, ferritin consistent with Fe deficiency, normal folic acid and vitamin B12 ordered. Stool occult obtained and pending but was having loose black appearing stools since restart on eliquis upon presentation. 11/18/17 Hgb 6.8, T+C 2 u ordered,Hgb following 8.4-->11/19/17 Hgb 9-->11/20/17 Hgb 9.3, appears stable. Maintain on IV PPI, allowing diet until surgery planned bowel preparation. Surgery consulted and planned 11/23/17 endoscopies. (3) Acute kidney injury: Secondary to acute presentation #1, dehydration. Admission BUN/Cr 46/2.10, prior baseline creatinine noted to be 1.11. Hydrated, held nephrotoxic medications w/ continued BMP trending. 11/18/17 BUN/Cr 32.1.50-->11/19/17 BUN/Cr 18/1.24-->11/20/17 BUN/Cr pending. (4) Abnormal hematopoietic disorder/bone marrow disorder: Unclear diagnosis, maintained on Jakafi usually given for myelofibrosis or polycythemia vera w/ noted abnormal gene detected at [facility] w/ chronic leukocytosis. Holding Jakafi given acute presentation. Possible associated with his acute anemia given unclear history. Pending surgery evaluation for consideration for endoscopy. (5) Hypokalemia: Admission K+ 3.4, repeat 3.3, supplementation given, 11/19/17 K 3.6-->11/20/17 K pending. (6) Rheumatoid Arthritis: Holding etanercept and elfunomide. (7) Chronic AF, Flutter: EKG w/ sinus tachycardia, maintain on metoprolol, holding Eliquis, history of cardiac ablation. (8) Suspected Chronic COPD: Will maintain on oxygen w/ [facility] for discharge already when appropriate for discharge, continue ATC duonebs, PRN albuterol, HOB, IS parameters. (9) Hypertension: Continue home regimen including metoprolol, restart ARB given MEGAN resolution, PRN hydralazine. (10) GERD: IV PPI. (11) BPH: Continue home flomax regimen. (12) DVT Prophylaxis: SCDs, holding eliquis. Code Visit Inpatient E&M: 91976 Subs Hosp L2
[2017-11-20 07:23] LABS: Hematocrit 27.5 % (40-54); Mean Corp Hgb Conc 32.7 g/gl (32-36); Mean Corpuscular Hgb 30.6 pg (27.0-32.0); Mean Corpuscular Volume 93.5 fL (80-94); Mean Platelet Vol. 9.3 fl (6.2-12.0); Platelet Count 329 K/mm3 (150-450); RBC Distribution Width CV 18.3 % (11.6-14.6); RBC Distribution Width SD 62.8 fl (35.1-43.9); Red Blood Count 2.94 M/mm3 (4.6-6.2); White Blood Count 15.8 K/mm3 (4.4-11.0)
[2017-11-20 07:29] LABS: Differential Indicated MANUAL DIFF; POSITIVE COUNT NO; POSITIVE DIFFERENTIAL NO; POSITIVE MORPHOLOGY YES
[2017-11-20 07:36] LABS: Anion Gap 9 (5-15); BUN 15 mg/dL (7-18); BUN/Creat Ratio 12.1 RATIO (10-20); Calcium,Total 8.1 mg/dL (8.5-10.1); Chloride 113 mmol/L (98-107); Creatinine, Serum 1.24 mg/dL (0.70-1.30); EST Glomerular Filtration Rate 61 mL/min (>60); Est Glom Filt Rate - Afr Amer 74 mL/min (>60); Estimated Creatinine Clearance 54.64 ml/min; Glucose 105 mg/dL (74-106); Potassium 3.7 mmol/L (3.5-5.1); Sodium Level 146 mmol/L (136-145)
[2017-11-20 07:53] LABS: Lymphocyte 5 % (19-41); Metamyelocyte 11 % (0-1); Neutrophil-Band 3 % (0-5); Neutrophil-Segmented 81 % (47-70); Total Cells Counted 100 (MANUAL DIFF)
[2017-11-20 07:54] LABS: Platelet Estimate ADEQUATE (ADEQ); Red Cell Morphology NORM C+C NORMAL (NORM C&C)
[2017-11-20] MEDS: 0.9% NaCl Peripheral Flush Adult/Peds IV (09:43)
[2017-11-20] MEDS: Ceftriaxone 1 GM/50 ML BAG IV (09:43)
[2017-11-20] MEDS: Tamsulosin HCl 0.4 MG Capsule PO (09:44)
[2017-11-20] MEDS: guaiFENesin 1,200 MG Tablet 1200 MG PO ×2 (09:44→21:33)
[2017-11-20] MEDS: Metoprolol Tartrate 50 MG Tablet PO ×2 (09:44→21:34)
[2017-11-20] MEDS: Ferrous Gluconate 325 MG Tablet PO ×2 (09:45→18:37)
[2017-11-20] MEDS: Calcium Carb/Vitamin D 1 TABLET Tablet PO (09:45)
[2017-11-20] MEDS: Losartan Potassium 50 MG Tablet PO (09:51)
[2017-11-20] MEDS: Acetaminophen 325 MG Tablet 650 MG PO (20:06)
[2017-11-20] MEDS: traZODone 50 MG Tablet PO (21:33)
[2017-11-21] VITALS (11 sets, daily range): BP systolic 131–155; BP diastolic 56–89; PULSE 89–106; RESP 17–21; TEMP 36.6–37.3; O2SAT 94–96
[2017-11-21 06:42] LABS: Anion Gap 6 (5-15); BUN 14 mg/dL (7-18); Chloride 111 mmol/L (98-107); Creatinine, Serum 1.27 mg/dL (0.70-1.30); EST Glomerular Filtration Rate 59 mL/min (>60); Est Glom Filt Rate - Afr Amer 72 mL/min (>60); Estimated Creatinine Clearance 53.35 ml/min; Glucose 93 mg/dL (74-106); Potassium 3.8 mmol/L (3.5-5.1); Sodium Level 144 mmol/L (136-145)
[2017-11-21 07:06] LABS: Hematocrit 28.4 % (40-54); Hemoglobin 9.1 g/dl (13.0-16.5); Mean Corpuscular Hgb 30.5 pg (27.0-32.0); Mean Corpuscular Volume 95.3 fL (80-94); Mean Platelet Vol. 9.6 fl (6.2-12.0); Platelet Count 355 K/mm3 (150-450); RBC Distribution Width CV 18.4 % (11.6-14.6); RBC Distribution Width SD 63.5 fl (35.1-43.9); Red Blood Count 2.98 M/mm3 (4.6-6.2); White Blood Count 15.1 K/mm3 (4.4-11.0)
--- NOTE | 2017-11-21 07:08 | PCM.PN.HOSP ---
Patient Problems: Active and Suspected Problems Community acquired pneumonia (Acute) Hypoxia (Acute) Subjective: With low-grade temperature overnight otherwise denies any complaints. States breathing has improved and no marketed sputum production but still dyspneic with exertion and requiring oxygen supplementation. Patient notes still having soft dark appearing stools. Patient denies fevers, chills, nausea, emesis, abdominal pain, chest pain. Objective: Physical Examination: General: awake, alert, oriented x 3 and cooperative, seated upright in the bedside chair, in no apparent distress. Skin: normal color, turgor, no icterus, cyanosis. HEENT: AT/NC, EOMI, PERRLA, MMM. Lungs: still diminished, > bases, R > L, coarse BL bases, mildly rhonchorous, no wheezing. Heart: Mildly tachycardic with regular rhythm; no gallop, rub audible. Abdomen: soft, NTTP, ND, normal BS. Extremities: no cyanosis, clubbing, or edema. Neurological: patient awake, alert, oriented x 3; cognitive function intact; pupils equally reactive to light and accomodation; cranial nerves II-XII grossly normal, moving all 4 extremities, no focal deficits, strength improving, moderately globally decreased. Psychiatric: affect appears normal, no acute evidence of depressive or anxiety feelings. Vitals/I&O's: Vital Signs Temp Pulse Resp BP Pulse Ox 99.1 F 89 20 H 147/56 H 96 11/21/17 03:00 11/21/17 03:00 11/21/17 03:00 11/21/17 03:00 11/21/17 03:00 Oxygen Flow Rate (L/min) [ 2 AMBULATION with Oxygen] Oxygen Flow Rate (L/min) 2 Oxygen Delivery Method Nasal Cannula Weight: 182 lb 5.156 oz Body Mass Index (BMI) 26.9 Intake and Output for Last 24 Hours 11/19/17 11/20/17 11/21/17 23:59 23:59 23:59 Intake Total 3298 / 3298 1198 / 1198 388 / 388 Output Total 675 / 675 250 / 250 Balance 2623 / 2623 948 / 948 388 / 388 Microbiology Past 72 Hours 11/17/17 10:55 Stool Stool Occult Blood (SASCHA) - Final 11/16/17 19:55 Urine, Clean Catch Urine Culture - Final Coag Negative Staph Laboratory Results 11/20/17 06:35: WBC 15.8 H, RBC 2.94 L, Hgb 9.0 L, Hct 27.5 L, MCV 93.5, MCH 30.6, MCHC 32.7, RDW 18.3 H, RDW Differential 62.8 H, Plt Count 329, MPV 9.3, Neut % (Auto) Not Reportable, Absolute Neuts (auto) Not Reportable, Total Counted 100, Neutrophils % (Manual) 81 H, Band Neutrophils % 3, Lymphocytes % (Manual) 5 L, Metamyelocytes % 11 H, Diff Path Review August, Platelet Estimate ADEQUATE, RBC Morphology NORM C+C 11/20/17 06:35: Sodium 146 H, Potassium 3.7, Chloride 113 H, Carbon Dioxide 24.0, Anion Gap 9, BUN 15, Creatinine 1.24, Estim Creat Clear Calc 54.64, Est GFR (MDRD) Af Amer 74, Est GFR (MDRD) Non-Af 61, BUN/Creatinine Ratio 12.1, Glucose 105, Calcium 8.1 L 11/21/17 05:33: WBC Pending, RBC Pending, Hgb Pending, Hct Pending, MCV Pending, MCH Pending, MCHC Pending, RDW Pending, RDW Differential Pending, Plt Count Pending, Neut % (Auto) Pending, Absolute Neuts (auto) Pending, Total Counted Pending 11/21/17 05:33: Sodium 144, Potassium 3.8, Chloride 111 H, Carbon Dioxide 27.0, Anion Gap 6, BUN 14, Creatinine 1.27, Estim Creat Clear Calc 53.35, Est GFR (MDRD) Af Amer 72, Est GFR (MDRD) Non-Af 59 L, BUN/Creatinine Ratio 11.0, Glucose 93, Calcium 8.0 L Current Medications Acetaminophen (Tylenol) 650 mg PO Q4H PRN PRN PRN Reason: Mild-Moderate Pain/MCINTYRE/fever Last Admin: 11/20/17 20:06 Dose: 650 mg Al Hydroxide/Mg Hydroxide (Mylanta Ii) 30 ml PO Q6H PRN PRN PRN Reason: Gastric Burning Albuterol Sulfate (Ventolin Aerosols) 2.5 mg INHALATION Q2H PRN PRN PRN Reason: SHORTNESS OF BREATH Last Admin: 11/18/17 02:34 Dose: 2.5 mg Albuterol/Ipratropium (Duoneb) 3 ml INHALATION Q4HWA.RT [facility] Last Admin: 11/20/17 19:07 Dose: 3 ml Calcium/Vitamin D (Os-Ino 500mg + D) [facility] Last Admin: 11/20/17 09:45 Dose: 1 tablet Docusate Sodium (Colace) 200 mg PO BID PRN PRN PRN Reason: Constipation Ferrous Gluconate (Ferrous Gluconate) [facility] Last Admin: 11/20/17 18:37 Dose: 325 mg Guaifenesin (Mucinex) 1,200 mg PO BID [facility] Last Admin: 11/20/17 21:33 Dose: 1,200 mg Sodium Chloride () 250 mls @ 15 mls/hr IV .[id number] PRN PRN Reason: SALINE FLUSH Ceftriaxone Sodium (Rocephin) 1 gm in 50 mls @ 100 mls/hr IV Q24 [facility] Last Admin: 11/20/17 09:43 Dose: 100 mls/hr Pantoprazole Sodium 40 mg/ (Sodium Chloride) 110 mls @ 330 mls/hr IV Q12 [facility] Last Admin: 11/20/17 21:36 Dose: 330 mls/hr Losartan Potassium (Cozaar) 50 mg PO DAILY [facility] Last Admin: 11/20/17 09:51 Dose: 50 mg Metoprolol Tartrate (Lopressor (Beta Suzanne)) 50 mg PO BID [facility] Last Admin: 11/20/17 21:34 Dose: 50 mg Morphine Sulfate () 1 - 2 mg IV Q4H PRN PRN PRN Reason: SEVERE PAIN (6-10/10) Nutritional Formula (Lactose Free) (Ensure Enlive) 120 ml PO 4X/DAY [facility] Last Admin: 11/20/17 21:33 Dose: 120 ml Ondansetron HCl (Zofran) 4 mg IV Q8H PRN PRN PRN Reason: NAUSEA Oxycodone HCl (Oxyir) 5 mg PO Q4H PRN PRN PRN Reason: Moderate Pain (pain scale 4-5) Sodium Chloride () 5 - 30 ml IV UD PRN PRN Reason: SALINE FLUSH Last Admin: 11/20/17 09:43 Dose: 10 ml Sodium Chloride/Electrolytes (Nulytely) 4,000 ml PO X1 ONE Stop: 11/21/17 11:01 Tamsulosin HCl (Flomax) 0.4 mg PO DAILY@0830 [facility] Last Admin: 11/20/17 09:44 Dose: 0.4 mg Trazodone HCl (Desyrel) 50 mg PO QHS [facility] Last Admin: 11/20/17 21:33 Dose: 50 mg Medical Necessity - Tobacco Use Smoking Status: Never smoker Tobacco Use: Cigarettes, Pipe Assessment/Plan All Active Problems Community acquired pneumonia (Acute) Hypoxia (Acute) MSSA (methicillin susceptible Staphylococcus aureus) septicemia (Acute) Acute kidney injury (Acute) Atrial fibrillation with RVR (Acute) Acute respiratory failure with hypoxia (Acute) COPD exacerbation (Acute) Pneumonia (Acute) Influenza B (Resolved) The patient is a 72 M w/ PMHx: Suspected Chronic COPD, Tobacco, HTN, Chronic AF/Flutter, Abnormal hematopoietic disorder/bone marrow disorder, GERD, Rheumatoid arthritis, Hx Staph MSSA pneumonia LLL who presents to the [facility] ED on 11/16/17 with malaise, fatigue, dyspnea worse with exertion, cough x ~ 1 week. (1) Acute Sepsis secondary to Acute Community Acquired Pneumonia: CXR in the ED w/ LLL PNA w/ retrocardiac infiltrate without dense focal consolidation. Admission CBC w/ WBC 15.9 with L shift. [facility], maintained on oxygen with wean as tolerated to room air, continued ATC duonebs, PRN albuterol, maintained on initially IV Zosyn given biologic usage-->11/18/17 transitioned to Rocephin (completion date 11/23/17) and completed Azithromycin 3 day regimen, HOB, IS parameters w/ pending sputum cultures, negative urine antigens, negative influenza, negative MRSA. Bld cx x 2 obtained in the ED. [facility] following endoscopies 11/22/17 if not marked appearing and Hgb stable. Noted low grade temp overnight, obtained AM 11/21/17 CXR PA and Lateral to assure not worsening given exam changes and low grade temperature clinically w/ noted primarily interstitial infiltrates mostly involving left mid and lower lung zones and minimally in the right lung base with low lung volumes. Will consult pulmonary given complicated patient history on biologic medications to assure no alternate treatments or more broadened abx therapy needed. (2) Acute on Chronic Normocytic Anemia secondary to suspected GI Bleed, Unclear if upper or lower GI bleed: Admission Hgb 9.4, repeat Hgb 7.9, prior baseline levels starting 04/2017 11-->decreasing trend, prior to this Hgb 15-13 range noted, iron panel, ferritin consistent with Fe deficiency, normal folic acid and vitamin B12 ordered. Stool occult obtained and pending but was having loose black appearing stools since restart on eliquis upon presentation. 11/18/17 Hgb 6.8, T+C 2 u ordered,Hgb following 8.4-->11/19/17 Hgb 9-->11/20/17 Hgb 9.0-->11/21/17 9.1, stable. Maintain on IV PPI, allowing diet until surgery planned bowel preparation. Surgery consulted and planned 11/23/17 endoscopies. (3) Acute kidney injury: Secondary to acute presentation #1, dehydration. Admission BUN/Cr 46/2.10, prior baseline creatinine noted to be 1.11. Hydrated, held nephrotoxic medications w/ continued BMP trending. 11/18/17 BUN/Cr 32.1.50-->11/21/17 BUN/Cr 14/1.27. 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 Holding Jakafi given acute presentation. Possible associated with his acute anemia given unclear history. Pending surgery evaluation for consideration for endoscopy. CBC w/ chronically elevated WBC 15, remains stable. (5) Hypokalemia: Admission K+ 3.4, repeat 3.3, supplementation given, 11/19/17 K 3.6-->11/21/17 K 3.8. (6) Rheumatoid Arthritis: Holding etanercept and elfunomide. (7) Chronic AF, Flutter: EKG w/ sinus tachycardia, maintain on metoprolol, holding Eliquis, history of cardiac ablation. (8) Suspected Chronic COPD: Will maintain on oxygen w/ [facility] for [facility] already when appropriate for discharge, continue ATC duonebs, PRN albuterol, HOB, IS parameters. (9) Hypertension: Continue home regimen including metoprolol, restart ARB given MEGAN resolution, PRN hydralazine. (10) GERD: IV PPI. (11) BPH: Continue home flomax regimen. (12) DVT Prophylaxis: SCDs, holding eliquis. Code Visit Inpatient E&M: 42377 Subs Hosp L2
[2017-11-21] MEDS: Ipratropium/Albuterol Sulfate 3 ML AMPUL.NEB INHALATION ×3 (07:16→19:26)
[2017-11-21 07:33] LABS: Lymphocyte 6 % (19-41); Metamyelocyte 9 % (0-1); Myelocyte 3 (0-0); Neutrophil-Band 2 % (0-5); Neutrophil-Segmented 80 % (47-70); Nucleated Red Bld Cells,Manual 1 % (0-5); Platelet Estimate ADEQUATE (ADEQ); Red Cell Morphology NORM C+C NORMAL (NORM C&C); Total Cells Counted 100 (MANUAL DIFF)
[2017-11-21 07:34] LABS: Differential Indicated MANUAL DIFF; POSITIVE COUNT YES; POSITIVE DIFFERENTIAL YES; POSITIVE MORPHOLOGY YES
[2017-11-21 07:39] LABS: Absolute Neutrophil Count 12.4 X10^3/uL (2.0-7.7)
[2017-11-21] MEDS: Calcium Carb/Vitamin D 1 TABLET Tablet PO (08:52)
[2017-11-21] MEDS: guaiFENesin 1,200 MG Tablet 1200 MG PO ×2 (08:52→21:14)
[2017-11-21] MEDS: Metoprolol Tartrate 50 MG Tablet PO ×2 (08:52→21:14)
[2017-11-21] MEDS: Ferrous Gluconate 325 MG Tablet PO (08:53)
[2017-11-21] MEDS: Tamsulosin HCl 0.4 MG Capsule PO (08:54)
[2017-11-21] MEDS: Losartan Potassium 50 MG Tablet PO (08:54)
--- NOTE | 2017-11-21 09:30 | PCM.CONS.GEN ---
Reason for Consult Date of Consultation: 11/21/17 Reason for Consultation: Pneumonia History of Present Illness: The patient is a 72-year-old male, with a history as outlined below, who initially presented to the emergency department on November 16 with complaints of dyspnea, along with generalized malaise and fatigue. The patient has a history of an unspecified hematologic disorder, for which she reports that he is currently prescribed Jakafi by the [facility] system. Potential considerations include myelofibrosis or polycythemia vera. However, the patient is unaware of his diagnosis and there are no records available from the [facility] system for further clarification. He also has a history of arthritis, for which she is currently prescribed leflunomide and Etanercept. The patient also has underlying atrial fibrillation, for which she is currently prescribed Eliquis. He does report a previous smoking history, but reports that he has been tobacco free since 2009. He does not recall ever having been diagnosed with COPD previously. On presentation to the emergency department, the patient was noted to have a low-grade fever but remains hemodynamically stable. He was hypoxic with oxygen saturations in the 80s on room air. Laboratory evaluation revealed elevated white blood cell count to 16,000. Chemistry profile was notable for acute kidney injury with a creatinine of 2.10. Serum lactate was within normal limits. Troponin was negative. Initial plain film chest x-ray revealed a left lower lobe infiltrate. The patient was subsequently admitted to the medical surgical floor after being started on antibiotics. The patient's initial presenting hemoglobin was 9.4 g/dL. On November 17, the patient dropped his hemoglobin to 7.9 g/dL. And then to 6.8 g/dL on November 18. He was subsequently transfused 2 units packed red blood cells. The patient had been having dark black stools. Surgery was consulted with plans for endoscopic evaluation tomorrow. The patient currently has a documented fluid balance of 12.8 L on the positive side for the admission. Prior echocardiogram dated April 2017 revealed normal LV size and function with an ejection fraction of 60%. Past Medical History Past Medical History (Chronic Problems): Chronic Problems Suspected chronic obstructive pulmonary disease based on initial evaluation (Chronic) Former tobacco use (Chronic) HTN (hypertension) (Chronic) PAF (paroxysmal atrial fibrillation) (Chronic) GERD (gastroesophageal reflux disease) (Chronic) Rheumatoid arthritis (Chronic) History of rheumatoid arthritis (Chronic) History of gastroesophageal reflux (GERD) (Chronic) S/P ablation of atrial flutter (Chronic) Atrial flutter (Chronic) History of atrial fibrillation (Chronic) Allergies doxycycline Adverse Reaction (Verified 11/16/17 15:34) Nausea/Vom/Diarrhea methotrexate Adverse Reaction (Verified 11/16/17 19:01) fills my lungs and sinuses with fluid Home Medications: Ambulatory Orders Medication Instructions Recorded Etanercept [Enbrel] 50 mg SQ Q7D 11/27/15 Leflunomide [Arava] 20 mg PO DAILY 11/27/15 Omeprazole [Prilosec] 20 mg PO DAILY 11/27/15 Apixaban [Eliquis] 5 mg PO BID 04/22/17 Hydrochlorothiazide [Hctz] 25 mg PO DAILY 04/22/17 Losartan Potassium [Cozaar] 50 mg PO DAILY 04/22/17 Metoprolol Tartrate [Lopressor 50 mg PO BID 04/22/17 (Beta Suzanne)] Ruxolitinib Phosphate [Jakafi] 15 mg PO BID 04/22/17 Calcium Carbonate/Vitamin D3 1 tab PO DAILY 11/16/17 [Calcium 500-Vit D3 200 Tablet] Gabapentin [Neurontin] 400 mg PO BID 11/16/17 Tamsulosin HCl [Flomax] 0.4 mg PO DAILY 11/16/17 Surgical History: cholecystectomy, - - Back surgery, cardiac ablation. Psychiatric History: No pertinent psych hx Smoking Status: Never smoker Tobacco Use: Cigarettes, Pipe - *Family History Paternal History Items: Heart Disease Maternal History Items: - - Mother young, unclear etiology. Review of Systems Constitutional: Reports: Malaise, Weakness, Fatigue Eyes: Denies: Blurred vision, Double vision HEENT: Denies: Head Aches, Sinus Congestion, Sinus Drainage Cardiovascular: Denies: Chest Pain, Palpitations Respiratory: Reports: Cough, Shortness of Breath, Sputum production Gastrointestinal: Reports: Melena. Denies: Abdominal Pain, Nausea, Vomiting Genitourinary: Denies: Dysuria Musculoskeletal: Denies: Joint Pain, Joint Tenderness Skin: Denies: Rash, Wounds Neurological: Denies: Numbness, Tingling, Focal weakness Psychiatric: Denies: Anxiety, Depression, Homicidal Ideations, Suicidal Ideations Hematologic/ Lymphatic: Reports: Anemia Patient Problems: Active and Suspected Problems Community acquired pneumonia (Acute) Hypoxia (Acute) Objective: The patient's most recent lab work, culture data and imaging studies have all been personally reviewed. Infectious workup has been negative to date. - Physical Exam General: Alert, Oriented x3, Cooperative, No apparent distress, - - Sitting in bedside recliner. HEENT: Atraumatic, PERRLA, Normocephalic Oral: No Gingival or Mucosal Lesions/ Ulcerations Neck: Supple, No Nodes, Trachea Midline Lungs: - - Left basilar rales. Otherwise clear. Cardiovascular: Regular rate, Regular Rhythm, Normal S1, Normal S2, No murmurs Abdomen: Bowel Sounds Present, Soft, Non Tender, Non-Distended Extremities: No clubbing, No cyanosis, No edema Skin: No breakdown Musculoskeletal: No Muscle Wasting Lymphatic: No Cervical, Supraclavicular, or Inguinal Adenopathy Neurological: Neuro grossly intact Psych/Mental Status: Normal Affect, Appropriate Vital Signs Temp Pulse Resp BP Pulse Ox 98.3 F 102 H 20 H 131/66 H 95 11/21/17 08:49 11/21/17 08:52 11/21/17 08:49 11/21/17 08:49 11/21/17 08:49 Oxygen Flow Rate (L/min) [ 2 AMBULATION with Oxygen] Oxygen Flow Rate (L/min) 2 Oxygen Delivery Method Nasal Cannula Weight: 182 lb 5.156 oz Body Mass Index (BMI) 26.9 Intake and Output for Last 24 Hours 11/19/17 11/20/17 11/21/17 23:59 23:59 23:59 Intake Total 3298 / 3298 1198 / 1198 388 / 388 Output Total 675 / 675 250 / 250 Balance 2623 / 2623 948 / 948 388 / 388 Microbiology Past 72 Hours 11/17/17 10:55 Stool Occult Blood (SASCHA) - Final Stool 11/16/17 19:55 Urine Culture - Final Urine, Clean Catch Coag Negative Staph Laboratory Tests Past 24 Hrs 11/21/17 11/21/17 05:33 05:33 WBC 15.1 H RBC 2.98 L Hgb 9.1 L Hct 28.4 L MCV 95.3 H MCH 30.5 MCHC 32.0 RDW 18.4 H RDW Differential 63.5 H Plt Count 355 MPV 9.6 Neut % (Auto) Not Reportable Absolute Neuts (auto) 12.4 H Absolute Lymphs (auto) 0.90 Total Counted 100 Neutrophils % (Manual) 80 H Band Neutrophils % 2 Lymphocytes % (Manual) 6 L Metamyelocytes % 9 H Myelocytes % 3 H Nucleated RBCs/100 WBC 1 Diff Path Review May foll Platelet Estimate ADEQUATE RBC Morphology NORM C+C Sodium 144 Potassium 3.8 Chloride 111 H Carbon Dioxide 27.0 Anion Gap 6 BUN 14 Creatinine 1.27 Estim Creat Clear Calc 53.35 Est GFR (MDRD) Af Amer 72 Est GFR (MDRD) Non-Af 59 L BUN/Creatinine Ratio 11.0 Glucose 93 Calcium 8.0 L Clinical Impression(s) from Imaging Studies Chest X-Ray 11/16/17 16:15 IMPRESSION: Left lower lobe pneumonia. Hazy retrocardiac infiltrate without dense focal consolidation. Electronically Signed: Esa Walter, at 17:38 EDT Tel , Service support , Chest X-Ray 11/21/17 07:09 IMPRESSION: Low lung volumes. Primarily interstitial infiltrates are seen mostly involving left mid/lower lung zones and minimally in right lung base. Electronically Signed: Kayla Berumen MD at 8:02 EDT Tel , Service support , Assessment/Plan All Active Problems Community acquired pneumonia (Acute) Hypoxia (Acute) MSSA (methicillin susceptible Staphylococcus aureus) septicemia (Acute) Acute kidney injury (Acute) Atrial fibrillation with RVR (Acute) Acute respiratory failure with hypoxia (Acute) COPD exacerbation (Acute) Pneumonia (Acute) Influenza B (Resolved) RECOMMENDATIONS: 1. Continue current antimicrobial regimen. 2. Continue scheduled bronchodilators. 3. If the patient is able to expectorate sputum, please send for culture. 4. Wean supplemental oxygen to maintain saturations at or above 90%. 5. Encourage incentive spirometer use and mobilize patient as tolerated. IMPRESSIONS: 1. Acute hypoxic respiratory insufficiency secondary to left lower lobe pneumonia At this time, the patient only had a single isolated temperature reading of 100.1?F overnight. He is currently afebrile. Infectious workup has been negative to date. Agree with continuing Zosyn empirically to complete a treatment course, given the patient's functional immunocompromised state. Wean supplemental oxygen to maintain saturations at or above 90%. Encourage incentive spirometer use and mobilize patient as tolerated. Continue scheduled bronchodilators as ordered. 2. Anemia in the setting of Eliquis utilization, with concern for gastrointestinal blood loss Surgery is following with plans for endoscopy evaluation. Would continue to monitor H&H and transfuse if hemoglobin is less than 7 g/dL. At the current time, there is no indication for transfusion of blood products. Continue PPI therapy as ordered. 3. Unspecified hematologic disorder/rheumatoid arthritis/functional immunosuppression/paroxysmal atrial fibrillation/hypertension Complicates care, management, recovery and prognosis. Agree with holding immunosuppressive medications, along with Eliquis. This note was generated with Sk[employer] dictation software. It may contain incorrect words, spelling, and punctuation that were not noted in checking the note before signing. Code Visit Inpatient E&M: 16612 Init Hosp L3
[2017-11-21] MEDS: Ceftriaxone 1 GM/50 ML BAG IV (11:09)
[2017-11-21] MEDS: Pantoprazole Sodium 40 MG Tablet PO ×2 (11:09→21:15)
[2017-11-21] MEDS: 0.9% NaCl Peripheral Flush Adult/Peds IV (11:09)
[2017-11-21] MEDS: Electrolyte Solution/Peg's 4000 ML PO (11:10)
--- NOTE | 2017-11-21 11:32 | CPS ---
patient does pep on his own
[2017-11-21] MEDS: traZODone 50 MG Tablet PO (21:14)
[2017-11-22] VITALS (14 sets, daily range): BP systolic 115–172; BP diastolic 55–82; PULSE 54–107; RESP 16–18; TEMP 36.4–36.9; O2SAT 84–100; BMI 26.9
--- NOTE | 2017-11-22 | GASB_PTH ---
PATIENT: RAFAEL KAYE LOC: MS3 U#:[id number] AGE/SX: 72/M ROOM: [facility] [place] RE11/16/[address]: Dr. Myra Hill MD : 1945 BED: 1 DIS: 11/22/2017 SPEC #: [id number] RECD: 11/22/17 14:42 STATUS: NAVEED REQ #: [id number] CAMILLA: 11/22/17 00:[address]: Elizabeth Glaser DEPT: SURGICAL PATHOLOGY RECD BY: Yash Nix ENTERED: 11/22/17 14:42 SP TYPE: Gastric Bx OTHR DR: MD Dr. Phil Mederos DO Dr. Prakash Chand, MD Dr. Tamera Robotham, MD [facility] Tissues: Gastric mucous membrane Procedures: Surgery Specimen Level IV Comments: @ Ordering doctor for SUIV edited from to @ by PATRICIA at 11/22/17 161 @ Submitting doctor edited from to @ by RGOOD at 11/22/17 1610 HEADER OPERATION: Colonoscopy, EGD PRE-OP DIAGNOSIS: Anemia TISSUE SUBMITTED: Antral biopsy for histo and H. pylori MICROSCOPIC DIAGNOSIS Antral biopsy: Mild gastritis. LUÍS:jw 11/23/17 COMMENT The results of immunohistochemistry for Helicobacter pylori will be reported separately ([id number]). MICROSCOPIC DESCRIPTION Slides are reviewed. The specimen shows fragments of gastric mucosa with chronic inflammatory cell infiltrates in the lamina propria consisting of lymphocytes and plasma cells, consistent with mild chronic gastritis. GROSS DESCRIPTION Received in fixative is one container labeled with the patient's name and designated antral biopsy. The specimen consists of two irregular fragments of light douglas soft tissue that in aggregate measure 0.4 x 0.2 x 0.1 cm. The specimen is totally submitted in one cassette. / LUÍS:jw 11/22/17 TC:3 CPT: 93774
--- NOTE | 2017-11-22 | IMM_PTH ---
PATIENT: RAFAEL KAYE LOC: 3 U#:[id number] AGE/SX: 72/M [place] [facility] [place]/16/[address]: Dr. Myra Hill MD : 1945 BED: 1 DIS: 11/22/2017 SPEC #: [id number] RECD: 11/23/17 11:19 STATUS: SOUT REQ #: [id number] CAMILLA: 11/22/17 00:[address]: Elizabeth Glaser DEPT: IMMUNOHISTOCHEMISTRY RECD BY: Sri Santiago ENTERED: 11/23/17 11:19 SP TYPE: IMMUNO OTHR DR: MD Dr. Phil Mederos DO Dr. Prakash Chand, MD Dr. Tamera Robotham, MD [facility] Tissues: Stomach, NOS Procedures: H Pylori (initial) Comments: @ Ordering doctor for H.PYLORI edited from to @ by PATRICIA at 11/23/17 112 @ Submitting doctor edited from to @ by PATRICIA at 11/23/17 1126 PHYSICIAN & INSTITUTION [place] [id number] SPECIMEN INFORMATION: Tissue Source: Antral biopsy Clinical Info: Dax Specimen Number: [id number] CPT code: 99957 METHODOLOGY: Deparaffinized sections of prefer/formalin-fixed tissue or PAP/DQ stained slides are incubated with monoclonal/polyclonal antibodies/oligonucleotide probes. Localization is made via biotin free immunoperoxidase method. Appropriate controls are performed and reacted as expected. Results on target cell population are indicated in the following table: RESULTS: ANTIBODY / CLONE RESULT H Pylori (polyclonal) negative These tests were developed and their performance characteristics determined by [facility]. They may not have been cleared or approved by the U.[place]. Food and Drug Administration. The FDA has determined that such clearance or approval is not necessary. INTERPRETATION: Antral biopsy: Negative for Helicobacter pylori organisms. LUÍS:jw 11/24/17
[2017-11-22 06:39] LABS: Hematocrit 26.3 % (40-54); Hemoglobin 8.5 g/dl (13.0-16.5); Mean Corp Hgb Conc 32.3 g/gl (32-36); Mean Corpuscular Hgb 30.9 pg (27.0-32.0); Mean Corpuscular Volume 95.6 fL (80-94); Mean Platelet Vol. 9.2 fl (6.2-12.0); Platelet Count 343 K/mm3 (150-450); RBC Distribution Width CV 18.8 % (11.6-14.6); RBC Distribution Width SD 65.8 fl (35.1-43.9); Red Blood Count 2.75 M/mm3 (4.6-6.2); White Blood Count 12.1 K/mm3 (4.4-11.0)
[2017-11-22 06:58] LABS: Differential Indicated MANUAL DIFF; POSITIVE COUNT YES; POSITIVE DIFFERENTIAL NO; POSITIVE MORPHOLOGY YES
[2017-11-22 06:59] LABS: Anion Gap 7 (5-15); BUN 10 mg/dL (7-18); BUN/Creat Ratio 9.3 RATIO (10-20); Calcium,Total 7.9 mg/dL (8.5-10.1); Chloride 113 mmol/L (98-107); Creatinine, Serum 1.07 mg/dL (0.70-1.30); EST Glomerular Filtration Rate 72 mL/min (>60); Est Glom Filt Rate - Afr Amer 88 mL/min (>60); Estimated Creatinine Clearance 63.32 ml/min; Glucose 89 mg/dL (74-106); Potassium 3.7 mmol/L (3.5-5.1); Sodium Level 145 mmol/L (136-145)
[2017-11-22] MEDS: Ipratropium/Albuterol Sulfate 3 ML AMPUL.NEB INHALATION ×2 (07:03→19:17)
[2017-11-22 07:13] LABS: Eosinophil 2 % (0-5); Lymphocyte 11 % (19-41); Metamyelocyte 1 % (0-1); Monocyte 6 % (0-10); Neutrophil-Band 1 % (0-5); Neutrophil-Segmented 79 % (47-70); Total Cells Counted 100 (MANUAL DIFF)
[2017-11-22 07:14] LABS: Platelet Estimate ADEQUATE (ADEQ)
[2017-11-22 07:16] LABS: Anisocytosis 2+; Red Cell Morphology NORM C+C NORMAL (NORM C&C); Toxic Granulation 2+
[2017-11-22 07:17] LABS: Lymphocyte # 1.33 X10^3/ul (4.0)
[2017-11-22 07:18] LABS: Absolute Lymphocyte Count 1.33 X10^3/ul (0.83-4.51); Absolute Neutrophil Count 9.7 X10^3/uL (2.0-7.7); Neutrophil # 9.68 X10^3/uL (2.7-7.7)
--- NOTE | 2017-11-22 07:24 | PCM.PN.HOSP ---
Patient Problems: Active and Suspected Problems Community acquired pneumonia (Acute) Hypoxia (Acute) Subjective: Patient notes ongoing clear liquid stools following bowel prep with mild abdominal cramping but otherwise no acute events overnight. He states dyspnea continues to improve with lessened coughing and improvement with exertion. Repeat oxygenation testing required [facility] Patient denies fevers, chills, nausea, emesis, chest pain. Objective: Physical Examination: General: awake, alert, oriented x 3 and cooperative, seated upright in the bedside chair, in no apparent distress. Skin: normal color, turgor, no icterus, cyanosis. HEENT: AT/NC, EOMI, PERRLA, MMM. Lungs: Moderately diminished, > bases, R > L, no wheezing, decreased rales. Heart: Regular rate with regular rhythm; no gallop, rub audible. Abdomen: soft, general discomfort secondary to cramping but otherwise NTTP, mildly distended, hyperactive BS. Extremities: no cyanosis, clubbing, or edema. Neurological: patient awake, alert, oriented x 3; cognitive function intact; pupils equally reactive to light and accomodation; cranial nerves II-XII grossly normal, moving all 4 extremities, no focal deficits, strength improving, mildly to moderately globally decreased. Psychiatric: affect appears normal, no acute evidence of depressive or anxiety feelings. Vitals/I&O's: Vital Signs Temp Pulse Resp BP Pulse Ox 98.0 F 88 18 151/82 H 95 11/22/17 02:45 11/22/17 02:45 11/22/17 02:45 11/22/17 02:45 11/22/17 02:45 Oxygen Flow Rate (L/min) [ 2 AMBULATION with Oxygen] Oxygen Flow Rate (L/min) 2 Oxygen Delivery Method Nasal Cannula Weight: 182 lb 5.156 oz Body Mass Index (BMI) 26.9 Intake and Output for Last 24 Hours 11/20/17 11/21/17 11/22/17 23:59 23:59 23:59 Intake Total 1198 / 1198 1188 / 1188 300 / 300 Output Total 250 / 250 Balance 948 / 948 1188 / 1188 300 / 300 Microbiology Past 72 Hours 11/17/17 10:55 Stool Stool Occult Blood (SASCHA) - Final 11/16/17 19:55 Urine, Clean Catch Urine Culture - Final Coag Negative Staph Laboratory Results 11/21/17 05:33: WBC 15.1 H, RBC 2.98 L, Hgb 9.1 L, Hct 28.4 L, MCV 95.3 H, MCH 30.5, MCHC 32.0, RDW 18.4 H, RDW Differential 63.5 H, Plt Count 355, MPV 9.6, Neut % (Auto) Not Reportable, Absolute Neuts (auto) 12.4 H, Absolute Lymphs (auto) 0.90, Total Counted 100, Neutrophils % (Manual) 80 H, Band Neutrophils % 2, Lymphocytes % (Manual) 6 L, Metamyelocytes % 9 H, Myelocytes % 3 H, Nucleated RBCs/100 WBC 1, Diff Path Review August, Platelet Estimate ADEQUATE, RBC Morphology NORM C+C 11/22/17 05:40: WBC 12.1 H, RBC 2.75 L, Hgb 8.5 L, Hct 26.3 L, MCV 95.6 H, MCH 30.9, MCHC 32.3, RDW 18.8 H, RDW Differential 65.8 H, Plt Count 343, MPV 9.2, Neut % (Auto) Not Reportable, Absolute Neuts (auto) 9.7 H, Absolute Lymphs (auto) 1.33, Total Counted 100, Neutrophils % (Manual) 79 H, Band Neutrophils % 1, Lymphocytes % (Manual) 11 L, Monocytes % (Manual) 6, Eosinophils % (Manual) 2, Metamyelocytes % 1, Toxic Granulation 2+, Platelet Estimate ADEQUATE, RBC Morphology NORM C+C, Anisocytosis 2+ 11/22/17 05:40: Sodium 145, Potassium 3.7, Chloride 113 H, Carbon Dioxide 25.0, Anion Gap 7, BUN 10, Creatinine 1.07, Estim Creat Clear Calc 63.32, Est GFR (MDRD) Af Amer 88, Est GFR (MDRD) Non-Af 72, BUN/Creatinine Ratio 9.3 L, Glucose 89, Calcium 7.9 L Current Medications Acetaminophen (Tylenol) 650 mg PO Q4H PRN PRN PRN Reason: Mild-Moderate Pain/MCINTYRE/fever Last Admin: 11/20/17 20:06 Dose: 650 mg Al Hydroxide/Mg Hydroxide (Mylanta Ii) 30 ml PO Q6H PRN PRN PRN Reason: Gastric Burning Albuterol Sulfate (Ventolin Aerosols) 2.5 mg INHALATION Q2H PRN PRN PRN Reason: SHORTNESS OF BREATH Last Admin: 11/18/17 02:34 Dose: 2.5 mg Albuterol/Ipratropium (Duoneb) 3 ml INHALATION Q4HWA.RT [facility] Last Admin: 11/22/17 07:03 Dose: 3 ml Calcium/Vitamin D (Os-Ino 500mg + D) [facility] Last Admin: 11/21/17 08:52 Dose: 1 tablet Docusate Sodium (Colace) 200 mg PO BID PRN PRN PRN Reason: Constipation Ferrous Gluconate (Ferrous Gluconate) [facility] Last Admin: 11/21/17 17:52 Dose: Not Given Guaifenesin (Mucinex) 1,200 mg PO BID [facility] Last Admin: 11/21/17 21:14 Dose: 1,200 mg Sodium Chloride () 250 mls @ 15 mls/hr IV .[id number] PRN PRN Reason: SALINE FLUSH Ceftriaxone Sodium (Rocephin) 1 gm in 50 mls @ 100 mls/hr IV Q24 [facility] Last Admin: 11/21/17 11:09 Dose: 100 mls/hr Losartan Potassium (Cozaar) 50 mg PO DAILY [facility] Last Admin: 11/21/17 08:54 Dose: 50 mg Metoprolol Tartrate (Lopressor (Beta Suzanne)) 50 mg PO BID [facility] Last Admin: 11/21/17 21:14 Dose: 50 mg Morphine Sulfate () 1 - 2 mg IV Q4H PRN PRN PRN Reason: SEVERE PAIN (6-10/10) Nutritional Formula (Lactose Free) (Ensure Enlive) 120 ml PO 4X/DAY [facility] Last Admin: 11/21/17 21:14 Dose: 120 ml Ondansetron HCl (Zofran) 4 mg IV Q8H PRN PRN PRN Reason: NAUSEA Oxycodone HCl (Oxyir) 5 mg PO Q4H PRN PRN PRN Reason: Moderate Pain (pain scale 4-5) Pantoprazole Sodium (Protonix) 40 mg PO BID [facility] Last Admin: 11/21/17 21:15 Dose: 40 mg Sodium Chloride () 5 - 30 ml IV UD PRN PRN Reason: SALINE FLUSH Last Admin: 11/21/17 11:09 Dose: 10 ml Tamsulosin HCl (Flomax) 0.4 mg PO DAILY@0830 [facility] Last Admin: 11/21/17 08:54 Dose: 0.4 mg Trazodone HCl (Desyrel) 50 mg PO QHS [facility] Last Admin: 11/21/17 21:14 Dose: 50 mg Medical Necessity - Tobacco Use Smoking Status: Never smoker Tobacco Use: Cigarettes, Pipe Assessment/Plan All Active Problems Community acquired pneumonia (Acute) Hypoxia (Acute) MSSA (methicillin susceptible Staphylococcus aureus) septicemia (Acute) Acute kidney injury (Acute) Atrial fibrillation with RVR (Acute) Acute respiratory failure with hypoxia (Acute) COPD exacerbation (Acute) Pneumonia (Acute) Influenza B (Resolved) The patient is a 72 M w/ PMHx: Suspected Chronic COPD, Tobacco, HTN, Chronic AF/Flutter, Abnormal hematopoietic disorder/bone marrow disorder, GERD, Rheumatoid arthritis, Hx Staph MSSA pneumonia LLL who presents to the [facility] ED on 11/16/17 with malaise, fatigue, dyspnea worse with exertion, cough x ~ 1 week. (1) Acute Sepsis secondary to Acute Community Acquired Pneumonia w/ Acute Respiratory Insufficiency: CXR in the ED w/ LLL PNA w/ retrocardiac infiltrate without dense focal consolidation. Admission CBC w/ WBC 15.9 with L shift. Admitted to [place], maintained on oxygen with wean as tolerated to room air, continued ATC duonebs, PRN albuterol, maintained on initially IV Zosyn given biologic usage-->11/18/17 transitioned to Rocephin (completion date 11/23/17) and completed Azithromycin 3 day regimen, HOB, IS parameters w/ pending sputum cultures, negative urine antigens, negative influenza, negative MRSA. Bld cx x 2 obtained in the ED. [facility] following endoscopies 11/22/17 if not marked appearing and Hgb stable. Noted low grade temp overnight, obtained AM 11/21/17 CXR PA and Lateral to assure not worsening given exam changes and low grade temperature clinically w/ noted primarily interstitial infiltrates mostly involving left mid and lower lung zones and minimally in the right lung base with low lung volumes. Pulmonary consulted given complicated patient history on biologic medications and agreed with current treatment. (2) Acute on Chronic Normocytic Anemia secondary to suspected GI Bleed, Unclear if upper or lower GI bleed: Admission Hgb 9.4, repeat Hgb 7.9, prior baseline levels starting 04/2017 11-->decreasing trend, prior to this Hgb 15-13 range noted, iron panel, ferritin consistent with Fe deficiency, normal folic acid and vitamin B12 ordered. Stool occult obtained and pending but was having loose black appearing stools since restart on eliquis upon presentation. 11/18/17 Hgb 6.8, T+C 2 u ordered,Hgb following 8.4-->11/19/17 Hgb 9-->11/20/17 Hgb 9.0-->11/22/17 8.5. Maintain on IV PPI, NPO status currently. Surgery consulted and planned 11/23/17 endoscopies. If unremarkable appearing, patient eager for discharge to home today. (3) Acute kidney injury: Secondary to acute presentation #1, dehydration. Admission BUN/Cr 46/2.10, prior baseline creatinine noted to be 1.11. Hydrated, held nephrotoxic medications w/ continued BMP trending. 11/18/17 BUN/Cr 32.1.50-->11/22/17 BUN/Cr 10/1.07, resolved. 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 Holding Jakafi given acute presentation. Possible associated with his acute anemia given unclear history. Pending surgery evaluation for consideration for endoscopy. CBC w/ chronically elevated WBC 12-15, remains stable. (5) Hypokalemia: Admission K+ 3.4, repeat 3.3, supplementation given, 11/19/17 K 3.6-->11/22/17 K 3.7. (6) Rheumatoid Arthritis: Holding etanercept and elfunomide, restart following completion abx therapy and re-assessment per his physician at follow-up. (7) Chronic AF, Flutter: EKG w/ sinus tachycardia, maintain on metoprolol, holding Eliquis, history of cardiac ablation. (8) Suspected Chronic COPD: Will maintain on oxygen w/ [facility] already when appropriate for discharge, continue ATC duonebs, PRN albuterol, HOB, IS parameters. (9) Hypertension: Continue home regimen including metoprolol, restart ARB given MEGAN resolution, PRN hydralazine. (10) GERD: IV PPI-->PO PPI. (11) BPH: Continue home flomax regimen. (12) DVT Prophylaxis: SCDs, holding eliquis.
[2017-11-22] MEDS: Ceftriaxone 1 GM/50 ML BAG IV (10:52)
--- NOTE | 2017-11-22 11:06 | CASEMGMT ---
JOSE BATES received updated from Dr. Hill, discharge possibly later today. JOSE BATES requested updated home oxygen testing be completed. JOSE BATES called [place] [facility] oxygen dept to arrange for home oxygen, message left with return contact information. JOSE BATES will continue to follow this patient and plan for a safe discharge.
--- NOTE | 2017-11-22 11:51 | CASEMGMT ---
Addendum entered by Daniel Whelan 11/22/17 12:53: Call to [facility], spoke with Anjali. Verified they have received [facility]. Room # given for pt @ [facility]. Their catering driver has information and will deliver tank this afternoon. Original Note: JOSE BATES Note. Call to July @ [facility]/Oxygen Program x [phone]. Notified plan is for dc today. She will send authorization for Oxygen to [facility] who will deliver portable tank to hospital. No further information is needed per July. -Intro role of CM to patient and in room. Explained portable tank will be delivered to [facility] prior to dc and rep will then meet @ home for set up. -Pt is to have testing today prior to dc, but per charge nurse, plan is still home today. Alonso BSN RN ACM
--- NOTE | 2017-11-22 13:15 | PCA ---
PT OFF FLOOR
--- NOTE | 2017-11-22 14:00 | PCM.OPRPT ---
Report of Operation Date of Procedure: 11/22/17 Pre-Operative Diagnosis: Anemia, tarry stools Post-Operative Diagnosis: Anemia, gastritis nonbleeding, normal colon Surgery/Procedure Performed:: EGD with biopsy, colonoscopy Type of Anesthesia:: MAC Anesthesiologist: Lebron Peterson Specimen's removed: 1. Antral biopsy Estimated Blood Loss (mL): Minimal Description of Procedure: Procedure: EGD with biopsy After obtaining informed consent, the endoscope was passed under direct visualization. Throughout the procedure, patient's blood pressure, pulse, oxygen saturations were monitored continuously by anesthesia. The endoscope was introduced through the mouth and advanced to the 2nd part of the duodenum. The upper GI endoscopy was accomplished without difficulty. Patient tolerated procedure well. Findings: Erythematous mucosa found gastric antrum. Biopsied the antrum for histology and H. pylori, no signs of any active bleeding. Biopsies were taken with cold biopsy for histology. Estimated blood loss was minimal. The duodenum had no signs of bleeding.. Impression: 1. Erythematous mucosa in the antrum. Biopsied. No signs of bleeding 2. Duodenum, no signs of bleeding Recommendations: Await biopsies Continue PPI Follow with PCP if any signs of tarry stools again patient may require capsule endoscopy for a better look at the small bowel Procedure: Colonoscopy After reviewing the risks benefits, the patient was deemed in satisfactory condition to undergo procedure. After obtaining informed consent, the scope was passed under direct visualization. Throughout the procedure, the patient's blood pressure pulse and position saturations were monitored continuously anesthesia. The colonoscope was introduced through the anus and advanced to the cecum, identified by the appendiceal orifice, IC valve and transillumination. The colonoscopy was performed without difficulty. The patient tolerated procedure well. Quality of bowel prep was adequate. Findings: The perianal and digital rectal exam were normal. The colon (entire examined portion) appeared normal. Retroflexed view of the distal rectum and anal verge was normal and showed no anal or rectal abnormalities Impression: 1. The entire colon is normal. 2. The distal rectal and anal verge were normal on retroflexed view. Recommendations: No signs of active bleeding from the colon however patient does continue to have tarry stools or any drop in hemoglobin he may require capsule endoscopy. Currently his hemoglobin has been fairly stable. - Complications none
--- NOTE | 2017-11-22 14:39 | PCM.DC ---
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 Call your doctor if you observe: Fever of 101 or Higher, Inability to urinate, Inability to have a bowel movement, Shortness of breath, Dizziness, Fainting spells, Chest pain, Uncontrolled pain Instructions: Using Oxygen Safely, What Is Pneumonia?, Using Oxygen at Home, Preventing Pneumonia, Pneumonia Treatment, What is COPD?, Resources for Chronic Lung Disease, Caring for Your Inhaler, Using an Inhaler with a Spacer, Using an Inhaler Without a Spacer, Discharge Instructions for Acute Kidney Injury, When You Have Gastrointestinal (GI) Bleeding Additional Instructions: Please have repeat complete blood count and basic metabolic panel at follow-up with your primary care physician. Please continue treatment for noted gastritis with twice daily protonix. We highly encourage you once clinically resolved from current pneumonia (completed antibiotics during admission) to have pulmonary function testing organized per your primary care physiciain for suspected chronic obstructive pulmonary disease. Avoid anticoagulation (eliquis) given this presentation for suspected GI bleed as etiology for your lowered blood count. Consider restart aspirin therapy 81 mg daily only in the future. Allergies/Adverse Reactions: Allergies doxycycline Adverse Reaction (Verified 11/16/17 15:34) Nausea/Vom/Diarrhea methotrexate Adverse Reaction (Verified 11/16/17 19:01) fills my lungs and sinuses with fluid Medications to take at Discharge Etanercept [Enbrel] 50 mg SQ Q7D 11/27/15 Leflunomide [Arava] 20 mg PO DAILY 11/27/15 Hydrochlorothiazide [Hctz] 25 mg PO DAILY 04/22/17 Losartan Potassium [Cozaar] 50 mg PO DAILY 04/22/17 Metoprolol Tartrate [Lopressor (beta heaven)] 50 mg PO BID 04/22/17 Ruxolitinib Phosphate [Jakafi] 15 mg PO BID 04/22/17 Calcium Carbonate/Vitamin D3 [Calcium 500-Vit D3 200 Tablet] 1 tab PO DAILY 11/16/17 Gabapentin [Neurontin] 400 mg PO BID 11/16/17 Tamsulosin HCl [Flomax] 0.4 mg PO DAILY 11/16/17 Albuterol IH (ProAir) [Proair Hfa] 1 - 2 puff INHALATION Q4H PRN PRN #1 inhaler 11/22/17 Ferrous Gluconate 325 mg PO BIDCM #60 tab 11/22/17 Fluticasone/Salmeterol [Advair 250-50 Diskus] 1 ea IH BID #1 blst.w.dev 11/22/17 Guaifenesin [Mucinex] 1,200 mg PO BID #20 tab 11/22/17 Pantoprazole Sodium [Protonix] 40 mg PO BID #60 tab 11/22/17 The following prescriptions were given: Albuterol IH (ProAir) [Proair Hfa] 1 - 2 puff INHALATION Q4H PRN PRN #1 inhaler PRN Reason: Dyspnea, wheezing Ferrous Gluconate 325 mg PO BIDCM #60 tab Fluticasone/Salmeterol [Advair 250-50 Diskus] 1 ea IH BID #1 blst.w.dev Guaifenesin [Mucinex] 1,200 mg PO BID #20 tab Pantoprazole Sodium [Protonix] 40 mg PO BID #60 tab [facility] - Please follow up with your Primary Care Physician in: Follow-up within 3-5 days to review admission. Test Results: Test results from this visit will be discussed in further detail at your follow-up appointment, if applicable. Please Follow Up With: Elizabeth Glaser MD When: Please call surgery with any questions regarding your endoscopies. Proposed Discharge Date: 11/22/17
--- NOTE | 2017-11-22 14:45 | PCM.DC.SUM ---
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, Unclear diagnosis (5) Hypokalemia (6) Rheumatoid Arthritis (7) Chronic AF, Flutter (Admit w/ EKG w/ sinus tachycardia) (8) Suspected Chronic COPD (9) Hypertension (10) GERD (11) BPH - Secondary Discharge Diagnosis Chronic Problems Suspected chronic obstructive pulmonary disease based on initial evaluation (Chronic) Former tobacco use (Chronic) HTN (hypertension) (Chronic) PAF (paroxysmal atrial fibrillation) (Chronic) GERD (gastroesophageal reflux disease) (Chronic) Rheumatoid arthritis (Chronic) History of rheumatoid arthritis (Chronic) History of gastroesophageal reflux (GERD) (Chronic) S/P ablation of atrial flutter (Chronic) Atrial flutter (Chronic) History of atrial fibrillation (Chronic) Hospital Course and Treatment Imaging Results: 11/22/17 06:11 CXR [Chest 1 View (Portable)] [RAD] Urgent Dr. Glaser Surgery Dr. Mae Pulmonary Operations: None Procedures: Blood transfusion, Colonoscopy, EGD, EKG Summary of Care Provided: The patient is a 72 M w/ PMHx: Suspected Chronic COPD, Tobacco, HTN, Chronic AF/Flutter, Abnormal hematopoietic disorder/bone marrow disorder, GERD, Rheumatoid arthritis, Hx Staph MSSA pneumonia LLL who presented to the [facility] ED on 11/16/17 with malaise, fatigue, dyspnea worse with exertion, cough x ~ 1 week. CXR in the ED w/ LLL PNA w/ retrocardiac infiltrate without dense focal consolidation. Admission CBC w/ WBC 15.9 with L shift. Admitted to [place], maintained on oxygen with wean as tolerated to room air, continued ATC duonebs, PRN albuterol, maintained on initially IV Zosyn given biologic usage-->11/18/17 transitioned to Rocephin (completion date 11/23/17) and completed Azithromycin 3 day regimen, HOB, IS parameters w/ pending sputum cultures, negative urine antigens, negative influenza, negative MRSA. Bld cx x 2 obtained in the ED w/ NGTD. [place] oxygen set-up for discharge secondary to desaturation on room air 84% with ambulation attempts, 89% on room air at rest, 92% on 2L NC with activity with supplementation as noted. AM 11/21/17 CXR PA and Lateral to assure not worsening given exam changes and low grade temperature clinically w/ noted primarily interstitial infiltrates mostly involving left mid and lower lung zones and minimally in the right lung base with low lung volumes. Pulmonary consulted given complicated patient history on biologic medications and agreed with current treatment. During admission, patient w/ Acute on Chronic Normocytic Anemia secondary to suspected GI Bleed, Unclear if upper or lower GI bleed w/ admission Hgb 9.4, repeat Hgb 7.9, prior baseline levels starting 04/2017 11-->decreasing trend, prior to this Hgb 15-13 range noted, iron panel, ferritin consistent with Fe deficiency, normal folic acid and vitamin B12 ordered. Patient with onset following admit, loose black appearing stools since restart on eliquis upon presentation. 11/18/17 Hgb 6.8, T+C 2 u ordered,Hgb following 8.4-->11/19/17 Hgb 9-->11/20/17 Hgb 9.0-->11/22/17 8.5. Maintained on IV PPI. Surgery consulted and 11/23/17 endoscopies performed w/ noted gastritis with bx obtained but otherwise no obvious source for GI bleed. Recommended discontinuation of eliquis and follow-up with his PCP as well as continuation of high dose protonix BIS. Additionally, during admission patient with MEGAN, secondary to acute presentation, dehydration w/ admission BUN/Cr 46/2.10, prior baseline creatinine noted to be 1.11. Hydrated, held nephrotoxic medications temporarily w/ 11/22/17 BUN/Cr 10/1.07, resolved. 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 w/ chronic leukocytosis w/ hold on this regimen during admission secondary to treatment acute infectious process. Additionally, held temporarily, etanercept and elfunomide, restarted following completion abx therapy. High suspicion for COPD, maintained on aerosols with transition to inhalers upon discharge and recommendation for PFTs with PCP at follow-up once improved and off oxygen supplementation secondary to acute presentation. Discharge Activity: - - Avoid aggressive activity until re-assessment per your primary care physician and weaned off oxygen supplementation. Call your doctor if you observe: Fever of 101 or Higher, Inability to urinate, Inability to have a bowel movement, Shortness of breath, Dizziness, Fainting spells, Chest pain, Uncontrolled pain Home Medications: Medications to take at Discharge Etanercept [Enbrel] 50 mg SQ Q7D 11/27/15 Leflunomide [Arava] 20 mg PO DAILY 11/27/15 Hydrochlorothiazide [Hctz] 25 mg PO DAILY 04/22/17 Losartan Potassium [Cozaar] 50 mg PO DAILY 04/22/17 Metoprolol Tartrate [Lopressor (beta heaven)] 50 mg PO BID 04/22/17 Ruxolitinib Phosphate [Jakafi] 15 mg PO BID 04/22/17 Calcium Carbonate/Vitamin D3 [Calcium 500-Vit D3 200 Tablet] 1 tab PO DAILY 11/16/17 Gabapentin [Neurontin] 400 mg PO BID 11/16/17 Tamsulosin HCl [Flomax] 0.4 mg PO DAILY 11/16/17 Albuterol IH (ProAir) [Proair Hfa] 1 - 2 puff INHALATION Q4H PRN PRN #1 inhaler 11/22/17 Ferrous Gluconate 325 mg PO BIDCM #60 tab 11/22/17 Fluticasone/Salmeterol [Advair 250-50 Diskus] 1 ea IH BID #1 blst.w.dev 11/22/17 Guaifenesin [Mucinex] 1,200 mg PO BID #20 tab 11/22/17 Pantoprazole Sodium [Protonix] 40 mg PO BID #60 tab 11/22/17 Following Prescrptions Were Given to Patient: Albuterol IH (ProAir) [Proair Hfa] 1 - 2 puff INHALATION Q4H PRN PRN #1 inhaler PRN Reason: Dyspnea, wheezing Ferrous Gluconate 325 mg PO BIDCM #60 tab Fluticasone/Salmeterol [Advair 250-50 Diskus] 1 ea IH BID #1 blst.w.dev Guaifenesin [Mucinex] 1,200 mg PO BID #20 tab Pantoprazole Sodium [Protonix] 40 mg PO BID #60 tab [facility] Care Physician: [facility] [Primary Care Provider] - Please follow up with your Primary Care Physician in: Follow-up within 3-5 days to review admission. Please Follow Up With: Elizabeth Glaser MD When: Please call surgery with any questions regarding your endoscopies. Patient Instructions: When You Have Gastrointestinal (GI) Bleeding, What is COPD?, Resources for Chronic Lung Disease, Caring for Your Inhaler, Using an Inhaler with a Spacer, Using an Inhaler Without a Spacer, Using Oxygen Safely, What Is Pneumonia?, Using Oxygen at Home, Preventing Pneumonia, Pneumonia Treatment, Discharge Instructions for Acute Kidney Injury Disposition: Home Minutes spent on discharge:: 35 Patient Condition:: Fair Medical Necessity - Tobacco Use Smoking Status: Never smoker Tobacco Use: Cigarettes, Pipe Meaningful Use Info Meaningful Use Diagnoses (Choose all that apply): None applicable Code Visit Inpatient E&M: 85620 Disch Hosp
[2017-11-22 15:02] LABS: Pathologist Review Reviewed
[2017-11-22 15:05] LABS: Pathologist Review Reviewed
[2017-11-22] MEDS: guaiFENesin 1,200 MG Tablet 1200 MG PO (15:16)
[2017-11-22] MEDS: Tamsulosin HCl 0.4 MG Capsule PO (15:16)
[2017-11-22] MEDS: Losartan Potassium 50 MG Tablet PO (15:16)
[2017-11-22] MEDS: 0.9% NaCl Peripheral Flush Adult/Peds IV (15:16)
[2017-11-22] MEDS: Pantoprazole Sodium 40 MG Tablet PO (15:16)
[2017-11-22] MEDS: Metoprolol Tartrate 50 MG Tablet PO (15:16)
[2017-11-22 15:17] LABS: Pathologist Review Reviewed
[2017-11-22 15:18] LABS: Pathologist Review Reviewed
[2017-11-22 15:25] LABS: Pathologist Review Reviewed
[2017-11-22] MEDS: Ferrous Gluconate 325 MG Tablet PO (17:00)
--- NOTE | 2017-11-23 16:28 | CASEMGMT ---
JOSE BATES Discharge Follow-up Phone Call: LASHA: Alethea Strata: 4 Call Date: 11/23/17 Discharge Date: 11/22/17 Time of Call: 1620 Duration: 5 min Admitting Diagnosis: Community acquired pna, hypoxia JOSE BATES completed follow-up phone call after recent hospitalization. Patient states that he is doing ok. He received his oxygen tank at hospital but has not received his concentrator. Patient states that he followed-up with PCP at [facility] today and was able to fill all his prescriptions without any problems. JOSE BATES updated patient that she would call [employer], [facility] for [facility], regarding concentrator. JOSE BATES called [facility] [employer] and stated that chair car driver should be at patient's home shortly. JOSE BATES called patient back and updated regarding delivery in route.
== END 2017-11-22 19:30 | disposition home or self-care (01) | DRG 871 ==
LOC: ED 18:15 → MS3 18:33
PROVIDERS: Hospitalist; Surgery; Admitting Provider Internal Medicine; Emergency Provider Emergency Medicine; Visit Provider Family Medicine
PROC: 0DJD8ZZ Inspection of Lower Intestinal Tract, Via Natural or Artificial Opening Endoscopic (ICD-10-PCS; CPT 45378; principal; 2017-11-22 12:10)
DX: A41.9 Sepsis, unspecified organism (principal); J18.9 Pneumonia, unspecified organism; N17.9 Acute kidney failure, unspecified; J44.0 Chronic obstructive pulmonary disease with (acute) lower respiratory infection; K92.2 Gastrointestinal hemorrhage, unspecified; I48.92 Unspecified atrial flutter; I48.2 Chronic atrial fibrillation; D50.0 Iron deficiency anemia secondary to blood loss (chronic); M06.9 Rheumatoid arthritis, unspecified; I10 Essential (primary) hypertension; E86.0 Dehydration; E87.6 Hypokalemia; R06.89 Other abnormalities of breathing; N40.0 Benign prostatic hyperplasia without lower urinary tract symptoms; K21.9 Gastro-esophageal reflux disease without esophagitis; K29.70 Gastritis, unspecified, without bleeding; R00.0 Tachycardia, unspecified; D75.9 Disease of blood and blood-forming organs, unspecified; D72.829 Elevated white blood cell count, unspecified; Z79.899 Other long term (current) drug therapy; Z87.891 Personal history of nicotine dependence
CPT/HCPCS: 36415; 71045; 71046; 80048; 81002; 82274; 82570; 82607; 82728; 82746; 83540; 83550; 83605; 83735; 83880; 84100; 84300; 84484; 85014; 85018; 85025; 86850; 86900; 86920; 86922; 87040; 87086; 87088; 87449; 87641; 87804; 88305; 88342; 93005; 94640; 94667; 94668; 97110; 97116; 97162; 97166; 97530; 97802; 99283; J7030; J7040; P9016; A4216

== ENCOUNTER 2020-11-18 08:49 | Inpatient (IN) | payer OTHER, MEDICARE, SELFPAY ==
[2020-11-18] VITALS (44 sets, daily range): BP systolic 65–159; BP diastolic 40–134; PULSE 64–171; RESP 12–47; TEMP 36.4–38.3; O2SAT 56–99; BMI 28.6; BMI 28.0
[2020-11-18] MEDS: Ipratropium/Albuterol Sulfate 3 ML AMPUL.NEB INHALATION ×2 (08:50→14:14)
--- NOTE | 2020-11-18 09:03 | RAD_ITS ---
STUDY: X-RAY CHEST REASON FOR EXAM: Male, 75 years old. Cough, shortness of breath for several days. TECHNIQUE: Single AP portable view of the chest. COMPARISON: Comparison is made with prior study dated 11/22/2017. FINDINGS: EKG electrodes are seen. There is evidence of diffuse infiltration in the left lung. Increased markings in the right upper lobe with the volume loss of the right upper lobe. There is no demonstrated pleural abnormality. Normal size heart. Normal mediastinum and karthik. Normal visualized pulmonary arteries. There is atherosclerotic calcification of the aortic arch with tortuosity. Normal visualized thoracic spine. Normal visualized ribs, clavicles, and shoulders. There is no demonstrated abnormality of the visualized soft tissue structures of the upper abdomen. RAD/Chest 1 View (Portable) IMPRESSION: Diffuse pulmonary infiltration in the left lung mild infiltrate in the right upper lobe with the right upper lobe volume loss. Electronically Signed: Anil Aguirre MD at 10:10 EDT , Service support ,
--- NOTE | 2020-11-18 09:04 | EKG12_ITS ---
Test Reason : SOB Blood Pressure : / mmHG Vent. Rate : 089 BPM Atrial Rate : 089 BPM P-R Int : 124 ms QRS Dur : 096 ms QT Int : 352 ms P-R-T Axes : 039 -03 018 degrees QTc Int : 428 ms Normal sinus rhythm Normal ECG Confirmed by EDMUNDO BLAKE, FREDDIE ([id number]), medical editor ALY WADE ([id number]) on 11/20/2020 10:02:04 AM Referred By: HUSSAIN Confirmed By:FREDDIE WYATT MD
[2020-11-18 09:10] LABS: Absolute Lymphocyte Count 0.35 X10^3/uL (0.83-4.51); Absolute Neutrophil Count 13.6 X10^3/uL (2.0-7.7); Basophil# 0.03 X10^3/uL; Basophil% 0.2 % (0-1); Eosinophil# 0.01 X10^3/uL; Eosinophils% 0.1 % (0-5); Hematocrit 39.4 % (40-54); Lymphocyte # 0.35 X10^3/ul (0.83-4.51); Lymphocyte % 2.4 % (19-41); Mean Corp Hgb Conc 30.5 g/dL (32-36); Mean Corpuscular Hgb 30.8 pg (27.0-32.0); Mean Corpuscular Volume 101.3 fL (80-94); Mean Platelet Vol. 10.7 fl (6.2-12.0); Monocyte# 0.49 X10^3/uL; Monocyte% 3.3 % (0-10); NRBC Flagged by Analyzer 0.3 % (0-5); Neutrophil # 13.58 X10^3/uL (2.7-7.7); Neutrophil % 92.2 % (47-70); POSITIVE DIFFERENTIAL YES; POSITIVE MORPHOLOGY YES; Platelet Count 255 K/mm3 (150-450); RBC Distribution Width SD 66.4 fl (35.1-43.9); Red Blood Count 3.89 M/mm3 (4.6-6.2); White Blood Count 14.7 K/mm3 (4.4-11.0)
[2020-11-18 09:12] LABS: Differential Indicated SCAN CRITERIA MET
--- NOTE | 2020-11-18 09:18 | EX.ED.DYSGE1 ---
HPI History of Present Illness Chief Complaint: Cough Informant: spouse/S.O. Onset/Context/Timing Onset: Days (6 days) Context: Gradual Onset Current Severity: Severe Maximum Severity: Severe Narrative Narrative: Patient presents via EMS secondary to shortness of breath and cough. Patient has a history of COPD, not on home oxygen. Family states that 1 week ago today he went to the [place] for a checkup. The woman checking their vital signs noted that they had just seen a Covid positive patient. The following day the patient developed scratchy throat. Over the next several days he developed shortness of breath and cough. Family believes he had fever 1 day. Due to shortness of breath they borrowed someone's home oxygen last night. On arrival to the emergency room patient's O2 sat is 56% on room air. At the time of my initial evaluation patient is already on BiPAP. [facility] Medical History (Updated 11/18/20 @ 10:[address] Tammy Orozco MD) Atrial fibrillation Back complaints GERD (gastroesophageal reflux disease) History of gastroesophageal reflux (GERD) Hypertension Rheumatoid arthritis Suspected chronic obstructive pulmonary disease based on initial evaluation Home Medications etanercept [Enbrel] 50 mg SQ Q7D 11/27/15 [History Last Taken 11/07/17] leflunomide [Arava] 20 mg PO DAILY 11/27/15 [History Last Taken 11/02/17] hydrochlorothiazide 25 mg PO DAILY 04/22/17 [History Last Taken 11/02/17] losartan 50 mg PO DAILY 04/22/17 [History Last Taken 11/16/17] metoprolol tartrate 50 mg PO BID 04/22/17 [History Last Taken 11/16/17] ruxolitinib [Jakafi] 15 mg PO BID 04/22/17 [History Last Taken 11/14/17] calcium carbonate-vitamin D3 [Calcium 500 + D] 1 tab PO DAILY 11/16/17 [History Last Taken 11/02/17] gabapentin [Neurontin] 400 mg PO BID 11/16/17 [History Last Taken 11/14/17] tamsulosin 0.4 mg PO DAILY 11/16/17 [History Last Taken 11/14/17] albuterol sulfate 1 - 2 puff INHALATION Q4H PRN PRN #1 inhaler 11/22/17 [Rx Last Taken Unknown] ferrous gluconate 325 mg PO BIDCM #60 tab 11/22/17 [Rx Last Taken Unknown] fluticasone propion-salmeterol 1 ea IH BID #1 blst.w.dev 11/22/17 [Rx Last Taken Unknown] guaifenesin 1,200 mg PO BID #20 tab 11/22/17 [Rx Last Taken Unknown] pantoprazole 40 mg PO BID #60 tab 11/22/17 [Rx Last Taken Unknown] Allergy/AdvReac Type Severity Reaction Status Date / Time doxycycline AdvReac Nausea/Vom/ Verified 11/18/20 08:56 Diarrhea methotrexate AdvReac fills my Verified 11/18/20 08:56 lungs and sinuses with fluid Social History Smoking Status: Never smoker ROS ROS ED Constitutional Constitutional ED: Reports fever(s); Denies chills Eyes Eyes: Denies change in vision ENT ENT ED: Reports sore throat Cardiovascular Cardiovascular: Denies chest pain Respiratory/Chest Respiratory/Chest: Reports cough and dyspnea Gastrointestinal Gastrointestinal: Reports diarrhea; Denies abdominal pain, nausea or vomiting Genitourinary Genitourinary ED: Denies dysuria Musculoskeletal Musculoskeletal: Denies back pain Integumentary Denies rash Neurologic Neurologic: Reports weakness Psychiatric Psychiatric: Denies anxiety or depression Allergic/Immunologic Allergic/Immunologic ED: Denies urticaria EXAM Physical Exam Const Vital Signs: 11/18/20 08:52 11/18/20 08:55 11/18/20 09:03 Temperature 97.9 F 97.9 F Temperature Source Temporal Temporal Pulse Rate 95 95 Respiratory Rate 44 H 40 H Respiratory Effort Short of Breath Labored Accessory Muscle Use Nasal Flaring Blood Pressure 149/92 H 149/92 H Blood Pressure Mean 111 111 Pulse Ox 56 86 Oxygen Delivery Method Room Air Non-Rebreather Non-Rebreather Fraction of Inspired Oxygen (FIO2) 11/18/20 09:07 11/18/20 09:15 Temperature Temperature Source Pulse Rate 94 96 Respiratory Rate 47 H 34 H Respiratory Effort Blood Pressure 108/91 H Blood Pressure Mean 96 Pulse Ox 92 90 Oxygen Delivery Method CPAP Fraction of Inspired Oxygen (FIO2) 100 Positive well nourished and well developed General Appearance ED: well developed HEENT Reports normocephalic and head/scalp atraumatic Eyes PERRL and EOMs intact bilaterally Neck supple Chest Wall inspection of chest normal and palpation of chest normal Resp Resp Narrative: Tachypneic. Diminished lung sounds bilateral bases. Cardio regular rate and regular rhythm GI non-tender Palpation: soft Extremity normal to inspection Neuro Neuro Narrative: No focal neuro deficits. Sensorium / Orientation: alert Psych mental status grossly normal Skin no rashes or lesions noted MDM MDM MDM Narrative Medical decision making narrative: Lab work, chest x-ray, Covid swab, blood cultures, ABG obtained. Lab Data Attestation: I reviewed the patient's lab results. Labs: Laboratory Results - last 24 hr 11/18/20 11/18/20 11/18/20 09:00 09:00 09:00 WBC 14.7 H RBC 3.89 L Hgb 12.0 L Hct 39.4 L MCV 101.3 H MCH 30.8 MCHC 30.5 L RDW Std Deviation 66.4 H RDW Coeff of Dagmar 18.0 H Plt Count 255 MPV 10.7 Immature Gran % (Auto) 1.800 H Neut % (Auto) 92.2 H Lymph % (Auto) 2.4 L [place] % (Auto) 3.3 Eos % (Auto) 0.1 Baso % (Auto) 0.2 Absolute Neuts (auto) 13.6 H Absolute Lymphs (auto) 0.35 L Nucleated RBC % 0.3 Differential Comment SCANNED Platelet Estimate ADEQUATE Anisocytosis 1+ Macrocytosis RARE Sodium 138 Potassium 4.4 Chloride 101 Carbon Dioxide 24.0 Anion Gap 13 BUN 30 H Creatinine 2.32 H Estim Creat Clear Calc 27.93 Est GFR (MDRD) Af Amer 36 L Est GFR (MDRD) Non-Af 29 L BUN/Creatinine Ratio 12.9 Glucose 186 H Lactic Acid 7.5 H* Calcium 8.0 L Total Bilirubin 0.70 Direct Bilirubin 0.20 AST 95 H ALT 45 Alkaline Phosphatase 36 L Troponin I High Sens 164.0 H* Total Protein 7.1 Albumin 3.5 Globulin 3.6 ABG Data ABG results: ABG 11/18/20 09:27 Specimen Type ART Sample Site R Radial pH 7.26 L Bicarbonate Actual 22.1 Total CO2 24 Base Excess -5 L O2 Saturation 94 L O2 % 100 ABG pCO2 48.9 H ABG pO2 80 Wili Test Positive Respiration Rate 12 O2 Delivery Device BiPAP Clinical Comments Bipap 14/7 Radiography Chest X-Ray - ED: 1 View, Read by ED Physician, Right Infiltrate and Left Infiltrate Diagnostic Testing: Radiology Impression Chest X-Ray 11/18/20 09:03 IMPRESSION: Diffuse pulmonary infiltration in the left lung mild infiltrate in the right upper lobe with the right upper lobe volume loss. Electronically Signed: Anil Aguirre MD at 10:10 EDT , Service support , EKG Initial EKG: Attestation: I personally reviewed and interpreted this EKG as follows: Interpretation: Sinus Rhythm (Sinus 89 with no acute ischemia.) Treatment and Re-Evaluation Comments:: On BiPAP patient's O2 sat has been between 90 and 93%. His coloration is improved and his respiratory rate is improving. He is able to answer questions for me at this time. Test results discussed with patient and at bedside. Chest x-ray shows significant infiltrates. White count is elevated at 14. Patient has acute renal insufficiency and an elevated troponin. His lactic acid is 7.5. With the degree of infiltrate on x-ray and elevated white count patient is given a dose of Rocephin and Zithromax due to concern for potential bacterial pneumonia on top of Covid. He is given a dose of IV Solu-Medrol. He had received a DuoNeb treatment prior to my initial evaluation. Patient is given 1 L of IV fluids secondary to his renal insufficiency. I believe a lot of this as well as the significant elevation lactic acid is likely secondary to his hypoxia and not hypovolemia. [facility]. We called [facility]. They stated that they would give the information to a director of social services but could not guarantee we would even receive a return call today. They stated that if the patient needed to be admitted we should admit here. I will speak with ware finisher as well as hospitalist. Critical Care Time Critical Care Time: Yes Critical care time (excluding procedures): 30-74 minutes (35 minutes), Discussing w/Patient &/or Family/Distillery Worker General, Discussing w/Consultants, Arranging Admission or Transfer and Performing Direct Patient Care at Bedside Discharge Plan Dx/Rx/DC Orders Clinical Impression: COVID-19, Pneumonia, Elevated troponin, Acute kidney insufficiency, Acidosis, lactic, Respiratory failure Disposition Disposition: Acute Care Hospital [facility]
[2020-11-18 09:31] LABS: Allen Test Positive; Base Excess -5 mmol/L (-2 to +2); Bicarbonate 22.1 mmol/L (22-26); Blood Gas Specimen Type ART; FI02 100; O2 Delivery Device BiPAP; PO2 80 mmHG (75-100); RR 12; SITE R Radial; SO2 94 % (95-99); Total Carbon Dioxide 24 mmol/L; pCO2 48.9 mmHg (35-45); pH 7.26 (7.35-7.45)
[2020-11-18 09:37] LABS: Anisocytosis 1+; Differential Comment SCANNED; Macrocytosis RARE; Platelet Estimate ADEQUATE (ADEQ)
[2020-11-18 09:50] LABS: AST(SGOT) 95 U/L (15-37); Alanine Aminotransfer ALT/SGPT 45 U/L (16-61); Albumin, Serum 3.5 g/dL (3.2-5.0); Alkaline Phosphatase 36 U/L (45-117); Anion Gap 13 (5-15); BUN 30 mg/dL (7-18); BUN/Creat Ratio 12.9 RATIO (10-20); Chloride 101 mmol/L (98-107); Creatinine, Serum 2.32 mg/dL (0.70-1.30); EST Glomerular Filtration Rate 29 mL/min (>60); Est Glom Filt Rate - Afr Amer 36 mL/min (>60); Estimated Creatinine Clearance 27.93 ml/min; Globulin 3.6 g/dL (2.2-4.2); Glucose 186 mg/dL (74-106); Lactic Acid 7.5 mmol/L (0.4-1.9); Potassium 4.4 mmol/L (3.5-5.1); Protein, Total 7.1 g/dL (6.4-8.2); Sodium Level 138 mmol/L (136-145)
--- NOTE | 2020-11-18 09:52 | ED.RN ---
SEPSIS ALERT PREVIOUSLY INITIATED. NEW FURTHER ORDERS AT THIS TIME,AWAITING MEDS
--- NOTE | 2020-11-18 10:07 | NURSING ---
CALLED [facility], TALKED TO BED CONTROL. SHE TOOK INFO. ALSO REFUSED TO GIVE ME HER NAME.
[2020-11-18] MEDS: 0.9% Normal Saline 1,000 ML 999 ML IV (10:15)
[2020-11-18] MEDS: MethylPREDNISolone 125 MG/2 ML Vial IV (10:15)
[2020-11-18] MEDS: Ceftriaxone 1 GM/50 ML BAG IV (10:15)
--- NOTE | 2020-11-18 10:16 | NURSING ---
TALKED TO KELLY, SHE WILL TURN INFO OVER TO [employer]. THEY WILL CONTACT US. IF PATIENT NEEDS ADMITTED BEFORE, WE CAN.
[2020-11-18 10:26] LABS: BNP,B-Type NATRIURETIC PEPTIDE 548.7 pg/mL (0-100)
--- NOTE | 2020-11-18 10:34 | NURSING ---
DR MALIK FOR DR BOURGEOIS
--- NOTE | 2020-11-18 10:45 | PCM.HP.STD ---
HPI - General General Date of Admission: 11/18/20 Date of Service: 11/18/20 Chief Complaint: Shortness of breath - 1 week HPI Narrative RAFAEL KAYE, is a 75 M who presents with progressive shortness of breath, cough and fever, ongoing for 1 week. [facility] Patient stated that he was vaccinated in August. Shortly after arrival to the ED, patient was put on BiPAP. His chest x-ray shows diffuse pulmonary infiltrates in the left, mild infiltrate in 2 right upper lobe as well as right upper lobe volume loss. His WBC count was 14.7, hemoglobin was 12.0, platelet count was 255. D-dimer 0.51. BMP significant for BUN of 30, creatinine of 2.32. Previous creatinine in the system was in 2018 was 1.07. Lactic acid was elevated at 7.5. Repeat was 2.2. Troponin was 164. EKG showed no acute ST-T changes. BNpep was 548.7 Patient received a dose of Lasix 40 mg IV x1. Shortly after, and found to be tachycardic. He was intubated and put on mechanical ventilator. I was later on called to see patient was hypotensive and in A. fib with RVR. Patient had received amiodarone bolus of 150, and was continued on amiodarone drip. [facility] Medical History Atrial fibrillation Back complaints GERD (gastroesophageal reflux disease) History of gastroesophageal reflux (GERD) Hypertension Rheumatoid arthritis Suspected chronic obstructive pulmonary disease based on initial evaluation Home Medications leflunomide [Arava] 20 mg PO DAILY 11/27/15 [History Last Taken 11/02/17] Jakafi 15 mg PO BID 04/22/17 [History Last Taken 11/14/17] hydrochlorothiazide 25 mg PO DAILY 04/22/17 [History Last Taken 11/02/17] losartan 50 mg PO DAILY 04/22/17 [History Last Taken 11/16/17] metoprolol tartrate 50 mg PO BID 04/22/17 [History Last Taken 11/16/17] calcium carbonate-vitamin D3 [Calcium 500 + D] 1 tab PO DAILY 11/16/17 [History Last Taken 11/02/17] albuterol sulfate 1 - 2 puff INHALATION Q4H PRN PRN #1 inhaler 11/22/17 [Rx Last Taken Unknown] fluticasone propion-salmeterol 1 ea IH BID #1 blst.w.dev 11/22/17 [Rx Last Taken Unknown] apixaban [Eliquis] 5 mg PO BID 11/18/20 [History Last Taken Unknown] pantoprazole 40 mg PO BID 11/18/20 [History Last Taken Unknown] Allergy/AdvReac Type Severity Reaction Status Date / Time doxycycline AdvReac Nausea/Vom/ Verified 11/18/20 08:56 Diarrhea methotrexate AdvReac fills my Verified 11/18/20 08:56 lungs and sinuses with fluid unable to obtain (Patient on Bipap) unable to obtain (Patient on Bipap) Social History (Updated 11/18/20 @ 14:[address] iDck Monsivais MD) current occupational status: retired Smoking Status: Former smoker ROS Review of Systems ROS Unobtainable: other Details: Patient on Bipap and unable to talk audibly Vital Signs Vital Signs Vital Signs: 11/18/20 08:52 11/18/20 08:55 11/18/20 09:03 Temperature 97.9 F 97.9 F Temperature Source Temporal Temporal Pulse Rate 95 95 Respiratory Rate 44 H 40 H Respiratory Effort Short of Breath Labored Accessory Muscle Use Nasal Flaring Blood Pressure 149/92 H 149/92 H Blood Pressure Mean 111 111 Pulse Ox 56 86 Oxygen Delivery Method Room Air Non-Rebreather Non-Rebreather Fraction of Inspired Oxygen (FIO2) 11/18/20 09:07 11/18/20 09:15 11/18/20 09:55 Temperature 97.9 F Temperature Source Temporal Pulse Rate 94 96 99 Respiratory Rate 47 H 34 H 38 H Respiratory Effort Blood Pressure 108/91 H 115/96 H Blood Pressure Mean 96 102 Pulse Ox 92 90 94 Oxygen Delivery Method CPAP Room Air Fraction of Inspired Oxygen (FIO2) 100 Weight Weight: 88.1 kg Body Mass Index (BMI) 28.6 Physical Exam Narrative General: Alert, Oriented x3, Cooperative, in moderate respiratory distress, on BiPAP HEENT: Atraumatic, PERRLA, EOMI, Normocephalic Oral: Moist Mucosa Neck: Supple Lungs: Diminished Cardiovascular: Regular rate, Regular Rhythm, Normal S1, Normal S2, No murmurs Abdomen: Bowel Sounds Present, Soft, Non Tender, Non-Distended, No Hepato-splenomegaly Extremities: No edema Results Lab / Micro Data Result Diagrams: 11/18/20 09:00 11/18/20 09:00 Labs: Laboratory Results - last 24 hr 11/18/20 09:00: WBC 14.7 H, RBC 3.89 L, Hgb 12.0 L, Hct 39.4 L, MCV 101.3 H, MCH 30.8, MCHC 30.5 L, RDW Std Deviation 66.4 H, RDW Coeff of Dagmar 18.0 H, Plt Count 255, MPV 10.7, Immature Gran % (Auto) 1.800 H, Neut % (Auto) 92.2 H, Lymph % (Auto) 2.4 L, [place] % (Auto) 3.3, Eos % (Auto) 0.1, Baso % (Auto) 0.2, Absolute Neuts (auto) 13.6 H, Absolute Lymphs (auto) 0.35 L, Nucleated RBC % 0.3, Differential Comment SCANNED, Platelet Estimate ADEQUATE, Anisocytosis 1+, Macrocytosis RARE 11/18/20 09:00: Sodium 138, Potassium 4.4, Chloride 101, Carbon Dioxide 24.0, Anion Gap 13, BUN 30 H, Creatinine 2.32 H, Estim Creat Clear Calc 27.93, Est GFR (MDRD) Af Amer 36 L, Est GFR (MDRD) Non-Af 29 L, BUN/Creatinine Ratio 12.9, Glucose 186 H, Calcium 8.0 L, Total Bilirubin 0.70, Direct Bilirubin 0.20, AST 95 H, ALT 45, Alkaline Phosphatase 36 L, Troponin I High Sens 164.0 H*, Total Protein 7.1, Albumin 3.5, Globulin 3.6 11/18/20 09:00: Lactic Acid 7.5 H* 11/18/20 09:00: B-Natriuretic Peptide 548.7 H Micro: Microbiology 11/18/20 09:16 Mucosa - Nose SARS-CoV-2 Antigen (Rapid) - Final SARS-CoV-2 (COVID 19) ABG Data ABG results: ABG 11/18/20 09:27 Specimen Type ART Sample Site R Radial pH 7.26 L Bicarbonate Actual 22.1 Total CO2 24 Base Excess -5 L O2 Saturation 94 L O2 % 100 ABG pCO2 48.9 H ABG pO2 80 Wili Test Positive Respiration Rate 12 O2 Delivery Device BiPAP Clinical Comments Bipap 16/10 Radiology Impression Chest X-Ray 11/18/20 09:03 IMPRESSION: Diffuse pulmonary infiltration in the left lung mild infiltrate in the right upper lobe with the right upper lobe volume loss. Electronically Signed: Anil Aguirre MD at 10:10 EDT , Service support , Assessment & Plan Assessment/Plan (1) COVID-19: (2) Pneumonia: QUALIFIERS: Pneumonia type: due to unspecified organism Laterality: unspecified laterality Lung location: unspecified part of lung Qualified Code(s): J18.9 - Pneumonia, unspecified organism (3) Elevated troponin: (4) Acute kidney insufficiency: (5) Acidosis, lactic: (6) Respiratory failure: QUALIFIERS: Chronicity: acute Respiratory failure complication: hypoxia and hypercapnia Qualified Code(s): J96.01 - Acute respiratory failure with hypoxia; J96.02 - Acute respiratory failure with hypercapnia (7) Atrial fibrillation with RVR: PLAN: 1. Acute respiratory failure secondary to COVID-19 pneumonia Status post intubation, continue on mechanical ventilator, admissions consultant following Continue with IV Decadron, breathing treatment 2. MEGAN, unknown previous/recent creatinine Admitted creatinine 2.32, will continue to trend 3. Lactic acidosis secondary to #1, admitted with lactic acid of 7.5, We will continue to trend 4. Elevated troponins, elevated BNP >500 Giving Lasix 40 mg IV x1, held in the light of tachycardia EKG shows A. fib with RVR, no acute ST-T changes We will trend troponins 5. A. fib with RVR, history of paroxysmal atrial fibrillation, BP relatively low Started on Amiodarone bolus and drip, will give another amiodarone 150mg bolus x 1; making a total of 300 mg Dig 0.25mg x1, continue Eliquis 6. Hypotension, likely secondary to dehydration vs propofol side-effect IV fluids bolusx1, will continue to monitor and bolus as needed I discussed and explained in details the various types of CODE STATUS-full code, DNR CCA, DNR CC. Patient chose Full code Time spent discussing CODE STATUS 16 minutes Charges/Coding Visit Charges Inpatient E&M: 89943 Init Hosp L3 Multi Select Codes Hospitalists' Procedures Procedures: 75324 Advncd Care Plan 30 Min
--- NOTE | 2020-11-18 11:08 | NURSING ---
ICU 1
[2020-11-18 11:13] LABS: D-Dimer Quantitative (DVT/PE) 0.51 FEU/ug/m (0.27-0.49)
[2020-11-18 13:06] LABS: Reflex Lactate? Y
[2020-11-18] MEDS: dexAMETHasone 10 MG/ML Vial 6 MG IV (13:54)
[2020-11-18] MEDS: Furosemide 40 MG/4 ML Vial IV (13:54)
[2020-11-18] MEDS: 0.9% Saline Lock 10 ML Syringe IV (13:55)
--- NOTE | 2020-11-18 14:00 | CASEMGMT ---
Dr Monsivais updated this RN CM that [facility] Per notes [facility] has been called and information given to [facility]. CM will follow-up with [facility] for bed availability.
--- NOTE | 2020-11-18 14:07 | EX.PCM.CONCC ---
Assessment & Plan Assessment/Plan (1) COVID-19: (2) Respiratory failure: (3) PAF (paroxysmal atrial fibrillation): (4) Acute kidney injury: PLAN: RECOMMENDATIONS: 1. Give a diuretic challenge 2. Initiate Decadron. Hold on Remdesivir 3. [facility]btain old records [facility] the [facility] 4. Hold immunosuppression 5. Aggressive pulmonary toileting 6. Wean oxygen as tolerated. High possibility of intubation in the next 24 to 48 hours IMPRESSIONS: 1. Acute combined respiratory failure secondary to COVID-19 pneumonia in the setting of possible COPD Patient is a relatively poor historian. Patient is on Advair at baseline and also carries a diagnosis of rheumatoid arthritis on several immunosuppressant drugs. Patient was vaccinated for COVID-19, recent data would suggest that he is at increased risk for the delta variant given his immunosuppression. Patient does have significant renal dysfunction, but it is unclear if this is baseline. Old records have been requested. Given elevated AST and creatinine, would hold off on Remdesivir. Wean oxygen as tolerated, but clinical suspicion is that intubation will be necessary at some point. If patient is not improved by 48 hours, intubation will be suggested. 2. Possible acute versus chronic kidney disease Baseline creatinine is unclear at this time. Patient does report that he has marginal renal function. Recommend holding losartan as this could exacerbate prerenal etiology. No indication for renal replacement therapy and BUN to creatinine ratio suggests intrinsic dysfunction. Would hold on fluid boluses as this will worsen oxygenation status. 3. Paroxysmal A. fib/rheumatoid arthritis/hypertension/GERD Complicates care, management, recovery and prognosis. Would hold immunosuppression during the acute phase of the viral infection. Patient appears to be in sinus rhythm at this time. Continue telemetry. Okay to continue with rate control from my perspective. Okay to continue with baseline PPI therapy. Attempting to [facility] information [facility] the [facility] Addendum 4 PM: At approximately 3 PM, the patient developed A. fib with RVR, verified by EKG. Heart rates were as high as 200. Patient subsequently had increasing tachypnea with decreased mental status. Discussed with the patient and patient was successfully intubated by myself. Grade 1 view. Patient did have coffee ground secretions noted around the airway. A 7.5 endotracheal tube was placed to 25 cm at the teeth. Bilateral breath sounds, positive color change and lack of air in the stomach were all noted. Patient was placed on a PEEP of 12 and 100% FiO2 with saturations around 90%. Patient was given 20 mg of etomidate for the procedure and initiated on propofol and fentanyl per protocol. Patient will be placed on a PPI twice daily given the coffee-ground secretions noted at the airway. TIME: 80 minutes of critical care time spent addressing patient's respiratory failure, kidney disease, paroxysmal A. fib, review of all data and collaboration with care team (1 PM to 2:30 PM, 3 PM to 4 PM) HPI Consult Data Date of Consult: 11/18/20 HPI Narrative HPI Narrative: RAFAEL KAYE is a 75 M, with past medical history listed below, who presents to [facility] on 11/18/2020 secondary to progressive shortness of breath and cough. Patient reported symptoms started approximately 1 week ago with some sore throat and cough. [facility] and noted that the person checking her vital sign suggesting a Covid positive patient. Patient had developed a scratchy throat shortly thereafter and then progressive shortness of breath and cough. Patient states he has had a fever for 1 day and overnight decided to borrow someone's home oxygen secondary to concerns for shortness of breath. On arrival to the ER, patient was noted to be 56% on room air and was emergently placed on BiPAP therapy. Patient reportedly did have the Moderna vaccine in August, but was on immunosuppression at that time. In the ER, patient was afebrile 97.9 ?F, but bradycardic at 44 bpm. Patient was normotensive and required BiPAP to maintain saturations. Patient reportedly had significant improvement in respiratory effort following initiation. Laboratory data showed a leukocytosis of 14.7, anemia of 12 and an elevated creatinine of 2.32. Glucose was elevated at 186 and lactate was elevated at 7.5. Initial troponin was elevated at 164, but LFTs were relatively normal. Patient did have an elevated AST at 95. An ABG showed a combined metabolic and respiratory acidosis with significant AA gradient. Chest x-ray showed diffuse infiltrates bilaterally and an EKG showed sinus rhythm. Patient was given 1 L of IV fluids and Solu-Medrol. [facility], but stated they would likely not have a bed today. Patient has not able to provide much additional information. Patient states he has borderline renal function, but is never been on dialysis. Patient reports a history of smoking, but is unaware of any diagnosis of COPD. Patient does use Advair in the past. Patient is immunosuppressed with etanercept, ruxolitinib and leflunomide. Patient did state he is willing to be intubated if necessary. Patient is a poor historian, but review of systems otherwise negative from a constitutional, HEENT, respiratory, cardiovascular, GI, genitourinary, musculoskeletal, skin, neurologic, psychiatric and hematologic system unless stated above. [facility] Medical History (Updated 11/18/20 @ 10:[address] Tammy Orozco MD) Atrial fibrillation Back complaints GERD (gastroesophageal reflux disease) History of gastroesophageal reflux (GERD) Hypertension Rheumatoid arthritis Suspected chronic obstructive pulmonary disease based on initial evaluation Home Medications leflunomide [Arava] 20 mg PO DAILY 11/27/15 [History Last Taken 11/02/17] Jakafi 15 mg PO BID 04/22/17 [History Last Taken 11/14/17] hydrochlorothiazide 25 mg PO DAILY 04/22/17 [History Last Taken 11/02/17] losartan 50 mg PO DAILY 04/22/17 [History Last Taken 11/16/17] metoprolol tartrate 50 mg PO BID 04/22/17 [History Last Taken 11/16/17] calcium carbonate-vitamin D3 [Calcium 500 + D] 1 tab PO DAILY 11/16/17 [History Last Taken 11/02/17] albuterol sulfate 1 - 2 puff INHALATION Q4H PRN PRN #1 inhaler 11/22/17 [Rx Last Taken Unknown] fluticasone propion-salmeterol 1 ea IH BID #1 blst.w.dev 11/22/17 [Rx Last Taken Unknown] apixaban [Eliquis] 5 mg PO BID 11/18/20 [History Last Taken Unknown] pantoprazole 40 mg PO BID 11/18/20 [History Last Taken Unknown] Allergy/AdvReac Type Severity Reaction Status Date / Time doxycycline AdvReac Nausea/Vom/ Verified 11/18/20 08:56 Diarrhea methotrexate AdvReac fills my Verified 11/18/20 08:56 lungs and sinuses with fluid Social History (Updated 11/18/20 @ 14:[address] Dick Monsivais MD) current occupational status: retired Smoking Status: Former smoker ROS ROS Narrative See HPI Physical Exam Const alert, oriented x3 and average body habitus Constitutional Narrative: Slight conversational dyspnea on BiPAP General Appearance: well developed and on BiPAP HEENT normocephalic, head/scalp atraumatic and moist oral mucous membranes Eyes PERRL and EOMs intact bilaterally Neck full ROM and no lymphadenopathy Chest inspection of chest normal Resp Effort and Inspection: symmetric chest movement Auscultation: wheezes throughout and diminished lung sounds; Negative for rales or rhonchi Percussion: Negative for dullness Cardio regular rate, regular rhythm, S1 normal heart sound, S2 normal heart sound, no murmurs, no rub and no gallops Rate: tachycardic Rhythm: regular rhythm Heart Sounds: S1 normal and S2 normal; Negative for murmur or rub GI normal to inspection, nondistended, normoactive bowel sounds no CVA tenderness Extremity no clubbing, cyanosis or edema Skin no rashes or lesions noted Neuro oriented x3, CN's II-XII intact bilaterally, moves all extremities and no focal motor deficits Psych cooperative and affect normal Lab / Micro Data Result Diagrams: 11/18/20 09:00 11/18/20 09:00 Labs: Laboratory Results - last 24 hr 11/18/20 09:00: WBC 14.7 H, RBC 3.89 L, Hgb 12.0 L, Hct 39.4 L, MCV 101.3 H, MCH 30.8, MCHC 30.5 L, RDW Std Deviation 66.4 H, RDW Coeff of Dagmar 18.0 H, Plt Count 255, MPV 10.7, Immature Gran % (Auto) 1.800 H, Neut % (Auto) 92.2 H, Lymph % (Auto) 2.4 L, Russell % (Auto) 3.3, Eos % (Auto) 0.1, Baso % (Auto) 0.2, Absolute Neuts (auto) 13.6 H, Absolute Lymphs (auto) 0.35 L, Nucleated RBC % 0.3, Differential Comment SCANNED, Platelet Estimate ADEQUATE, Anisocytosis 1+, Macrocytosis RARE 11/18/20 09:00: Sodium 138, Potassium 4.4, Chloride 101, Carbon Dioxide 24.0, Anion Gap 13, BUN 30 H, Creatinine 2.32 H, Estim Creat Clear Calc 27.93, Est GFR (MDRD) Af Amer 36 L, Est GFR (MDRD) Non-Af 29 L, BUN/Creatinine Ratio 12.9, Glucose 186 H, Calcium 8.0 L, Total Bilirubin 0.70, Direct Bilirubin 0.20, AST 95 H, ALT 45, Alkaline Phosphatase 36 L, Troponin I High Sens 164.0 H*, Total Protein 7.1, Albumin 3.5, Globulin 3.6 11/18/20 09:00: Lactic Acid 7.5 H* 11/18/20 09:00: B-Natriuretic Peptide 548.7 H 11/18/20 10:52: D-Dimer Quant (PE/DVT) 0.51 H* Micro: Microbiology 11/18/20 09:16 Mucosa - Nose SARS-CoV-2 Antigen (Rapid) - Final SARS-CoV-2 (COVID 19) ABG Data ABG results: ABG 11/18/20 09:27 Specimen Type ART Sample Site R Radial pH 7.26 L Bicarbonate Actual 22.1 Total CO2 24 Base Excess -5 L O2 Saturation 94 L O2 % 100 ABG pCO2 48.9 H ABG pO2 80 Wili Test Positive Respiration Rate 12 O2 Delivery Device BiPAP Clinical Comments Bipap / Radiology Impression Chest X-Ray 11/18/20 09:03 IMPRESSION: Diffuse pulmonary infiltration in the left lung mild infiltrate in the right upper lobe with the right upper lobe volume loss. Electronically Signed: Anil Aguirre MD at 10:10 EDT , Service support , Charges/Coding Procedures Hospitalists Procedures: 87515 Critial Care 1st Hr Multi Select Codes Hospitalists' Procedures Procedures: 87777 Critial Care Addl 30 Min
[2020-11-18 14:22] LABS: Troponin-I HS 172.5 pg/mL (3.0-78.5)
[2020-11-18 14:23] LABS: Lactic Acid 2.2 mmol/L (0.4-1.9)
--- NOTE | 2020-11-18 15:16 | EKG12_ITS ---
Test Reason : AFIB RVR Blood Pressure : / mmHG Vent. Rate : 076 BPM Atrial Rate : 076 BPM P-R Int : 116 ms QRS Dur : 100 ms QT Int : 388 ms P-R-T Axes : 042 002 -08 degrees QTc Int : 436 ms Normal sinus rhythm Incomplete right bundle branch block Confirmed by EDMUNDO BLAKE, FREDDIE ([id number]), online editor ALY WADE ([id number]) on 11/20/2020 11:00:58 AM Referred By: JONATHAN Confirmed By:FREDDIE WYATT MD
[2020-11-18] MEDS: Etomidate 20 MG/10 ML Vial IV (15:50)
[2020-11-18] MEDS: Propofol 10MG/Ml 1,000 MG/100 ML Bottle 5.3 MG CONT INF ×2 (15:55→23:52)
[2020-11-18] MEDS: Amiodarone 360 MG in Dextrose 5% Viaflo Bag 192.8 ML 33.3 MG CONT INF (15:55)
--- NOTE | 2020-11-18 16:02 | RAD_ITS ---
STUDY: X-RAY CHEST REASON FOR EXAM: Male, 75 years old. Fever, cough, respiratory failure TECHNIQUE: Single AP portable view of the chest. COMPARISON: Earlier today FINDINGS: Since the previous study, the patient has been intubated, tip of the ET tube is 3 cm above the pam, NG tube tip in the distal stomach or proximal duodenum. EKG leads overlie the chest Lung baron show persistent and essentially unchanged interstitial and airspace opacifications worse in the left lung than the right. Normal size heart. Normal mediastinum and karthik. Normal visualized pulmonary arteries. There is atherosclerotic calcification of the aortic arch with tortuosity. Normal visualized thoracic spine. Normal visualized ribs, clavicles, and shoulders. There is no demonstrated abnormality of the visualized soft tissue structures of the upper abdomen. RAD/Chest 1 View (Portable) IMPRESSION: Lung baron show no interval change since the previous study ET tube tip is 3 cm above the pam, NG tube tip either in the gastric antrum or proximal duodenum Electronically Signed: Ezio Garner MD at 16:40 EDT , Service support ,
[2020-11-18 17:34] LABS: CPK Total, Creatine Kinase 1757 U/L (39-308); Triglycerides 104 mg/dL
[2020-11-18 17:36] LABS: Base Excess 0 mmol/L (-2 to +2); Bicarbonate 27.3 mmol/L (22-26); Blood Gas Specimen Type ART; FI02 100; Mode AC; O2 Delivery Device ET Tube; PEEP 12; PO2 75 mmHG (75-100); RR 12; SITE L Brach; SO2 91 % (95-99); Total Carbon Dioxide 29 mmol/L; Vt 450; pCO2 65.3 mmHg (35-45); pH 7.23 (7.35-7.45)
[2020-11-18] MEDS: Digoxin 250 MCG/ML Ampul IV (17:38)
[2020-11-18 20:06] LABS: Troponin-I HS 120.1 pg/mL (3.0-78.5)
[2020-11-18] MEDS: APIXABAN 5 MG TABLET PO (21:20)
[2020-11-18] MEDS: Amiodarone 360 MG in Dextrose 5% Viaflo Bag 192.8 ML 16.7 MG CONT INF (22:17)
[2020-11-18] MEDS: Chlorhexidine 15 ML PO (22:18)
--- NOTE | 2020-11-18 22:30 | EKG12_ITS ---
Test Reason : AFIB RVR Blood Pressure : / mmHG Vent. Rate : 180 BPM Atrial Rate : 267 BPM P-R Int : 000 ms QRS Dur : 090 ms QT Int : 246 ms P-R-T Axes : 000 -04 036 degrees QTc Int : 425 ms Atrial fibrillation Nonspecific ST abnormality Abnormal ECG Confirmed by EDMUNDO BLAKE, FREDDIE ([id number]), publishing editor ALY WADE ([id number]) on 11/20/2020 11:01:40 AM Referred By: JONATHAN Confirmed By:FREDDIE WYATT MD
[2020-11-19] VITALS (42 sets, daily range): BP systolic 82–119; BP diastolic 57–98; PULSE 73–154; RESP 12–93; TEMP 36.3–37.3; O2SAT 23–100
[2020-11-19 05:37] LABS: Absolute Lymphocyte Count 0.27 X10^3/uL (0.83-4.51); Absolute Neutrophil Count 13.5 X10^3/uL (2.0-7.7); Basophil# 0.03 X10^3/uL; Basophil% 0.2 % (0-1); Hematocrit 32.3 % (40-54); Hemoglobin 10.4 g/dL (13.0-16.5); Lymphocyte # 0.27 X10^3/ul (0.83-4.51); Lymphocyte % 1.9 % (19-41); Mean Corp Hgb Conc 32.2 g/dL (32-36); Mean Corpuscular Hgb 30.8 pg (27.0-32.0); Mean Corpuscular Volume 95.6 fL (80-94); Mean Platelet Vol. 11.4 fl (6.2-12.0); Monocyte# 0.31 X10^3/uL; Monocyte% 2.1 % (0-10); NRBC Flagged by Analyzer 0.2 % (0-5); Neutrophil # 13.54 X10^3/uL (2.7-7.7); Neutrophil % 93.6 % (47-70); POSITIVE DIFFERENTIAL YES; Platelet Count 190 K/mm3 (150-450); RBC Distribution Width CV 17.2 % (11.6-14.6); RBC Distribution Width SD 59.8 fl (35.1-43.9); Red Blood Count 3.38 M/mm3 (4.6-6.2); White Blood Count 14.5 K/mm3 (4.4-11.0)
[2020-11-19 05:40] LABS: Differential Indicated SCAN CRITERIA MET
[2020-11-19 05:54] LABS: ALB/GLOB Ratio 0.9 RATIO (0.9-2.4); AST(SGOT) 97 U/L (15-37); Alanine Aminotransfer ALT/SGPT 41 U/L (16-61); Albumin, Serum 2.9 g/dL (3.2-5.0); Alkaline Phosphatase 29 U/L (45-117); Anion Gap 8 (5-15); BUN 49 mg/dL (7-18); BUN/Creat Ratio 19.2 RATIO (10-20); Calcium,Total 7.3 mg/dL (8.5-10.1); Chloride 101 mmol/L (98-107); Creatinine, Serum 2.55 mg/dL (0.70-1.30); EST Glomerular Filtration Rate 26 mL/min (>60); Est Glom Filt Rate - Afr Amer 32 mL/min (>60); Estimated Creatinine Clearance 25.42 ml/min; Globulin 3.3 g/dL (2.2-4.2); Glucose 207 mg/dL (74-106); Phosphorus 2.6 mg/dL (2.5-4.9); Potassium 3.5 mmol/L (3.5-5.1); Protein, Total 6.2 g/dL (6.4-8.2); Sodium Level 136 mmol/L (136-145)
[2020-11-19 06:46] LABS: Differential Comment SCANNED; Ovalocyte RARE
--- NOTE | 2020-11-19 07:14 | PCM.PN.HOSP ---
Subjective Subjective Patient was seen and examined. He converted to normal sinus rhythm overnight. He remains intubated. No other acute events overnight. Blood pressures have improved. Objective Data Objective Data Vital Signs: Vital Signs Temp Pulse Resp BP Pulse Ox 97.9 F 78 22 H 99/64 91 11/19/20 06:00 11/19/20 06:00 11/19/20 06:00 11/19/20 06:00 11/19/20 06:00 Oxygen Delivery Method Mechanical Ventilator Weight: 84.1 kg Body Mass Index (BMI) 28.0 Intake & Output: Intake and Output for Last 24 Hours 11/17/20 11/18/20 11/19/20 23:59 23:59 23:59 Intake Total 2540.35 / 2542.39 92.94 / 92.94 Output Total 825 / 825 125 / 125 Balance 1715.35 / 1717.39 -32.06 / -32.06 Lab / Micro Data Result Diagrams: 11/19/20 05:15 11/19/20 05:15 Labs: Laboratory Results - last 24 hr 11/18/20 09:00: WBC 14.7 H, RBC 3.89 L, Hgb 12.0 L, Hct 39.4 L, MCV 101.3 H, MCH 30.8, MCHC 30.5 L, RDW Std Deviation 66.4 H, RDW Coeff of Dagmar 18.0 H, Plt Count 255, MPV 10.7, Immature Gran % (Auto) 1.800 H, Neut % (Auto) 92.2 H, Lymph % (Auto) 2.4 L, [place] % (Auto) 3.3, Eos % (Auto) 0.1, Baso % (Auto) 0.2, Absolute Neuts (auto) 13.6 H, Absolute Lymphs (auto) 0.35 L, Nucleated RBC % 0.3, Differential Comment SCANNED, Platelet Estimate ADEQUATE, Anisocytosis 1+, Macrocytosis RARE 11/18/20 09:00: Sodium 138, Potassium 4.4, Chloride 101, Carbon Dioxide 24.0, Anion Gap 13, BUN 30 H, Creatinine 2.32 H, Estim Creat Clear Calc 27.93, Est GFR (MDRD) Af Amer 36 L, Est GFR (MDRD) Non-Af 29 L, BUN/Creatinine Ratio 12.9, Glucose 186 H, Calcium 8.0 L, Total Bilirubin 0.70, Direct Bilirubin 0.20, AST 95 H, ALT 45, Alkaline Phosphatase 36 L, Troponin I High Sens 164.0 H*, Total Protein 7.1, Albumin 3.5, Globulin 3.6 11/18/20 09:00: Lactic Acid 7.5 H* 11/18/20 09:00: B-Natriuretic Peptide 548.7 H 11/18/20 10:52: D-Dimer Quant (PE/DVT) 0.51 H* 11/18/20 13:50: Lactic Acid 2.2 H* 11/18/20 13:50: Troponin I High Sens 172.5 H* 11/18/20 13:50: Total Creatine Kinase 1757 H, Triglycerides 104 11/18/20 19:40: Troponin I High Sens 120.1 H* 11/19/20 05:15: WBC 14.5 H, RBC 3.38 L, Hgb 10.4 L, Hct 32.3 L, MCV 95.6 H D, MCH 30.8, MCHC 32.2 D, RDW Std Deviation 59.8 H, RDW Coeff of Dagmar 17.2 H, Plt Count 190, MPV 11.4, Immature Gran % (Auto) 2.200 H, Neut % (Auto) 93.6 H, Lymph % (Auto) 1.9 L, [place] % (Auto) 2.1, Eos % (Auto) 0.0, Baso % (Auto) 0.2, Absolute Neuts (auto) 13.5 H, Absolute Lymphs (auto) 0.27 L, Nucleated RBC % 0.2, Differential Comment SCANNED, Ovalocytes RARE 11/19/20 05:15: Sodium 136, Potassium 3.5, Chloride 101, Carbon Dioxide 27.0, Anion Gap 8, BUN 49 H, Creatinine 2.55 H, Estim Creat Clear Calc 25.42, Est GFR (MDRD) Af Amer 32 L, Est GFR (MDRD) Non-Af 26 L, BUN/Creatinine Ratio 19.2, Glucose 207 H, Calcium 7.3 L, Phosphorus 2.6, Magnesium 2.0, Total Bilirubin 0.50, AST 97 H, ALT 41, Alkaline Phosphatase 29 L, Total Protein 6.2 L, Albumin 2.9 L, Globulin 3.3, Albumin/Globulin Ratio 0.9 Micro: Microbiology 11/18/20 09:16 Mucosa - Nose SARS-CoV-2 Antigen (Rapid) - Final SARS-CoV-2 (COVID 19) ABG Data ABG results: ABG 11/18/20 11/18/20 09:27 17:28 Specimen Type ART ART Sample Site R Radial L Brach pH 7.26 L 7.23 L Bicarbonate Actual 22.1 27.3 H Total CO2 24 29 Base Excess -5 L 0 O2 Saturation 94 L 91 L O2 % 100 100 ABG pCO2 48.9 H 65.3 H ABG pO2 80 75 Wili Test Positive Respiration Rate 12 12 O2 Delivery Device BiPAP ET Tube Vent Mode AC Tidal Volume 450 POC PEEP 12 Clinical Comments Bipap 16/10 Radiography Diagnostic Testing: Radiology Impression Chest X-Ray 11/18/20 09:03 IMPRESSION: Diffuse pulmonary infiltration in the left lung mild infiltrate in the right upper lobe with the right upper lobe volume loss. Electronically Signed: Anil Aguirre MD at 10:10 EDT , Service support , Chest X-Ray 11/18/20 16:02 IMPRESSION: Lung baron show no interval change since the previous study ET tube tip is 3 cm above the pam, NG tube tip either in the gastric antrum or proximal duodenum Electronically Signed: Ezio Garner MD at 16:40 EDT , Service support , Physical Exam Narrative General: Sedated, on mechanical ventilator, comfortable HEENT: Atraumatic, PERRLA, EOMI, Normocephalic Oral: Moist Mucosa Neck: Supple Lungs: Diminished Cardiovascular: Regular rate, Regular Rhythm, Normal S1, Normal S2, No murmurs Abdomen: Bowel Sounds Present, Soft, Non Tender, Non-Distended, No Hepato-splenomegaly Extremities: No edema Assessment & Plan Assessment/Plan (1) COVID-19: (2) Pneumonia: QUALIFIERS: Laterality: unspecified laterality Lung location: unspecified part of lung Pneumonia type: due to unspecified organism Qualified Code(s): J18.9 - Pneumonia, unspecified organism (3) Elevated troponin: (4) Acute kidney insufficiency: (5) Acidosis, lactic: (6) Respiratory failure: QUALIFIERS: Chronicity: acute Respiratory failure complication: hypoxia and hypercapnia Qualified Code(s): J96.01 - Acute respiratory failure with hypoxia; J96.02 - Acute respiratory failure with hypercapnia (7) Atrial fibrillation with RVR: PLAN: 1. 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 MEGAN vs CKD, unknown previous/recent creatinine level Admitted creatinine 2.32, creatinine 2.55, continue to trend 3. Lactic acidosis secondary to #1, admitted with lactic acid of 7.5, improved 4. Elevated troponins, elevated BNP >500, likely secondary to #1 Troponins have plateaued off, EKG showed no acute ST-T changes 5. A. fib with RVR, history of paroxysmal atrial fibrillation, now in normal sinus rhythm We will continue on amiodarone drip and subsequently transition to oral 400 mg p.o. twice daily for 2 weeks and then 100 mg daily 6. Hypotension, likely secondary to dehydration vs propofol side-effect, resolved Charges/Coding Visit Charges Inpatient E&M: 86738 Subs Hosp L3
[2020-11-19] MEDS: Ipratropium/Albuterol Sulfate 3 ML AMPUL.NEB INHALATION ×4 (07:22→19:04)
--- NOTE | 2020-11-19 07:23 | PN.CC_ITS ---
Assessment & Plan Assessment/Plan (1) COVID-19: (2) Respiratory failure: QUALIFIERS: Chronicity: acute Respiratory failure complication: hypoxia and hypercapnia Qualified Code(s): J96.01 - Acute respiratory failure with hypoxia; J96.02 - Acute respiratory failure with hypercapnia (3) PAF (paroxysmal atrial fibrillation): (4) Acute kidney injury: PLAN: RECOMMENDATIONS: 1. Hold on further diuretic challenges 2. Continue Decadron to complete a 10-day course. Hold on Remdesivir 3. [facility] 4. Hold immunosuppression 5. Aggressive pulmonary toileting 6. Wean oxygen as tolerated. Spontaneous breathing and awakening trials per protocol IMPRESSIONS: 1. Acute combined respiratory failure secondary to COVID-19 pneumonia in the setting of possible COPD Patient is a relatively poor historian. Patient is on Advair at baseline and also carries a diagnosis of rheumatoid arthritis on several immunosuppressant drugs. Patient was vaccinated for COVID-19, recent data would suggest that he is at increased risk for the delta variant given his immunosuppression. Patient does have significant renal dysfunction, but it is unclear if this is baseline. Old records have been requested. Given elevated AST and creatinine, would hold off on Remdesivir. Spontaneous breathing and awakening trials per protocol. 2. Possible acute versus chronic kidney disease Baseline creatinine is unclear at this time. Patient does report that he has marginal renal function. Recommend holding losartan as this could exacerbate prerenal etiology. No indication for renal replacement therapy and BUN to creatinine ratio suggests intrinsic dysfunction. Would hold on fluid boluses as this will worsen oxygenation status. 3. Rheumatoid arthritis/hypertension/GERD Complicates care, management, recovery and prognosis. Would hold immunosuppression during the acute phase of the viral infection. Patient appears to be in sinus rhythm at this time. Continue telemetry. Patient on increased PPI at this time secondary to possible coffee-ground secretions noted during intubation. If H&H remains stable, anticipate transitioning to daily d osing in 48 hours. [facility] 4. A. fib with RVR Patient back to normal sinus rhythm at this time. Once drip is completed, likely transition to p.o. amiodarone, in addition to baseline rate control. TIME: 34 minutes of critical care time spent addressing patient's respiratory failure, kidney disease, paroxysmal A. fib, review of all data and collaboration with care team (6 AM to 7 AM) Subjective Subjective Patient with several events yesterday including A. fib with failure. Patient was intubated without difficulty and has been able to be weaned to 60% FiO2 throughout the evening. However, patient had an acute desaturation event associated with turning and is still recovering. Patient is interactive and has no complaints of pain at this time. Objective Data Objective Data Vital Signs: Vital Signs Temp Pulse Resp BP Pulse Ox 36.6 C 83 21 H 101/66 90 11/19/20 06:00 11/19/20 07:16 11/19/20 07:16 11/19/20 07:00 11/19/20 07:16 Oxygen Delivery Method Mechanical Ventilator Weight: 84.1 kg Body Mass Index (BMI) 28.0 Intake & Output: Intake and Output for Last 24 Hours 11/17/20 11/18/20 11/19/20 23:59 23:59 23:59 Intake Total 2540.35 / 2542.39 92.94 / 92.94 Output Total 825 / 825 125 / 125 Balance 1715.35 / 1717.39 -32.06 / -32.06 Lab / Micro Data Result Diagrams: 11/19/20 05:15 11/19/20 05:15 Labs: Laboratory Results - last 24 hr 11/18/20 09:00: WBC 14.7 H, RBC 3.89 L, Hgb 12.0 L, Hct 39.4 L, MCV 101.3 H, MCH 30.8, MCHC 30.5 L, RDW Std Deviation 66.4 H, RDW Coeff of Dagmar 18.0 H, Plt Count 255, MPV 10.7, Immature Gran % (Auto) 1.800 H, Neut % (Auto) 92.2 H, Lymph % (Auto) 2.4 L, [place] % (Auto) 3.3, Eos % (Auto) 0.1, Baso % (Auto) 0.2, Absolute Neuts (auto) 13.6 H, Absolute Lymphs (auto) 0.35 L, Nucleated RBC % 0.3, Differential Comment SCANNED, Platelet Estimate ADEQUATE, Anisocytosis 1+, Macrocytosis RARE 11/18/20 09:00: Sodium 138, Potassium 4.4, Chloride 101, Carbon Dioxide 24.0, Anion Gap 13, BUN 30 H, Creatinine 2.32 H, Estim Creat Clear Calc 27.93, Est GFR (MDRD) Af Amer 36 L, Est GFR (MDRD) Non-Af 29 L, BUN/Creatinine Ratio 12.9, Glucose 186 H, Calcium 8.0 L, Total Bilirubin 0.70, Direct Bilirubin 0.20, AST 95 H, ALT 45, Alkaline Phosphatase 36 L, Troponin I High Sens 164.0 H*, Total Protein 7.1, Albumin 3.5, Globulin 3.6 11/18/20 09:00: Lactic Acid 7.5 H* 11/18/20 09:00: B-Natriuretic Peptide 548.7 H 11/18/20 10:52: D-Dimer Quant (PE/DVT) 0.51 H* 11/18/20 13:50: Lactic Acid 2.2 H* 11/18/20 13:50: Troponin I High Sens 172.5 H* 11/18/20 13:50: Total Creatine Kinase 1757 H, Triglycerides 104 11/18/20 19:40: Troponin I High Sens 120.1 H* 11/19/20 05:15: WBC 14.5 H, RBC 3.38 L, Hgb 10.4 L, Hct 32.3 L, MCV 95.6 H D, MCH 30.8, MCHC 32.2 D, RDW Std Deviation 59.8 H, RDW Coeff of Dagmar 17.2 H, Plt Count 190, MPV 11.4, Immature Gran % (Auto) 2.200 H, Neut % (Auto) 93.6 H, Lymph % (Auto) 1.9 L, [place] % (Auto) 2.1, Eos % (Auto) 0.0, Baso % (Auto) 0.2, Absolute Neuts (auto) 13.5 H, Absolute Lymphs (auto) 0.27 L, Nucleated RBC % 0.2, Differential Comment SCANNED, Ovalocytes RARE 11/19/20 05:15: Sodium 136, Potassium 3.5, Chloride 101, Carbon Dioxide 27.0, Anion Gap 8, BUN 49 H, Creatinine 2.55 H, Estim Creat Clear Calc 25.42, Est GFR (MDRD) Af Amer 32 L, Est GFR (MDRD) Non-Af 26 L, BUN/Creatinine Ratio 19.2, Glucose 207 H, Calcium 7.3 L, Phosphorus 2.6, Magnesium 2.0, Total Bilirubin 0.50, AST 97 H, ALT 41, Alkaline Phosphatase 29 L, Total Protein 6.2 L, Albumin 2.9 L, Globulin 3.3, Albumin/Globulin Ratio 0.9 Micro: Microbiology 11/18/20 09:16 Mucosa - Nose SARS-CoV-2 Antigen (Rapid) - Final SARS-CoV-2 (COVID 19) ABG Data ABG results: ABG 11/18/20 11/18/20 09:27 17:28 Specimen Type ART ART Sample Site R Radial L Brach pH 7.26 L 7.23 L Bicarbonate Actual 22.1 27.3 H Total CO2 24 29 Base Excess -5 L 0 O2 Saturation 94 L 91 L O2 % 100 100 ABG pCO2 48.9 H 65.3 H ABG pO2 80 75 Wili Test Positive Respiration Rate 12 12 O2 Delivery Device BiPAP ET Tube Vent Mode AC Tidal Volume 450 POC PEEP 12 Clinical Comments Bipap 14/ Radiography Diagnostic Testing: Radiology Impression Chest X-Ray 11/18/20 09:03 IMPRESSION: Diffuse pulmonary infiltration in the left lung mild infiltrate in the right upper lobe with the right upper lobe volume loss. Electronically Signed: Anil Aguirre MD at 10:10 EDT , Service support , Chest X-Ray 11/18/20 16:02 IMPRESSION: Lung baron show no interval change since the previous study ET tube tip is 3 cm above the pam, NG tube tip either in the gastric antrum or proximal duodenum Electronically Signed: Ezio Garner MD at 16:40 EDT , Service support , Physical Exam Const average body habitus Constitutional Narrative: RASS -1. Good vent synchrony. General Appearance: well developed, intubated and patient mechanically ventilated HEENT normocephalic, head/scalp atraumatic and moist oral mucous membranes Eyes PERRL and EOMs intact bilaterally Neck full ROM and no lymphadenopathy Chest inspection of chest normal Resp Effort and Inspection: symmetric chest movement Auscultation: diminished lung sounds; Negative for rales, rhonchi or wheezes Percussion: Negative for dullness Cardio regular rate, regular rhythm, S1 normal heart sound, S2 normal heart sound, no murmurs, no rub and no gallops Cardio Narrative: Normal sinus rhythm on telemetry Rate: regular rate Rhythm: regular rhythm Heart Sounds: S1 normal and S2 normal; Negative for murmur or rub Peripheral Pulses: pulses 2+ throughout GI normal to inspection, nondistended, normoactive bowel sounds no CVA tenderness Extremity no clubbing, cyanosis or edema Skin no rashes or lesions noted Neuro oriented x3, CN's II-XII intact bilaterally, moves all extremities and no focal motor deficits Psych cooperative and affect normal Charges/Coding Procedures Hospitalists Procedures: 13226 Critial Care 1st Hr
[2020-11-19] MEDS: Chlorhexidine 15 ML PO ×2 (08:34→20:21)
[2020-11-19] MEDS: APIXABAN 5 MG TABLET PO ×2 (08:38→20:21)
[2020-11-19] MEDS: Metoprolol Tartrate 25 MG Tablet PO (08:39)
[2020-11-19] MEDS: dexAMETHasone 10 MG/ML Vial 6 MG IV (08:39)
[2020-11-19] MEDS: guaiFENesin 10 ML UDC (200MG/10ML) GT ×4 (08:41→23:28)
[2020-11-19] MEDS: Amiodarone 360 MG in Dextrose 5% Viaflo Bag 192.8 ML 16.7 MG CONT INF ×2 (10:49→22:00)
[2020-11-19] MEDS: Vital AF 1.2 Cal Liquid 1,000 ML 15 ML GT (10:53)
[2020-11-19] MEDS: CHLORHEXIDINE GLUC 2% CLOTH 1 EACH TOWELETTE TOPICAL (11:20)
[2020-11-19] MEDS: Propofol 10MG/Ml 1,000 MG/100 ML Bottle 5 MG CONT INF ×2 (11:44→22:00)
--- NOTE | 2020-11-19 14:05 | CASEMGMT ---
RN JANA called for initial transition planning/care coordination assessment as patient is currently on vent. RN JANA introduced self and role at [facility]. Ricarda willing to participate in assessment and is able to answer all questions appropriately. Care providers, pharmacy, and demographics verified. Patient wishes to discharge home, denies need for home health at this time. states she has no further needs or concerns at this time. CM to follow for discharge planning needs that may arise. PCP: Dr. Ragsdale at [facility] Specialists: silver chaser/oncologist and telecommunications cable jointer at [place] [facility] Insurance: [place], [facility] A only Prescription Benefit: [place] Living Will/HPOA: none LNOK: Living Arrangements: Patient lives with in a single story home with 2 steps and railing to enter the home. Patient is normally independent at home. Transportation: self/ DME/HHC: states patient has cane, walker, and cpap at home but does not wear. No previous SNF, has had HHC in past through [place]. Disposition Plan: TBD will monitor course of treatment and progress with therapy. Valerie CASTRO, RN, CM
--- NOTE | 2020-11-19 14:20 | RAD_ITS ---
STUDY: X-RAY CHEST REASON FOR EXAM: Male, 75 years old. Short of breath TECHNIQUE: Single AP portable view of the chest. COMPARISON: Comparison is made with prior study dated 11/18/2020. FINDINGS: An endotracheal tube is seen. The tip is at 2.3 cm proximal to the pam. Nasogastric tube is seen with the tip in the distal portion of the stomach. EKG electrodes are seen. Persistent infiltration in the left hemithorax although there has been a mild degree of improvement. Persistent right lower lobe infiltrate. Blunting of the left costophrenic angle. There is borderline cardiomegaly. Normal mediastinum and karthik. Normal visualized pulmonary arteries. Normal visualized aortic arch and descending thoracic aorta. Normal visualized thoracic spine. Normal visualized ribs, clavicles, and shoulders. There is no demonstrated abnormality of the visualized soft tissue structures of the upper abdomen. RAD/Chest 1 View IMPRESSION: The support tubes are unchanged. Improved aeration of both lungs although persistent infiltrates are seen worse in the left hemithorax. Electronically Signed: Anil Aguirre MD at 14:49 EDT , Service support ,
[2020-11-19] MEDS: Metoprolol Tartrate 5 MG/5 ML Vial 2.5 MG IV (14:30)
[2020-11-19] MEDS: TITRATION PARAMETER CHANGE 1 EACH IV (14:34)
[2020-11-19] MEDS: Metoprolol Tartrate 50 MG Tablet PO (20:24)
[2020-11-19 22:46] LABS: Base Excess -3 mmol/L (-2 to +2); Bicarbonate 23.2 mmol/L (22-26); Blood Gas Specimen Type ART; FI02 100; Mode BiLevel; O2 Delivery Device Adult Vent; PO2 77 mmHG (75-100); SITE L Brach; SO2 94 % (95-99); Total Carbon Dioxide 25 mmol/L; pCO2 43.1 mmHg (35-45); pH 7.34 (7.35-7.45)
--- NOTE | 2020-11-19 23:03 | NURSING ---
Fentanyl titrated with current bag until 2200 when bag and tubing was changed. Verified by Bambi Ervin RN
[2020-11-20] VITALS (39 sets, daily range): BP systolic 82–132; BP diastolic 55–100; PULSE 81–145; RESP 18–42; TEMP 36.9–37.4; O2SAT 87–96
[2020-11-20 03:39] LABS: Absolute Lymphocyte Count 0.21 X10^3/uL (0.83-4.51); Absolute Neutrophil Count 18.3 X10^3/uL (2.0-7.7); Basophil# 0.08 X10^3/uL; Basophil% 0.4 % (0-1); Eosinophil# 0.64 X10^3/uL; Eosinophils% 3.1 % (0-5); Hematocrit 33.3 % (40-54); Hemoglobin 11.1 g/dL (13.0-16.5); Lymphocyte # 0.21 X10^3/ul (0.83-4.51); Mean Corp Hgb Conc 33.3 g/dL (32-36); Mean Platelet Vol. 11.7 fl (6.2-12.0); Monocyte# 0.74 X10^3/uL; Monocyte% 3.6 % (0-10); NRBC Flagged by Analyzer 0.5 % (0-5); Neutrophil # 18.26 X10^3/uL (2.7-7.7); Neutrophil % 88.3 % (47-70); POSITIVE DIFFERENTIAL YES; POSITIVE MORPHOLOGY YES; Platelet Count 223 K/mm3 (150-450); RBC Distribution Width CV 17.3 % (11.6-14.6); RBC Distribution Width SD 58.7 fl (35.1-43.9); Red Blood Count 3.58 M/mm3 (4.6-6.2); White Blood Count 20.7 K/mm3 (4.4-11.0)
[2020-11-20 03:57] LABS: ALB/GLOB Ratio 0.9 RATIO (0.9-2.4); AST(SGOT) 132 U/L (15-37); Alanine Aminotransfer ALT/SGPT 54 U/L (16-61); Albumin, Serum 2.9 g/dL (3.2-5.0); Alkaline Phosphatase 38 U/L (45-117); Anion Gap 11 (5-15); BUN 74 mg/dL (7-18); BUN/Creat Ratio 19.6 RATIO (10-20); Calcium,Total 7.1 mg/dL (8.5-10.1); Chloride 102 mmol/L (98-107); Creatinine, Serum 3.77 mg/dL (0.70-1.30); Differential Indicated SCAN CRITERIA MET; EST Glomerular Filtration Rate 17 mL/min (>60); Est Glom Filt Rate - Afr Amer 20 mL/min (>60); Estimated Creatinine Clearance 17.19 ml/min; Globulin 3.3 g/dL (2.2-4.2); Glucose 156 mg/dL (74-106); Potassium 3.7 mmol/L (3.5-5.1); Protein, Total 6.2 g/dL (6.4-8.2); Sodium Level 137 mmol/L (136-145)
[2020-11-20 03:59] LABS: Differential Comment SCANNED
[2020-11-20] MEDS: TITRATION PARAMETER CHANGE 1 EACH IV (05:06)
[2020-11-20] MEDS: guaiFENesin 10 ML UDC (200MG/10ML) GT ×4 (05:31→21:05)
[2020-11-20] MEDS: Propofol 10MG/Ml 1,000 MG/100 ML Bottle 10.6 MG CONT INF ×3 (05:35→17:06)
[2020-11-20] MEDS: Ipratropium/Albuterol Sulfate 3 ML AMPUL.NEB INHALATION ×2 (06:44→18:42)
[2020-11-20 07:05] LABS: Allen Test Positive; Base Excess -5 mmol/L (-2 to +2); Blood Gas Specimen Type ART; FI02 100; Mode BiLevel; O2 Delivery Device Adult Vent; PO2 80 mmHG (75-100); RR 12; SITE R Radial; SO2 95 % (95-99); Total Carbon Dioxide 22 mmol/L; pCO2 37.6 mmHg (35-45); pH 7.36 (7.35-7.45)
--- NOTE | 2020-11-20 07:25 | PN.CC_ITS ---
Assessment & Plan Assessment/Plan (1) COVID-19: (2) Respiratory failure: QUALIFIERS: Chronicity: acute Respiratory failure complication: hypoxia and hypercapnia Qualified Code(s): J96.01 - Acute respiratory failure with hypoxia; J96.02 - Acute respiratory failure with hypercapnia (3) PAF (paroxysmal atrial fibrillation): (4) Acute kidney injury: PLAN: RECOMMENDATIONS: 1. Possible diuretic challenge. Consult nephrology for recommendations 2. Continue Decadron to complete a 10-day course. Hold on Remdesivir 3. Consult cardiology. Failure to respond to beta-heaven and amiodarone 4. Hold immunosuppression 5. Aggressive pulmonary toileting 6. Wean oxygen as tolerated. Spontaneous breathing and awakening trials per protocol IMPRESSIONS: 1. Acute combined respiratory failure secondary to ARDS secondary to COVID- 19 pneumonia in the setting of possible COPD Patient is a relatively poor historian. Patient is on Advair at baseline and also carries a diagnosis of rheumatoid arthritis on several i mmunosuppressant drugs. Patient was vaccinated for COVID-19, recent data would suggest that he is at increased risk for the delta variant given his immunosuppression. Patient does have significant renal dysfunction, but it is unclear if this is baseline. Old records have been requested. Given elevated AST and creatinine, would hold off on Remdesivir. Spontaneous breathing and awakening trials per protocol. Patient has been transition to APRV. Patient continues to have marginal oxygen status at this time. Very guarded prognosis. 2. Possible acute versus chronic kidney disease Baseline creatinine is unclear at this time. Patient does report that he has marginal renal function. Recommend holding losartan as this could exacerbate prerenal etiology. No indication for renal replacement therapy and BUN to creatinine ratio suggests intrinsic dysfunction. Would hold on fluid boluses as this will worsen oxygenation status. Patient with significant wors ening over the next 24 hours. Will consult nephrology for recommendations. Patient may require diuretic challenge. 3. Rheumatoid arthritis/hypertension/GERD Complicates care, management, recovery and prognosis. Would hold immunosuppression during the acute phase of the viral infection. Patient appears to be in sinus rhythm at this time. Continue telemetry. Patient on increased PPI at this time secondary to possible coffee-ground secretions noted during intubation. Transition to daily dosing of PPI. [facility] 4. A. fib with RVR Patient persistent A. fib with RVR and marginal blood pressures. Did attempt to increase beta-heaven yesterday and patient has been on an amiodarone drip with marginal control. Unclear if cardioversion would be overall successful given patient's history of persistent A. fib. Will consult cardiology for possible recommendations. Addendum 10:11 AM: Call patient's for an update. She was updated on the situation and questions were answered. 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 There is been no discussions of dialysis in the past and she is unclear on what his thoughts would be if this were necessary. Did address CODE STATUS and patient should remain a full code. TIME: 32 minutes of critical care time spent addressing patient's respiratory failure, kidney disease, paroxysmal A. fib, review of all data and collaboration with care team (6:15 AM to 7:15 AM) Subjective Subjective Patient with difficulties overnight. Patient has had marginal blood pressures and persisted in A. fib with RVR. Increase in beta-heaven and continuation of amiodarone have been unsuccessful in controlling heart rate. Patient has had decreased urine output overnight. Objective Data Objective Data Vital Signs: Vital Signs Temp Pulse Resp BP Pulse Ox 36.9 C 120 H 22 H 104/67 87 11/20/20 04:00 11/20/20 07:00 11/20/20 07:00 11/20/20 07:00 11/20/20 07:00 Oxygen Flow Rate (L/min) 18 Oxygen Delivery Method Mechanical Ventilator Weight: 88.7 kg Body Mass Index (BMI) 28.0 Intake & Output: Intake and Output for Last 24 Hours 11/18/20 11/19/20 11/20/20 23:59 23:59 23:59 Intake Total 2540.35 / 2542.39 2033.70 / 2048.70 678.60 / 678.60 Output Total 825 / 825 590 / 590 60 / 60 Balance 1715.35 / 1717.39 1443.70 / 1458.70 618.60 / 618.60 Lab / Micro Data Result Diagrams: 11/20/20 03:30 11/20/20 03:30 Labs: Laboratory Results - last 24 hr 11/20/20 03:30: WBC 20.7 H, RBC 3.58 L, Hgb 11.1 L, Hct 33.3 L, MCV 93.0, MCH 31.0, MCHC 33.3, RDW Std Deviation 58.7 H, RDW Coeff of Dagmar 17.3 H, Plt Count 223, MPV 11.7, Immature Gran % (Auto) 3.600 H, Neut % (Auto) 88.3 H, Lymph % (Auto) 1.0 L, [place] % (Auto) 3.6, Eos % (Auto) 3.1, Baso % (Auto) 0.4, Absolute Neuts (auto) 18.3 H, Absolute Lymphs (auto) 0.21 L, Nucleated RBC % 0.5, Differential Comment SCANNED 11/20/20 03:30: Sodium 137, Potassium 3.7, Chloride 102, Carbon Dioxide 24.0, Anion Gap 11, BUN 74 H, Creatinine 3.77 H, Estim Creat Clear Calc 17.19, Est GFR (MDRD) Af Amer 20 L, Est GFR (MDRD) Non-Af 17 L, BUN/Creatinine Ratio 19.6, Glucose 156 H, Calcium 7.1 L, Total Bilirubin 0.40, AST 132 H, ALT 54, Alkaline Phosphatase 38 L, Total Protein 6.2 L, Albumin 2.9 L, Globulin 3.3, Albumin/Globulin Ratio 0.9 Micro: Microbiology 11/18/20 16:00 Sputum, Induced/Lukens Gram Stain - Final 11/18/20 09:16 Mucosa - Nose SARS-CoV-2 Antigen (Rapid) - Final SARS-CoV-2 (COVID 19) ABG Data ABG results: ABG 11/19/20 11/20/20 22:41 06:58 Specimen Type ART ART Sample Site L Brach R Radial pH 7.34 L 7.36 Bicarbonate Actual 23.2 21.0 L Total CO2 25 22 Base Excess -3 L -5 L O2 Saturation 94 L 95 O2 % 100 100 ABG pCO2 43.1 37.6 ABG pO2 77 80 Wili Test N/A Positive Respiration Rate 12 O2 Delivery Device Adult Vent Adult Vent Vent Mode BiLevel BiLevel Clinical Comments Radiography Diagnostic Testing: Radiology Impression Chest X-Ray 11/19/20 14:20 IMPRESSION: The support tubes are unchanged. Improved aeration of both lungs although persistent infiltrates are seen worse in the left hemithorax. Electronically Signed: Anil Aguirre MD at 14:49 EDT , Service support , Physical Exam Const average body habitus Constitutional Narrative: RASS -1. Good vent synchrony on APRV. General Appearance: well developed, intubated and patient mechanically ventilated HEENT normocephalic, head/scalp atraumatic and moist oral mucous membranes Eyes PERRL and EOMs intact bilaterally Neck full ROM and no lymphadenopathy Chest inspection of chest normal Resp Effort and Inspection: symmetric chest movement Auscultation: diminished lung sounds; Negative for rales, rhonchi or wheezes Percussion: Negative for dullness Cardio regular rate, regular rhythm, S1 normal heart sound, S2 normal heart sound, no murmurs, no rub and no gallops Cardio Narrative: Normal sinus rhythm on telemetry Rate: regular rate Rhythm: regular rhythm Heart Sounds: S1 normal and S2 normal; Negative for murmur or rub Peripheral Pulses: pulses 2+ throughout GI normal to inspection, nondistended, normoactive bowel sounds no CVA tenderness Extremity no clubbing, cyanosis or edema Skin no rashes or lesions noted Neuro oriented x3, CN's II-XII intact bilaterally, moves all extremities and no focal motor deficits Psych cooperative and affect normal Charges/Coding Procedures Hospitalists Procedures: 48504 Critial Care 1st Hr
[2020-11-20] MEDS: Amiodarone 360 MG in Dextrose 5% Viaflo Bag 192.8 ML 33.3 MG CONT INF (08:00)
[2020-11-20] MEDS: Chlorhexidine 15 ML PO ×2 (08:44→21:06)
[2020-11-20] MEDS: APIXABAN 2.5 MG TABLET PO ×2 (08:55→21:06)
[2020-11-20] MEDS: Metoprolol Tartrate 50 MG Tablet PO ×2 (08:55→21:06)
[2020-11-20] MEDS: CHLORHEXIDINE GLUC 2% CLOTH 1 EACH TOWELETTE TOPICAL (08:56)
--- NOTE | 2020-11-20 09:04 | CON.PCM.CA_ITS ---
Assessment & Plan Assessment/Plan (1) PAF (paroxysmal atrial fibrillation): PLAN: Patient appears to have paroxysmal atrial fibrillation. This has been known from his prior history. Certainly due to his underlying condition with the COVID-19 it has worsened this. I would recommend that we continue him on the IV amiodarone and the beta-heaven as tolerated. He would also continue with his Eliquis. Due to his renal dysfunction I would give him a dose only of intravenous digoxin. We will continue with supportive management. At this time I do not think that there is indication for DC cardioversion as I think the success will be short-lived. -We will hold off on echocardiogram at this time as clinically I do not think that it would make a major difference in terms of therapy. This will be reevaluated later. (2) HTN (hypertension): PLAN: His blood pressure appears to be under fair control. I would not recommend we make any changes. He will continue on the same medications. (3) Elevated troponin: PLAN: He does have mild to moderate troponin elevation. I would recommend that we continue to follow this. I suspect this is due to his underlying COVID- 19 infection. Thank you for allowing me to participate in the care of your patient. Please don't hesitate to call if any issues arise. HPI Consult Data Date of Consult: 11/20/20 HPI Narrative HPI Narrative: RAFAEL KAYE, is a 75 M who presents to [facility] on 11/18/2020 secondary to progressive shortness of breath and cough. Patient reported symptoms started approximately 1 week ago with some sore throat and cough. He had also had a fever patient [facility] He had been noted to be short of breath and developed a scratchy throat and then subsequently fever. He also subsequently developed a cough. He had received emergent a vaccine in August but he was on immunosuppressive agents at that time. He presented to the emergency room and was noted to be afebrile and bradycardic and mildly anemic with an elevated creatinine. His troponins were also mildly elevated. He was noted to have a combined metabolic and respiratory acidosis and chest x-ray demonstrated diffuse infiltrates bilaterally. His EKG demonstrated normal sinus rhythm. He had to continue being on oxygen. He was admitted to the intensive care unit with a diagnosis of COVID-19 and jennings bsequently developed atrial fibrillation with a rapid ventricular response rate. I was called for an opinion and we decided to start him on IV amiodarone, Eliquis was continued and digoxin was added. He subsequently converted to sinus rhythm the next day. Today he went back into atrial fibrillation and I was called to reevaluate him. He is currently intubated and on intravenous amiodarone. [facility] Medical History Atrial fibrillation Back complaints GERD (gastroesophageal reflux disease) History of gastroesophageal reflux (GERD) Hypertension Rheumatoid arthritis Suspected chronic obstructive pulmonary disease based on initial evaluation Home Medications leflunomide [Arava] 20 mg PO DAILY 11/27/15 [History Last Taken 11/02/17] Jakafi 15 mg PO BID 04/22/17 [History Last Taken 11/14/17] hydrochlorothiazide 25 mg PO DAILY 04/22/17 [History Last Taken 11/02/17] losartan 50 mg PO DAILY 04/22/17 [History Last Taken 11/16/17] metoprolol tartrate 50 mg PO BID 04/22/17 [History Last Taken 11/16/17] calcium carbonate-vitamin D3 [Calcium 500 + D] 1 tab PO DAILY 11/16/17 [History Last Taken 11/02/17] albuterol sulfate 1 - 2 puff INHALATION Q4H PRN PRN #1 inhaler 11/22/17 [Rx Last Taken Unknown] fluticasone propion-salmeterol 1 ea IH BID #1 blst.w.dev 11/22/17 [Rx Last Taken Unknown] apixaban [Eliquis] 5 mg PO BID 11/18/20 [History Last Taken Unknown] pantoprazole 40 mg PO BID 11/18/20 [History Last Taken Unknown] Allergy/AdvReac Type Severity Reaction Status Date / Time doxycycline AdvReac Nausea/Vom/ Verified 11/18/20 08:56 Diarrhea methotrexate AdvReac fills my Verified 11/18/20 08:56 lungs and sinuses with fluid Social History current occupational status: retired Smoking Status: Former smoker ROS Constitutional Constitutional: Denies fever(s) or weight loss Eyes Eyes: Reports systems reviewed and no addt'l complaints, except as documented ENT HEENT: Reports systems reviewed and no addt'l complaints, except as documented Cardiovascular Cardiovascular: Denies chest pain at rest, chest pain with activity, dyspnea at rest, dyspnea on exertion, edema, palpitations or paroxysmal nocturnal dyspnea Respiratory/Chest Respiratory/Chest: Reports dyspnea on exertion, productive cough, shortness of breath at rest and shortness of breath with exertion Gastrointestinal Gastrointestinal: Denies change in bowel habits, nausea, vomiting or weight changes Genitourinary Genitourinary: Denies difficulty urinating Musculoskeletal Musculoskeletal: Denies joint stiffness or muscle weakness Integumentary Integumentary: Denies lesions Neurologic Neurologic: Denies dizziness or syncope Psychiatric Psychiatric: Denies anxiety Endocrine Endocrinology: Denies excessive sweating or fatigue Hematologic/Lymphatic Hematologic/Lymphatic: Denies anemia Allergic/Immunologic Allergic/Immunologic: Denies seasonal rhinorrhea Objective Data Vital Signs: Vital Signs Temp Pulse Resp BP Pulse Ox 99 F 124 H 18 91/64 92 11/20/20 08:00 11/20/20 08:55 11/20/20 08:00 11/20/20 08:55 11/20/20 08:00 Oxygen Flow Rate (L/min) 18 Oxygen Delivery Method Mechanical Ventilator Weight: 195 lb 8.8 oz Body Mass Index (BMI) 28.0 Intake & Output: Intake and Output for Last 24 Hours 11/18/20 11/19/20 11/20/20 23:59 23:59 23:59 Intake Total 2540.35 / 2542.39 2033.70 / 2048.70 678.60 / 678.60 Output Total 825 / 825 590 / 590 60 / 60 Balance 1715.35 / 1717.39 1443.70 / 1458.70 618.60 / 618.60 Lab / Micro Data Result Diagrams: 11/20/20 03:30 11/20/20 03:30 Labs: Laboratory Results - last 24 hr 11/20/20 03:30: WBC 20.7 H, RBC 3.58 L, Hgb 11.1 L, Hct 33.3 L, MCV 93.0, MCH 31.0, MCHC 33.3, RDW Std Deviation 58.7 H, RDW Coeff of Dagmar 17.3 H, Plt Count 223, MPV 11.7, Immature Gran % (Auto) 3.600 H, Neut % (Auto) 88.3 H, Lymph % (Auto) 1.0 L, [place] % (Auto) 3.6, Eos % (Auto) 3.1, Baso % (Auto) 0.4, Absolute Neuts (auto) 18.3 H, Absolute Lymphs (auto) 0.21 L, Nucleated RBC % 0.5, Differential Comment SCANNED 11/20/20 03:30: Sodium 137, Potassium 3.7, Chloride 102, Carbon Dioxide 24.0, Anion Gap 11, BUN 74 H, Creatinine 3.77 H, Estim Creat Clear Calc 17.19, Est GFR (MDRD) Af Amer 20 L, Est GFR (MDRD) Non-Af 17 L, BUN/Creatinine Ratio 19.6, Glucose 156 H, Calcium 7.1 L, Total Bilirubin 0.40, AST 132 H, ALT 54, Alkaline Phosphatase 38 L, Total Protein 6.2 L, Albumin 2.9 L, Globulin 3.3, Albumin/G lobulin Ratio 0.9 Micro: Microbiology 11/18/20 09:10 Blood Culture (Wb) - Left Wrist Blood Culture - Preliminary No growth in 48 hours. 11/18/20 09:00 Blood Culture (Wb) - Anticubital Right Blood Culture - Preliminary No growth in 48 hours. 11/18/20 16:00 Sputum, Induced/Lukens Gram Stain - Final ABG Data ABG results: ABG 11/19/20 11/20/20 22:41 06:58 Specimen Type ART ART Sample Site L Brach R Radial pH 7.34 L 7.36 Bicarbonate Actual 23.2 21.0 L Total CO2 25 22 Base Excess -3 L -5 L O2 Saturation 94 L 95 O2 % 100 100 ABG pCO2 43.1 37.6 ABG pO2 77 80 Wili Test N/A Positive Respiration Rate 12 O2 Delivery Device Adult Vent Adult Vent Vent Mode BiLevel BiLevel Clinical Comments Cardiology Labs/Tests 11/19/20 22:41: pH 7.34 L, Bicarbonate Actual 23.2, Base Excess -3 L, O2 Saturation 94 L, ABG pCO2 43.1, ABG pO2 77, Wili Test N/A 11/20/20 03:30: WBC 20.7 H, RBC 3.58 L, Hgb 11.1 L, Hct 33.3 L, MCV 93.0, MCH 31.0, MCHC 33.3, Plt Count 223, MPV 11.7, Immature Gran % (Auto) 3.600 H, Neut % (Auto) 88.3 H, Lymph % (Auto) 1.0 L, [place] % (Auto) 3.6, Eos % (Auto) 3.1, Baso % (Auto) 0.4, Absolute Neuts (auto) 18.3 H, Nucleated RBC % 0.5 11/20/20 03:30: Sodium 137, Potassium 3.7, Chloride 102, Carbon Dioxide 24.0, Anion Gap 11, BUN 74 H, Creatinine 3.77 H, Est GFR (MDRD) Af Amer 20 L, Est GFR (MDRD) Non-Af 17 L, BUN/Creatinine Ratio 19.6, Glucose 156 H, Calcium 7.1 L, Total Bilirubin 0.40 11/20/20 06:58: pH 7.36, Bicarbonate Actual 21.0 L, Base Excess -5 L, O2 Saturation 95, ABG pCO2 37.6, ABG pO2 80, Wili Test Positive Rhythm: Atrial fibrillation with rapid ventricular response rate EKG: Normal sinus rhythm followed by atrial fibrillation ECHO: Stress Test: Cardiac Cath: PCI: CT Surgery: Holter monitor: EPS: PPM: CXR: Chest CT Scan: Radiography Diagnostic Testing: Radiology Impression Chest X-Ray 11/19/20 14:20 IMPRESSION: The support tubes are unchanged. Improved aeration of both lungs although persistent infiltrates are seen worse in the left hemithorax. Electronically Signed: Anil Aguirre MD at 14:49 EDT , Service support ,
--- NOTE | 2020-11-20 09:21 | CON.PCM.RE_ITS ---
Assessment & Plan Assessment/Plan (1) Acute kidney injury: (2) COVID-19: (3) Respiratory failure: QUALIFIERS: Chronicity: acute Respiratory failure complication: hypoxia and hypercapnia Qualified Code(s): J96.01 - Acute respiratory failure with hypoxia; J96.02 - Acute respiratory failure with hypercapnia (4) PAF (paroxysmal atrial fibrillation): (5) Hypoxia: PLAN: Unknown recent baseline creatinine. 3 years ago creatinine was around 1.2 mg deciliter Acute kidney injury is likely either from prerenal related to hemodynamic instability along with diuresis. MEGAN also could have progressed to acute tubular necrosis. We will order urine sodium and urine creatinine to calculate fractional excretio n of sodium, If if sodium fraction excretion below 1% then I will give IV fluid bolus. If more than 1% and on hold on IV fluid. Avoid diuresis for now. Keep mean arterial pressure more than 65. There is no need for renal placement therapy. Please adjust medications for current creatinine clearance. Patient on Decadron. Not on remdesivir due to MEGAN. ID is following Ventilator support, hemodynamic stability and rest of care as per ICU team. Discussed with Dr. Dick Monsivais. Thank you for the consult. Renal team will continue to follow. Call if any questions [phone] Bonny Morgan MD HPI Consult Data Date of Consult: 11/20/20 HPI Narrative HPI Narrative: RAFAEL KAYE, is a 75 M past medical history of A. fib, hypertension, rheumatoid arthritis and immunosuppressive medication, and suspected COPD. Patient was vaccinated against COVID-19 pneumonia 3 months ago. Patient presented with worsening shortness of breath cough and fever for a week. Patient was found to have Covid 19 pneumonia. Patient initially needed BiPAP and was intubated for worsening respiratory status. Patient also has been having A. fib with RVR and amiodarone drip. Patient received Lasix at admission. Patient is currently sedated with fentanyl and propofol. Renal team was consulted for acute kidney injury. No recent baseline creatinine patient presented with a creatinine 2.3 and increased to 3.7 today. Patient had 450 cc urine output the last 24-hour. Patient not on any pressor. Review of system: Unobtainable due to patient condition [facility] Medical History Atrial fibrillation Back complaints GERD (gastroesophageal reflux disease) History of gastroesophageal reflux (GERD) Hypertension Rheumatoid arthritis Suspected chronic obstructive pulmonary disease based on initial evaluation Home Medications leflunomide [Arava] 20 mg PO DAILY 11/27/15 [History Last Taken 11/02/17] Jakafi 15 mg PO BID 04/22/17 [History Last Taken 11/14/17] hydrochlorothiazide 25 mg PO DAILY 04/22/17 [History Last Taken 11/02/17] losartan 50 mg PO DAILY 04/22/17 [History Last Taken 11/16/17] metoprolol tartrate 50 mg PO BID 04/22/17 [History Last Taken 11/16/17] calcium carbonate-vitamin D3 [Calcium 500 + D] 1 tab PO DAILY 11/16/17 [History Last Taken 11/02/17] albuterol sulfate 1 - 2 puff INHALATION Q4H PRN PRN #1 inhaler 11/22/17 [Rx Last Taken Unknown] fluticasone propion-salmeterol 1 ea IH BID #1 blst.w.dev 11/22/17 [Rx Last Taken Unknown] apixaban [Eliquis] 5 mg PO BID 11/18/20 [History Last Taken Unknown] pantoprazole 40 mg PO BID 11/18/20 [History Last Taken Unknown] Allergy/AdvReac Type Severity Reaction Status Date / Time doxycycline AdvReac Nausea/Vom/ Verified 11/18/20 08:56 Diarrhea methotrexate AdvReac fills my Verified 11/18/20 08:56 lungs and sinuses with fluid Social History current occupational status: retired Smoking Status: Former smoker Physical Exam Narrative Patient was not directly examined due to Covid 19 active infection. Patient was seen from outside of the ICU room. Patient is intubated. Calm. FiO2 100%. Rhythm regular and sinus. Has a Gifford catheter. Making some urine Lab / Micro Data Result Diagrams: 11/20/20 03:30 11/20/20 03:30 Labs: Laboratory Results - last 24 hr 11/20/20 03:30: WBC 20.7 H, RBC 3.58 L, Hgb 11.1 L, Hct 33.3 L, MCV 93.0, MCH 31.0, MCHC 33.3, RDW Std Deviation 58.7 H, RDW Coeff of Dagmar 17.3 H, Plt Count 223, MPV 11.7, Immature Gran % (Auto) 3.600 H, Neut % (Auto) 88.3 H, Lymph % (Au to) 1.0 L, [place] % (Auto) 3.6, Eos % (Auto) 3.1, Baso % (Auto) 0.4, Absolute N euts (auto) 18.3 H, Absolute Lymphs (auto) 0.21 L, Nucleated RBC % 0.5, Differential Comment SCANNED 11/20/20 03:30: Sodium 137, Potassium 3.7, Chloride 102, Carbon Dioxide 24.0, Anion Gap 11, BUN 74 H, Creatinine 3.77 H, Estim Creat Clear Calc 17.19, Est GFR (MDRD) Af Amer 20 L, Est GFR (MDRD) Non-Af 17 L, BUN/Creatinine Ratio 19.6, Glu cose 156 H, Calcium 7.1 L, Total Bilirubin 0.40, AST 132 H, ALT 54, Alkaline Phosphatase 38 L, Total Protein 6.2 L, Albumin 2.9 L, Globulin 3.3, Albumin/Globulin Ratio 0.9 Micro: Microbiology 11/18/20 16:00 Sputum, Induced/Lukens Gram Stain - Final 11/18/20 16:00 Sputum, Induced/Lukens Respiratory Culture - Preliminary Appears to be normal respiratory tracy. Further studies to follow. 11/18/20 09:10 Blood Culture (Wb) - Left Wrist Blood Culture - Preliminary No growth in 48 hours. 11/18/20 09:00 Blood Culture (Wb) - Anticubital Right Blood Culture - Preliminary No growth in 48 hours. ABG Data ABG results: ABG 11/19/20 11/20/20 22:41 06:58 Specimen Type ART ART Sample Site L Brach R Radial pH 7.34 L 7.36 Bicarbonate Actual 23.2 21.0 L Total CO2 25 22 Base Excess -3 L -5 L O2 Saturation 94 L 95 O2 % 100 100 ABG pCO2 43.1 37.6 ABG pO2 77 80 Wili Test N/A Positive Respiration Rate 12 O2 Delivery Device Adult Vent Adult Vent Vent Mode BiLevel BiLevel Clinical Comments Radiology Impression Chest X-Ray 11/19/20 14:20 IMPRESSION: The support tubes are unchanged. Improved aeration of both lungs although persistent infiltrates are seen worse in the left hemithorax. Electronically Signed: Anil Aguirre MD at 14:49 EDT , Service support ,
--- NOTE | 2020-11-20 09:57 | PCM.PN.HOSP ---
Subjective Subjective Patient was seen and examined. Overnight, patient went into A. fib with RVR. His urine output is about 50 mls. His creatinine has gone up. His oxygen requirements have also gone up. Objective Data Objective Data Vital Signs: Vital Signs Temp Pulse Resp BP Pulse Ox 99 F 124 H 18 91/64 92 11/20/20 08:00 11/20/20 08:55 11/20/20 08:00 11/20/20 08:55 11/20/20 08:00 Oxygen Flow Rate (L/min) 18 Oxygen Delivery Method Mechanical Ventilator Weight: 88.7 kg Body Mass Index (BMI) 28.0 Intake & Output: Intake and Output for Last 24 Hours 11/18/20 11/19/20 11/20/20 23:59 23:59 23:59 Intake Total 2540.35 / 2542.39 2033.70 / 2048.70 788.60 / 788.60 Output Total 825 / 825 590 / 590 60 / 60 Balance 1715.35 / 1717.39 1443.70 / 1458.70 728.60 / 728.60 Lab / Micro Data Result Diagrams: 11/20/20 03:30 11/20/20 11:30 Labs: Laboratory Results - last 24 hr 11/20/20 03:30: WBC 20.7 H, RBC 3.58 L, Hgb 11.1 L, Hct 33.3 L, MCV 93.0, MCH 31.0, MCHC 33.3, RDW Std Deviation 58.7 H, RDW Coeff of Dagmar 17.3 H, Plt Count 223, MPV 11.7, Immature Gran % (Auto) 3.600 H, Neut % (Auto) 88.3 H, Lymph % (Auto) 1.0 L, [place] % (Auto) 3.6, Eos % (Auto) 3.1, Baso % (Auto) 0.4, Absolute Neuts (auto) 18.3 H, Absolute Lymphs (auto) 0.21 L, Nucleated RBC % 0.5, Differential Comment SCANNED 11/20/20 03:30: Sodium 137, Potassium 3.7, Chloride 102, Carbon Dioxide 24.0, Anion Gap 11, BUN 74 H, Creatinine 3.77 H, Estim Creat Clear Calc 17.19, Est GFR (MDRD) Af Amer 20 L, Est GFR (MDRD) Non-Af 17 L, BUN/Creatinine Ratio 19.6, Glucose 156 H, Calcium 7.1 L, Total Bilirubin 0.40, AST 132 H, ALT 54, Alkaline Phosphatase 38 L, Total Protein 6.2 L, Albumin 2.9 L, Globulin 3.3, Albumin/Globulin Ratio 0.9 Micro: Microbiology 11/18/20 16:00 Sputum, Induced/Lukens Gram Stain - Final 11/18/20 16:00 Sputum, Induced/Lukens Respiratory Culture - Preliminary Appears to be normal respiratory tracy. Further studies to follow. 11/18/20 09:10 Blood Culture (Wb) - Left Wrist Blood Culture - Preliminary No growth in 48 hours. 11/18/20 09:00 Blood Culture (Wb) - Anticubital Right Blood Culture - Preliminary No growth in 48 hours. 11/18/20 09:16 Mucosa - Nose SARS-CoV-2 Antigen (Rapid) - Final SARS-CoV-2 (COVID 19) ABG Data ABG results: ABG 11/19/20 11/20/20 22:41 06:58 Specimen Type ART ART Sample Site L Brach R Radial pH 7.34 L 7.36 Bicarbonate Actual 23.2 21.0 L Total CO2 25 22 Base Excess -3 L -5 L O2 Saturation 94 L 95 O2 % 100 100 ABG pCO2 43.1 37.6 ABG pO2 77 80 Wili Test N/A Positive Respiration Rate 12 O2 Delivery Device Adult Vent Adult Vent Vent Mode BiLevel BiLevel Clinical Comments Radiography Diagnostic Testing: Radiology Impression Chest X-Ray 11/19/20 14:20 IMPRESSION: The support tubes are unchanged. Improved aeration of both lungs although persistent infiltrates are seen worse in the left hemithorax. Electronically Signed: Anil Aguirre MD at 14:49 EDT , Service support , Physical Exam Narrative General: Sedated, on mechanical ventilator HEENT: Atraumatic, PERRLA, EOMI, Normocephalic Oral: Moist Mucosa Neck: Supple Lungs: Diminished Cardiovascular: Regular rate, Regular Rhythm, Normal S1, Normal S2, No murmurs Abdomen: Bowel Sounds Present, Soft, Non Tender, Non-Distended, No Hepato-splenomegaly Extremities: No edema Assessment & Plan Assessment/Plan (1) COVID-19: (2) Pneumonia: QUALIFIERS: Laterality: unspecified laterality Lung location: unspecified part of lung Pneumonia type: due to unspecified organism Qualified Code(s): J18.9 - Pneumonia, unspecified organism (3) Elevated troponin: (4) Acute kidney insufficiency: (5) Acidosis, lactic: (6) Respiratory failure: QUALIFIERS: Chronicity: acute Respiratory failure complication: hypoxia and hypercapnia Qualified Code(s): J96.01 - Acute respiratory failure with hypoxia; J96.02 - Acute respiratory failure with hypercapnia (7) Atrial fibrillation with RVR: PLAN: 1. A. fib with RVR, patient with history of paroxysmal atrial fibrillation, On metoprolol and amiodarone drip as well as Eliquis Cardiology consulted 2. Acute respiratory failure secondary to COVID-19 pneumonia, slightly worsening Status post intubation, continue on mechanical ventilator, life sciences manager following Continue with IV Decadron, breathing treatments 3. MEGAN vs CKD, unknown previous/recent creatinine level, worsening Admitted creatinine 2.32, creatinine today is 4.32 Urine output is oliguric, nephrology consulted, will follow up on recommendations 3. Lactic acidosis secondary to #1, admitted with lactic acid of 7.5, improved 4. Elevated troponins, elevated BNP >500, likely secondary to #1 Troponins have plateaued off, EKG showed no acute ST-T changes We will hold off on Lasix for now pending nephrology recommendations 6. Hypotension, likely secondary to dehydration vs propofol side-effect, relatively improved Continue to monitor Charges/Coding Visit Charges Inpatient E&M: 19520 Subs Hosp L2
--- NOTE | 2020-11-20 11:02 | PCS.PANDOC ---
PANDEMIC DOCUMENTATION INITIATED: Date: 11/18/2020 Time: 190
[2020-11-20] MEDS: Digoxin 250 MCG/ML Ampul IV (11:40)
[2020-11-20] MEDS: dexAMETHasone 10 MG/ML Vial 6 MG IV (11:42)
[2020-11-20 12:04] LABS: Anion Gap 12 (5-15); BUN 86 mg/dL (7-18); BUN/Creat Ratio 19.9 RATIO (10-20); Calcium,Total 7.2 mg/dL (8.5-10.1); Chloride 102 mmol/L (98-107); Creatinine, Serum 4.32 mg/dL (0.70-1.30); EST Glomerular Filtration Rate 14 mL/min (>60); Est Glom Filt Rate - Afr Amer 17 mL/min (>60); Glucose 168 mg/dL (74-106); Sodium Level 138 mmol/L (136-145)
--- NOTE | 2020-11-20 12:31 | CASEMGMT ---
Palliative screening tool completed per [facility] policy d/t Strata 3. Patient currently does not meet criteria at this time. Georgi Henley RNCM
[2020-11-20] MEDS: Vital AF 1.2 Cal Liquid 1,000 ML 45 ML GT (13:03)
[2020-11-20] MEDS: Amiodarone 360 MG in Dextrose 5% Viaflo Bag 192.8 ML 16.7 MG CONT INF (14:21)
[2020-11-20 17:48] LABS: Urine Sodium 16 mmol/L (Not Establ.)
[2020-11-21] VITALS (38 sets, daily range): BP systolic 93–137; BP diastolic 56–81; PULSE 78–117; RESP 19–45; TEMP 37.2–37.3; O2SAT 90–95
[2020-11-21] MEDS: Propofol 10MG/Ml 1,000 MG/100 ML Bottle 10.6 MG CONT INF ×4 (00:15→22:43)
[2020-11-21 03:36] LABS: Hematocrit 33.3 % (40-54); Hemoglobin 11.2 g/dL (13.0-16.5); Mean Corp Hgb Conc 33.6 g/dL (32-36); Mean Corpuscular Hgb 31.3 pg (27.0-32.0); Mean Platelet Vol. 11.3 fl (6.2-12.0); POSITIVE COUNT YES; POSITIVE DIFFERENTIAL YES; POSITIVE MORPHOLOGY YES; Platelet Count 244 K/mm3 (150-450); RBC Distribution Width CV 17.3 % (11.6-14.6); Red Blood Count 3.58 M/mm3 (4.6-6.2); White Blood Count 24.2 K/mm3 (4.4-11.0)
[2020-11-21 03:37] LABS: Differential Indicated MANUAL DIFF
[2020-11-21 04:03] LABS: Total Cells Counted 100 (MANUAL DIFF)
[2020-11-21 04:05] LABS: ALB/GLOB Ratio 0.7 RATIO (0.9-2.4); AST(SGOT) 123 U/L (15-37); Alanine Aminotransfer ALT/SGPT 59 U/L (16-61); Albumin, Serum 2.5 g/dL (3.2-5.0); Alkaline Phosphatase 49 U/L (45-117); Anion Gap 12 (5-15); BUN 103 mg/dL (7-18); BUN/Creat Ratio 22.2 RATIO (10-20); Calcium,Total 6.8 mg/dL (8.5-10.1); Chloride 102 mmol/L (98-107); Creatinine, Serum 4.64 mg/dL (0.70-1.30); EST Glomerular Filtration Rate 13 mL/min (>60); Est Glom Filt Rate - Afr Amer 16 mL/min (>60); Estimated Creatinine Clearance 13.97 ml/min; Globulin 3.5 g/dL (2.2-4.2); Glucose 194 mg/dL (74-106); Lymphocyte 0 % (19-41); Monocyte 2 % (0-10); Myelocyte 1 % (0-0); Neutrophil-Band 6 % (0-5); Neutrophil-Segmented 90 % (47-70); Nucleated Red Bld Cells,Manual 2 % (0-5); Potassium 3.9 mmol/L (3.5-5.1); Promyelocyte 1 % (0-0); Sodium Level 136 mmol/L (136-145)
[2020-11-21 04:06] LABS: Ovalocyte RARE; Platelet Estimate ADEQUATE (ADEQ)
[2020-11-21 04:07] LABS: Absolute Neutrophil Count 23.2 X10^3/uL (2.0-7.7); Neutrophil # 23.22 X10^3/uL (2.7-7.7); Tear Drop Cell RARE
[2020-11-21] MEDS: Amiodarone 360 MG in Dextrose 5% Viaflo Bag 192.8 ML 16.7 MG CONT INF ×2 (04:08→16:15)
[2020-11-21 05:31] LABS: Allen Test Positive; Base Excess -5 mmol/L (-2 to +2); Bicarbonate 21.1 mmol/L (22-26); Blood Gas Specimen Type ART; FI02 100; Mode BiLevel; O2 Delivery Device Adult Vent; PO2 83 mmHG (75-100); RR 12; SITE L Radial; SO2 95 % (95-99); Total Carbon Dioxide 22 mmol/L; pCO2 40.1 mmHg (35-45); pH 7.33 (7.35-7.45)
[2020-11-21] MEDS: guaiFENesin 10 ML UDC (200MG/10ML) GT ×4 (05:54→23:32)
--- NOTE | 2020-11-21 08:41 | PN.HOSP_ITS ---
Subjective Subjective Patient was seen and examined. His heart rate is controlled. Urine output has been fair. Objective Data Objective Data Vital Signs: Vital Signs Temp Pulse Resp BP Pulse Ox 98.9 F 78 32 H 113/56 L 93 11/21/20 08:00 11/21/20 08:00 11/21/20 08:00 11/21/20 08:00 11/21/20 08:00 Oxygen Flow Rate (L/min) 100 Oxygen Delivery Method Mechanical Ventilator Weight: 91 kg Body Mass Index (BMI) 28.0 Intake & Output: Intake and Output for Last 24 Hours 11/19/20 11/20/20 11/21/20 23:59 23:59 23:59 Intake Total 2033.70 / 2048.70 3668.20 / 3688.80 1139.97 / 1139.97 Output Total 590 / 590 770 / 770 325 / 325 Balance 1443.70 / 1458.70 2898.20 / 2918.80 814.97 / 814.97 Lab / Micro Data Result Diagrams: 11/21/20 03:20 11/21/20 03:20 Labs: Laboratory Results - last 24 hr 11/20/20 11:30: Sodium 138, Potassium 4.0, Chloride 102, Carbon Dioxide 24.0, Anion Gap 12, BUN 86 H, Creatinine 4.32 H, Estim Creat Clear Calc 15.00, Est GFR (MDRD) Af Amer 17 L, Est GFR (MDRD) Non-Af 14 L, BUN/Creatinine Ratio 19.9, G lucose 168 H, Calcium 7.2 L 11/20/20 17:00: Ur Random Sodium 16, Urine Creatinine 208.00 11/21/20 03:20: WBC 24.2 H, RBC 3.58 L, Hgb 11.2 L, Hct 33.3 L, MCV 93.0, MCH 31.3, MCHC 33.6, RDW Std Deviation 59.0 H, RDW Coeff of Dagmar 17.3 H, Plt Count 244, MPV 11.3, Neut % (Auto) Not Reportable, Absolute Neuts (auto) 23.2 H, Absolute Lymphs (auto) 0.00 L, Total Counted 100, Neutrophils % (Manual) 90 H, Band Neutrophils % 6 H, Lymphocytes % (Manual) 0 L, Monocytes % (Manual) 2, Myelocytes % 1 H, Promyelocytes % 1 H, Nucleated RBCs/100 WBC 2, Diff Path Review August, Platelet Estimate ADEQUATE, Tear Drop Cells RARE, Ovalocytes RARE 11/21/20 03:20: Sodium 136, Potassium 3.9, Chloride 102, Carbon Dioxide 22.0, Anion Gap 12, BUN 103 H*, Creatinine 4.64 H, Estim Creat Clear Calc 13.97, Est GFR (MDRD) Af Amer 16 L, Est GFR (MDRD) Non-Af 13 L, BUN/Creatinine Ratio 22.2 H , Glucose 194 H, Calcium 6.8 L, Total Bilirubin 0.50, AST 123 H, ALT 59, Alkaline Phosphatase 49, Total Protein 6.0 L, Albumin 2.5 L, Globulin 3.5, Albumin/Globulin Ratio 0.7 L Micro: Microbiology 11/18/20 16:00 Sputum, Induced/Lukens Gram Stain - Final 11/18/20 16:00 Sputum, Induced/Lukens Respiratory Culture - Final Staphylococcus aureus 11/18/20 09:10 Blood Culture (Wb) - Left Wrist Blood Culture - Preliminary No growth in 48 hours. 11/18/20 09:00 Blood Culture (Wb) - Anticubital Right Blood Culture - Preliminary No growth in 48 hours. 11/18/20 09:16 Mucosa - Nose SARS-CoV-2 Antigen (Rapid) - Final SARS-CoV-2 (COVID 19) ABG Data ABG results: ABG 11/21/20 05:20 Specimen Type ART Sample Site L Radial pH 7.33 L Bicarbonate Actual 21.1 L Total CO2 22 Base Excess -5 L O2 Saturation 95 O2 % 100 ABG pCO2 40.1 ABG pO2 83 Wili Test Positive Respiration Rate 12 O2 Delivery Device Adult Vent Vent Mode BiLevel Clinical Comments Physical Exam Narrative General: Sedated, on mechanical ventilator HEENT: Atraumatic, PERRLA, EOMI, Normocephalic Oral: Moist Mucosa Neck: Supple Lungs: Diminished Cardiovascular: Regular rate, Regular Rhythm, Normal S1, Normal S2, No murmurs Abdomen: Bowel Sounds Present, Soft, Non Tender, Non-Distended, No Hepato-splenomegaly Extremities: Trace bilateral leg edema Assessment & Plan Assessment/Plan (1) COVID-19: (2) Pneumonia: QUALIFIERS: Pneumonia type: due to unspecified organism Laterality: unspecified laterality Lung location: unspecified part of lung Qualified Code(s): J18.9 - Pneumonia, unspecified organism (3) Elevated troponin: (4) Acute kidney insufficiency: (5) Acidosis, lactic: (6) Respiratory failure: QUALIFIERS: Chronicity: acute Respiratory failure complication: hypoxia and hypercapnia Qualified Code(s): J96.01 - Acute respiratory failure with hypoxia; J96.02 - Acute respiratory failure with hypercapnia (7) Atrial fibrillation with RVR: PLAN: 1. A. fib with RVR, rate controlled now Patient with history of paroxysmal atrial fibrillation, On metoprolol and amiodarone drip as well as Eliquis Cardiology following; will keep on amiodarone drip 2. Acute respiratory failure secondary to COVID-19 pneumonia, slightly worsening Status post intubation, continue on mechanical ventilator, fiction writer following Continue with IV Decadron, breathing treatments 3. MEGAN vs CKD, unknown previous/recent creatinine level, worsening Admitted creatinine 2.32, creatinine today is 4.64 Urine output is oliguric, nephrology consulted, on IVF bolus Repeat blood work in am 3. Lactic acidosis secondary to #1, admitted with lactic acid of 7.5, improved 4. Elevated troponins, elevated BNP >500, likely secondary to #1 Troponins have plateaued off, EKG showed no acute ST-T changes We will hold off on Lasix for now pending nephrology recommendations 6. Hypotension, likely secondary to dehydration vs propofol side-effect, relatively improved Continue to monitor Charges/Coding Visit Charges Inpatient E&M: 04136 [facility] Hosp L3
--- NOTE | 2020-11-21 08:48 | PN.CC_ITS ---
Assessment & Plan Assessment/Plan (1) COVID-19: (2) Respiratory failure: QUALIFIERS: Chronicity: acute Respiratory failure complication: hypoxia and hypercapnia Qualified Code(s): J96.01 - Acute respiratory failure with hypoxia; J96.02 - Acute respiratory failure with hypercapnia (3) PAF (paroxysmal atrial fibrillation): (4) Acute kidney injury: PLAN: RECOMMENDATIONS: 1. Hold on diuretic challenge. Okay to give 500 cc bolus if requested by nephrology 2. Continue Decadron to complete a 10-day course. Hold on Remdesivir 3. Await cardiology recommendations 4. Hold immunosuppression 5. Aggressive pulmonary toileting 6. Wean oxygen as tolerated. Spontaneous breathing and awakening trials per protocol 7. Possibly narrow antibiotic spectrum IMPRESSIONS: 1. Acute combined respiratory failure secondary to ARDS secondary to COVID- 19/MSSA pneumonia in the setting of possible COPD Patient is a relatively poor historian. Patient is on Advair at baseline and also carries a diagnosis of rheumatoid arthritis on several immunosuppressant drugs. Patient was vaccinated for COVID-19, recent data would suggest that he is at increased risk for the delta variant given his immunosuppression. Patient does have significant renal dysfunction, but it is unclear if this is baseline. Patient may have some improvement with treatment of bacterial infection. Still on very high FiO2 requirements. 2. Acute versus chronic kidney disease Baseline creatinine is unclear at this time. Patient does report that he has marginal renal function. Recommend holding losartan as this could exacerbate prerenal etiology. No indication for renal replacement therapy and BUN to creatinine ratio suggests intrinsic dysfunction. Would hold on fluid boluses as this will worsen oxygenation status. Patient with relative stability over the past 24 hours. Appreciate nephrology recommendations. Patient may receive fluid boluses, but would hold on maintenance fluids given marginal oxygenation status 3. Rheumatoid arthritis/hypertension/GERD Complicates care, management, recovery and prognosis. Would hold immunosuppression during the acute phase of the viral infection. Patient appears to be in sinus rhythm at this time. Continue telemetry. Patient on increased PPI at this time secondary to possible coffee-ground secretions noted during intubation. Transition to daily dosing of PPI. [facility] 4. A. fib with RVR Patient persistent A. fib with RVR and marginal blood pressures. Did attempt to increase beta-heaven yesterday and patient has been on an amiodarone drip with marginal control. Unclear if cardioversion would be overall successful given patient's history of persistent A. fib. Appreciate cardiology for possible recommendations. TIME: 33 minutes of critical care time spent addressing patient's respiratory failure, kidney disease, paroxysmal A. fib, review of all data and collaboration with care team (7 AM to 8:45 AM) Subjective Subjective Patient did okay overnight. Patient remains on amiodarone, but heart rate is better controlled. Patient does remain on high FiO2 to maintain saturations. Patient does open his eyes and follow commands. Objective Data Objective Data Vital Signs: Vital Signs Temp Pulse Resp BP Pulse Ox 37.2 C 78 32 H 113/56 L 93 11/21/20 08:00 11/21/20 08:00 11/21/20 08:00 11/21/20 08:00 11/21/20 08:00 Oxygen Flow Rate (L/min) 100 Oxygen Delivery Method Mechanical Ventilator Weight: 91 kg Body Mass Index (BMI) 28.0 Intake & Output: Intake and Output for Last 24 Hours 11/19/20 11/20/20 11/21/20 23:59 23:59 23:59 Intake Total 2033.70 / 2048.70 3668.20 / 3688.80 1139.97 / 1139.97 Output Total 590 / 590 770 / 770 325 / 325 Balance 1443.70 / 1458.70 2898.20 / 2918.80 814.97 / 814.97 Lab / Micro Data Result Diagrams: 11/21/20 03:20 11/21/20 03:20 Labs: Laboratory Results - last 24 hr 11/20/20 11:30: Sodium 138, Potassium 4.0, Chloride 102, Carbon Dioxide 24.0, Anion Gap 12, BUN 86 H, Creatinine 4.32 H, Estim Creat Clear Calc 15.00, Est GFR (MDRD) Af Amer 17 L, Est GFR (MDRD) Non-Af 14 L, BUN/Creatinine Ratio 19.9, Glucose 168 H, Calcium 7.2 L 11/20/20 17:00: Ur Random Sodium 16, Urine Creatinine 208.00 11/21/20 03:20: WBC 24.2 H, RBC 3.58 L, Hgb 11.2 L, Hct 33.3 L, MCV 93.0, MCH 31.3, MCHC 33.6, RDW Std Deviation 59.0 H, RDW Coeff of Dagmar 17.3 H, Plt Count 244, MPV 11.3, Neut % (Auto) Not Reportable, Absolute Neuts (auto) 23.2 H, Absolute Lymphs (auto) 0.00 L, Total Counted 100, Neutrophils % (Manual) 90 H, Band Neutrophils % 6 H, Lymphocytes % (Manual) 0 L, Monocytes % (Manual) 2, Myelocytes % 1 H, Promyelocytes % 1 H, Nucleated RBCs/100 WBC 2, Diff Path Review August, Platelet Estimate ADEQUATE, Tear Drop Cells RARE, Ovalocytes RARE 11/21/20 03:20: Sodium 136, Potassium 3.9, Chloride 102, Carbon Dioxide 22.0, Anion Gap 12, BUN 103 H*, Creatinine 4.64 H, Estim Creat Clear Calc 13.97, Est GFR (MDRD) Af Amer 16 L, Est GFR (MDRD) Non-Af 13 L, BUN/Creatinine Ratio 22.2 H , Glucose 194 H, Calcium 6.8 L, Total Bilirubin 0.50, AST 123 H, ALT 59, Alkaline Phosphatase 49, Total Protein 6.0 L, Albumin 2.5 L, Globulin 3.5, Albumin/Globulin Ratio 0.7 L Micro: Microbiology 11/18/20 16:00 Sputum, Induced/Lukens Gram Stain - Final 11/18/20 16:00 Sputum, Induced/Lukens Respiratory Culture - Final Staphylococcus aureus 11/18/20 09:10 Blood Culture (Wb) - Left Wrist Blood Culture - Preliminary No growth in 48 hours. 11/18/20 09:00 Blood Culture (Wb) - Anticubital Right Blood Culture - Preliminary No growth in 48 hours. 11/18/20 09:16 Mucosa - Nose SARS-CoV-2 Antigen (Rapid) - Final SARS-CoV-2 (COVID 19) ABG Data ABG results: ABG 11/21/20 05:20 Specimen Type ART Sample Site L Radial pH 7.33 L Bicarbonate Actual 21.1 L Total CO2 22 Base Excess -5 L O2 Saturation 95 O2 % 100 ABG pCO2 40.1 ABG pO2 83 Wili Test Positive Respiration Rate 12 O2 Delivery Device Adult Vent Vent Mode BiLevel Clinical Comments Physical Exam Const average body habitus Constitutional Narrative: RASS -1. Good vent synchrony on APRV. General Appearance: well developed, intubated and patient mechanically ventilated HEENT normocephalic, head/scalp atraumatic and moist oral mucous membranes Eyes PERRL and EOMs intact bilaterally Neck full ROM and no lymphadenopathy Chest inspection of chest normal Resp Effort and Inspection: symmetric chest movement Auscultation: diminished lung sounds; Negative for rales, rhonchi or wheezes Percussion: Negative for dullness Cardio regular rate, regular rhythm, S1 normal heart sound, S2 normal heart sound, no murmurs, no rub and no gallops Cardio Narrative: Car waite on telemetry Rate: regular rate Rhythm: regular rhythm Heart Sounds: S1 normal and S2 normal; Negative for murmur or rub Peripheral Pulses: pulses 2+ throughout GI normal to inspection, nondistended, normoactive bowel sounds no CVA tenderness Extremity no clubbing, cyanosis or edema Skin no rashes or lesions noted Neuro oriented x3, CN's II-XII intact bilaterally, moves all extremities and no focal motor deficits Psych cooperative and affect normal Charges/Coding Procedures Hospitalists Procedures: 27386 Critial Care 1st Hr
--- NOTE | 2020-11-21 09:20 | PN.RENAL_ITS ---
Subjective Subjective Patient remains intubated. FIO2 95% Sedated Off pressors Objective Data Objective Data Vital Signs: Vital Signs Temp Pulse Resp BP Pulse Ox 98.9 F 78 32 H 113/56 L 93 11/21/20 08:00 11/21/20 08:00 11/21/20 08:00 11/21/20 08:00 11/21/20 08:00 Oxygen Flow Rate (L/min) 100 Oxygen Delivery Method Mechanical Ventilator Weight: 91 kg Body Mass Index (BMI) 28.0 Intake & Output: Intake and Output for Last 24 Hours 11/19/20 11/20/20 11/21/20 23:59 23:59 23:59 Intake Total 2033.70 / 2048.70 3668.20 / 3688.80 1139.97 / 1139.97 Output Total 590 / 590 770 / 770 325 / 325 Balance 1443.70 / 1458.70 2898.20 / 2918.80 814.97 / 814.97 Lab / Micro Data Result Diagrams: 11/21/20 03:20 11/21/20 03:20 Labs: Laboratory Results - last 24 hr 11/20/20 11:30: Sodium 138, Potassium 4.0, Chloride 102, Carbon Dioxide 24.0, Anion Gap 12, BUN 86 H, Creatinine 4.32 H, Estim Creat Clear Calc 15.00, Est GFR (MDRD) Af Amer 17 L, Est GFR (MDRD) Non-Af 14 L, BUN/Creatinine Ratio 19.9, Glucose 168 H, Calcium 7.2 L 11/20/20 17:00: Ur Random Sodium 16, Urine Creatinine 208.00 11/21/20 03:20: WBC 24.2 H, RBC 3.58 L, Hgb 11.2 L, Hct 33.3 L, MCV 93.0, MCH 31.3, MCHC 33.6, RDW Std Deviation 59.0 H, RDW Coeff of Dagmar 17.3 H, Plt Count 244, MPV 11.3, Neut % (Auto) Not Reportable, Absolute Neuts (auto) 23.2 H, Absolute Lymphs (auto) 0.00 L, Total Counted 100, Neutrophils % (Manual) 90 H, Band Neutrophils % 6 H, Lymphocytes % (Manual) 0 L, Monocytes % (Manual) 2, Myelocytes % 1 H, Promyelocytes % 1 H, Nucleated RBCs/100 WBC 2, Diff Path Revi ew May foll, Platelet Estimate ADEQUATE, Tear Drop Cells RARE, Ovalocytes RARE 11/21/20 03:20: Sodium 136, Potassium 3.9, Chloride 102, Carbon Dioxide 22.0, Anion Gap 12, BUN 103 H*, Creatinine 4.64 H, Estim Creat Clear Calc 13.97, Est GFR (MDRD) Af Amer 16 L, Est GFR (MDRD) Non-Af 13 L, BUN/Creatinine Ratio 22.2 H , Glucose 194 H, Calcium 6.8 L, Total Bilirubin 0.50, AST 123 H, ALT 59, Lindsey line Phosphatase 49, Total Protein 6.0 L, Albumin 2.5 L, Globulin 3.5, Albumin/Globulin Ratio 0.7 L Micro: Microbiology 11/18/20 16:00 Sputum, Induced/Lukens Gram Stain - Final 11/18/20 16:00 Sputum, Induced/Lukens Respiratory Culture - Final Staphylococcus aureus 11/18/20 09:10 Blood Culture (Wb) - Left Wrist Blood Culture - Preliminary No growth in 48 hours. 11/18/20 09:00 Blood Culture (Wb) - Anticubital Right Blood Culture - Preliminary No growth in 48 hours. 11/18/20 09:16 Mucosa - Nose SARS-CoV-2 Antigen (Rapid) - Final SARS-CoV-2 (COVID 19) ABG Data ABG results: ABG 11/21/20 05:20 Specimen Type ART Sample Site L Radial pH 7.33 L Bicarbonate Actual 21.1 L Total CO2 22 Base Excess -5 L O2 Saturation 95 O2 % 100 ABG pCO2 40.1 ABG pO2 83 Wili Test Positive Respiration Rate 12 O2 Delivery Device Adult Vent Vent Mode BiLevel Clinical Comments Physical Exam Narrative Patient was not directly examined due to Covid 19 active infection. Patient was seen from outside of the ICU room. Patient is intubated. Calm. FiO2 95%. Rhythm regular and sinus. Has a Gifford catheter. Making some urine Assessment & Plan Assessment/Plan (1) Acute kidney injury: (2) COVID-19: (3) Respiratory failure: QUALIFIERS: Chronicity: acute Respiratory failure complication: hypoxia and hypercapnia Qualified Code(s): J96.01 - Acute respiratory failure with hypoxia; J96.02 - Acute respiratory failure with hypercapnia (4) PAF (paroxysmal atrial fibrillation): (5) Hypoxia: PLAN: Unknown recent baseline creatinine. 3 years ago creatinine was around 1.2 mg deciliter Acute kidney injury is likely either from prerenal related to hemodynamic instability along with diuresis. FeNa < 1% Cr and BUN continues to rise. UOP ~ 800 yesterday Will give a bolus of NS 500 cc MEGAN also could have progressed to acute tubular necrosis. Keep mean arterial pressure more than 65. There is no need for renal placement therapy. Please adjust medications for current creatinine clearance. Patient on Decadron. Not on remdesivir due to MEGAN. ID is following Ventilator support, hemodynamic stability and rest of care as per ICU team. Discussed with Dr. Dick Monsivais. Renal team will continue to follow. Call if any questions [phone] Bonny Morgan MD
[2020-11-21] MEDS: Chlorhexidine 15 ML PO ×2 (10:25→21:54)
[2020-11-21] MEDS: CHLORHEXIDINE GLUC 2% CLOTH 1 EACH TOWELETTE TOPICAL (10:26)
[2020-11-21] MEDS: dexAMETHasone 10 MG/ML Vial 6 MG IV (10:26)
[2020-11-21] MEDS: APIXABAN 2.5 MG TABLET PO ×2 (10:28→21:52)
[2020-11-21] MEDS: Metoprolol Tartrate 50 MG Tablet PO ×2 (10:28→21:52)
--- NOTE | 2020-11-21 11:08 | CASEMGMT ---
SW participated in ICU rounds, called to offer support. states does have good support through family and yarsani. She asked about where she may be able to get COVID tested herself. SW [facility], both places are offering testing. SW passed this information on to pt's , and how to go about getting signed up for getting tested at each location. SW remains available for any additional support or resource information. TWIN Cabrera
[2020-11-21 11:53] LABS: Pathologist Review Reviewed
[2020-11-21] MEDS: Vital AF 1.2 Cal Liquid 1,000 ML 70 ML GT (13:24)
--- NOTE | 2020-11-21 15:48 | PN.CARD_ITS ---
Subjective Subjective Patient seen and evaluated. Appears to be stable at this time. Objective Data Vital Signs: Vital Signs Temp Pulse Resp BP Pulse Ox 98.9 F 100 19 H 129/71 H 91 11/21/20 15:00 11/21/20 15:00 11/21/20 15:00 11/21/20 15:00 11/21/20 15:00 Oxygen Flow Rate (L/min) 100 Oxygen Delivery Method Mechanical Ventilator Weight: 200 lb 9.93 oz Body Mass Index (BMI) 28.0 Intake & Output: Intake and Output for Last 24 Hours 11/19/20 11/20/20 11/21/20 23:59 23:59 23:59 Intake Total 2033.70 / 2048.70 3668.20 / 3688.80 1917.81 / 1917.81 Output Total 590 / 590 770 / 770 800 / 800 Balance 1443.70 / 1458.70 2898.20 / 2918.80 1117.81 / 1117.81 Lab / Micro Data Result Diagrams: 11/21/20 03:20 11/21/20 03:20 Labs: Laboratory Results - last 24 hr 11/20/20 17:00: Ur Random Sodium 16, Urine Creatinine 208.00 11/21/20 03:20: WBC 24.2 H, RBC 3.58 L, Hgb 11.2 L, Hct 33.3 L, MCV 93.0, MCH 31.3, MCHC 33.6, RDW Std Deviation 59.0 H, RDW Coeff of Dagmar 17.3 H, Plt Count 244, MPV 11.3, Neut % (Auto) Not Reportable, Absolute Neuts (auto) 23.2 H, Absolute Lymphs (auto) 0.00 L, Total Counted 100, Neutrophils % (Manual) 90 H, Band Neutrophils % 6 H, Lymphocytes % (Manual) 0 L, Monocytes % (Manual) 2, Myelocytes % 1 H, Promyelocytes % 1 H, Nucleated RBCs/100 WBC 2, Diff Path Review Reviewed, Platelet Estimate ADEQUATE, Tear Drop Cells RARE, Ovalocytes RARE 11/21/20 03:20: Sodium 136, Potassium 3.9, Chloride 102, Carbon Dioxide 22.0, Anion Gap 12, BUN 103 H*, Creatinine 4.64 H, Estim Creat Clear Calc 13.97, Est GFR (MDRD) Af Amer 16 L, Est GFR (MDRD) Non-Af 13 L, BUN/Creatinine Ratio 22.2 H , Glucose 194 H, Calcium 6.8 L, Total Bilirubin 0.50, AST 123 H, ALT 59, Alkaline Phosphatase 49, Total Protein 6.0 L, Albumin 2.5 L, Globulin 3.5, Albumin/Globulin Ratio 0.7 L Micro: Microbiology 11/18/20 16:00 Sputum, Induced/Lukens Gram Stain - Final 11/18/20 16:00 Sputum, Induced/Lukens Respiratory Culture - Final Staphylococcus aureus ABG Data ABG results: ABG 11/21/20 05:20 Specimen Type ART Sample Site L Radial pH 7.33 L Bicarbonate Actual 21.1 L Total CO2 22 Base Excess -5 L O2 Saturation 95 O2 % 100 ABG pCO2 40.1 ABG pO2 83 Wili Test Positive Respiration Rate 12 O2 Delivery Device Adult Vent Vent Mode BiLevel Clinical Comments Cardiology Labs/Tests 11/21/20 03:20: WBC 24.2 H, RBC 3.58 L, Hgb 11.2 L, Hct 33.3 L, MCV 93.0, MCH 31.3, MCHC 33.6, Plt Count 244, MPV 11.3, Neut % (Auto) Not Reportable, Absolute Neuts (auto) 23.2 H, Total Counted 100, Neutrophils % (Manual) 90 H, Band Neutrophils % 6 H, Lymphocytes % (Manual) 0 L, Monocytes % (Manual) 2, Myelocytes % 1 H, Promyelocytes % 1 H 11/21/20 03:20: Sodium 136, Potassium 3.9, Chloride 102, Carbon Dioxide 22.0, An ion Gap 12, BUN 103 H*, Creatinine 4.64 H, Est GFR (MDRD) Af Amer 16 L, Est GFR (MDRD) Non-Af 13 L, BUN/Creatinine Ratio 22.2 H, Glucose 194 H, Calcium 6.8 L, Total Bilirubin 0.50 11/21/20 05:20: pH 7.33 L, Bicarbonate Actual 21.1 L, Base Excess -5 L, O2 Saturation 95, ABG pCO2 40.1, ABG pO2 83, Wili Test Positive Rhythm: EKG: ECHO: Stress Test: Cardiac Cath: PCI: CT Surgery: Holter monitor: EPS: PPM: CXR: Chest CT Scan: Assessment & Plan Assessment/Plan (1) PAF (paroxysmal atrial fibrillation): PLAN: Patient appears to have paroxysmal atrial fibrillation. This has been known from his prior history. Certainly due to his underlying condition with the COVID-19 it has worsened this. I would recommend that we continue him on the IV amiodarone and the beta-heaven as tolerated. He would also continue with his Eliquis. Due to his renal dysfunction I would give him a dose only of intravenous digoxin. We will continue with supportive management. At this time I do not think that there is indication for DC cardioversion as I think the success will be short-lived. I will recommend continuing current antiarrhythmic therapy till the a.m. at least. (2) HTN (hypertension): PLAN: His blood pressure appears to be under fair control. I would not recommend we make any changes. He will continue on the same medications. (3) Elevated troponin: PLAN: He does have mild to moderate troponin elevation. I would recommend that we continue to follow this. I suspect this is due to his underlying COVID- 19 infection. Thank you for allowing me to participate in the care of your patient. Please don't hesitate to call if any issues arise.
[2020-11-21] MEDS: Senna/Docusate Sodium 1 Tablet 2 TABLET PO (21:52)
[2020-11-22] VITALS (45 sets, daily range): BP systolic 87–186; BP diastolic 54–159; PULSE 67–111; RESP 13–44; TEMP 36.7–37.2; O2SAT 77–97
[2020-11-22] MEDS: Propofol 10MG/Ml 1,000 MG/100 ML Bottle 8 MG CONT INF ×3 (03:26→23:11)
[2020-11-22] MEDS: Amiodarone 360 MG in Dextrose 5% Viaflo Bag 192.8 ML 16.7 MG CONT INF (04:15)
[2020-11-22 04:16] LABS: Hematocrit 32.3 % (40-54); Hemoglobin 11.1 g/dL (13.0-16.5); Mean Corp Hgb Conc 34.4 g/dL (32-36); Mean Corpuscular Hgb 31.4 pg (27.0-32.0); Mean Corpuscular Volume 91.2 fL (80-94); Mean Platelet Vol. 11.8 fl (6.2-12.0); POSITIVE COUNT YES; POSITIVE DIFFERENTIAL YES; POSITIVE MORPHOLOGY YES; Platelet Count 247 K/mm3 (150-450); RBC Distribution Width CV 17.3 % (11.6-14.6); Red Blood Count 3.54 M/mm3 (4.6-6.2)
[2020-11-22 04:19] LABS: Differential Indicated MANUAL DIFF
[2020-11-22 04:36] LABS: ALB/GLOB Ratio 0.6 RATIO (0.9-2.4); AST(SGOT) 60 U/L (15-37); Alanine Aminotransfer ALT/SGPT 50 U/L (16-61); Albumin, Serum 2.3 g/dL (3.2-5.0); Alkaline Phosphatase 49 U/L (45-117); Anion Gap 11 (5-15); BUN 121 mg/dL (7-18); BUN/Creat Ratio 25.4 RATIO (10-20); Calcium,Total 6.8 mg/dL (8.5-10.1); Chloride 103 mmol/L (98-107); Creatinine, Serum 4.77 mg/dL (0.70-1.30); EST Glomerular Filtration Rate 13 mL/min (>60); Est Glom Filt Rate - Afr Amer 16 mL/min (>60); Estimated Creatinine Clearance 13.59 ml/min; Globulin 3.6 g/dL (2.2-4.2); Glucose 158 mg/dL (74-106); Potassium 4.1 mmol/L (3.5-5.1); Protein, Total 5.9 g/dL (6.4-8.2); Sodium Level 136 mmol/L (136-145)
[2020-11-22 04:47] LABS: Absolute Lymphocyte Count 0.54 X10^3/uL (0.83-4.51); Absolute Neutrophil Count 24.7 X10^3/uL (2.0-7.7); Lymphocyte 2 % (19-41); Lymphocyte # 0.54 X10^3/ul (0.83-4.51); Metamyelocyte 2 % (0-1); Monocyte 5 % (0-10); Neutrophil # 24.67 X10^3/uL (2.7-7.7); Neutrophil-Band 4 % (0-5); Neutrophil-Segmented 87 % (47-70); Nucleated Red Bld Cells,Manual 2 % (0-5); Total Cells Counted 100 (MANUAL DIFF); White Blood Count 27.1 K/mm3 (4.4-11.0)
[2020-11-22 04:49] LABS: Ovalocyte RARE; Platelet Estimate ADEQUATE (ADEQ); Tear Drop Cell RARE
--- NOTE | 2020-11-22 05:38 | NURSING ---
Addendum entered by Mary Tuttle 11/22/20 06:24: ETT #7.5 placed via glidescope with positive color change on CO2 detector and equal bilateral breath sounds. Original Note: Patient self extubated at 0454am. Dr Galvez at the bedside at 0500am Patient was given Ativan 2mg at 05:10am Etomidate 20mg at 05:11am Succinylcholine 100mg Size 7 tube placed at 5:15am Attempted to place OG was unsuccessful x2 RN's.
--- NOTE | 2020-11-22 05:49 | PCM.PN.BLA ---
Progress Note Intubation Indication: Acute respiratory failure Consent was not obtained since this was an emergent procedure after the patient pulled out his ET tube. The patient was placed in the supine position. Preoxygenated sedation via ambu bagging was provided for a minimum of 3 minutes. The patient had continuous cardiac as well as pulse oximetry monitoring during the procedure. Procedure sedation was provided by the administration of Ativan IM (since patient had pulled of his IV line); etomidate IV and succinyl choline IV. GlideScope laryngoscopy was then performed using a MAC number 4 blade, which revealed a grade 2 view. A 7.5 mm endotracheal tube was visualized advancing between the cords to the level of 26 cm at the lip. The stylette was then removed and discarded. Tube placement was confirmed by fogging in the tube along with equal and bilateral breath sounds. Colorimetric change was visualized on the CO2 meter. The cuff was then inflated and the tube secured using a commercially available device. A good pulse oximetry waveform was seen on the monitor throughout the procedure. A portable chest x-ray has been ordered to confirm appropriate placement. The patient tolerated the procedure well. Procedures Hospitalists Procedures: 54510 Insert Emergency Airway
--- NOTE | 2020-11-22 06:38 | RAD_ITS ---
STUDY: X-RAY CHEST REASON FOR EXAM: Male, 75 years old. ETT placement -- portable. TECHNIQUE: Single AP portable view of the chest. COMPARISON: Comparison is made with prior study dated 11/19/2020. FINDINGS: An endotracheal tube is in situ. The tip is at 2.1 cm proximal to the pam. EKG electrodes are seen. Since prior study, there has been improved aeration of the left lung with residual changes present. Mild residual infiltrate in the right lower lobe although there has been improvement. There is no demonstrated pleural abnormality. Normal size heart. Normal mediastinum and karthik. Normal visualized pulmonary arteries. There is atherosclerotic calcification of the aortic arch with tortuosity. Normal visualized thoracic spine. Normal visualized ribs, clavicles, and shoulders. Gaseous distention of the stomach. RAD/Chest 1 View (Portable) IMPRESSION: There has been an improvement of the bilateral pulmonary aeration. Residual changes persist. Electronically Signed: Anil Aguirre MD at 8:34 EDT , Service support ,
[2020-11-22 07:06] LABS: Base Excess -6 mmol/L (-2 to +2); Bicarbonate 21.8 mmol/L (22-26); Blood Gas Specimen Type ART; FI02 100; PO2 76 mmHG (75-100); RR 12; SO2 92 % (95-99); Total Carbon Dioxide 24 mmol/L; pH 7.21 (7.35-7.45)
--- NOTE | 2020-11-22 07:24 | PN.CC_ITS ---
Assessment & Plan Assessment/Plan (1) COVID-19: (2) Respiratory failure: QUALIFIERS: Chronicity: acute Respiratory failure complication: hypoxia and hypercapnia Qualified Code(s): J96.01 - Acute respiratory failure with hypoxia; J96.02 - Acute respiratory failure with hypercapnia (3) PAF (paroxysmal atrial fibrillation): (4) Acute kidney injury: PLAN: RECOMMENDATIONS: 1. Discussed with nephrology. Bicarbonate drip versus hemodialysis 2. Continue Decadron to complete a 10-day course. Hold on Remdesivir 3. Continue cardiology recommendations 4. Hold immunosuppression 5. Aggressive pulmonary toileting 6. Wean oxygen as tolerated. Spontaneous breathing and awakening trials per protocol 7. Potentially place hemodialysis line IMPRESSIONS: 1. Acute combined respiratory failure secondary to ARDS secondary to COVID- 19/MSSA pneumonia in the setting of possible COPD Patient is a relatively poor historian. Patient is on Advair at baseline and also carries a diagnosis of rheumatoid arthritis on several immunosuppressant drugs. Patient was vaccinated for COVID-19, recent data would suggest that he is at increased risk for the delta variant given his immunosuppression. Patient does have significant renal dysfunction, but it is unclear if this is baseline. Patient may have some improvement with treatment of bacterial infection. Still on very high FiO2 requirements. Patient with partial compensation for metabolic acidosis on ABG. 2. Acute versus chronic kidney disease Baseline creatinine is unclear at this time. Patient does report that he has marginal renal function. Recommend holding losartan as this could exacerbate prerenal etiology. No indication for renal replacement therapy and BUN to creatinine ratio suggests intrinsic dysfunction. Would hold on fluid boluses as this will worsen oxygenation status. Patient with relative stability over the past 24 hours. Appreciate nephrology recommendations. Patient with non-anion gap metabolic acidosis consistent with renal failure. Typically, patient will be placed on a bicarbonate drip, but it is unclear if oxygenation status will allow for additional fluids. Decadron likely adding to uremia. 3. Rheumatoid arthritis/hypertension/GERD Complicates care, management, recovery and prognosis. Would hold immunosuppression during the acute phase of the viral infection. Patient appears to be in sinus rhythm at this time. Continue telemetry. Patient on increased PPI at this time secondary to possible coffee-ground secretions noted during intubation. Transition to daily dosing of PPI. 4. A. fib with RVR Resolved. Patient persistent A. fib with RVR and marginal blood pressures. Patient cardioverted during acute intubation. Defer to cardiology on whether amiodarone should be continued. TIME: 40 minutes of critical care time spent addressing patient's respiratory failure, kidney disease, paroxysmal A. fib, review of all data and collaboration with care team (5:45 AM to 6:45 AM) Subjective Subjective Overnight events were reviewed. Patient reportedly had pulled out his IV with propofol at approximately 4:40 AM and then subsequently self extubated. Patient was reintubated by the hospitalist without reported loss of pulse. Patient is back on his previous settings. There was difficulty in replacing OG, so this has not been done at this point. Objective Data Objective Data Vital Signs: Vital Signs Temp Pulse Resp BP Pulse Ox 37.1 C 72 41 H 107/67 91 11/22/20 05:00 11/22/20 06:59 11/22/20 06:59 11/22/20 06:00 11/22/20 06:59 Oxygen Flow Rate (L/min) 100 Oxygen Delivery Method Mechanical Ventilator Weight: 91.5 kg Body Mass Index (BMI) 28.0 Intake & Output: Intake and Output for Last 24 Hours 11/20/20 11/21/20 11/22/20 23:59 23:59 23:59 Intake Total 3668.20 / 3688.80 3002.51 / 3373.26 1052.24 / 1052.24 Output Total 770 / 770 1250 / 1400 725 / 725 Balance 2898.20 / 2918.80 1752.51 / 1973.26 327.24 / 327.24 Lab / Micro Data Result Diagrams: 11/22/20 03:55 11/22/20 03:55 Labs: Laboratory Results - last 24 hr 11/21/20 03:20: Diff Path Review Reviewed 11/22/20 03:55: WBC 27.1 H, RBC 3.54 L, Hgb 11.1 L, Hct 32.3 L, MCV 91.2, MCH 31.4, MCHC 34.4, RDW Std Deviation 58.0 H, RDW Coeff of Dagmar 17.3 H, Plt Count 24 7, MPV 11.8, Neut % (Auto) Not Reportable, Absolute Neuts (auto) 24.7 H, Absolute Lymphs (auto) 0.54 L, Total Counted 100, Neutrophils % (Manual) 87 H, Band Neutrophils % 4, Lymphocytes % (Manual) 2 L, Monocytes % (Manual) 5, Metamyelocytes % 2 H, Nucleated RBCs/100 WBC 2, Diff Path Review May foll, Platelet Estimate ADEQUATE, Tear Drop Cells RARE, Ovalocytes RARE 11/22/20 03:55: Sodium 136, Potassium 4.1, Chloride 103, Carbon Dioxide 22.0, Anion Gap 11, BUN 121 H*, Creatinine 4.77 H, Estim Creat Clear Calc 13.59, Est GFR (MDRD) Af Amer 16 L, Est GFR (MDRD) Non-Af 13 L, BUN/Creatinine Ratio 25.4 H , Glucose 158 H, Calcium 6.8 L, Total Bilirubin 0.60, AST 60 H, ALT 50, Alkaline Phosphatase 49, Total Protein 5.9 L, Albumin 2.3 L, Globulin 3.6, Albumin/Globulin Ratio 0.6 L Micro: Microbiology 11/18/20 16:00 Sputum, Induced/Lukens Gram Stain - Final 11/18/20 16:00 Sputum, Induced/Lukens Respiratory Culture - Final Staphylococcus aureus 11/18/20 09:10 Blood Culture (Wb) - Left Wrist Blood Culture - Preliminary No growth in 48 hours. 11/18/20 09:00 Blood Culture (Wb) - Anticubital Right Blood Culture - Preliminary No growth in 48 hours. 11/18/20 09:16 Mucosa - Nose SARS-CoV-2 Antigen (Rapid) - Final SARS-CoV-2 (COVID 19) ABG Data ABG results: ABG 11/22/20 06:58 Specimen Type ART pH 7.21 L Bicarbonate Actual 21.8 L Total CO2 24 Base Excess -6 L O2 Saturation 92 L O2 % 100 ABG pCO2 54.0 H ABG pO2 76 Respiration Rate 12 Clinical Comments phigh 28 t high 4.5 Physical Exam Const average body habitus Constitutional Narrative: RASS -2. Good vent synchrony on APRV. General Appearance: well developed, intubated and patient mechanically ventilated HEENT normocephalic, head/scalp atraumatic and moist oral mucous membranes Eyes PERRL and EOMs intact bilaterally Neck full ROM and no lymphadenopathy Chest inspection of chest normal Resp Effort and Inspection: symmetric chest movement Auscultation: diminished lung sounds; Negative for rales, rhonchi or wheezes Percussion: Negative for dullness Cardio regular rate, regular rhythm, S1 normal heart sound, S2 normal heart sound, no murmurs, no rub and no gallops Cardio Narrative: Normal sinus on telemetry Rate: regular rate Rhythm: regular rhythm Heart Sounds: S1 normal and S2 normal; Negative for murmur or rub Peripheral Pulses: pulses 2+ throughout GI normal to inspection, nondistended, normoactive bowel sounds no CVA tenderness Extremity no clubbing, cyanosis or edema Skin no rashes or lesions noted Neuro oriented x3, CN's II-XII intact bilaterally, moves all extremities and no focal motor deficits Psych cooperative and affect normal Charges/Coding Procedures Hospitalists Procedures: [id number] Critial Care 1st Hr
--- NOTE | 2020-11-22 07:59 | NURSING ---
Pt's called and given updates on the morning's events, Ricarda denied any questions at this time and stated appreciation of the call.
--- NOTE | 2020-11-22 08:42 | PN.CARD_ITS ---
Subjective Subjective Patient seen and evaluated. Attempted extubation yesterday Objective Data Vital Signs: Vital Signs Temp Pulse Resp BP Pulse Ox 98.7 F 72 41 H 107/67 91 11/22/20 05:00 11/22/20 06:59 11/22/20 06:59 11/22/20 06:00 11/22/20 06:59 Oxygen Flow Rate (L/min) 100 Oxygen Delivery Method Mechanical Ventilator Weight: 201 lb 11.567 oz Body Mass Index (BMI) 28.0 Intake & Output: Intake and Output for Last 24 Hours 11/20/20 11/21/20 11/22/20 23:59 23:59 23:59 Intake Total 3668.20 / 3688.80 3002.51 / 3373.26 1052.24 / 1052.24 Output Total 770 / 770 1250 / 1400 725 / 725 Balance 2898.20 / 2918.80 1752.51 / 1973.26 327.24 / 327.24 Lab / Micro Data Result Diagrams: 11/22/20 03:55 11/22/20 03:55 Labs: Laboratory Results - last 24 hr 11/21/20 03:20: Diff Path Review Reviewed 11/22/20 03:55: WBC 27.1 H, RBC 3.54 L, Hgb 11.1 L, Hct 32.3 L, MCV 91.2, MCH 31.4, MCHC 34.4, RDW Std Deviation 58.0 H, RDW Coeff of Dagmar 17.3 H, Plt Count 247, MPV 11.8, Neut % (Auto) Not Reportable, Absolute Neuts (auto) 24.7 H, Absolute Lymphs (auto) 0.54 L, Total Counted 100, Neutrophils % (Manual) 87 H, Band Neutrophils % 4, Lymphocytes % (Manual) 2 L, Monocytes % (Manual) 5, Metamyelocytes % 2 H, Nucleated RBCs/100 WBC 2, Diff Path Review May foll, Platelet Estimate ADEQUATE, Tear Drop Cells RARE, Ovalocytes RARE 11/22/20 03:55: Sodium 136, Potassium 4.1, Chloride 103, Carbon Dioxide 22.0, Anion Gap 11, BUN 121 H*, Creatinine 4.77 H, Estim Creat Clear Calc 13.59, Est GFR (MDRD) Af Amer 16 L, Est GFR (MDRD) Non-Af 13 L, BUN/Creatinine Ratio 25.4 H , Glucose 158 H, Calcium 6.8 L, Total Bilirubin 0.60, AST 60 H, ALT 50, Alkaline Phosphatase 49, Total Protein 5.9 L, Albumin 2.3 L, Globulin 3.6, Albumin/Globulin Ratio 0.6 L Micro: Microbiology 11/18/20 16:00 Sputum, Induced/Lukens Gram Stain - Final 11/18/20 16:00 Sputum, Induced/Lukens Respiratory Culture - Final Staphylococcus aureus ABG Data ABG results: ABG 11/22/20 06:58 Specimen Type ART pH 7.21 L Bicarbonate Actual 21.8 L Total CO2 24 Base Excess -6 L O2 Saturation 92 L O2 % 100 ABG pCO2 54.0 H ABG pO2 76 Respiration Rate 12 Clinical Comments phigh 28 t high 4.5 Cardiology Labs/Tests 11/22/20 03:55: WBC 27.1 H, RBC 3.54 L, Hgb 11.1 L, Hct 32.3 L, MCV 91.2, MCH 31.4, MCHC 34.4, Plt Count 247, MPV 11.8, Neut % (Auto) Not Reportable, Absolute Neuts (auto) 24.7 H, Total Counted 100, Neutrophils % (Manual) 87 H, Band Neutrophils % 4, Lymphocytes % (Manual) 2 L, Monocytes % (Manual) 5, Metamyelocytes % 2 H 11/22/20 03:55: Sodium 136, Potassium 4.1, Chloride 103, Carbon Dioxide 22.0, Anion Gap 11, BUN 121 H*, Creatinine 4.77 H, Est GFR (MDRD) Af Amer 16 L, Est GFR (MDRD) Non-Af 13 L, BUN/Creatinine Ratio 25.4 H, Glucose 158 H, Calcium 6.8 L, Total Bilirubin 0.60 11/22/20 06:58: pH 7.21 L, Bicarbonate Actual 21.8 L, Base Excess -6 L, O2 Saturation 92 L, ABG pCO2 54.0 H, ABG pO2 76 Rhythm: EKG: ECHO: Stress Test: Cardiac Cath: PCI: CT Surgery: Holter monitor: EPS: PPM: CXR: Chest CT Scan: Radiography Diagnostic Testing: Radiology Impression Chest X-Ray 11/22/20 06:38 IMPRESSION: There has been an improvement of the bilateral pulmonary aeration. Residual changes persist. Electronically Signed: Anil Aguirre MD at 8:34 EDT , Service support , Physical Exam Const Orientation / Consciousness: awake HEENT normocephalic Neck no lymphadenopathy Chest inspection of chest normal Resp normal respiratory effort Cardio Rhythm: regular rhythm Heart Sounds: S1 normal and S2 normal external exam normal Assessment & Plan Assessment/Plan (1) PAF (paroxysmal atrial fibrillation): PLAN: Patient appears to have paroxysmal atrial fibrillation. This has been known from his prior history. Certainly due to his underlying condition with the COVID-19 it has worsened this. I would recommend that we continue him on the IV amiodarone and the beta-heaven as tolerated. He would also continue with his Eliquis. He has converted to sinus rhythm. We will attempt to switch him from IV amiodarone to p.o. if we can get an NG tube in him We will start beta-heaven as tolerated Above discussed with nursing (2) HTN (hypertension): PLAN: His blood pressure appears to be under fair control. I would not recommend we make any changes. He will continue on the same medications. (3) Elevated troponin: PLAN: He does have mild to moderate troponin elevation. I would recommend that we continue to follow this. I suspect this is due to his underlying COVID- 19 infection. Thank you for allowing me to participate in the care of your patient. Please don't hesitate to call if any issues arise.
--- NOTE | 2020-11-22 08:45 | RAD_ITS ---
STUDY: X-RAY - ABDOMEN/PELVIS REASON FOR EXAM: Male, 75 years old. ogt placement TECHNIQUE: Single AP view of the abdomen / pelvis. COMPARISON: None. FINDINGS: An orogastric tube has been placed. The tip is in the midportion of the body of the stomach. RAD/Abdomen Single View (Portable) IMPRESSION: The tip of the orogastric tube is in the mid portion of the body of the stomach. Electronically Signed: Anil Aguirre MD at 9:44 EDT , Service support ,
--- NOTE | 2020-11-22 09:06 | PN.RENAL_ITS ---
Subjective Subjective Patient extubated himself this morning he was reintubated. FiO2 remains high at 95%. Remains off pressor. Sedated. Has a Gifford catheter making urine. Cannot do review of system Objective Data Objective Data Vital Signs: Vital Signs Temp Pulse Resp BP Pulse Ox 98.7 F 72 41 H 107/67 91 11/22/20 05:00 11/22/20 06:59 11/22/20 06:59 11/22/20 06:00 11/22/20 06:59 Oxygen Flow Rate (L/min) 100 Oxygen Delivery Method Mechanical Ventilator Weight: 91.5 kg Body Mass Index (BMI) 28.0 Intake & Output: Intake and Output for Last 24 Hours 11/20/20 11/21/20 11/22/20 23:59 23:59 23:59 Intake Total 3668.20 / 3688.80 3002.51 / 3373.26 1052.24 / 1052.24 Output Total 770 / 770 1250 / 1400 725 / 725 Balance 2898.20 / 2918.80 1752.51 / 1973.26 327.24 / 327.24 Lab / Micro Data Result Diagrams: 11/22/20 03:55 11/22/20 03:55 Labs: Laboratory Results - last 24 hr 11/21/20 03:20: Diff Path Review Reviewed 11/22/20 03:55: WBC 27.1 H, RBC 3.54 L, Hgb 11.1 L, Hct 32.3 L, MCV 91.2, MCH 31.4, MCHC 34.4, RDW Std Deviation 58.0 H, RDW Coeff of Dagmar 17.3 H, Plt Count 247, MPV 11.8, Neut % (Auto) Not Reportable, Absolute Neuts (auto) 24.7 H, Absolute Lymphs (auto) 0.54 L, Total Counted 100, Neutrophils % (Manual) 87 H, Band Neutrophils % 4, Lymphocytes % (Manual) 2 L, Monocytes % (Manual) 5, Metamyelocytes % 2 H, Nucleated RBCs/100 WBC 2, Diff Path Review May foll, Platelet Estimate ADEQUATE, Tear Drop Cells RARE, Ovalocytes RARE 11/22/20 03:55: Sodium 136, Potassium 4.1, Chloride 103, Carbon Dioxide 22.0, Anion Gap 11, BUN 121 H*, Creatinine 4.77 H, Estim Creat Clear Calc 13.59, Est GFR (MDRD) Af Amer 16 L, Est GFR (MDRD) Non-Af 13 L, BUN/Creatinine Ratio 25.4 H , Glucose 158 H, Calcium 6.8 L, Total Bilirubin 0.60, AST 60 H, ALT 50, Alkaline Phosphatase 49, Total Protein 5.9 L, Albumin 2.3 L, Globulin 3.6, Albumin/Globulin Ratio 0.6 L Micro: Microbiology 11/18/20 16:00 Sputum, Induced/Lukens Gram Stain - Final 11/18/20 16:00 Sputum, Induced/Lukens Respiratory Culture - Final Staphylococcus aureus 11/18/20 09:10 Blood Culture (Wb) - Left Wrist Blood Culture - Preliminary No growth in 48 hours. 11/18/20 09:00 Blood Culture (Wb) - Anticubital Right Blood Culture - Preliminary No growth in 48 hours. 11/18/20 09:16 Mucosa - Nose SARS-CoV-2 Antigen (Rapid) - Final SARS-CoV-2 (COVID 19) ABG Data ABG results: ABG 11/22/20 06:58 Specimen Type ART pH 7.21 L Bicarbonate Actual 21.8 L Total CO2 24 Base Excess -6 L O2 Saturation 92 L O2 % 100 ABG pCO2 54.0 H ABG pO2 76 Respiration Rate 12 Clinical Comments phigh 28 t high 4.5 Radiography Diagnostic Testing: Radiology Impression Chest X-Ray 11/22/20 06:38 IMPRESSION: There has been an improvement of the bilateral pulmonary aeration. Residual changes persist. Electronically Signed: Anil Aguirre MD at 8:34 EDT , Service support , Physical Exam Narrative Patient was not directly examined due to Covid 19 active infection. Patient was seen from outside of the ICU room. Patient is intubated. Calm. FiO2 95%. Rhythm regular and sinus. Has a Gifford catheter. Making some urine Assessment & Plan Assessment/Plan (1) Acute kidney injury: (2) COVID-19: (3) Respiratory failure: QUALIFIERS: Chronicity: acute Respiratory failure complication: hypoxia and hypercapnia Qualified Code(s): J96.01 - Acute respiratory failure with hypoxia; J96.02 - Acute respiratory failure with hypercapnia (4) PAF (paroxysmal atrial fibrillation): (5) Hypoxia: (6) Metabolic acidosis: PLAN: Unknown recent baseline creatinine. Patient 's said he has marginal kidney function 3 years ago creatinine was around 1.2 mg deciliter Acute kidney injury is likely either from prerenal related to hemodynamic instability along with diuresis. FeNa < 1%. MEGAN likely progressed to ATN BUN/creatinine continues to rise. Patient is nonoliguric. Renal replacement therapy is indicated for fluid removal and solute clearance. I discussed with the patient's Angelina Linder. She agreed to pursue hemodialysis. I discussed with Dr. Dick Monsivais. We will plan for session of hemodialysis today after hemodialysis catheter placement. Will aim for 3 L ultrafiltration Keep mean arterial pressure more than 65. Please adjust medications for MEGAN on hemodialysis Patient on Decadron. Not on remdesivir due to MEGAN. ID is following Ventilator support, hemodynamic stability and rest of care as per ICU team. Discussed with Dr. Dick Monsivais. Renal team will continue to follow. Call if any questions [phone] Bonny Morgan MD
--- NOTE | 2020-11-22 11:04 | RAD_ITS ---
STUDY: X-RAY CHEST REASON FOR EXAM: Male, 75 years old. Line placement -- RIJ HD line, LIJ TLC TECHNIQUE: Single AP portable view of the chest. COMPARISON: Comparison is made with prior examination done earlier today. FINDINGS: An endotracheal tube is in situ. The tip is at 3.4 cm proximal to the pam. A left-sided internal jugular venous catheter has been placed with the tip at the junction of the superior vena cava and right atrium. A right-sided vascular sheath is seen within the proximal portion of the superior vena cava. The lungs are unchanged. RAD/CXR for Line Placement IMPRESSION: Good position of the support tubes. Electronically Signed: Anil Aguirre MD at 12:10 EDT , Service support ,
--- NOTE | 2020-11-22 11:09 | PN.HOSP_ITS ---
Subjective Subjective Patient was seen and examined. Patient self extubated himself. He was reintubated. A dialysis catheter was placed today. He is having coffee-ground gastric aspirate. Objective Data Objective Data Vital Signs: Vital Signs Temp Pulse Resp BP Pulse Ox 98.7 F 71 41 H 107/67 93 11/22/20 05:00 11/22/20 07:31 11/22/20 06:59 11/22/20 06:00 11/22/20 08:00 Oxygen Flow Rate (L/min) 100 Oxygen Delivery Method Mechanical Ventilator Weight: 91.5 kg Body Mass Index (BMI) 28.0 Intake & Output: Intake and Output for Last 24 Hours 11/20/20 11/21/20 11/22/20 23:59 23:59 23:59 Intake Total 3668.20 / 3688.80 3002.51 / 3373.26 1061.74 / 1061.74 Output Total 770 / 770 1250 / 1400 725 / 725 Balance 2898.20 / 2918.80 1752.51 / 1973.26 336.74 / 336.74 Lab / Micro Data Result Diagrams: 11/22/20 03:55 11/22/20 03:55 Labs: Laboratory Results - last 24 hr 11/21/20 03:20: Diff Path Review Reviewed 11/22/20 03:55: WBC 27.1 H, RBC 3.54 L, Hgb 11.1 L, Hct 32.3 L, MCV 91.2, MCH 31.4, MCHC 34.4, RDW Std Deviation 58.0 H, RDW Coeff of Dagmar 17.3 H, Plt Count 2 47, MPV 11.8, Neut % (Auto) Not Reportable, Absolute Neuts (auto) 24.7 H, Absolute Lymphs (auto) 0.54 L, Total Counted 100, Neutrophils % (Manual) 87 H, Band Neutrophils % 4, Lymphocytes % (Manual) 2 L, Monocytes % (Manual) 5, Metamyelocytes % 2 H, Nucleated RBCs/100 WBC 2, Diff Path Review May foll, Platelet Estimate ADEQUATE, Tear Drop Cells RARE, Ovalocytes RARE 11/22/20 03:55: Sodium 136, Potassium 4.1, Chloride 103, Carbon Dioxide 22.0, Anion Gap 11, BUN 121 H*, Creatinine 4.77 H, Estim Creat Clear Calc 13.59, Est GFR (MDRD) Af Amer 16 L, Est GFR (MDRD) Non-Af 13 L, BUN/Creatinine Ratio 25.4 H , Glucose 158 H, Calcium 6.8 L, Total Bilirubin 0.60, AST 60 H, ALT 50, Alkaline Phosphatase 49, Total Protein 5.9 L, Albumin 2.3 L, Globulin 3.6, Albumin/Globulin Ratio 0.6 L Micro: Microbiology 11/18/20 16:00 Sputum, Induced/Lukens Gram Stain - Final 11/18/20 16:00 Sputum, Induced/Lukens Respiratory Culture - Final Staphylococcus aureus 11/18/20 09:10 Blood Culture (Wb) - Left Wrist Blood Culture - Preliminary No growth in 48 hours. 11/18/20 09:00 Blood Culture (Wb) - Anticubital Right Blood Culture - Preliminary No growth in 48 hours. 11/18/20 09:16 Mucosa - Nose SARS-CoV-2 Antigen (Rapid) - Final SARS-CoV-2 (COVID 19) ABG Data ABG results: ABG 11/22/20 06:58 Specimen Type ART pH 7.21 L Bicarbonate Actual 21.8 L Total CO2 24 Base Excess -6 L O2 Saturation 92 L O2 % 100 ABG pCO2 54.0 H ABG pO2 76 Respiration Rate 12 Clinical Comments phigh 28 t high 4.5 Radiography Diagnostic Testing: Radiology Impression Chest X-Ray 11/22/20 06:38 IMPRESSION: There has been an improvement of the bilateral pulmonary aeration. Residual changes persist. Electronically Signed: Anil Aguirre MD at 8:34 EDT , Service support , KUB X-Ray 11/22/20 08:45 IMPRESSION: The tip of the orogastric tube is in the mid portion of the body of the stomach. Electronically Signed: Anil Aguirre MD at 9:44 EDT , Service support , Physical Exam Narrative General: Sedated, on mechanical ventilator HEENT: Atraumatic, PERRLA, EOMI, Normocephalic Oral: Moist Mucosa Neck: Supple Lungs: Diminished Cardiovascular: Regular rate, Regular Rhythm, Normal S1, Normal S2, No murmurs Abdomen: Bowel Sounds Present, Soft, Non Tender, Non-Distended, No Hepato- splenomegaly Extremities: Trace bilateral leg edema Assessment & Plan Assessment/Plan (1) COVID-19: (2) Pneumonia: QUALIFIERS: Laterality: unspecified laterality Lung location: unspecified part of lung Pneumonia type: due to unspecified organism Qualified Code(s): J18.9 - Pneumonia, unspecified organism (3) Elevated troponin: (4) Acute kidney insufficiency: (5) Acidosis, lactic: (6) Respiratory failure: QUALIFIERS: Chronicity: acute Respiratory failure complication: hypoxia and hypercapnia Qualified Code(s): J96.01 - Acute respiratory failure with hypoxia; J96.02 - Acute respiratory failure with hypercapnia (7) Atrial fibrillation with RVR: PLAN: 1. A. fib with RVR, rate controlled Patient with history of paroxysmal atrial fibrillation, On metoprolol and amiodarone drip as well as Eliquis Cardiology following; will keep on amiodarone drip 2. Acute respiratory failure secondary to COVID-19 pneumonia/MSSA pneumonia, Status post intubation, continue on mechanical ventilator, overlay plastician following Continue with IV Decadron, IV Unasyn breathing treatments 3. MEGAN vs CKD, unknown previous/recent creatinine level, worsening Admitted creatinine 2.32, creatinine today is 4.77 Urine output is good, nephrology consulted, dialysis planned Repeat blood work in am 4. Possible acute GI bleed, started on IV PPI No acute drop in H&H, will continue on apixaban for now, will hold off if bleeding gets worse. 5. Lactic acidosis secondary to #1, admitted with lactic acid of 7.5, improved 6. Elevated troponins, elevated BNP >500, likely secondary to #1 Troponins have plateaued off, EKG showed no acute ST-T changes We will hold off on Lasix for now pending nephrology recommendations 7. Hypotension, likely secondary to dehydration vs propofol side-effect, relatively improved Continue to monitor Charges/Coding Visit Charges Inpatient E&M: 38610 Subs Hosp L3
[2020-11-22] MEDS: Metoprolol Tartrate 50 MG Tablet PO (11:29)
[2020-11-22] MEDS: Heparin 10,000 UNITS/10 ML Vial 10000 UNITS IV (11:29)
[2020-11-22] MEDS: Senna/Docusate Sodium 1 Tablet 2 TABLET PO ×2 (11:29→21:54)
[2020-11-22] MEDS: CHLORHEXIDINE GLUC 2% CLOTH 1 EACH TOWELETTE TOPICAL (11:30)
[2020-11-22] MEDS: dexAMETHasone 10 MG/ML Vial 6 MG IV (11:30)
[2020-11-22] MEDS: Chlorhexidine 15 ML PO ×2 (11:30→21:51)
[2020-11-22] MEDS: APIXABAN 2.5 MG TABLET PO ×2 (11:31→21:55)
[2020-11-22] MEDS: guaiFENesin 10 ML UDC (200MG/10ML) GT ×2 (11:31→18:23)
--- NOTE | 2020-11-22 12:02 | PCM.OP.BLANK ---
Operative Report Date of Procedure: 11/22/20 Temporary hemodialysis catheter placement procedure note Indication: Hemodialysis Procedure: A time-out was completed to verify correct patient, indication, medication allergies, procedure, coagulation studies, informed consent signed, and equipment needed. The patient was placed in the supine position for a central line placement to the rt IJ vein. The patients rt neck was prepped using chlorhexidine and a full body sterile drape was applied. 1% lidocaine was used to anesthetize the surrounding skin. A 12 fr 16 cm temporary dialysis catheter introduced into the rt- internal jugular vein using the modified Seldinger technique with the assistance of ultrasound. The site was dilated up twice in a stepwise fashion. The catheter was threaded smoothly over the guidewire, the guidewire was removed easily, nonpulsatile blood returned. All ports were aspirated of air and flushed with sterile saline and locked with U100O 1.3 mL to each port. The catheter was sutured in place and covered with an occlusive dressing impregnated with chlorhexidine. Post-procedure: The patient tolerated the procedure well. Vital signs remained stable. EBL 5 cc. No complications. Chest X Ray ordered to confirm tip placement and the absence of pneumothorax. Procedures Hospitalists Procedures: [id number] Insert Non-tunnel CV Cath
--- NOTE | 2020-11-22 12:19 | OP.PCM_ITS ---
Operative Report Date of Procedure: 11/22/20 This is a separate and independent procedure from the insertion of the temporary hemodialysis catheter. Central line placement procedure note Indication: IV access/hemodynamic instability/vasoactive medications Procedure: A time-out was completed to verify correct patient, indication, medic ation allergies, procedure, coagulation studies, informed consent signed, and equipment needed. The patient was placed in the supine position for a central line placement to the left IJ vein. The patients left neck was prepped using chlorhexidine and a full body sterile drape was applied. 1% lidocaine was used to anesthetize the surrounding skin. A 7fr 20 cm blue guard triple lumen catheter introduced into the internal jugular vein using the modified Selinger technique with the assistance of ultrasound. The catheter was threaded smoothly over the guidewire, the guidewire was removed easily, nonpulsatile blood returned. All ports were aspirated of air and flushed with sterile saline. The catheter was sutured in place and covered with an occlusive dressing impregnated with chlorhexidine. Post-procedure: The patient tolerated the procedure well. Vital signs remained stable. EBL 3 cc. No complications. Chest X Ray ordered to confirm tip placement and the absence of pneumothorax. Procedures Hospitalists Procedures: [id number] Insert Non-tunnel CV Cath
[2020-11-22 14:07] LABS: Pathologist Review Reviewed
--- NOTE | 2020-11-22 21:29 | DIALYSIS ---
Hemodialysis complete with 400ml fluid removed. RIJ dialysis CVC clean and dry. CVC flushed with NS and locked with heparin per order.
[2020-11-22] MEDS: Amiodarone 200 MG Tablet PO (21:51)
[2020-11-22] MEDS: Heparin 10,000 UNITS/10 ML Vial IV (21:52)
[2020-11-23] VITALS (43 sets, daily range): BP systolic 67–141; BP diastolic 45–109; PULSE 66–142; RESP 18–46; TEMP 37.1–37.5; O2SAT 88–97
[2020-11-23] MEDS: guaiFENesin 10 ML UDC (200MG/10ML) GT ×5 (00:32→22:40)
[2020-11-23] MEDS: Vital AF 1.2 Cal Liquid 1,000 ML 15 ML GT (00:32)
[2020-11-23] MEDS: CHLORHEXIDINE GLUC 2% CLOTH 1 EACH TOWELETTE TOPICAL (03:44)
[2020-11-23 03:57] LABS: Hematocrit 31.5 % (40-54); Hemoglobin 10.6 g/dL (13.0-16.5); Mean Corp Hgb Conc 33.7 g/dL (32-36); Mean Corpuscular Hgb 31.2 pg (27.0-32.0); Mean Corpuscular Volume 92.6 fL (80-94); Mean Platelet Vol. 11.4 fl (6.2-12.0); POSITIVE COUNT YES; POSITIVE DIFFERENTIAL YES; POSITIVE MORPHOLOGY YES; Platelet Count 227 K/mm3 (150-450); RBC Distribution Width CV 17.5 % (11.6-14.6); RBC Distribution Width SD 59.3 fl (35.1-43.9); White Blood Count 28.1 K/mm3 (4.4-11.0)
[2020-11-23 04:11] LABS: Differential Indicated MANUAL DIFF
[2020-11-23 04:20] LABS: ALB/GLOB Ratio 0.6 RATIO (0.9-2.4); AST(SGOT) 65 U/L (15-37); Alanine Aminotransfer ALT/SGPT 67 U/L (16-61); Albumin, Serum 2.1 g/dL (3.2-5.0); Alkaline Phosphatase 72 U/L (45-117); Anion Gap 9 (5-15); BUN 103 mg/dL (7-18); BUN/Creat Ratio 25.6 RATIO (10-20); Calcium,Total 7.1 mg/dL (8.5-10.1); Chloride 102 mmol/L (98-107); Creatinine, Serum 4.03 mg/dL (0.70-1.30); EST Glomerular Filtration Rate 16 mL/min (>60); Est Glom Filt Rate - Afr Amer 19 mL/min (>60); Estimated Creatinine Clearance 16.08 ml/min; Globulin 3.8 g/dL (2.2-4.2); Glucose 153 mg/dL (74-106); Potassium 4.5 mmol/L (3.5-5.1); Protein, Total 5.9 g/dL (6.4-8.2); Sodium Level 138 mmol/L (136-145)
--- NOTE | 2020-11-23 04:30 | RAD_ITS ---
STUDY: X-RAY - ABDOMEN/PELVIS REASON FOR EXAM: Male, 75 years old. OG/ET TUBE Placement -- Patient removed OG, had to reinsert. TECHNIQUE: Single AP view of the abdomen / pelvis. COMPARISON: None. FINDINGS: Normal visualized lung bases. Enteric tube with tip in the stomach. There is no demonstrated free abdominal air. Bowel gas pattern is otherwise within normal limits. The visualized liver, spleen and kidneys are grossly normal in size and morphology. Normal soft tissue structures. Normal visualized osseous structures. RAD/Abdomen Single View (Portable) IMPRESSION: Enteric tube with tip in the stomach. Electronically Signed: Jarod Mcdonald DO at 6:32 EDT Tel , Service support ,
--- NOTE | 2020-11-23 04:42 | RAD_ITS ---
STUDY: X-RAY CHEST REASON FOR EXAM: Male, 75 years old. ET TUBE PLACEMENT -- PT REMOVED OG TECHNIQUE: Single AP portable view of the chest. COMPARISON: 11/22/2020 FINDINGS: Interval placement of nasogastric tube with the tip below the diaphragm. Interval placement of right internal jugular temporal dialysis catheter with tip the catheter overlying the superior vena cava and no pneumothorax. Interval placement of left internal jugular deep venous line with tip the catheter overlying the junction of the right atrium and spur vena cava with no pneumothorax. Endotracheal tube which is unchanged. No change in alveolar opacities in both lungs consistent with bilateral pneumonia, pulmonary edema, or ARDS. There is no demonstrated pleural abnormality. Normal size heart. Normal mediastinum and karthik. Normal visualized pulmonary arteries. Normal visualized aortic arch and descending thoracic aorta. Normal visualized thoracic spine. Normal visualized ribs, clavicles, and shoulders. There is no demonstrated abnormality of the visualized soft tissue structures of the upper abdomen. RAD/Chest 1 View (Portable) IMPRESSION: 1. Interval placement of nasogastric tube with the tip below the diaphragm. 2. Interval placement of right internal jugular temporal dialysis catheter with tip the catheter overlying the superior vena cava and no pneumothorax. 3. Interval placement of left internal jugular deep venous line with tip the catheter overlying the junction of right atrium and spur vena cava with no pneumothorax. 4. Endotracheal tube which is unchanged. 5. No change in bilateral pneumonia, pulmonary edema, ARDS. Electronically Signed: Esa Blue MD at 8:36 EDT Tel , Service support ,
--- NOTE | 2020-11-23 05:00 | NURSING ---
Patient removes OG tube, tape seperated OG from ET tube, OG tube reinserted and gastric contents returned, Dr Galvez notified, will obtain chest x-ray to verify placement.
[2020-11-23 05:26] LABS: Allen Test Positive; Base Excess -4 mmol/L (-2 to +2); Bicarbonate 22.6 mmol/L (22-26); Blood Gas Specimen Type ART; FI02 100; Mode BiLevel; O2 Delivery Device Adult Vent; PO2 78 mmHG (75-100); RR 12; SITE L Radial; SO2 93 % (95-99); Total Carbon Dioxide 24 mmol/L; pCO2 49.1 mmHg (35-45); pH 7.27 (7.35-7.45)
[2020-11-23 05:52] LABS: Total Cells Counted 100 (MANUAL DIFF)
[2020-11-23 05:56] LABS: Lymphocyte 1 % (19-41); Monocyte 4 % (0-10); Myelocyte 4 % (0-0); Neutrophil-Segmented 82 % (47-70); Promyelocyte 1 % (0-0)
[2020-11-23 05:57] LABS: Nucleated Red Bld Cells,Manual 2 % (0-5); Platelet Estimate ADEQUATE (ADEQ)
[2020-11-23 05:58] LABS: Metamyelocyte 3 % (0-1); Neutrophil-Band 5 % (0-5); Ovalocyte RARE
[2020-11-23 06:04] LABS: Absolute Neutrophil Count 24.4 X10^3/uL (2.0-7.7)
[2020-11-23 06:05] LABS: Absolute Lymphocyte Count 0.28 X10^3/uL (0.83-4.51); Lymphocyte # 0.28 X10^3/ul (0.83-4.51)
[2020-11-23] MEDS: Metoprolol Tartrate 50 MG Tablet PO ×2 (06:15→22:43)
--- NOTE | 2020-11-23 07:25 | PN.CC_ITS ---
Assessment & Plan Assessment/Plan (1) COVID-19: (2) Respiratory failure: QUALIFIERS: Chronicity: acute Respiratory failure complication: hypoxia and hypercapnia Qualified Code(s): J96.01 - Acute respiratory failure with hypoxia; J96.02 - Acute respiratory failure with hypercapnia (3) PAF (paroxysmal atrial fibrillation): (4) Acute kidney injury: PLAN: RECOMMENDATIONS: 1. Hemodialysis per nephrology 2. Continue Decadron to complete a 10-day course. Hold on Remdesivir 3. Continue cardiology recommendations 4. Hold immunosuppression 5. Aggressive pulmonary toileting 6. Wean oxygen as tolerated. Spontaneous breathing and awakening trials per protocol 7. Advance OG 5 to 7 cm IMPRESSIONS: 1. Acute combined respiratory failure secondary to ARDS secondary to COVID- 19/MSSA pneumonia in the setting of possible COPD Patient is a relatively poor historian. Patient is on Advair at baseline and also carries a diagnosis of rheumatoid arthritis on several immunosuppressant drugs. Patient was vaccinated for COVID-19, recent data would suggest that he is at increased risk for the delta variant given his immunosuppression. Patient does have significant renal dysfunction, but it is unclear if this is baseline. Patient still with marginal oxygenation despite high pressures. Continue patient on antibiotics. Volume removal with hemodialysis would be helpful. 2. Acute versus chronic kidney disease Baseline creatinine is unclear at this time. Patient does report that he has marginal renal function. Recommend holding losartan as this could exacerbate prerenal etiology. No indication for renal replacement therapy and BUN to creatinine ratio suggests intrinsic dysfunction. Would hold on fluid boluses as this will worsen oxygenation status. Patient with relative stability over the past 24 hours. Appreciate nephrology recommendations. Patient did have hemodialysis yesterday, but little fluid removal 3. Rheumatoid arthritis/hypertension/GERD Complicates care, management, recovery and prognosis. Would hold immunosuppression during the acute phase of the viral infection. Patient appears to be in sinus rhythm at this time. Continue telemetry. Continue to monitor with PPI 4. A. fib with RVR Recurred. Patient persistent A. fib with RVR and marginal blood pressures. Patient cardioverted during acute intubation. Defer to cardiology on whether amiodarone should be continued. TIME: 33 minutes of critical care time spent addressing patient's respiratory failure, kidney disease, paroxysmal A. fib, review of all data and collaboration with care team (5:30 AM to 6:30 AM) Subjective Subjective Patient did okay overnight. Patient did go back into A. fib with RVR, blood pressures have been tolerating. Patient did pull his OG out overnight. This has been readvanced. Patient remains on high FiO2. Patient did have hemodialysis yesterday, but only 400 cc was removed. Objective Data Objective Data Vital Signs: Vital Signs Temp Pulse Resp BP Pulse Ox 37.3 C H 110 H 26 H 123/77 H 92 11/23/20 07:00 11/23/20 07:00 11/23/20 07:00 11/23/20 07:00 11/23/20 07:00 Oxygen Flow Rate (L/min) 55 Oxygen Delivery Method Mechanical Ventilator Weight: 91.5 kg Body Mass Index (BMI) 28.0 Intake & Output: Intake and Output for Last 24 Hours 11/21/20 11/22/20 11/23/20 23:59 23:59 23:59 Intake Total 3002.51 / 3373.26 1686.15 / 1827.68 328.04 / 328.04 Output Total 1250 / 1400 2450 / 2470 195 / 195 Balance 1752.51 / 1973.26 -763.85 / -642.32 133.04 / 133.04 Lab / Micro Data Result Diagrams: 11/23/20 03:33 11/23/20 03:33 Labs: Laboratory Results - last 24 hr 11/22/20 03:55: Diff Path Review Reviewed 11/23/20 03:33: WBC 28.1 H, RBC 3.40 L, Hgb 10.6 L, Hct 31.5 L, MCV 92.6, MCH 31.2, MCHC 33.7, RDW Std Deviation 59.3 H, RDW Coeff of Dagmar 17.5 H, Plt Count 227, MPV 11.4, Neut % (Auto) Not Reportable, Absolute Neuts (auto) 24.4 H, Absolute Lymphs (auto) 0.28 L, Total Counted 100, Neutrophils % (Manual) 82 H, Band Neutrophils % 5, Lymphocytes % (Manual) 1 L, Monocytes % (Manual) 4, Metamyelocytes % 3 H, Myelocytes % 4 H, Promyelocytes % 1 H, Nucleated RBCs/100 WBC 2, Diff Path Review May foll, Platelet Estimate ADEQUATE, Ovalocytes RARE 11/23/20 03:33: Sodium 138, Potassium 4.5, Chloride 102, Carbon Dioxide 27.0, Anion Gap 9, BUN 103 H*, Creatinine 4.03 H, Estim Creat Clear Calc 16.08, Est GFR (MDRD) Af Amer 19 L, Est GFR (MDRD) Non-Af 16 L, BUN/Creatinine Ratio 25.6 H , Glucose 153 H, Calcium 7.1 L, Total Bilirubin 1.40 H, AST 65 H, ALT 67 H, Alkaline Phosphatase 72, Total Protein 5.9 L, Albumin 2.1 L, Globulin 3.8, Al bumin/Globulin Ratio 0.6 L Micro: Microbiology 11/18/20 16:00 Sputum, Induced/Lukens Gram Stain - Final 11/18/20 16:00 Sputum, Induced/Lukens Respiratory Culture - Final Staphylococcus aureus 11/18/20 09:10 Blood Culture (Wb) - Left Wrist Blood Culture - Preliminary No growth in 48 hours. 11/18/20 09:00 Blood Culture (Wb) - Anticubital Right Blood Culture - Preliminary No growth in 48 hours. 11/18/20 09:16 Mucosa - Nose SARS-CoV-2 Antigen (Rapid) - Final SARS-CoV-2 (COVID 19) ABG Data ABG results: ABG 11/23/20 05:22 Specimen Type ART Sample Site L Radial pH 7.27 L Bicarbonate Actual 22.6 Total CO2 24 Base Excess -4 L O2 Saturation 93 L O2 % 100 ABG pCO2 49.1 H ABG pO2 78 Wili Test Positive Respiration Rate 12 O2 Delivery Device Adult Vent Vent Mode BiLevel Clinical Comments phigh 28 thigh 4.5 Radiography Diagnostic Testing: Radiology Impression Chest X-Ray 11/22/20 06:38 IMPRESSION: There has been an improvement of the bilateral pulmonary aeration. Residual changes persist. Electronically Signed: Anil Aguirre MD at 8:34 EDT , Service support , KUB X-Ray 11/22/20 08:45 IMPRESSION: The tip of the orogastric tube is in the mid portion of the body of the stomach. Electronically Signed: Anil Aguirre MD at 9:44 EDT , Service support , Chest X-Ray 11/22/20 11:04 IMPRESSION: Good position of the support tubes. Electronically Signed: Anil Aguirre MD at 12:10 EDT , Service support , KUB X-Ray 11/23/20 04:30 IMPRESSION: Enteric tube with tip in the stomach. Electronically Signed: Jarod Mcdonald DO at 6:32 EDT Tel , Service support , Physical Exam Const average body habitus Constitutional Narrative: RASS -2. Good vent synchrony on APRV. General Appearance: well developed, intubated and patient mechanically ventilated HEENT normocephalic, head/scalp atraumatic and moist oral mucous membranes Eyes PERRL and EOMs intact bilaterally Neck full ROM and no lymphadenopathy Chest inspection of chest normal Resp Effort and Inspection: symmetric chest movement Auscultation: diminished lung sounds; Negative for rales, rhonchi or wheezes Percussion: Negative for dullness Cardio regular rate, S1 normal heart sound, S2 normal heart sound, no murmurs, no rub and no gallops Cardio Narrative: A. fib with RVR on telemetry Rate: regular rate Rhythm: abnormal rhythm irregularly irregular Heart Sounds: S1 normal and S2 normal; Negative for murmur or rub Peripheral Pulses: pulses 2+ throughout GI normal to inspection, nondistended, normoactive bowel sounds no CVA tenderness Extremity General Extremity: edema bilateral (1+); Negative for clubbing or cyanosis Skin no rashes or lesions noted Neuro oriented x3, CN's II-XII intact bilaterally, moves all extremities and no focal motor deficits Psych Psych Narrative: Sedated on vent Charges/Coding Procedures Hospitalists Procedures: [id number] Critial Care 1st Hr
[2020-11-23] MEDS: Propofol 10MG/Ml 1,000 MG/100 ML Bottle 10.6 MG CONT INF (07:34)
[2020-11-23] MEDS: 0.9% Saline Lock 10 ML Syringe IV (08:11)
[2020-11-23 08:15] LABS: Hepatitis B Surface Antigen Non-Reactive (Nonreactive)
--- NOTE | 2020-11-23 09:23 | RAD_ITS ---
EXAM: XR ABDOMEN, 1 VIEW : 1945 CLINICAL INDICATION: verifiy og tube placement TECHNIQUE: Frontal supine view of the abdomen/pelvis. This report was created using Maintenance Assistant report generation technology. COMPARISON: None. FINDINGS: LOWER THORAX: No acute pathology. GASTROINTESTINAL TRACT: Unremarkable. Non-obstructive. No bowel or stomach distention. ORGANS: Unremarkable as visualized. No organomegaly. No abnormal calcifications. BONES/JOINTS: No acute pathology. SOFT TISSUES: No acute pathology. TUBES, LINES AND DEVICES: There is an OG tube with the distal tip in the mid stomach. RAD/Abdomen Single View (Portable) IMPRESSION: OG tube with the distal tip in the mid stomach. at 1109 Reported and signed by: Nemesio Hernandez MD Electronically Signed: Nemesio Hernandez MD at 11:08 EDT Tel , Service support ,
--- NOTE | 2020-11-23 10:14 | PCM.PN.REN ---
Subjective Subjective Patient remains intubated. FiO2 95%. Off pressor.. Had hemodialysis yesterday with 400 cc ultrafiltration. Could not tolerate more due to hypotension Patient sedated. Cannot do review of system Objective Data Objective Data Vital Signs: Vital Signs Temp Pulse Resp BP Pulse Ox 99.2 F H 119 H 40 H 123/77 H 91 11/23/20 07:00 11/23/20 08:00 11/23/20 07:29 11/23/20 07:00 11/23/20 07:29 Oxygen Flow Rate (L/min) 55 Oxygen Delivery Method Mechanical Ventilator Weight: 88.9 kg Body Mass Index (BMI) 28.0 Intake & Output: Intake and Output for Last 24 Hours 11/21/20 11/22/20 11/23/20 23:59 23:59 23:59 Intake Total 3002.51 / 3373.26 1686.15 / 1827.68 542.73 / 542.73 Output Total 1250 / 1400 2450 / 2470 265 / 265 Balance 1752.51 / 1973.26 -763.85 / -642.32 277.73 / 277.73 Lab / Micro Data Result Diagrams: 11/23/20 03:33 11/23/20 03:33 Labs: Laboratory Results - last 24 hr 11/22/20 03:55: Diff Path Review Reviewed 11/23/20 03:33: WBC 28.1 H, RBC 3.40 L, Hgb 10.6 L, Hct 31.5 L, MCV 92.6, MCH 31.2, MCHC 33.7, RDW Std Deviation 59.3 H, RDW Coeff of Dagmar 17.5 H, Plt Count 227, MPV 11.4, Neut % (Auto) Not Reportable, Absolute Neuts (auto) 24.4 H, Absolute Lymphs (auto) 0.28 L, Total Counted 100, Neutrophils % (Manual) 82 H, Band Neutrophils % 5, Lymphocytes % (Manual) 1 L, Monocytes % (Manual) 4, Metamyelocytes % 3 H, Myelocytes % 4 H, Promyelocytes % 1 H, Nucleated RBCs/100 WBC 2, Diff Path Review May foll, Platelet Estimate ADEQUATE, Ovalocytes RARE 11/23/20 03:33: Sodium 138, Potassium 4.5, Chloride 102, Carbon Dioxide 27.0, Anion Gap 9, BUN 103 H*, Creatinine 4.03 H, Estim Creat Clear Calc 16.08, Est GFR (MDRD) Af Amer 19 L, Est GFR (MDRD) Non-Af 16 L, BUN/Creatinine Ratio 25.6 H, Glucose 153 H, Calcium 7.1 L, Total Bilirubin 1.40 H, AST 65 H, ALT 67 H, Alkaline Phosphatase 72, Total Protein 5.9 L, Albumin 2.1 L, Globulin 3.8, Albumin/Globulin Ratio 0.6 L 11/23/20 06:45: Hep Bs Antigen Non-Reactive Micro: Microbiology 11/18/20 16:00 Sputum, Induced/Lukens Gram Stain - Final 11/18/20 16:00 Sputum, Induced/Lukens Respiratory Culture - Final Staphylococcus aureus 11/18/20 09:10 Blood Culture (Wb) - Left Wrist Blood Culture - Preliminary No growth in 48 hours. 11/18/20 09:00 Blood Culture (Wb) - Anticubital Right Blood Culture - Preliminary No growth in 48 hours. 11/18/20 09:16 Mucosa - Nose SARS-CoV-2 Antigen (Rapid) - Final SARS-CoV-2 (COVID 19) ABG Data ABG results: ABG 11/23/20 05:22 Specimen Type ART Sample Site L Radial pH 7.27 L Bicarbonate Actual 22.6 Total CO2 24 Base Excess -4 L O2 Saturation 93 L O2 % 100 ABG pCO2 49.1 H ABG pO2 78 Wili Test Positive Respiration Rate 12 O2 Delivery Device Adult Vent Vent Mode BiLevel Clinical Comments phigh 28 thigh 4.5 Radiography Diagnostic Testing: Radiology Impression Chest X-Ray 11/22/20 11:04 IMPRESSION: Good position of the support tubes. Electronically Signed: Anil Aguirre MD at 12:10 EDT , Service support , KUB X-Ray 11/23/20 04:30 IMPRESSION: Enteric tube with tip in the stomach. Electronically Signed: Jarod Mcdonald DO at 6:32 EDT Tel , Service support , Chest X-Ray 11/23/20 04:42 IMPRESSION: 1. Interval placement of nasogastric tube with the tip below the diaphragm. 2. Interval placement of right internal jugular temporal dialysis catheter with tip the catheter overlying the superior vena cava and no pneumothorax. 3. Interval placement of left internal jugular deep venous line with tip the catheter overlying the junction of right atrium and spur vena cava with no pneumothorax. 4. Endotracheal tube which is unchanged. 5. No change in bilateral pneumonia, pulmonary edema, ARDS. Electronically Signed: Esa Blue MD at 8:36 EDT Tel , Service support , Physical Exam Narrative Patient was not directly examined due to Covid 19 active infection. Patient was seen from outside of the ICU room. Patient is intubated. Calm. FiO2 95%. Rhythm regular and sinus. Has a Gifford catheter. Making some urine Assessment & Plan Assessment/Plan (1) Acute kidney injury: (2) COVID-19: (3) Respiratory failure: QUALIFIERS: Chronicity: acute Respiratory failure complication: hypoxia and hypercapnia Qualified Code(s): J96.01 - Acute respiratory failure with hypoxia; J96.02 - Acute respiratory failure with hypercapnia (4) PAF (paroxysmal atrial fibrillation): (5) Hypoxia: (6) Metabolic acidosis: PLAN: Unknown recent baseline creatinine. Patient 's said they were told he has marginal kidney function at [facility] 3 years ago creatinine was around 1.2 mg deciliter Acute kidney injury is likely either from prerenal related to hemodynamic instability along with diuresis which has progressed to ATN Patient started on dialysis November 22 du to metabolic acidosis, fluid overload, on high BUN Will plan for second hemodialysis today with ultrafiltration goal 2 to 3 L Keep mean arterial pressure more than 65. We will continue to monitor for kidney function recovery Please adjust medications doses for MEGAN on hemodialysis Patient on Decadron. Not on remdesivir due to MEGAN. ID is following Ventilator support, hemodynamic stability and rest of care as per ICU team. Discussed with Dr. Dick Monsivais. Renal team will continue to follow. Call if any questions [phone] Bonny Morgan MD
[2020-11-23] MEDS: APIXABAN 2.5 MG TABLET PO ×2 (10:16→22:40)
[2020-11-23] MEDS: Senna/Docusate Sodium 1 Tablet 2 TABLET PO ×2 (10:16→22:42)
[2020-11-23] MEDS: Amiodarone 200 MG Tablet PO ×2 (10:16→22:42)
[2020-11-23] MEDS: dexAMETHasone 10 MG/ML Vial 6 MG IV (10:16)
[2020-11-23] MEDS: Chlorhexidine 15 ML PO ×2 (10:22→23:15)
--- NOTE | 2020-11-23 10:52 | PN.HOSP_ITS ---
Subjective Subjective Patient was seen and examined. Overnight, patient pulled on his OG tube. He will be getting dialysis today. Objective Data Objective Data Vital Signs: Vital Signs Temp Pulse Resp BP Pulse Ox 99.2 F H 119 H 40 H 123/77 H 91 11/23/20 07:00 11/23/20 08:00 11/23/20 07:29 11/23/20 07:00 11/23/20 07:29 Oxygen Flow Rate (L/min) 55 Oxygen Delivery Method Mechanical Ventilator Weight: 88.9 kg Body Mass Index (BMI) 28.0 Intake & Output: Intake and Output for Last 24 Hours 11/21/20 11/22/20 11/23/20 23:59 23:59 23:59 Intake Total 3002.51 / 3373.26 1686.15 / 1827.68 879.73 / 879.73 Output Total 1250 / 1400 2450 / 2470 295 / 295 Balance 1752.51 / 1973.26 -763.85 / -642.32 584.73 / 584.73 Lab / Micro Data Result Diagrams: 11/23/20 03:33 11/23/20 03:33 Labs: Laboratory Results - last 24 hr 11/22/20 03:55: Diff Path Review Reviewed 11/23/20 03:33: WBC 28.1 H, RBC 3.40 L, Hgb 10.6 L, Hct 31.5 L, MCV 92.6, MCH 31.2, MCHC 33.7, RDW Std Deviation 59.3 H, RDW Coeff of Dagmar 17.5 H, Plt Count 227, MPV 11.4, Neut % (Auto) Not Reportable, Absolute Neuts (auto) 24.4 H, Absolute Lymphs (auto) 0.28 L, Total Counted 100, Neutrophils % (Manual) 82 H, Band Neutrophils % 5, Lymphocytes % (Manual) 1 L, Monocytes % (Manual) 4, Metamyelocytes % 3 H, Myelocytes % 4 H, Promyelocytes % 1 H, Nucleated RBCs/100 WBC 2, Diff Path Review May foll, Platelet Estimate ADEQUATE, Ovalocytes RARE 11/23/20 03:33: Sodium 138, Potassium 4.5, Chloride 102, Carbon Dioxide 27.0, Anion Gap 9, BUN 103 H*, Creatinine 4.03 H, Estim Creat Clear Calc 16.08, Est GFR (MDRD) Af Amer 19 L, Est GFR (MDRD) Non-Af 16 L, BUN/Creatinine Ratio 25.6 H , Glucose 153 H, Calcium 7.1 L, Total Bilirubin 1.40 H, AST 65 H, ALT 67 H, Alkaline Phosphatase 72, Total Protein 5.9 L, Albumin 2.1 L, Globulin 3.8, Albumin/Globulin Ratio 0.6 L 11/23/20 06:45: Hep Bs Antigen Non-Reactive Micro: Microbiology 11/18/20 09:10 Blood Culture (Wb) - Left Wrist Blood Culture - Final No growth in 5 days. 11/18/20 09:00 Blood Culture (Wb) - Anticubital Right Blood Culture - Final No growth in 5 days. 11/18/20 16:00 Sputum, Induced/[place]ukens Gram Stain - Final 11/18/20 16:00 Sputum, Induced/[place]ens Respiratory Culture - Final Staphylococcus aureus 11/18/20 09:16 Mucosa - Nose SARS-CoV-2 Antigen (Rapid) - Final SARS-CoV-2 (COVID 19) ABG Data ABG results: ABG 11/23/20 05:22 Specimen Type ART Sample Site L Radial pH 7.27 L Bicarbonate Actual 22.6 Total CO2 24 Base Excess -4 L O2 Saturation 93 L O2 % 100 ABG pCO2 49.1 H ABG pO2 78 Wili Test Positive Respiration Rate 12 O2 Delivery Device Adult Vent Vent Mode BiLevel Clinical Comments phigh 28 thigh 4.5 Radiography Diagnostic Testing: Radiology Impression Chest X-Ray 11/22/20 11:04 IMPRESSION: Good position of the support tubes. Electronically Signed: Anil Aguirre MD at 12:10 EDT , Service support , KUB X-Ray 11/23/20 04:30 IMPRESSION: Enteric tube with tip in the stomach. Electronically Signed: Jarod Mcdonald DO at 6:32 EDT Tel , Service support , Chest X-Ray 11/23/20 04:42 IMPRESSION: 1. Interval placement of nasogastric tube with the tip below the diaphragm. 2. Interval placement of right internal jugular temporal dialysis catheter with tip the catheter overlying the superior vena cava and no pneumothorax. 3. Interval placement of left internal jugular deep venous line with tip the catheter overlying the junction of right atrium and spur vena cava with no pneumothorax. 4. Endotracheal tube which is unchanged. 5. No change in bilateral pneumonia, pulmonary edema, ARDS. Electronically Signed: Esa Blue MD at 8:36 EDT Tel , Service support , Physical Exam Narrative General: Sedated, on mechanical ventilator HEENT: Atraumatic, PERRLA, EOMI, Normocephalic Oral: Moist Mucosa Neck: Supple Lungs: Diminished Cardiovascular: Regular rate, Regular Rhythm, Normal S1, Normal S2, No murmurs Abdomen: Bowel Sounds Present, Soft, Non Tender, Non-Distended, No Hepato-spleno megaly Extremities: Bilateral leg edema, +1 Assessment & Plan Assessment/Plan (1) COVID-19: (2) Pneumonia: QUALIFIERS: Laterality: unspecified laterality Lung location: unspecified part of lung Pneumonia type: due to unspecified organism Qualified Code(s): J18.9 - Pneumonia, unspecified organism (3) Elevated troponin: (4) Acute kidney insufficiency: (5) Acidosis, lactic: (6) Respiratory failure: QUALIFIERS: Chronicity: acute Respiratory failure complication: hypoxia and hypercapnia Qualified Code(s): J96.01 - Acute respiratory failure with hypoxia; J96.02 - Acute respiratory failure with hypercapnia (7) Atrial fibrillation with RVR: PLAN: 1. Acute respiratory failure secondary to COVID-19 pneumonia/MSSA pneumonia, Status post intubation, continue on mechanical ventilator, surgery scheduling coordinator following Continue with IV Decadron, IV Unasyn breathing treatments 2. A. fib with RVR, rate controlled Patient with history of paroxysmal atrial fibrillation, On metoprolol and amiodarone drip as well as Eliquis Cardiology following; will keep on amiodarone drip 3. MEGAN vs CKD, unknown previous/recent creatinine level, worsening Admitted creatinine 2.32, creatinine today is 4.03 Dialysis planned today Repeat blood work in am 4. Possible acute GI bleed, started on IV PPI No acute drop in H&H, will continue on apixaban for now, will hold off if bleeding gets worse. 5. Lactic acidosis secondary to #1, admitted with lactic acid of 7.5, improved 6. Elevated troponins, elevated BNP >500, likely secondary to #1 Troponins have plateaued off, EKG showed no acute ST-T changes We will hold off on Lasix for now pending nephrology recommendations 7. Hypotension, likely secondary to dehydration vs propofol side-effect, relatively improved Continue to monitor Charges/Coding Visit Charges Inpatient E&M: 58941 Subs Hosp L3
[2020-11-23] MEDS: Propofol 10MG/Ml 1,000 MG/100 ML Bottle 13.3 MG CONT INF ×2 (12:35→19:52)
--- NOTE | 2020-11-23 17:36 | CON.PCM.CA_ITS ---
Assessment & Plan Assessment/Plan (1) COVID-19: (2) Acute kidney insufficiency: (3) History of atrial fibrillation: (4) History of rheumatoid arthritis: (5) PAF (paroxysmal atrial fibrillation): PLAN: Patient is 75-year-old with acute respiratory failure with hypoxia, patient had history of rheumatoid arthritis and was on immunosuppression medication. Has history of atrial flutter ablation and this presentation had Covid 19 with lactic acidosis, acute renal insufficiency and electrolyte abnormality Underlying cardiac rhythm has been atrial fibrillation with slow ventricular rate Elevation of cardiac biomarkers secondary to type II ME Recommendation; 1. We will evaluate with echocardiogram 2. Patient has been on anticoagulation as well has been on amiodarone we will continue to monitor on medical therapy. (6) COPD exacerbation: (7) Acute respiratory failure with hypoxia: (8) Atrial flutter: HPI Consult Data Date of Consult: 11/23/20 HPI Narrative Reason for Consultation: Patient with known paroxysmal A. fib and history of atrial flutter ablation HPI Narrative: RAFAEL KAYE, is a 75 M who presents [facility] Medical History Atrial fibrillation Back complaints GERD (gastroesophageal reflux disease) History of gastroesophageal reflux (GERD) Hypertension Rheumatoid arthritis Suspected chronic obstructive pulmonary disease based on initial evaluation Home Medications leflunomide [Arava] 20 mg PO DAILY 11/27/15 [History Last Taken 11/02/17] Jakafi 15 mg PO BID 04/22/17 [History Last Taken 11/14/17] hydrochlorothiazide 25 mg PO DAILY 04/22/17 [History Last Taken 11/02/17] losartan 50 mg PO DAILY 04/22/17 [History Last Taken 11/16/17] metoprolol tartrate 50 mg PO BID 04/22/17 [History Last Taken 11/16/17] calcium carbonate-vitamin D3 [Calcium 500 + D] 1 tab PO DAILY 11/16/17 [History Last Taken 11/02/17] albuterol sulfate 1 - 2 puff INHALATION Q4H PRN PRN #1 inhaler 11/22/17 [Rx Last Taken Unknown] fluticasone propion-salmeterol 1 ea IH BID #1 blst.w.dev 11/22/17 [Rx Last Taken Unknown] apixaban [Eliquis] 5 mg PO BID 11/18/20 [History Last Taken Unknown] pantoprazole 40 mg PO BID 11/18/20 [History Last Taken Unknown] Allergy/AdvReac Type Severity Reaction Status Date / Time doxycycline AdvReac Nausea/Vom/ Verified 11/18/20 08:56 Diarrhea methotrexate AdvReac fills my Verified 11/18/20 08:56 lungs and sinuses with fluid Social History current occupational status: retired Smoking Status: Former smoker Physical Exam Narrative Consultation is based on review of the pvc monitor on current medication, current lab, current medication and x-rays Limited examination due to prevention of Covid spread Objective Data Vital Signs: Vital Signs Temp Pulse Resp BP Pulse Ox 99.2 F H 142 H 36 H 73/45 L 95 11/23/20 15:00 11/23/20 17:12 11/23/20 17:12 11/23/20 15:00 11/23/20 17:12 Oxygen Flow Rate (L/min) 55 Oxygen Delivery Method Mechanical Ventilator Weight: 195 lb 15.855 oz Body Mass Index (BMI) 28.0 Intake & Output: Intake and Output for Last 24 Hours 11/21/20 11/22/20 11/23/20 23:59 23:59 23:59 Intake Total 3002.51 / 3373.26 1686.15 / 1827.68 1296.47 / 1296.47 Output Total 1250 / 1400 2450 / 2470 495 / 495 Balance 1752.51 / 1973.26 -763.85 / -642.32 801.47 / 801.47 Lab / Micro Data Result Diagrams: 11/23/20 03:33 11/23/20 03:33 Labs: Laboratory Results - last 24 hr 11/23/20 03:33: WBC 28.1 H, RBC 3.40 L, Hgb 10.6 L, Hct 31.5 L, MCV 92.6, MCH 31.2, MCHC 33.7, RDW Std Deviation 59.3 H, RDW Coeff of Dagmar 17.5 H, Plt Count 227, MPV 11.4, Neut % (Auto) Not Reportable, Absolute Neuts (auto) 24.4 H, Absolute Lymphs (auto) 0.28 L, Total Counted 100, Neutrophils % (Manual) 82 H, Band Neutrophils % 5, Lymphocytes % (Manual) 1 L, Monocytes % (Manual) 4, Metamyelocytes % 3 H, Myelocytes % 4 H, Promyelocytes % 1 H, Nucleated RBCs/100 WBC 2, Diff Path Review May foll, Platelet Estimate ADEQUATE, Ovalocytes RARE 11/23/20 03:33: Sodium 138, Potassium 4.5, Chloride 102, Carbon Dioxide 27.0, Anion Gap 9, BUN 103 H*, Creatinine 4.03 H, Estim Creat Clear Calc 16.08, Est GFR (MDRD) Af Amer 19 L, Est GFR (MDRD) Non-Af 16 L, BUN/Creatinine Ratio 25.6 H , Glucose 153 H, Calcium 7.1 L, Total Bilirubin 1.40 H, AST 65 H, ALT 67 H, Alkaline Phosphatase 72, Total Protein 5.9 L, Albumin 2.1 L, Globulin 3.8, Albumin/Globulin Ratio 0.6 L 11/23/20 06:45: Hep Bs Antigen Non-Reactive Micro: Microbiology 11/18/20 09:10 Blood Culture (Wb) - Left Wrist Blood Culture - Final No growth in 5 days. 11/18/20 09:00 Blood Culture (Wb) - Anticubital Right Blood Culture - Final No growth in 5 days. ABG Data ABG results: ABG 11/23/20 05:22 Specimen Type ART Sample Site L Radial pH 7.27 L Bicarbonate Actual 22.6 Total CO2 24 Base Excess -4 L O2 Saturation 93 L O2 % 100 ABG pCO2 49.1 H ABG pO2 78 Wili Test Positive Respiration Rate 12 O2 Delivery Device Adult Vent Vent Mode BiLevel Clinical Comments phigh 28 thigh 4.5 Cardiology Labs/Tests 11/23/20 03:33: WBC 28.1 H, RBC 3.40 L, Hgb 10.6 L, Hct 31.5 L, MCV 92.6, MCH 31.2, MCHC 33.7, Plt Count 227, MPV 11.4, Neut % (Auto) Not Reportable, Absolute Neuts (auto) 24.4 H, Total Counted 100, Neutrophils % (Manual) 82 H, Band Neutrophils % 5, Lymphocytes % (Manual) 1 L, Monocytes % (Manual) 4, Metamyeloc ytes % 3 H, Myelocytes % 4 H, Promyelocytes % 1 H 11/23/20 03:33: Sodium 138, Potassium 4.5, Chloride 102, Carbon Dioxide 27.0, Anion Gap 9, BUN 103 H*, Creatinine 4.03 H, Est GFR (MDRD) Af Amer 19 L, Est GFR (MDRD) Non-Af 16 L, BUN/Creatinine Ratio 25.6 H, Glucose 153 H, Calcium 7.1 L, Total Bilirubin 1.40 H 11/23/20 05:22: pH 7.27 L, Bicarbonate Actual 22.6, Base Excess -4 L, O2 Saturation 93 L, ABG pCO2 49.1 H, ABG pO2 78, Wili Test Positive Rhythm: A. fib with controlled ventricular rate Radiography Diagnostic Testing: Radiology Impression KUB X-Ray 11/23/20 04:30 IMPRESSION: Enteric tube with tip in the stomach. Electronically Signed: Jarod Mcdonald DO at 6:32 EDT Tel , Service support , Chest X-Ray 11/23/20 04:42 IMPRESSION: 1. Interval placement of nasogastric tube with the tip below the diaphragm. 2. Interval placement of right internal jugular temporal dialysis catheter with tip the catheter overlying the superior vena cava and no pneumothorax. 3. Interval placement of left internal jugular deep venous line with tip the catheter overlying the junction of right atrium and spur vena cava with no pneumothorax. 4. Endotracheal tube which is unchanged. 5. No change in bilateral pneumonia, pulmonary edema, ARDS. Electronically Signed: Esa Blue MD at 8:36 EDT Tel , Service support , KUB X-Ray 11/23/20 09:23 IMPRESSION: OG tube with the distal tip in the mid stomach. at 1109 Reported and signed by: Nemesio Hernandez MD Electronically Signed: Nemesio Hernandez MD at 11:08 EDT Tel , Service support ,
[2020-11-23 17:41] LABS: Allen Test Positive; Base Excess -2 mmol/L (-2 to +2); Bicarbonate 25.1 mmol/L (22-26); Blood Gas Specimen Type ART; FI02 100; Mode BiLevel; O2 Delivery Device Adult Vent; PO2 73 mmHG (75-100); RR 12; SITE R Radial; SO2 91 % (95-99); Total Carbon Dioxide 27 mmol/L; pCO2 58.6 mmHg (35-45); pH 7.24 (7.35-7.45)
--- NOTE | 2020-11-23 18:29 | DIALYSIS ---
Hemodialysis tx completed x 3.5 hours. Pt required being started on pressors and titrated to 15mcg of Levophed to maintain BP during dialysis. No fluid removed due to decreased BP and crit-line monitor showing C-profile with minimal UF goal. Verbal report to JOSE Hernandez post tx. Next dialysis tx per nephrology.
[2020-11-24] VITALS (9 sets, daily range): BP systolic 79–108; BP diastolic 28–83; PULSE 0–102; RESP 0–24; TEMP 36.6–37.1; O2SAT 78–98
[2020-11-24 02:36] LABS: Allen Test Positive; Base Excess -13 mmol/L (-2 to +2); Bicarbonate 16.6 mmol/L (22-26); Blood Gas Specimen Type ART; FI02 100; Mode BiLevel; O2 Delivery Device Adult Vent; PO2 75 mmHG (75-100); RR 12; SITE R Radial; SO2 88 % (95-99); Total Carbon Dioxide 18 mmol/L; pCO2 56.3 mmHg (35-45); pH 7.08 (7.35-7.45)
--- NOTE | 2020-11-24 02:41 | EKG12_ITS ---
Test Reason : ORDERED EKG Blood Pressure : / mmHG Vent. Rate : 071 BPM Atrial Rate : 071 BPM P-R Int : 190 ms QRS Dur : 092 ms QT Int : 410 ms P-R-T Axes : 052 003 042 degrees QTc Int : 445 ms Sinus rhythm with Fusion complexes Nonspecific ST abnormality Abnormal ECG When compared with ECG of 18-NOV-2020 22:19, Fusion complexes are now Present Nonspecific T wave abnormality has replaced inverted T waves in Inferior leads T wave amplitude has increased in Anterior leads Confirmed by KIANNA BLAKE, TODD ([id number]), slot editor ALY WADE ([id number]) on 11/26/2020 8:08:36 AM Referred By: JONATHAN Confirmed By:TODD HUTCHISON MD
--- NOTE | 2020-11-24 03:15 | NURSING ---
Family called in to sit at the bedside at this time, patient's condition is poor, family agreeable to coming in and are on the way.
--- NOTE | 2020-11-24 03:40 | NURSING ---
Patient is maxed on levophed at 30mcg, asking if physician would like to start another medication at this time and also was called with critical blood gas results at this time. Physician Dr Monsivais ordered a Bicarb gtt, Vasopressin gtt an EKG and to call the Family at this time to come in.
--- NOTE | 2020-11-24 05:40 | NURSING ---
Patient with family at bedside at 0458 this am.
--- NOTE | 2020-11-24 08:06 | EXP.PCM_ITS ---
Preliminary Cause of Preliminary Cause of Preliminary Cause of : Acute hypoxic respiratory failure ARDS Acute COVID-19 pneumonia MSSA pneumonia Date of Admission: 11/18/20 Date of : 11/24/20 Principle Diagnosis Acute hypoxic respiratory failure ARDS Acute COVID-19 pneumonia MSSA pneumonia Acute kidney injury, new to dialysis Problem List: Active and Suspected Problems (Updated 11/22/20 @ 09:[address] Bonny Morgan MD) Metabolic acidosis (Acute) COVID-19 (Acute) Pneumonia (Acute) Elevated troponin (Acute) Acute kidney insufficiency (Acute) Acidosis, lactic (Acute) Respiratory failure (Acute) COPD exacerbation (Acute) Acute respiratory failure with hypoxia (Acute) Atrial fibrillation with RVR (Acute) Acute kidney injury (Acute) Hypoxia (Acute) Hospital Course 75-year-old male with past medical history of rheumatoid arthritis, paroxysmal atrial fibrillation, hypertension who was admitted with progressive shortness of breath, cough and fever ongoing for 1 week. Patient stated that he was vaccinated in August. He is on immunosuppressants for rheumatoid arthritis. Patient's COVID-19 test was positive. His oxygen requirements were 56% on room air. He was started on BiPAP. He was admitted to ICU. Few hours after getting to ICU, patient became worse and was intubated. His oxygen requirement continued to worsen while being hyperventilated. He was also found to have acute kidney injury and elevated troponins. Patient developed A. fib with RVR and had to be managed on amiodarone. He was continued on Eliquis. His oxygen requirements continue to worsen. His kidney function also worsened. Patient was followed by the science center display builder and locker operator as well as automotive parts interpreter. He was started on hemodialysis. Patient later on became hypotensive, was started on Levophed, was also started on antibiotics for MSSA pneumonia from sputum. Patient continued to worsen, family were called, patient was starting to have bradycardia. Family did not want any aggressive measures anymore. Patient had bradycardia and went asystole in the presence of family. Time of was 0458 Assessment & Plan Assessment/Plan (1) Metabolic acidosis: (2) COVID-19: (3) Pneumonia: QUALIFIERS: Laterality: unspecified laterality Lung location: unspecified part of lung Pneumonia type: due to unspecified organism Qualified Code(s): J18.9 - Pneumonia, unspecified organism (4) Elevated troponin: (5) Acute kidney insufficiency: (6) Acidosis, lactic: (7) Respiratory failure: QUALIFIERS: Chronicity: acute Respiratory failure complication: hypoxia and hypercapnia Qualified Code(s): J96.01 - Acute respiratory failure with hypoxia; J96.02 - Acute respiratory failure with hypercapnia Visit Charges Inpatient E&M: 74685 Disch Hosp
[2020-11-25 12:59] LABS: Pathologist Review Reviewed
== END 2020-11-24 04:58 | DRG 207 ==
LOC: ED 10:46 → ICU 11-19 07:42
PROVIDERS: Hospitalist; Internal Medicine Critical Care Medicine; Internal Medicine Nephrology; Admitting Provider Internal Medicine; Emergency Provider Emergency Medicine; Visit Provider Internal Medicine
DX: U07.1 COVID-19 (principal); J80 Acute respiratory distress syndrome; J12.82 Pneumonia due to coronavirus disease 2019; J15.211 Pneumonia due to Methicillin susceptible Staphylococcus aureus; N17.0 Acute kidney failure with tubular necrosis; J44.0 Chronic obstructive pulmonary disease with (acute) lower respiratory infection; J44.1 Chronic obstructive pulmonary disease with (acute) exacerbation; E87.4 Mixed disorder of acid-base balance; K92.0 Hematemesis; I48.92 Unspecified atrial flutter; I10 Essential (primary) hypertension; I46.9 Cardiac arrest, cause unspecified; I95.2 Hypotension due to drugs; T41.295A Adverse effect of other general anesthetics, initial encounter; I48.0 Paroxysmal atrial fibrillation; K21.9 Gastro-esophageal reflux disease without esophagitis; M06.9 Rheumatoid arthritis, unspecified; E86.0 Dehydration; R74.8 Abnormal levels of other serum enzymes; Z79.01 Long term (current) use of anticoagulants; Z79.899 Other long term (current) drug therapy; Z87.891 Personal history of nicotine dependence
CPT/HCPCS: 31500; 31720; 36600; 71045; 74018; 80048; 80053; 80076; 82550; 82570; 82803; 83605; 83735; 83880; 84100; 84300; 84478; 84484; 85025; 85379; 87040; 87070; 87077; 87186; 87205; 87340; 87426; 90937; 93005; 94002; 94003; 94640; 97802; 97803; 99251; 99285; J7030; J7040; J7050; A4216; C1752; G0257; G0463; J0290; J1940; J3010; J3490